=== PATIENT | male | born 1950 | race Caucasian/White ===

== ENCOUNTER 2023-03-30 07:36 | Outpatient (OUT) | payer OTHER, SELFPAY ==
[2023-03-30 08:21] LABS: Basophils Percent Auto 0.4 % (0.2-2.0); Eosinophils Absolute Auto 0.1 10^3/uL (0.0-0.7); Eosinophils Percent Auto 1.8 % (0.9-7.0); Hematocrit 43.9 % (42.0-54.0); Hemoglobin 15.4 g/dL (14.0-18.0); Immature Granulocytes Abs Auto 0.02 10^3/uL (0.00-0.03); Immature Granulocytes Pct Auto 0.4 % (0.0-0.5); Lymphocytes Absolute Auto 1.5 10^3/uL (1.2-3.8); Lymphocytes Percent Auto 33.2 % (20.5-60.0); Mean Corpuscular HGB Conc 35.1 g/dL (29.9-35.2); Mean Corpuscular Hemoglobin 31.3 pg (25.9-34.0); Mean Corpuscular Volume 89.2 fL (80.0-94.0); Mean Platelet Volume 9.7 fL (9.5-13.5); Monocytes Absolute Auto 0.6 10^3/uL (0.3-0.8); Monocytes Percent Auto 13.6 % (1.7-12.0); Neutrophils Absolute Auto 2.3 10^3/uL (1.4-6.5); Neutrophils Percent Auto 50.6 % (43.0-75.0); Platelet Count 179 10^3/uL (150-450); Red Blood Count 4.92 10^6/uL (4.70-6.10); Red Cell Distribution Width 12.3 % (11.0-15.0); White Blood Count 4.5 10^3/uL (4.0-11.0)
[2023-03-30 08:42] LABS: Alanine Aminotransferase 46 U/L (16-63); Albumin Level 3.7 g/dL (3.4-5.0); Alkaline Phosphatase 60 U/L (46-116); Anion Gap 11.5; Aspartate Amino Transferase 20 U/L (15-37); BUN Creatinine Ratio 12.3; Bilirubin Total 0.6 mg/dL (0.2-1.0); Calcium 8.8 mg/dL (8.5-10.1); Carbon Dioxide 28.8 mmol/L (21.0-32.0); Chloride 104 mmol/L (98-107); Chol HDL Ratio 4.7; Cholesterol 184 mg/dL (<=200); Estimated GFR (African America >60 (>=60); Estimated GFR (Non-African Ame 59 (>=60); Globulin 3.6 g/dL; Glucose 108 mg/dL (74-106); HDL Cholesterol 39 mg/dL (40-60); Potassium 4.3 mmol/L (3.5-5.1); Sodium 140 mmol/L (136-145); Total Protein 7.3 g/dL (6.4-8.2); Triglycerides 140 mg/dL (<=150)
[2023-03-30 09:04] LABS: Prostate Specific Antigen Scrn 3.38 ng/mL (<=4.00)
== END 2023-03-30 07:37 | disposition home or self-care (01) ==
PROVIDERS: PCP Internal Medicine; Visit Provider Internal Medicine
DX: Z00.00 Encounter for general adult medical examination without abnormal findings (principal); Z12.5 Encounter for screening for malignant neoplasm of prostate
CPT/HCPCS: 36415; 80053; 80061; 85025; G0103

== ENCOUNTER 2024-05-21 11:16 | Outpatient (OUT) | payer MEDICARE, SELFPAY ==
[2024-05-21 11:39] LABS: Basophils Percent Auto 0.3 % (0.2-2.0); Eosinophils Absolute Auto 0.1 10^3/uL (0.0-0.7); Eosinophils Percent Auto 1.7 % (0.9-7.0); Hematocrit 46.4 % (42.0-54.0); Hemoglobin 15.9 g/dL (14.0-18.0); Immature Granulocytes Abs Auto 0.02 10^3/uL (0.00-0.03); Immature Granulocytes Pct Auto 0.3 % (0.0-0.5); Lymphocytes Absolute Auto 1.8 10^3/uL (1.2-3.8); Lymphocytes Percent Auto 29.5 % (20.5-60.0); Mean Corpuscular HGB Conc 34.3 g/dL (29.9-35.2); Mean Corpuscular Hemoglobin 31.2 pg (25.9-34.0); Mean Corpuscular Volume 91.2 fL (80.0-94.0); Mean Platelet Volume 9.7 fL (9.5-13.5); Monocytes Absolute Auto 0.5 10^3/uL (0.3-0.8); Monocytes Percent Auto 7.8 % (1.7-12.0); Neutrophils Absolute Auto 3.6 10^3/uL (1.4-6.5); Neutrophils Percent Auto 60.4 % (43.0-75.0); Platelet Count 180 10^3/uL (150-450); Red Blood Count 5.09 10^6/uL (4.70-6.10)
[2024-05-21 12:11] LABS: Alanine Aminotransferase 33 U/L (16-63); Albumin Globulin Ratio 1.2; Albumin Level 3.9 g/dL (3.4-5.0); Alkaline Phosphatase 66 U/L (46-116); Aspartate Amino Transferase 19 U/L (15-37); BUN Creatinine Ratio 16.7; Bilirubin Total 0.6 mg/dL (0.2-1.0); Carbon Dioxide 30.1 mmol/L (21.0-32.0); Chloride 107 mmol/L (98-107); Chol HDL Ratio 4.6; Cholesterol 214 mg/dL (<=200); Estimated GFR (African America >60 (>=60 mL/min/1.73m^2); Estimated GFR (Non-African Ame 56 (>=60 mL/min/1.73m^2); Globulin 3.2 g/dL; Glucose 97 mg/dL (74-106); HDL Cholesterol 47 mg/dL (40-60); Potassium 5.1 mmol/L (3.5-5.1); Sodium 144 mmol/L (136-145); Total Protein 7.1 g/dL (6.4-8.2); Triglycerides 75 mg/dL (<=150)
[2024-05-21 12:46] LABS: Prostate Specific Antigen Scrn 3.46 ng/mL (<=4.00)
== END 2024-05-21 11:17 | disposition home or self-care (01) ==
LOC: LAB 11:18
PROVIDERS: PCP Internal Medicine; Visit Provider Internal Medicine
DX: I10 Essential (primary) hypertension (principal); E78.00 Pure hypercholesterolemia, unspecified; G47.33 Obstructive sleep apnea (adult) (pediatric); Z12.5 Encounter for screening for malignant neoplasm of prostate
CPT/HCPCS: 36415; 80053; 80061; 85025; G0103

== ENCOUNTER 2025-01-06 15:12 | Outpatient (OUT) | payer MEDICARE, OTHER, SELFPAY ==
--- OUTSIDE RECORDS SUMMARY | 2025-01-06 15:23 | XMS_ITS | Clinical Summary ---
Author Organization [facility] Address [id number] [address] [place] [address] Care Team Providers Care Certified Pedorthotist Name Role Phone Juan Torres Primary Care Provider [phone] Allergies No known active allergies Medications tamsulosin (FLOMAX) 0.4 mg capsule Take 1 capsule (0.4 mg total) by mouth in the morning. 05/09/2022 Active omeprazole (PriLOSEC) 20 mg capsule Take 1 capsule (20 mg total) by mouth in the morning. Active Active Problems No known active problems Family History Medical History Relation Name Comments Heart attack Brother 1 isacc Heart attack Brother 2 bill Heart attack Father Heart attach an d instantly Alzheimer's disease Mother Hypertension Mother Relation Name Status Comments Brother 1 isacc Alive Brother 2 bill Alive Father Mother Social History Tobacco Use Types Packs/Day Years Used Date Smoking Tobacco: Former Cigarettes Q uit: 1975 Smokeless Tobacco: Never Tobacco Cessation:Counseling Given: Not Answered Alcohol Use Standard Drinks/Week Comments Not Currently 0 (1 standard drink = 0.6 oz pur e alcohol) Childcare Answer Date Recorded Childcare Unknown 10/22/2018 Employment Answer Date Recorded Employment Unknown 10/22/2018 Hunger Screening Answer Date Recorded Within the past 12 months we worried whether our food would run out before we got money to buy more. Never True 05/21/2022 Within the past 12 months th e food we bought just didn't last and we didn't have money to get more. Never True 05/21/2022 Purpose - Life Answer Date Recorded Purpose and direction in life Unknown Sex and Gender Information Value Date Recorded Sex Assigned at Not on file Legal Sex Male 12:05 PM EDT Gender Identity Not on file Sexual Orientation Not on file Last Filed Vital Signs Vital Sign Reading Time Taken Comments Blood Pressure 162/76 06/10/2023 2:18 PM EST Pulse 76 06/10/2023 2:18 PM EST Temperature 36.1 C (97 F) 04/30/2023 1:29 PM EST Respiratory Rate 15 04/30/2023 2:13 PM EST Oxygen Saturation 95% 04/30/2023 2:13 PM EST Inhaled Oxygen Concentration - - Weight 117 kg (258 lb) 06/10/2023 2:18 PM EST Height 180.3 cm (5' 11 ) 06/10/2023 2:18 PM EST Body Mass Index 35.98 06/10/2023 2:18 PM EST Plan of Treatment Health Maintenance Due Date Last Done Comments Depression Screening 1962 DTaP,Tdap and Td Vaccines (1 - Tdap) 11/07/1971 Abdominal Aortic Aneurysm (AAA) Screen 2017 Fall Risk Screening 2017 Adult BMI Screening 06/10/2024 06/10/2023 Tobacco Screening 06/10/2024 06/10/2023 Influenza Vaccine 01/11/2025 Colonoscopy 06/27/2027 06/27/2022 Zoster (Shingles) Vaccine Completed 02/04/2022, Medical Devices Implanted Type Area Habitat Biologist Device Identifier Shelf Expiration Date Model / Serial / Lot Mesh Plstr Clgn Symbotex 15cm 2 Sd Comp [facility] [id number] Implanted:Qty: 1 on 04/30/2023 by Charles Bourgeois DO at [facility] Mesh N/A: Abdomen [employer] [place] 11/10/2027 [id number] / NA / [id number] Insurance [employer] Care Teams Certified Pedorthotist Relationship Specialty Start Date End Date Juan Torres DO [address] [place] [address] PCP - General Internal Medicine 05/21/22
--- OUTSIDE RECORDS SUMMARY | 2025-01-06 15:23 | XMS_ITS | Clinical Summary ---
Author Organization [facility] Address [address] [place] [address] Care Team Providers Care Nail Puller Name Role Phone Unavailable Primary Care Provider Unavailabl e Social History Tobacco Use Types Packs/Day Years Used Date Smoking Tobacco: Never Assessed Sex and Gender Information Value Date Recorded Sex Assigned at Not on file Legal Sex Male 6:43 PM EDT Gender Identity Not on file Sexual Orientation Not on file Last Filed Vital Signs Vital Sign Reading Time Taken Comments Blood Pressure 151/83 06/04/2018 12:00 PM EST Pulse - - Temperature - - Respiratory Rate - - Oxygen Saturation - - Inhaled Oxygen Concentration - - Weight 116 kg (256 lb) 06/04/2018 12:00 PM EST Height 182.9 cm (6') 06/04/2018 12:00 PM EST Body Mass Index 34.72 06/04/2018 12:00 PM EST Plan of Treatment Not on file Insurance MEDICARE
[2025-01-06 15:37] LABS: Hematocrit 46.9 % (42.0-54.0); Hemoglobin 16.8 g/dL (14.0-18.0); Immature Granulocytes Abs Auto 0.02 10^3/uL (0.00-0.03); Immature Granulocytes Pct Auto 0.3 % (0.0-0.5); Lymphocytes Absolute Auto 2.2 10^3/uL (1.2-3.8); Mean Corpuscular HGB Conc 35.8 g/dL (29.9-35.2); Mean Corpuscular Hemoglobin 31.7 pg (25.9-34.0); Mean Corpuscular Volume 88.5 fL (80.0-94.0); Platelet Count 202 10^3/uL (150-450); Red Blood Count 5.30 10^6/uL (4.70-6.10); White Blood Count 7.2 10^3/uL (4.0-11.0)
--- NOTE | 2025-01-06 15:43 | XR_ITS ---
The [address] [address] Patient Name: MADDY PERAZA MRN: [id number] date: 1950 Sex: M Assigned Patient Location: LAB Current Patient Location: LAB Accession/Order Number: [id number] Exam Date: 01/06/2025 15:36 Report Date: 01/06/2025 20:41 At the request of: JUSTYN STANTON DO Procedure: XR chest 2V Plain film chest 2 view HISTORY: Acute dyspnea. COMPARISON: None FINDINGS: SUPPORT DEVICES: None POSTSURGICAL CHANGES: None HEART: Within normal limits PULMONARY JUANCARLOS: Within normal limits MEDIASTINUM: Unremarkable LUNGS AND PLEURA: No acute lung process, pleural effusion or pneumothorax identified. BONY STRUCTURES: Intact ADDITIONAL FINDINGS None XR/XR chest 2V IMPRESSION: No acute process. Impression dictated by: Lennox Briscoe M.D. 01/06/2025 8:41 PM [facility]ictation [facility] Electronically authenticated by: [id number] Y Date: 01/06/2025 20:41
[2025-01-06 16:05] LABS: Alanine Aminotransferase 31 U/L (16-63); Albumin Globulin Ratio 1.1; Albumin Level 4.0 g/dL (3.4-5.0); Alkaline Phosphatase 63 U/L (46-116); Anion Gap 13.5; Aspartate Amino Transferase 18 U/L (15-37); Blood Urea Nitrogen 19.0 mg/dL (7.0-18.0); Calcium 9.1 mg/dL (8.5-10.1); Carbon Dioxide 23.7 mmol/L (21.0-32.0); Chloride 108 mmol/L (98-107); Estimated GFR (African America >60 (>=60 mL/min/1.73m^2); Estimated GFR (Non-African Ame 56 (>=60 mL/min/1.73m^2); Globulin 3.5 g/dL; Glucose 97 mg/dL (74-106); NT Pro B Type Natriuretic Pept 443.0 pg/mL (<=900.0); Potassium 4.2 mmol/L (3.5-5.1); Sodium 141 mmol/L (136-145); Thyroid Stimulating Hormone 3.428 uIU/mL (0.358-3.740); Total Protein 7.5 g/dL (6.4-8.2)
--- OUTSIDE RECORDS SUMMARY | 2025-01-06 17:43 | XMS_ITS | CCD ---
Author Organization [facility] Care Team Providers Care Vehicle Modification Technician Name Role Phone MEÑO ., DR ANTOINE Lerner Admitting Unavaila ble GRILLIS ., DR ANTOINE Lerner Attending Unavaila ble BALL, DR ALEJANDRA Primary Care Unavailable GRILLIS ., DR ANTOINE Lerner Consulting Unavaila ble SHARP, CANDE Consulting Unavailable NELY, JODY Consulting Unavailable MISC, DR PETERSON Admitting Unavailable MISC, DR PETERSON Attending Unavailable BALL, DR ALEJANDRA Primary Care Unavailable MISC, DR PETERSON Consulting Unavailable BALL, DR ALEJANDRA Admitting Unavailable BALL, DR ALEJANDRA Attending Unavailable BALL, DR ALEJANDRA Primary Care Unavailable BALL, DR ALEJANDRA Consulting Unavailable GRILLIS ., DR ANTOINE Lerner Admitting Unavaila ble GRILLIS ., DR ANTOINE Lerner Attending Unavaila ble BALL, DR ALEJANDRA Primary Care Unavailable GRILLIS ., DR ANTOINE Lerner Consulting Unavaila ble Ball, Juan Unavailable ELIZABETH CARDOSO Attending Unavailable JUAN TORRES Referring Unavailable BRIAN, JUAN Lerner Primary Care Unavailable ELIZABETH CARDOSO Attending Unavailable BALLJUAN Referring Unavailable BALL, JUAN Lerner Primary Care Unavailable Ball DO, Juan Lerner Primary Care Provider Allergies Allergy Classification Reported Allergen(s) Allergy Type Date of Onset Reaction(s) Facility (1 source) patient allergy list reviewed by nurse or physicia Propensity to adverse reactions Comment:Done Rounds Other Medications Current Medications Medication Drug Class(es) Dates Sig (Normalized) Sig (Original) amLODIPine 5 mg oral tablet (1 source) Dihydropyridine Calcium Channel [place] Start: 05-21-2024 take 1 tablet by mouth once daily Amlodipine 5 mg tablet Active 5 MG PO Daily 30 May 21, 2024 12:00am omeprazole 20 mg delayed release oral capsule (11 sources) Proton Pump Inhibitor Start: 09-24-2023 take 1 capsule by mouth once daily Omeprazole 20 mg capsule,delayed release(/EC) Active 20 MG PO Daily September 23, 2023 11:00pm tamsulosin hydrochloride 0.4 mg oral capsule (13 sources) alpha-Adrenergic [place] Start: 02-16-2024 End: 05-19-2024 take 1 capsule by mouth once daily at dinner Tamsulosin 0.4 mg capsule Active 0 .ROUTE .COMPLEX 90 May 19, 2024 1:00pm TAKE 1 CAPSULE BY MOUTH EVERY DAY AFTER EVENING MEAL Start: 05-09-2022 End: 02-16-2024 take 1 capsule by mouth once daily Tamsulosin 0.4 mg capsule Discontinued 0.4 MG PO Daily September 23, 2023 11:00pm February 16, 2024 6:40pm Completed/Discontinued Medications Medication Drug Class(es) Dates Sig (Normalized) Sig (Original) acetaminophen 325 mg / oxyCODONE hydrochloride 5 mg oral tablet (1 source) Opioid Agonist Start: 04-30-2023 End: 05-14-2023 oxyCODONE-acetamin ophen (PERCOCET) 5-325 mg per tablet Indications: Incarcerated ventral hernia Take 1 tablet by mouth every 6 (six) hours as needed for pain for up to 12 doses. Max Daily Amount: 4 tablets 12 tablet 0 04/30/2023 05/14/2023 Discontinued (Therapy completed) atorvastatin 40 mg oral tablet (8 sources) HMG-CoA Reductase Inhibitor Start: 09-24-2023 End: 05-21-2024 take 1 tablet by mouth once daily Atorvastatin 40 mg tablet Discontinued 40 MG PO Daily September 23, 2023 11:00pm May 21, 2024 10:34am take 1 tablet by elvi th every twenty-four hours Atorvastatin Calcium 40 MG 1 tablet Oral ly Once a day Active ibuprofen 800 mg oral tablet (1 source) Nonsteroidal Anti-inflammatory Drug Start: 04-30-2023 End: 05-14-2023 take 1 tablet by mouth every eight hours as needed for pain ibuprofen (MOTRIN) 800 mg tablet Take 1 tablet (800 mg total) by mouth every 8 (eight) hours as needed for pain. 30 tablet 0 04/30/2023 05/14/2023 Discontinued (Therapy completed) loratadine 10 mg oral tablet (11 sources) Start: 09-24-2023 End: 05-21-2024 take 1 tablet by mouth once daily Loratadine 10 mg tablet Discontinued 10 MG PO Daily September 23, 2023 11:00pm May 21, 2024 10:34am take 1 tablet by mouth once donal y Loratadine 10 MG TAKE 1 TABLET BY MOUTH EVERY DAY for 90 Active losartan potassium 25 mg oral tablet (8 sources) Angiotensin 2 Receptor [place] Start: 09-24-2023 End: 05-21-2024 take 1 tablet by mouth once daily Losartan 25 mg tablet Discontinued 25 MG PO Daily September 23, 2023 11:00pm May 21, 2024 10:34am Start: 11-19-2022 take 1 tablet by elvi th every twenty-four hours Losartan Potassium 25 MG 1 tablet Orally Once a day for 30 days Nov, Active Problems Active Problems Problem Classification Problem Date Documented Da te Episodic/Chronic Abdominal hernia (1 source) Umbilical hernia without obstruction or gangrene Episodic Disorders of lipid metabolism (19 sources) Pure hypercholesterolemia ; Translations: [Familial hypercholesterolemia ] Chronic Esophageal disorders (20 sources) Lucas's esophagus without dysplasia; Translations: [Gastro-esophageal reflux disease without esophagitis] Onset: 03-01-2014 Chronic Essential hypertension (20 sources) Essential hypertension; Translations: [Essential (primary) hypertension] Chronic Gastritis and duodenitis (1 source) Gastritis, unspecified, without bleeding; Translations: [GASTRITIS UNS WITHOUT BLEEDING] Onset: 07-03-2022 Episodic Genitourinary symptoms and ill-defined conditions (2 sources) Unspecified abnormal findings in urine; Translations: [Nocturia] Onset: 03-19-2022 Episodic Heart valve disorders (8 sources) Aortic valve sclerosis; 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] Chronic Hyperplasia of prostate (11 sources) Lower urinary tract symptoms due to benign prostatic hypertrophy; Translations: [Benign prostatic hyperplasia with lower urinary tract symptoms] Onset: 01-04-2017 Chronic Inflammatory conditions of male genital organs (4 sources) Acute prostatitis; Translations: [Acute prostatitis] Episodic Other aftercare (1 source) Other prison (current) drug therapy; Translations: [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] Onset: 07-03-2022 Episodic Other and unspecified benign neoplasm (1 source) Personal history of colonic polyps; Translations: [PERSONAL HISTORY OF COLONIC POLYPS] Onset: 07-03-2022 Episodic Other circulatory disease (1 source) Elevated blood-pressure reading without diagnosis of hypertension; Translations: [Elevated blood-pressure reading, without diagnosis of hypertension] Episodic Other gastrointestinal disorders (1 source) Personal history of other diseases of the digestive system; Translations: [Personal history of other diseases of the digestive system] Onset: 05-14-2023 Episodic Other nutritional; endocrine; and metabolic disorders (2 sources) Morbid (severe) obesity due to excess calories; Translations: [MORBID SEVERE OBES D/T EXCESS RAUL] Onset: 07-03-2022 Chronic Other nutritional; endocrine; and metabolic disorders (1 source) Body mass index (BMI) 37.0-37.9, adult; Translations: [BODY MASS INDEX BMI 37.0-37.9 ADULT] Onset: 07-03-2022 Chronic Other nutritional; endocrine; and metabolic disorders (13 sources) Body mass index 30+ - obesity; Translations: [Body mass index (BMI) 34.0-34.9, adult] Onset: 03-19-2017 Chronic Other nutritional; endocrine; and metabolic disorders (7 sources) Obesity caused by energy imbalance; Translations: [Other obesity due to excess calories] Chronic Other nutritional; endocrine; and metabolic disorders (1 source) Other obesity due to excess calories Chronic Other nutritional; endocrine; and metabolic disorders (1 source) Body mass index (BMI) 34.0-34.9, adult Chronic Other nutritional; endocrine; and metabolic disorders (1 source) Obese class II; Translations: [Body mass index (BMI) 35.0-35.9, adult] Onset: 12-22-2015 Chronic Other nutritional; endocrine; and metabolic disorders (2 sources) Obesity; Translations: [Obesity, unspecified] 05-19-2024 Chronic Other nutritional; endocrine; and metabolic disorders (1 source) Morbid obesity; Translations: [Morbid (severe) obesity due to excess calories] Onset: 12-22-2015 Chronic Other nutritional; endocrine; and metabolic disorders (5 sources) Severe obesity; Translations: [Morbid (severe) obesity due to excess calories] Chronic Other nutritional; endocrine; and metabolic disorders (1 source) Body mass index (BMI) 35.0-35.9, adult Chronic Other nutritional; endocrine; and metabolic disorders (1 source) Obesity, unspecified; Translations: [Obesity, unspecified] 05-21-2024 Chronic Other screening for suspected conditions (not mental disorders or infectious disease) (5 sources) Encounter for screening for malignant neoplasm of prostate; Translations: [Encounter for screening for diseases of the blood and blood-forming organs and certain disorders involving the immune mechanism] Onset: 12-22-2015 Episodic Comment on above: PSA: 3.78 - 03/2022, 3.38 - 03/2023 Other upper respiratory disease (7 sources) Allergic rhinitis due to pollen; Translations: [Allergic rhinitis due to pollen] Chronic Other upper respiratory disease (1 source) Allergic rhinitis; Translations: [Other allergic rhinitis] Chronic Other upper respiratory disease (1 source) Rhinitis medicamentosa; Translations: [Chronic rhinitis] 05-21-2024 Chronic Other upper respiratory disease (1 source) Chronic rhinitis; Translations: [Chronic rhinitis] 05-21-2024 Chronic Residual codes; unclassified (17 sources) Obstructive sleep apnea syndrome; Translations: [Obstructive sleep apnea (adult) (pediatric)] Onset: 12-22-2015 09-23-2023 Chronic Residual codes; unclassified (4 sources) Obstructive sleep apnea (adult) (pediatric); Translations: [Obstructive sleep apnea (adult)(pediatric)] Chronic Residual codes; unclassified (1 source) Acquired absence of other specified parts of digestive tract; Translations: [ACQ ABSENCE OTH PART DIGESTV TRACT] Onset: 07-03-2022 Episodic Residual codes; unclassified (1 source) Other specified postprocedural states; Translations: [Other specified postprocedural states] Onset: 05-14-2023 Episodic Substance-related disorders (8 sources) Tobacco user; Translations: [Nicotine dependence, cigarettes, in remission] Chronic Unclassified (1 source) CONTACT W/AND (SUSP) EXPOS COVID-19; Translations: [CONTACT W/AND (SUSP) EXPOS COVID-19] Onset: 06-29-2022 Unclassified (1 source) POST-OP VISIT Onset: 05-14-2023 Past or Other Problems Problem Classification Problem Date Documented Date Episodic/Chronic Malaise and fatigue (1 source) Malaise and fatigue; Translations: [Other malaise and fatigue] Onset: 12-22-2015 Episodic Other eye disorders (4 sources) Dermatochalasis of unspecified eye, unspecified eyelid; Translations: [DERMATOCHALASIS UNS EYE UNS EYELID] Onset: 03-06-2022 Episodic Other eye disorders (1 source) Unspecified ptosis of unspecified eyelid; Translations: [UNSPEC PTOSIS OF UNS EYELID] Onset: 03-11-2022 Episodic Other injuries and conditions due to external causes (1 source) Foreign body in left ear; Translations: [Foreign body in left ear, initial encounter] Onset: 03-19-2017 Episodic Other upper respiratory disease (1 source) Difficulty speaking; Translations: [Other voice and resonance disorders] Onset: 03-01-2014 Episodic Residual codes; unclassified (2 sources) History of hernia repair; Translations: [Other specified postprocedural states] 05-14-2023 Episodic Screening and history of mental health and substance abuse codes (2 sources) Personal history of nicotine dependence; Translations: [History of tobacco use] Onset: 03-19-2017 Episodic Results Test Name Value Interpretation Reference Range Facil ity H PYLORI TISSUEon 06-27-2022 H PYL TISSUE, UREASE Negative Normal NEGATIVE [facility] Comment on above: Performed By: #### H PYLT #### [facility] [address] [place] [address] Dr. Cash Zapata Covid-19 PCR (CVDTB)on 06-13 SARS-CoV-2 (COVID-19) RNA MICAH+probe Ql (Unsp spec) Not detected Normal NOT DETECTED [facility] Comment on above: Result Comment: This test is not yet approved or cleared by the [place] FDA. When there are no FDA-approved or cleared tests available, and other criteria are met, FDA can make tests available under an emergency access mechanism called an Emergency Use Authorization (EUA). The EUA for this test is supported by the [place] of Health and Human Service's (HHS's) declaration that circumstances exist to justify the emergency use of in vitro diagnostics for the detection and/or diagnosis of the virus that causes COVID-19. This EUA will remain in effect (meaning this test can be used) for the duration of the COVID-19 declaration justifying emergency of IVDs, unless it is terminated or revoked by FDA (after which the test may no longer be used). When diagnostic testing is negative, the possibility of a false negative should be considered in the context of a patient's recent exposures and the presence of clinical signs and symptoms consistent with SARS-CoV-2. Performed By: #### C VDTBH #### [facility] [address] [address] [address] Cash Zapata CBC AUTO DIFFon 03-14-2022 BASO # 0.0 103/ul Normal 0.0-0.1 [facility] Comment on above: Performed By: #### C BC #### [facility] [address] [address] [address] Cash Zapata Basophils/100 WBC (Bld) 0.3 % Normal 0.2-2.0 [facility] Comment on above: Performed By: #### C BC #### [facility] [address] [address] [address] Cash Zapata EO # 0.1 103/ul Normal 0.0-0.7 [facility] Comment on above: Performed By: #### C BC #### [facility] [address] [place] [address] Dr. Cash Zapata Eosinophils/100 WBC (Bld) 1.1 % Normal 0.9-7.0 [facility] Comment on above: Performed By: #### C BC #### [facility] [address] [place] [address] Dr. Cash Zapata Erythrocyte distribution width (RBC) [Ratio] 12.8 % Normal 11.0-15.0 [facility] Comment on above: Performed By: #### C BC #### [facility] [address] [place] [address] Dr. Cash Zapata Hematocrit (Bld) [Volume fraction] 46.3 % Normal 42.0-54.0 [facility] Comment on above: Performed By: #### C BC #### [facility] [address] [place] [address] Dr. Cash Zapata Hemoglobin (Bld) [Mass/Vol] 16.0 g/dL Normal 14.0-18.0 [facility] Comment on above: Performed By: #### C BC #### [facility] [address] [address] [address] Cash Zapata IG # 0.04 10e3/ul Critically high 0.00-0.03 [facility] Comment on above: Performed By: #### C BC #### [facility] [address] [place] [address] Dr. Cash Zapata IG % 0.6 % Critically high 0.0-0.5 [facility] Comment on above: Performed By: #### C BC #### [facility] [address] [place] [address] Dr. Cash Zapata LYMPH # 1.9 103/ul Normal 1.2-3.8 [facility] Comment on above: Performed By: #### C BC #### [facility] [address] [place] [address] Dr. Cash Zapata Lymphocytes/100 WBC (Bld) 25.9 % Normal 20.5-60.0 [facility] Comment on above: Performed By: #### C BC #### [facility] [address] [place] [address] Dr. Cash Zapata MANUAL DIFF REQ NO Normal [facility] Comment on above: Performed By: #### C BC #### [facility] [address] [place] [address] Dr. Cash Zapata MCH (RBC) [Entitic mass] 30.7 pg Normal 25.9-34.0 [facility] Comment on above: Performed By: #### C BC #### [facility] [address] [place] [address] Dr. Cash Zapata MCHC (RBC) [Mass/Vol] 34.6 g/dL Normal 29.9-35.2 [facility] Comment on above: Performed By: #### C BC #### [facility] [address] [place] [address] Dr. Cash Zapata MCV (RBC) [Entitic vol] 88.9 fL Normal 80.0-94.0 [facility] Comment on above: Performed By: #### C BC #### [facility] [address] [place] [address] Dr. Cash Zapata MONO # 0.6 103/ul Normal 0.3-0.8 [facility] Comment on above: Performed By: #### C BC #### [facility] [address] [place] [address] Dr. Cash Zapata Monocytes/100 WBC (Bld) 8.5 % Normal 1.7-12.0 [facility] Comment on above: Performed By: #### C BC #### [facility] [address] [place] [address] Dr. Cash Zapata NEUT # 4.6 103/ul Normal 1.4-6.5 [facility] Comment on above: Performed By: #### C BC #### [facility] [address] [place] [address] Dr. Cash Zapata Neutrophils/100 WBC (Bld) 63.6 % Normal 43.0-75.0 [facility] Comment on above: Performed By: #### C BC #### [facility] [address] [place] [address] Dr. Cash Zapata Platelet mean volume (Bld) [Entitic vol] 9.0 fL Critically low 9.5-13.5 [facility] Comment on above: Performed By: #### C BC #### [facility] [address] [place] [address] Dr. Cash Zapata PLT 209 103/ul Normal 150-450 [facility] Comment on above: Performed By: #### C BC #### [facility] [address] [place] [address] Dr. Cash Zapata RBC 5.21 106/ul Normal 4.70-6.10 [facility] Comment on above: Performed By: #### C BC #### [facility] [address] [place] [address] Dr. Cash Zapata WBC 7.3 103/ul Normal 4.0-11.0 [facility] Comment on above: Performed By: #### C BC #### [facility] [address] [place] [address] Dr. Cash Zapata CULTURE URINEon 03-14-2022 CULTURE URINE Culture Observations : NO GROWTH. Normal [facility] Comment on above: Performed By: #### U RCX #### [facility] [address] [address] [address] Cash Zapata LIPID PROFILEon 03-14-2022 CHOL-HDL RATIO NORM SEE BELOW Normal [facility] Comment on above: Result Comment: 3.3 - 4.4 LOW RISK 4.4 - 7.1 AVERAGE RISK 7.1 - 11.0 MODERATE RISK >11.0 HIGH RISK Performed By: #### C MP, LIPID #### [facility] [address] [address] [address] Cash Zapata Cholesterol [Mass/Vol] 187 mg/dL Normal <=200 [facility] Comment on above: Performed By: #### C MP, LIPID #### [facility] [address] [address] [address] Cash Zapata Cholesterol in HDL [Mass/Vol] 44 mg/dL Normal 40-60 [facility] Comment on above: Performed By: #### C MP, LIPID #### [facility] [address] [address] [address] Cash Zapata Cholesterol in LDL [Mass/Vol] 124.6 mg/dL Normal [facility] Comment on above: Performed By: #### C MP, LIPID #### [facility] [address] [address] [address] Cash Zapata Cholesterol.total/C holesterol in HDL [Mass ratio] 4.3 {ratio} Normal [facility] Comment on above: Performed By: #### C MP, LIPID #### [facility] [address] [address] [address] Cash Zapata HDL NORMAL > or = 60 mg/dl - LO W CARDIOVASCULAR RISK <40 mg/dl - HIGH CARDIOVASCULAR RISK Normal [facility] Comment on above: Performed By: #### C MP, LIPID #### [facility] [address] [address] [address] Cash Zapata LDL CALC NORMAL SEE BELOW Normal [facility] Comment on above: Result Comment: <100 mg/dl OPTIMAL 100 - 129 mg/dl NEAR OR ABOVE OPTIMAL 130 - 159 mg/dl BORDERLINE HIGH 160 - 189 mg/dl HIGH >190 mg/dl VERY HIGH Performed By: #### C MP, LIPID #### [facility] [address] [place] [address] Dr. Cash Zapata Triglyceride [Mass/Vol] 92 mg/dL Normal <=150 [facility] Comment on above: Performed By: #### C MP, LIPID #### [facility] [address] [place] [address] Dr. Cash Zapata VLDL CALC 18.4 mg/dL Normal [facility] Comment on above: Performed By: #### C MP, LIPID #### [facility] [address] [place] [address] Dr. Cash Zapata PROF 14(COMP METB)on 022 Albumin [Mass/Vol] 4.0 g/dL Normal 3.4-5.0 [facility] Comment on above: Performed By: #### C MP, LIPID #### [facility] [address] [place] [address] Dr. Cash Zapata Albumin/Globulin [Mass ratio] 1.2 {ratio} Normal [facility] Comment on above: Performed By: #### C MP, LIPID #### [facility] [address] [place] [address] Dr. Cash Zapata ALP [Catalytic activity/Vol] 47 U/L Normal 46-116 [facility] Comment on above: Performed By: #### C MP, LIPID #### [facility] [address] [place] [address] Dr. Cash Zapata ALT [Catalytic activity/Vol] 52 U/L Normal 16-63 [facility] Comment on above: Performed By: #### C MP, LIPID #### [facility] [address] [place] [address] Dr. Cash Zapata Anion gap [Moles/Vol] 9.8 mmol/L Normal [facility] Comment on above: Performed By: #### C MP, LIPID #### [facility] [address] [place] [address] Dr. Cash Zapata AST [Catalytic activity/Vol] 21 U/L Normal 15-37 [facility] Comment on above: Performed By: #### C MP, LIPID #### [facility] [address] [place], [place] [id number] Dr. Cash Zapata Bilirubin [Mass/Vol] 0.5 mg/dL Normal 0.2-1.0 [facility] Comment on above: Performed By: #### C MP, LIPID #### [facility] [address] [place] [address] Dr. Cash Zapata Calcium [Mass/Vol] 9.5 mg/dL Normal 8.5-10.1 [facility] Comment on above: Performed By: #### C MP, LIPID #### [facility] [address] [place] [address] Dr. Cash Zapata Chloride [Moles/Vol] 104 mmol/L Normal 98-107 [facility] Comment on above: Performed By: #### C MP, LIPID #### [facility] [address] [place] [address] Dr. Cash Zapata CO2 [Moles/Vol] 31.3 mmol/L Normal 21.0-32.0 [facility] Comment on above: Performed By: #### C MP, LIPID #### [facility] [address] [place] [address] Dr. Cash Zapata Creatinine [Mass/Vol] 1.26 mg/dL Normal 0.70-1.30 [facility] Comment on above: Performed By: #### C MP, LIPID #### [facility] [address] [place] [address] Dr. Cash Zapata EGFR-AF IRISH >60 Normal >=60 [facility] [facility] Comment on above: Performed By: #### C MP, LIPID #### [facility] [address] [place] [address] Dr. Cash Zapata EGFR-NON AF IRISH 57 mL/min/1.73m2 Critically low >=60 [facility] Comment on above: Performed By: #### C MP, LIPID #### [facility] [address] [place] [address] Dr. Cash Zapata Globulin (S) [Mass/Vol] 3.3 g/dL Normal [facility] Comment on above: Performed By: #### C MP, LIPID #### [facility] [address] [address] [address] Cash Zapata Glucose [Mass/Vol] 109 mg/dL Critically high 74-106 [facility] Comment on above: Performed By: #### C MP, LIPID #### [facility] [address] [place] [address] Dr. Cash Zapata Potassium [Moles/Vol] 5.1 mmol/L Normal 3.5-5.1 [facility] Comment on above: Performed By: #### C MP, LIPID #### [facility] [address] [place] [address] Dr. Cash Zapata Protein [Mass/Vol] 7.3 g/dL Normal 6.4-8.2 The [facility] Comment on above: Performed By: #### C MP, LIPID #### [facility] [address] [place] [address] Dr. Cash Zapata Sodium [Moles/Vol] 140 mmol/L Normal 136-145 [facility] Comment on above: Performed By: #### C MP, LIPID #### [facility] [address] [place] [address] Dr. Cash Zapata Urea nitrogen [Mass/Vol] 23.0 mg/dL Critically high 7.0-18.0 [facility] Comment on above: Performed By: #### C MP, LIPID #### [facility] [address] [place] [address] Dr. Cash Zapata Urea nitrogen/Creatinine [Mass ratio] 18.3 mg/mg Normal [facility] Comment on above: Performed By: #### C MP, LIPID #### [facility] [address] [place] [address] Dr. Cash Zapata UA RANDOM W/MICROSCOPICon BACTERIA NONE SEEN Normal NONE SEEN The [facility] Comment on above: Performed By: #### U AMIC #### [facility] [address] [place] [address] Dr. Cash Zapata Bilirubin Ql (U) Negative Normal NEGATIVE The [facility] Comment on above: Performed By: #### U AMIC #### [facility] [address] [place] [address] Dr. Cash Zapata CAST NONE SEEN Normal NONE SEEN [facility] Comment on above: Performed By: #### U AMIC #### [facility] [address] [address] [address] Cash Zapata Clarity (U) CLEAR Normal CLEAR [facility] Comment on above: Performed By: #### U AMIC #### [facility] [address] [address] [address] Cash Zapata Color (U) LT. YELLOW Normal YELLOW The [facility] Comment on above: Performed By: #### U AMIC #### [facility] [address] [place] [address] Dr. Cash Zapata Crystals LM Nom (Urine sed) NONE SEEN Normal NONE SEEN [facility] Comment on above: Performed By: #### U AMIC #### [facility] [address] [place] [address] Dr. Cash Zapata Epithelial cells LM Ql (Urine sed) RARE Normal NONE SEEN /RARE The [facility] Comment on above: Performed By: #### U AMIC #### [facility] [address] [place] [address] Dr. Cahs Zapata Glucose Ql (U) Negative Normal NEGATIVE The [facility] Comment on above: Performed By: #### U AMIC #### [facility] [address] [place] [address] Dr. Cash Zapata Hemoglobin Ql (U) Negative Normal NEGATIVE The [facility] Comment on above: Performed By: #### U AMIC #### [facility] [address] [place] [address] Dr. Cash Zapata Ketones Ql (U) Negative Normal NEGATIVE The [facility] Comment on above: Performed By: #### U AMIC #### [facility] [address] [place] [address] Dr. Cash Zapata LEUKOCYTES Negative Normal NEGATIVE The [facility] Comment on above: Performed By: #### U AMIC #### [facility] [address] [place] [address] Dr. Csah Zapata MUCOUS NONE SEEN Normal NONE SEEN [facility] Comment on above: Performed By: #### U AMIC #### [facility] [address] [place] [address] Dr. Cash Zapata Nitrite Ql (U) Negative Normal NEGATIVE The [facility] Comment on above: Performed By: #### U AMIC #### [facility] [address] [place] [address] Dr. Cash Zapata pH (U) 6.0 [pH] Normal 5-9 [facility] Comment on above: Performed By: #### U AMIC #### [facility] [address] [place] [address] Dr. Cash Zapata RBC NONE SEEN Abnormal 0-2 [facility] Comment on above: Performed By: #### U AMIC #### [facility] [address] [place] [address] Dr. Cash Zapata SPEC GRAVITY 1.025 Normal 1.005-<=1.025 The [facility] Comment on above: Performed By: #### U AMIC #### [facility] [address] [place] [address] Dr. Cash Zapata UA PROTEIN Negative Normal NEGATIVE/ TRACE [facility] Comment on above: Performed By: #### U AMIC #### [facility] [address] [place] [address] Dr. aCsh Zapata Urobilinogen Qn (U) 1.0 {Atilio'U}/dL Normal 0.2 - 1. 0 [facility] Comment on above: Performed By: #### U AMIC #### [facility] [address] [place] [address] Dr. Cash Zapata WBC 0-2 Abnormal NONE SEEN The [facility] Comment on above: Performed By: #### U AMIC #### [facility] [address] [place] [address] Dr. Cash Zapata CBC AUTO DIFFon 03-06-2022 BASO # 0.0 103/ul Normal 0.0-0.1 [facility] Comment on above: Performed By: #### C BC #### [facility] [address] [place] [address] Dr. Cash Zapata Basophils/100 WBC (Bld) 0.3 % Normal 0.2-2.0 [facility] Comment on above: Performed By: #### C BC #### [facility] [address] [place] [address] Dr. Cash Zapata EO # 0.1 103/ul Normal 0.0-0.7 [facility] Comment on above: Performed By: #### C BC #### [facility] [address] [place] [address] Dr. Cash Zapata Eosinophils/100 WBC (Bld) 1.4 % Normal 0.9-7.0 [facility] Comment on above: Performed By: #### C BC #### [facility] [address] [place] [address] Dr. Cash Zapata Erythrocyte distribution width (RBC) [Ratio] 12.4 % Normal 11.0-15.0 [facility] Comment on above: Performed By: #### C BC #### [facility] [address] [place] [address] Dr. Cash Zapata Hematocrit (Bld) [Volume fraction] 46.5 % Normal 42.0-54.0 [facility] Comment on above: Performed By: #### C BC #### [facility] [address] [place] [address] Dr. Cash Zapata Hemoglobin (Bld) [Mass/Vol] 16.4 g/dL Normal 14.0-18.0 [facility] Comment on above: Performed By: #### C BC #### [facility] [address] [place] [address] Dr. Cash Zapata IG # 0.02 10e3/ul Normal 0.00-0.03 [facility] Comment on above: Performed By: #### C BC #### [facility] [address] [place] [address] Dr. Cash Zapata IG % 0.3 % Normal 0.0-0.5 [facility] Comment on above: Performed By: #### C BC #### [facility] [address] [place] [address] Dr. Cash Zapata LYMPH # 2.5 103/ul Normal 1.2-3.8 [facility] Comment on above: Performed By: #### C BC #### [facility] [address] [place] [address] Dr. Cash Zapata Lymphocytes/100 WBC (Bld) 39.4 % Normal 20.5-60.0 [facility] Comment on above: Performed By: #### C BC #### [facility] [address] [place] [address] Dr. Cash Zapata MANUAL DIFF REQ NO Normal [facility] Comment on above: Performed By: #### C BC #### [facility] [address] [place] [address] Dr. Cash Zapata MCH (RBC) [Entitic mass] 31.2 pg Normal 25.9-34.0 [facility] Comment on above: Performed By: #### C BC #### [facility] [address] [place] [address] Dr. Cash Zapata MCHC (RBC) [Mass/Vol] 35.3 g/dL Critically high 29.9-35.2 [facility] Comment on above: Performed By: #### C BC #### [facility] [address] [place] [address] Dr. Cash Zapata MCV (RBC) [Entitic vol] 88.6 fL Normal 80.0-94.0 [facility] Comment on above: Performed By: #### C BC #### [facility] [address] [place] [address] Dr. Cash Zapata MONO # 0.7 103/ul Normal 0.3-0.8 [facility] Comment on above: Performed By: #### C BC #### [facility] [address] [place] [address] Dr. Cash Zapata Monocytes/100 WBC (Bld) 10.4 % Normal 1.7-12.0 [facility] Comment on above: Performed By: #### C BC #### [facility] [address] [place] [address] Dr. Cash Zapata NEUT # 3.1 103/ul Normal 1.4-6.5 [facility] Comment on above: Performed By: #### C BC #### [facility] [address] [address] [address] Cash Zapata Neutrophils/100 WBC (Bld) 48.2 % Normal 43.0-75.0 [facility] Comment on above: Performed By: #### C BC #### [facility] [address] [address] [address] Cash Zapata Platelet mean volume (Bld) [Entitic vol] 9.4 fL Critically low 9.5-13.5 [facility] Comment on above: Performed By: #### C BC #### [facility] [address] [place] [address] Dr. Cash Zapata PLT 210 103/ul Normal 150-450 [facility] Comment on above: Performed By: #### C BC #### [facility] [address] [place] [address] Dr. Cash Zapata RBC 5.25 106/ul Normal 4.70-6.10 [facility] Comment on above: Performed By: #### C BC #### [facility] [address] [address] [address] Cash Zapata WBC 6.4 103/ul Normal 4.0-11.0 [facility] Comment on above: Performed By: #### C BC #### [facility] [address] [place] [address] Dr. Cash Zapata Vital Signs Date Time Vital Sign Value Performing Clinician Facility 05-21-2024 10:36-0500 Body height 180.34 cm [facility] 05-21-2024 10:36-0500 Body mass index (BMI) [Ratio] 34.2 kg/m2 [facility] 05-21-2024 10:36-0500 Body weight 111.35 kg [facility] 05-21-2024 10:36-0500 Diastolic blood pressure 73 mm[Hg] [facility] 05-21-2024 10:36-0500 Heart rate 65 /min [facility] 05-21-2024 10:36-0500 Respiratory rate 12 /min [facility] 05-21-2024 10:36-0500 Systolic blood pressure 170 mm[Hg] [facility] 06-10-2023 14:18-0500 Body height 180.3 cm Elizabeth Cardoso [employer] TECH[employer]ICIAN Work Phone: [facility] 06-10-2023 14:18-0500 Body mass index (BMI) [Ratio] 35.98 kg/m2 Elizabeth Cardoso [employer] TECHNICIAN Work Phone: [facility] 06-10-2023 14:18-0500 Body weight 117.03 kg Elizabeth Cardoso [employer] TECHNICIAN Work Phone: [facility] 06-10-2023 14:18-0500 Diastolic blood pressure 76 mm[Hg] Elizabeth Cardoso [employer] TECHNICIAN Work Phone: [facility] 06-10-2023 14:18-0500 Heart rate 76 /min Elizabeth Cardoso [employer] TECHNICIAN Work Phone: [facility] 06-10-2023 14:18-0500 Systolic blood pressure 162 mm[Hg] Elizabeth Cardoso [employer] TECHNICIAN Work Phone: [facility] 05-14-2023 13:47-0500 Body height 180.3 cm Elizabeth Cardoso [employer] TECHNICIAN Work Phone: [facility] 05-14-2023 13:47-0500 Body mass index (BMI) [Ratio] 35.93 kg/m2 Elizabeth Cardoso [employer] TECHNICIAN Work Phone: [facility] 05-14-2023 13:47-0500 Body weight 116.85 kg Elizabeth Cardoso [employer] TECHNICIAN Work Phone: [facility] 05-14-2023 13:47-0500 Diastolic blood pressure 64 mm[Hg] Elizabeth Cardoso [employer] TECHNICIAN Work Phone: [facility] 05-14-2023 13:47-0500 Systolic blood pressure 145 mm[Hg] Elizabeth Cardoso [employer] TECHNICIAN Work Phone: [employer] 04-26-2023 10:30-0500 Body height 182.88 cm Juan Ball Other Rounds Other 04-26-2023 10:30-0500 Body mass index (BMI) [Ratio] 34.28 kg/m2 Juan Ball Other Rounds Other 04-26-2023 10:30-0500 Body weight 114.67 kg Juan Ball Other Rounds Other 04-26-2023 10:30-0500 Diastolic blood pressure 90 mm[Hg] Juan Ball Other Rounds Other 04-26-2023 10:30-0500 Respiratory rate 12 /min Juan Ball Other Rounds Other 04-26-2023 10:30-0500 Systolic blood pressure 150 mm[Hg] Juan Ball Other Rounds Other 03-27-2023 11:30-0500 Body height 182.88 cm Juan Ball Other Rounds Other 03-27-2023 11:30-0500 Body mass index (BMI) [Ratio] 35.01 kg/m2 Juan Ball Other Rounds Other 03-27-2023 11:30-0500 Body weight 117.12 kg Juan Ball Other Rounds Other 03-27-2023 11:30-0500 Diastolic blood pressure 76 mm[Hg] Juan Ball Other Rounds Other 03-27-2023 11:30-0500 Respiratory rate 12 /min Juan [employer] Other Rounds Other 03-27-2023 11:30-0500 Systolic blood pressure 133 mm[Hg] Juan [employer] Other Rounds Other 11-19-2022 13:30-0400 Body height 182.88 cm Juan [employer] Other Rounds Other 11-19-2022 13:30-0400 Body mass index (BMI) [Ratio] 34.17 kg/m2 [id number] Other Rounds Other 11-19-2022 13:30-0400 Body weight 114.31 kg [id number] Other Rounds Other 11-19-2022 13:30-0400 Diastolic blood pressure 82 mm[Hg] Juan [employer] Other Rounds Other 11-19-2022 13:30-0400 Respiratory rate 16 /min Juan [employer] Other Rounds Other 11-19-2022 13:30-0400 Systolic blood pressure 156 mm[Hg] Juan [employer] Other Rounds Other Encounters Encounter Date Encounter Type Care Provider Facility Start: 05-21-2024 End: 05-21-2024 ambulatory [facility] Work Phone: Start: 05-21-2024 End: 05-21-2024 Patient encounter procedure [facility] Work Phone: Start: 06-10-2023 End: 06-10-2023 ambulatory ELIZABETH CARDOSO [facility] Start: 06-10-2023 End: 06-10-2023 Postop follow up visit related to original px Elizabeth Cardoso [employer] TECHNICIAN [facility] Comment on above: Status post hernia r epair (Primary Dx) Start: 05-14-2023 End: 05-14-[address] [facility] Caleb CARDOSO [facility] Start: 05-14-2023 End: 05-14-2023 Postop follow up visit related to original px Elizabeth Cardoso [employer] TECHNICIAN Work Phone: [facility] Comment on above: Status post hernia r epair (Primary Dx) Start: 04-30-2023 End: 04-30-2023 ambulatory Juan Torres Other Rounds Other Start: 04-30-2023 Telephone encounter Juan Torres [facility] Start: 04-26-2023 End: 04-26-2023 ambulatory Juan Torres Other Rounds Other Start: 04-26-2023 Encounter for other preprocedural examination Juan Ball [facility] Start: 04-26-2023 Office outpatient vi sit 25 minutes Juan Brian [facility] Start: 04-26-2023 Telephone encounter Juan Torres [facility] Start: 04-19-2023 End: 03-17-2024 Telephone encounter Hanane [facility] Start: 04-01-2023 End: 04-01-2023 ambulatory Juan Torres Other Rounds Other Start: 04-01-2023 Telephone encounter Juan Torres [facility] Start: 03-27-2023 End: 03-27-2023 ambulatory Juan Brian Other Rounds Other Start: 03-27-2023 Encounter for genera l adult medical examination without abnormal findings Juan Ball [facility] Start: 03-27-2023 Periodic preventive med est patient 65yrs& older Juan Torres [facility] Start: 02-22-2023 End: 02-22-2023 ambulatory Juan Torres Other Rounds Other Start: 02-22-2023 Telephone encounter [facility] Start: 11-19-2022 End: 11-19-2022 ambulatory Juan Torres Other Rounds Other Start: 11-19-2022 Office outpatient vi sit 15 minutes [facility] Start: 06-29-2022 Encounter for preprocedural laboratory examination DR ANTOINE WILDER . [facility] Start: 06-27-2022 End: 06-27-[address] ANTOINE WILDER . Facility:[facility] Start: 06-23-2022 End: 06-24-[address] ANTOINE WILDER . Facility:[facility] Start: 06-23-2022 End: 06-24-2022 Encounter for preprocedural laboratory examination DR ANTOINE WILDER . Facility:[facility] Start: 03-19-2022 Encounter for genera l adult medical examination without abnormal findings DR JUAN TORRES [facility] Start: 03-14-2022 Adult health examination Gopal Torres Other Rounds Other Start: 03-14-2022 End: 03-15-[address] JUAN TORRES Facility:[facility] Start: 03-14-2022 End: 03-15-2022 Encounter for general adult medical examination without abnormal findings DR JUAN TORRES Facility:[facility] Start: 03-06-2022 End: 03-07-[address] DOCTOR VIEYRA Facility:[facility] Procedures Date Procedure Procedure Detail Performing Clinician Start: 06-10-2023 Follow-up visit Follow-up ELIZABETH CARDOSO Start: 06-27-2022 Colonoscopy Elizabeth chamberlain [employer] TECHNICIAN Work Phone: Start: 03-14-[address] MIRIAN WILDER . Comment on above: Performed By: #### P [facility] #### [facility] [address] [place] [address] Dr. Cash Zpaata Start: 12-22-2015 General examination of patient Juan Brian Other Start: 12-22-2015 Hyperlipidemia screening Juan Torres Other Start: 12-22-2015 Screening for malign ant neoplasm of colon Juan Torres Other Start: 12-22-2015 Screening for malign ant neoplasm of prostate Juan Torres Other Depression screening Chai Torres Other Plan of Treatment Date Care Activity Detail Author Start: 06-27-2027 Screening for malignant neoplasm of colon Colonoscopy [facility] Start: 06-10-2024 Adult BMI Screening Adult BMI Screening [facility] Start: 06-10-2024 Tobacco Screening Tobacco Screening [facility] Start: 05-14-2024 Adult BMI Screening Adult BMI Screening [facility] Start: 05-14-2024 Tobacco Screening Tobacco Screening [facility] Start: 01-12-2024 Influenza vaccination Influenza Vaccine [facility] Start: 01-11-2023 Influenza vaccination Influenza Vaccine [facility] Start: 2017 Abdominal aortic aneurysm screening Abdominal Aortic Aneurysm (AAA) Screen [facility] Start: 2017 Fall Risk Screening Fall Risk Screening [facility] Start: 11-07-1971 DTaP,Tdap and Td Vaccines (1 - Tdap) DTaP,Tdap and Td Vaccines (1 - Tdap) [facility] Start: 1970 Adult BMI Follow Up Plan Adult BMI Follow Up Plan [facility] Start: 1964 Depression Screening Depression Screening [facility] Start: 1952 Medicare Annual Wellness Visit Medicare Annual Wellness Visit [facility] Comprehensive metabo lic 2000 panel - Serum or Plasma [facility] Immunizations Immunization Date Immunization Notes Care Provider Fa cilifélix 10-29-2021 zoster vaccine, live Chai Torres Other [facility] 07-27-2019 pneumococcal polysaccharide vaccine, 23 valent Juan Torres Other [facility] 06-27-2018 pneumococcal conjuga te vaccine, 13 valent Juan Torres Other [facility] pneumococcal Conjuga te, unspecified formulation; Translations: [Need for prophylactic vaccination against Streptococcus pneumoniae (pneumococcus)] Juan Torres Other Rounds Other Payers Date Payer Category Payer Commercial Managed C are - POS [employer] [id number] 1998 Private Health Insurance [employer] A ETNA POS II [id number] 1998-Present [id number] [place] [id number] 1959 Private Health Insurance [id number] 1950 Unknown [id number] 1952 Unknown [id number] 1952 Unknown [id number] 1952 Unknown [id number] 1952 Unknown [id number] 1952 Unknown [id number] Medicare Medicare [id number] Private Health Insurance W [id number] Social History Date Type Detail Facility Start: 06-23-2020 End: 05-14-2023 Sex Assigned At Located Within [facility] Other Tobacco smoking stat [facility] Unknown if ever smoked [facility] Work Phone: Start: 12-16-2014 End: 05-21-2024 Sex Male (finding) [facility] Start: 1950 Sex Assigned At Male [facility] Start: 03-27-2023 Tobacco smoking stat [facility] Ex-smoker [facility] End: 05-13-1974 History of tobacco use Current smoker [facility] End: 05-13-1974 History of tobacco use Cigarette Smoker [facility] Start: 06-23-2020 End: 03-27-2023 Cigarettes smoked current (pack per day) - Reported 1.5 [facility] Start: 03-27-2023 Tobacco use and exposure Smokeless tobacco non-user [facility] Start: 04-19-2023 End: 05-14-2023 Alcohol intake Ex-drinker (finding) [facility] Instability Unknown [facility] Start: 1950 Sex Assigned At Not on file P [facility] Medical Equipment Procedure Code Equipment Code Equipment Origin al Text Equipment Identifier Dates Mesh Plstr Clgn Symbotex 15cm 2 Sd Comp 3d Babsr [facility] Srg - Sna - [id number] Start: 04-30-2023 Clinical Notes 11-19-2022 to 06-10-2023 JUAN Chavez - 06/10/2023 2:30 PM Antonio Cardoso APRN-LANCE - 05/14/2023 2:00 PM EST Note Date & Type Note Facility 06-10-2023 History of Presen t illness Narrative Images from the original note were not included. Subjective Pramod Su is a 72 y.o. male status post laparoscopic-assisted incisional ventral hernia repair with mesh on 04/30/2023. He is doing well from surgical standpoint and has no concerns. Ready to return to work. No fevers or chills. Having bowel function. Objective Vitals: 06/10/23 1418 BP: 162/76 Pulse: 76 Physical Exam Abdominal: General: There is no distension. Palpations: Abdomen is soft. Tenderness: There is no abdominal tenderness. There is no guarding. Hernia: No hernia is present. Skin: General: Skin is warm and dry. Comments: Lap sites well healed. Assessment Pramod Su is a 72 y.o.male postop hernia repair. Plan May return to work on 06/12/2023 and resume normal activities. Follow-up as needed. Status post hernia repair [Z98.890, Z87.19] JUAN CHAVEZ [facility] [place] This note was created with the assistance of a speech recognition program. While intending to generate a timely document that accurately reflects the content of the visit, no guarantee can be provided that every grammatical or spelling mistake has been or will be identified or corrected. Thank you for your understanding. JUAN Chavez 05/14/23 1359 JUAN Chavez 06/10/23 1432 documented in this encounter [facility] 05-14-2023 History of Presen t illness Narrative Images from the original note were not included. Subjective Pramod Su is a 72 y.o. male status post laparoscopic-assisted incisional ventral hernia repair with mesh on 04/30/2023. He is doing well. Pain is tolerable. He denies nausea and vomiting. He is tolerating regular diet. He denies any fevers and chills. He is having normal bowel function. He is unable to return to work with restrictions. Objective Vitals: 05/14/23 1347 BP: 145/64 Physical Exam Constitutional: Appearance: Normal appearance. He is obese. Abdominal: General: There is no distension. Palpations: Abdomen is soft. Tenderness: There is no abdominal tenderness. There is no guarding. Hernia: No hernia is present. Comments: Lap sites clean, dry and intact without signs of infection. Steri-Strips removed in office today. No hernia recurrence. Skin: General: Skin is warm and dry. Findings: Bruising present. No erythema. Neurological: Mental Status: He is alert. Assessment Pramod Su is a 72 y.o.male postop hernia repair. Plan No heavy lifting for 4 more weeks. Follow-up in office at that time. Status post hernia repair [Z98.890, Z87.19] JUAN CHAVEZ [facility] [place] This note was created with the assistance of a speech recognition program. While intending to generate a timely document that accurately reflects the content of the visit, no guarantee can be provided that every grammatical or spelling mistake has been or will be identified or corrected. Thank you for your understanding. JUAN Chavez 05/14/23 1359 documented in this encounter [facility] 04-26-2023 Evaluation note Encounter Date Diagnosis Assessment Notes Apr, Preop exam for internal medicine (ICD-10 - Z01.818) Mr. Su was seen and examined for his preoperative evaluation. I reviewed his medication and instructed him to avoid ASA and NSAIDs 7 days prior to surgery. Apr, Primary hypertension (ICD-10 - I10) He had stopped his Losartan and I instructed him to restart. Apr, Hyperlipidemia type II (ICD-10 - E78.01) Stable Continue medication w/o interruption. Apr, Obstructive sleep apnea (ICD-10 - G47.33) Compliant w/ treatment. Apr, Gastroesophageal reflux disease without esophagitis (ICD-10 - K21.9) Stable Continue PPI w/o interruption. Apr, Umbilical hernia without obstruction and without gangrene (ICD-10 - K42.9) Scheduled for repair. Rounds Other 12-08-2023 Miscellaneous Notes* Telephone Encounter - Hanane Proctor Caleb - 04/19/2023 1:37 PM EST I tried to call Mell however the voicemail is full. * Telephone Encounter - ROBERT Mccoy - 04/19/2023 1:37 PM EST I called Pramod and left a message to call the office. I tried to call Mell however her voicemail is full. A medical clearance is required prior to surgery on 04/30/23 for Pramod's hernia repair surgery. I am waiting on clarification from the physician to whom I should get the clearance from. The surgery consent was emailed to PAT at the hospital. * Telephone Encounter - ROBERT Mccoy - 04/19/2023 1:37 PM EST Mell called into the office to say that Pramod has an appointment on Saturday, [address] Torres for a medical clearance. [facility] Telephone encounter Note* Telephone Encounter - ROBERT Mccoy - 04/19/2023 1:37 PM EST I tried to call Mell however the voicemail is full. [facility]12-08-2023 Telephone encounter Note* Telephone Encounter - ROBERT Mccoy - 04/19/2023 1:37 PM EST I called Pramod and left a message to call the office. I tried to call Mell however her voicemail is full. A medical clearance is required prior to surgery on 04/30/23 for Pramod's hernia repair surgery. I am waiting on clarification from the physician to whom I should get the clearance from. The surgery consent was emailed to PAT at the hospital. [facility]12-08-2023 Telephone encounter Note* Telephone Encounter - ROBERT Mccoy - 04/19/2023 1:37 PM EST Mell called into the office to say that Pramod has an appointment on [address] Torres for a medical clearance. [employer]11-15-2023 Evaluation note* Encounter Date Diagnosis Assessment Notes Treatment Notes Treatment Clinical Notes Mar, Wellness examination (ICD-10 - Z00.00) Healthy diet and exercise. Reviewed age-appropriate preventive testing recommended. Mar, DANIA (obstructive sle ep apnea) (ICD-10 - G47.33) This patient is aware of the benefits associated with DANIA: With continued use, the patient reduces the risk for LA, CVA, HTN, cardiac dysrhythmias and sudden cardiac deaths.The patient is also aware of the association between DANIA and morning headaches, daytime somnolence, fatigue and obesity, which also has been improved with continued use.The patient is compliant with treatment, wearing the equipment every night for greater than 4 hours.The patient is instructed to continue use of the CPAP for DANIA treatment. Mar, Primary hypertension (ICD-10 - I10) This patient is instructed to consume a healthy, low-fat, low-salt diet. They are also encouraged to continue exercise to achieve/maintain a normal BMI. Stopped his Losartan and has continued to perform home BP - goal < 140/90 Patient is instructed on home BP measurements: - rest for 5 minutes w/o talking- positioned w/ feet on floor and arm supported- average best 2/3 readings w/ goal < 135/85 Mar, Hypercholesteremia (ICD-10 - E78.00) Instructed on diet and exercise with continued statin therapy.Discussed the beneficial effects of lowering cholesterol in reducing the risk for cerebrovascular and cardiovascular disease. Mar, Morbid (severe) obes ity due to excess calories (ICD-10 - E66.01) This patient has been instructed on a low-fat, high-fiber diet. They are instructed to reduce calories, portion sizes and snacks. It is recommended that they exercise for 30 minutes, 3-5 times weekly. Mar, Benign prostatic hyperplasia with lower urinary tract symptoms (ICD-10 - N40.1) Symptoms tolerable Continue medical therapy Yearly NAHID and PSA Mar, Nocturia (ICD-10 - R35.1) Mar, Body mass index [BMI ] 35.0-35.9, adult (ICD-10 - Z68.35) This patient has been instructed on a low-fat, high-fiber diet. They are instructed to reduce calories, portion sizes and snacks. It is recommended that they exercise for 30 minutes, 3-5 times weekly. Mar, Screening PSA (prost ate specific antigen) (ICD-10 - Z12.5) Yearly NAHID and PSA Rounds Other 07-10-2023 Evaluation note* Encounter Date Diagnosis Assessment Notes Treatment Notes Treatment Clinical Notes Nov, DANIA (obstructive sleep apnea) (ICD-10 - G47.33) This patient is aware of the benefits associated with DANIA: With continued use, the patient reduces the risk for LA, CVA, HTN, cardiac dysrhythmias and sudden cardiac deaths.The patient is also aware of the association between DANIA and morning headaches, daytime somnolence, fatigue and obesity, which also has been improved with continued use.The patient is compliant with treatment, wearing the equipment every night for greater than 4 hours.The patient is instructed to continue use of the CPAP for DANIA treatment. Nov, Primary hypertension (ICD-10 - I10) This patient is instructed to consume a healthy, low-fat, low-salt diet. They are also encouraged to continue exercise to achieve/maintain a normal BMI. Patient is instructed on home BP measurements: - rest for 5 minutes w/o talking- positioned w/ feet on floor and arm supported- average best 2/3 readings w/ goal < 135-85 Initiated Losartan 25mg qd Nov, Other obesity due to excess calories (ICD-10 - E66.09) This patient has been instructed on a low-fat, high-fiber diet. They are instructed to reduce calories, portion sizes and snacks. It is recommended that they exercise for 30 minutes, 3-5 times weekly. Nov, Body mass index [BMI] 34.0-34.9, adult (ICD-10 - Z68.34) Rounds Other Evaluation noteNo InformationNort [employer] Other Evaluation note* Diagnosis Onset Date Resolution Status Admit Date GERD (gastroesophageal reflu x disease) acute May 21 10:25am Hypercholesterolemia acute Jm ayde2024 10:25am Hypertension acute May 21, 2024 10:25am Obesity acute May 21, 025 10:25am DANIA (obstructive sleep apnea) acute May 21, 2024 10:25am Rhinitis medicamentosa acute [facility] 2024 10:25am Screening PSA (prostate spec ific antigen) acute May 21 10:25am [facility] Work Phone: Evaluation note* Diagnosis Status post hernia repair- Primary Other postprocedural status documented in this encounter [facility] System[facility] note* Diagnosis Status post hernia repair- Primary Other postprocedural status [facility] - Reported* Type Description Date Medical History Cigarette nicotine dependence in remission Medical History Obstructive sleep apnea Medical History Lucas's esophagus determined b y endoscopy Medical History GERD without esophagitis Medical History Chronic nonseasonal allergic rhi nitis due to pollen Medical History Essential hypertension Medical History Hyperlipidemia type II Medical History Acute prostatitis Medical History Benign prostatic hyp erplasia with lower urinary tract symptoms Medical History Aortic valve sclerosis Surgical History EGD 06/27/22 Surgical History Colonoscopy 06/27/22 Surgical History Cardiac Catheterization Hospitalization History see surgical history Rounds Other [facility] general Narrative - Reported* Type Description Date Medical History Cigarette nicotine dependence in remission Medical History Obstructive sleep apnea Medical History Lucas's esophagus determined b y endoscopy Medical History GERD without esophagitis Medical History Chronic nonseasonal allergic rhi nitis due to pollen Medical History Essential hypertension Medical History Hyperlipidemia type II Medical History Benign prostatic hyp erplasia with lower urinary tract symptoms Medical History Aortic valve sclerosis Surgical History EGD 06/27/22 Surgical History Colonoscopy 06/27/22 Surgical History Cardiac Catheterization Hospitalization History see surgical history Rounds Other History general Narrative - Reported* Type Description Date Medical History Cigarette nicotine dependence in remission Medical History Obstructive sleep apnea Medical History Lucas's esophagus determined b y endoscopy Medical History GERD without esophagitis Medical History Chronic nonseasonal allergic rhi nitis due to pollen Medical History Essential hypertension Medical History Hyperlipidemia type II Medical History Benign prostatic hyp erplasia with lower urinary tract symptoms Medical History Aortic valve sclerosis Surgical History EGD 06/27/22 Surgical History Colonoscopy 06/27/22 Surgical History Cardiac Catheterization Surgical History Umbilical hernia repair 04/2023 Hospitalization History see surgical history Rounds Other InstructionsNot on filedocumented in this encounter [employer] SystemInstructionsNot on filedocumented in this encounter [employer] Summary Purpose Family History Relationship Condition Age at Onset Recorded Date/T darío father Heart disease Unknown mother Hypertension Unknown Advance Directives Advance Directive Response Recorded Date/ Time Advance Directives No April 10:56am Chief Complaint and Reason for Visit Chief Complaint Admit Date yearly May 21, 2024 10 :25am Reason for Visit Admit Date GERD (gastroesophageal reflux disease) J anuary 2024 10:25am Hypercholesterolemia May 21, 2024 1 0:25am Hypertension May 21, 2024 10 :25am Obesity May 21, 2024 10 :25am DANIA (obstructive sleep apnea) May 10:25am Rhinitis medicamentosa May 21, 2024 10:25am Screening PSA (prostate specific antigen ) May 21, 2024 10:25am Additional Source Comments (unrecognized sect ion and content) No Status Records FoundNo Status Records Found INFORMATION SOURCE (unrecogn ized section and content) DATE CREATED AUTHOR 07/04/2022 [facility] DATE CREATED AUTHOR 'S ORGANIZ ATION 06/13/2023 [facility] REASON FOR VISIT (unrecogniz ed section and content) Reason Comments POST-OP VISIT POST OP VENTRAL/UMBI LICAL HERNIA PERFORMED 04/30/23 AT [facility] Reason Comments Follow-up 6 WEEK FOLLOW UP POS T UMBILICAL HERNIA REPAIR, PERFORMED ON 04/30/23 AT [facility] Care Teams (unrecognized sec tion and content) Team Status: Active Member Role Status Dates Juan Torres DO Primary Care Provider Active Team Status: Inactive Member Role Status Dates Juan Torres DO Primary Care Provide r, Attending Provider Active Start: May 21, 2024 End: May 21, 2024 Vehicle Modification Technician Relationship Specialty Start Date End Date Juan TorresDO [address] [place] [address] PCP - General Internal Medicine 05/21/22 Vehicle Modification Technician Relationship Specialty Start Date End Date Juan Torres [address] [place] [address] PCP - General Internal Medicine 05/21/22 Goals (unrecognized section and content) Goals may be documented in a n alternate section FOR RECORDS PERTAINING TO PATIENTS WHO ARE OR HAVE BEEN ENROLLED IN A CHEMICAL DEPENDENCY/SUBSTANCEABUSE PROGRAM, SOME INFORMATION MAY BE OMITTED. This clinical summary was aggregated from multiple sources. Caution should be exercised in using it in the provision of clinical care. This summary normalizes information from multiple sources, and as a consequence, information in this document may materially change the coding, format and clinical context of patient data. In addition, data may be omitted in some cases. CLINICAL DECISIONS SHOULD BE BASED ON THE PRIMARY CLINICAL RECORDS. [facility] [employer] provides no warranty or guarantee of the accuracy or completeness of information in this document.
== END 2025-01-06 15:13 | disposition home or self-care (01) ==
PROVIDERS: PCP Internal Medicine; Visit Provider Internal Medicine
DX: R06.00 Dyspnea, unspecified (principal); I10 Essential (primary) hypertension; R00.2 Palpitations
CPT/HCPCS: 36415; 71046; 80053; 83880; 84443; 85025; 85378

== ENCOUNTER 2025-01-18 07:57 | Outpatient (OUT) | payer MEDICARE, OTHER, SELFPAY ==
--- OUTSIDE RECORDS SUMMARY | 2025-01-06 20:15 | XMS_ITS | Continuity of Care Document ---
Author Organization [facility] Address [address] [place] [address] Phone Care Team Providers Care Frame Hand Name Role Phone Juan Torres DO Primary Care Provider [phone] Juan Torres DO Attending Provider [phone] Care Teams Patient Care Team Team Status: Active Member Role Status Dates Juan Torres DO Primary Care Provider Active Visit Care Team Team Status: Inactive Member Role Status Dates Juan Torres DO Primary Care Provider Active Start: January 06, 2025 End: January 06, 2025 Juan Torres DO Attending Provider Active Sta rt: January 06, 2025 End: January 06, 2025 Visit Care Team Team Status: Inactive Member Role Status Dates Juan Torres DO Primary Care Provider Active Start: January 06, 2025 End: January 06, 2025 Juan Torres DO Attending Provider Active Sta rt: January 06, 2025 End: January 06, 2025 Chief Complaint and Reason for Visit Chief Complaint Admit Date URI 1 month, itchy spot on back December 122024 2:05pm Reason for Visit Admit Date Chest pain January 06, 2025 2: 05pm Dyspnea January 06, 2025 2: 05pm Family history of coronary arteriosclero sis January 06, 2025 2:05pm Hypercholesterolemia January 06, 2025 2 :05pm Hypertension January 06, 2025 2: 05pm DANIA (obstructive sleep apnea) December 2:05pm Palpitations January 06, 2025 2: 05pm Systolic murmur of aorta January 06 2:05pm Allergies, Adverse Reactions, Alerts Allergen Type Severity Reaction Last Updated Verified Status No Known Allergies Allergy Unknown January 06, 2025 2:1 3pm Yes Active Social History Smoking Status Unknown if ever smoked Observation Status Observation Response Date of Response Legal Sex Male (finding) Sex Assigned At Male 1950 Family History Relationship Condition Age at Onset Recorded Date/T darío father Heart disease Unknown mother Hypertension Unknown Problems Active Problems Medical Problem Onset Date Status Comments High risk medication use Unknown Active DANIA (obstructive sleep apnea) Unknown Active Screening PSA (prostate spec ific antigen) Unknown Active PSA: 3.78 - 03/2022, 3.38 - 03/2023, 3.46 - 05/2023 Lucas's esophagus without dysplasia Unknown Act nura Palpitations Unknown Active Systolic murmur of aorta Unknown Active Rhinitis medicamentosa Unknown Active Dyspnea Unknown Active Hypercholesterolemia Unknown Active Family history of coronary arteriosclerosis Unknown Active Benign prostatic hyperplasia with lower urinary tract symptoms Unknown Active GERD (gastroesophageal reflux disease) Unknown Ac tive Chest pain Unknown Active Hypertension Unknown Active Obesity Unknown Active Medications Medication Status Dose Units Route Directions Qty Days St art Date Stop Date End Date Instructions Adherence Atorvastati n 40 mg tablet Discont inued 40 MG PO Daily September 24, 2023 12:00a m 2024 11:34 am Loratadine 10 mg tablet Discont inued 10 MG PO Daily September 24, 2023 12:00a m ry 2024 11:34 am Losartan 25 mg tablet Discont inued 25 MG PO Daily September 24, 2023 12:00a m 2024 11:34 am Omeprazole 20 mg capsule,del ayed release(DR/ EC) Active 20 MG PO Daily September 24, 2023 12:00a m Unknown Tamsulosin 0.4 mg capsule Discont inued 0.4 MG PO Daily September 24, 2023 12:00a m Octob er 2023 7:40p m Tamsulosin 0.4 mg capsule Discont inued 0 .ROUTE .COMPLEX 90 Octobe r 2023 7:40pm Mayua ry 2024 2:00p m TAKE 1 CAPSULE BY MOUTH EVERY DAY AFTER EVENING MEAL Tamsulosin 0.4 mg capsule Active 0 .ROUTE .COMPLEX 90 Mayuar y 2024 2:00pm TAKE 1 CAPSULE BY MOUTH EVERY DAY AFTER EVENING MEAL Unknown Triamcinolo ne Acetonide 0.1 % ointment Active 1 APPLIC TOPICA L Twice daily 454 January 065 12:00a m Unknown Amlodipine 5 mg tablet Active 5 MG PO Daily y 2024 1:00am Unknown Immunizations Immunization Event Date Not Given Reason Dose Number Lay Out Technician Lot Number Vaccine Information Statement (VIS) Detail Administration Location Pneumococcal Conjugate Vaccine, 13 valent June 27, 2018 Pneumococcal Polysacc. Vaccine, 23 valent July 27, 2019 Shingles (Zoster) October 29, 2021 Relevant Diagnostic Tests and/or Laboratory Data Laboratory Results Test Collection Date/Time Result Date/Time Result Interpretation Reference Range Result Comment Performing Site Thyroid Stimulati ng Hormone 3rd Gen January 06, 2025 3:31pm January 06, 2025 3:31pm 3.428 u[iU]/m L 0.358-3.74 0 B-Type Natriuret ic Peptide January 06, 2025 3:31pm January 06, 2025 3:31pm 443.0 pg/mL <=900.0 Anion Gap January 06, 2025 3:31pm January 06, 2025 3:31pm 13.5 D-Dimer Quantitat nura (PE/DVT) January 06, 2025 3:31pm January 06, 2025 3:31pm 0.50 mg/L FEU <=0.59 Increases in D-Dimer concentratio n observed withthromboe mbolic events can be variable due to localization ,size, and age of the thrombus. Therefore, a thromboembol icevent cannot be diagnosed with certainty on the basis of thereference range. D-Dimers may also be elevated for a varietyof disorders including advanced age, , coronarydise ase, cancer, liver disease, infection, inflammation ,hematoma, DIC, trauma, post-surgery , diabetes, thrombolytic or anticoagulan t therapy, stress, and generalizedh ospitalizati on. Basophils # (Auto) January 06, 2025 3:31pm January 06, 2025 3:31pm 0.0 10 3/uL 0.0-0.1 Albumin/G lobulin Ratio January 06, 2025 3:31pm January 06, 2025 3:31pm 1.1 Basophils (%) (Auto) January 06, 2025 3:31pm January 06, 2025 3:31pm 0.3 % 0.2-2.0 Albumin January 06, 2025 3:31pm January 06, 2025 3:31pm 4.0 g/dL 3.4-5.0 Eosinophi ls # (Auto) January 06, 2025 3:31pm January 06, 2025 3:31pm 0.2 10 3/uL 0.0-0.7 Alkaline Phosphata se January 06, 2025 3:31pm January 06, 2025 3:31pm 63 U/L 46-116 Eosinophi ls (%) (Auto) January 06, 2025 3:31pm January 06, 2025 3:31pm 2.1 % 0.9-7.0 Alanine Aminotran sferase (ALT/SGPT ) January 06, 2025 3:31pm January 06, 2025 3:31pm 31 U/L 16-63 Hematocri t January 06, 2025 3:31pm January 06, 2025 3:31pm 46.9 % 42.0-54.0 Aspartate Amino Transf (AST/SGOT ) January 06, 2025 3:31pm January 06, 2025 3:31pm 18 U/L 15-37 Hemoglobi n January 06, 2025 3:31pm January 06, 2025 3:31pm 16.8 g/dL 14.0-18.0 BUN/Creat inine Ratio January 06, 2025 3:31pm January 06, 2025 3:31pm 15.1 Immature Granulocy te # (Auto) January 06, 2025 3:31pm January 06, 2025 3:31pm 0.02 10 3/uL 0.00-0.03 Blood Urea Nitrogen January 06, 2025 3:31pm January 06, 2025 3:31pm 19.0 mg/dL Above high normal 7.0-18.0 Immature Granulocy te % (Auto) January 06, 2025 3:31pm January 06, 2025 3:31pm 0.3 % 0.0-0.5 Calcium Level January 06, 2025 3:31pm January 06, 2025 3:31pm 9.1 mg/dL 8.5-10.1 Lymphocyt es # (Auto) January 06, 2025 3:31pm January 06, 2025 3:31pm 2.2 10 3/uL 1.2-3.8 Chloride Level January 06, 2025 3:31pm January 06, 2025 3:31pm 108 mmol/L Above high normal 98-107 Lymphocyt es (%) (Auto) January 06, 2025 3:31pm January 06, 2025 3:31pm 31.0 % 20.5-60.0 Carbon Dioxide Level January 06, 2025 3:31pm January 06, 2025 3:31pm 23.7 mmol/L 21.0-32.0 Mean Corpuscul ar Hemoglobi n January 06, 2025 3:31pm January 06, 2025 3:31pm 31.7 pg 25.9-34.0 Creatinin e January 06, 2025 3:31pm January 06, 2025 3:31pm 1.26 mg/dL 0.70-1.30 Mean Corpuscul ar Hemoglobi n Concent January 06, 2025 3:31pm January 06, 2025 3:31pm 35.8 g/dL Above high normal 29.9-35.2 Estimated GFR () January 06, 2025 3:31pm January 06, 2025 3:31pm >60 >=60 mL/min/1.7 3m 2 Mean Corpuscul ar Volume January 06, 2025 3:31pm January 06, 2025 3:31pm 88.5 fL 80.0-94.0 Estimated GFR (Non-Afri can Croatian January 06, 2025 3:31pm January 06, 2025 3:31pm 56 Below low normal >=60 mL/min/1.7 3m 2 Monocytes # (Auto) January 06, 2025 3:31pm January 06, 2025 3:31pm 0.8 10 3/uL 0.3-0.8 Globulin January 06, 2025 3:31pm January 06, 2025 3:31pm 3.5 g/dL Monocytes (%) (Auto) January 06, 2025 3:31pm January 06, 2025 3:31pm 10.9 % 1.7-12.0 Glucose Level January 06, 2025 3:31pm January 06, 2025 3:31pm 97 mg/dL 74-106 Mean Platelet Volume January 06, 2025 3:31pm January 06, 2025 3:31pm 9.3 fL Below low normal 9.5-13.5 Potassium Level January 06, 2025 3:31pm January 06, 2025 3:31pm 4.2 mmol/L 3.5-5.1 Neutrophi ls # (Auto) January 06, 2025 3:31pm January 06, 2025 3:31pm 4.0 10 3/uL 1.4-6.5 Sodium Level January 06, 2025 3:31pm January 06, 2025 3:31pm 141 mmol/L 136-145 Neutrophi ls (%) (Auto) January 06, 2025 3:31pm January 06, 2025 3:31pm 55.4 % 43.0-75.0 Total Bilirubin January 06, 2025 3:31pm January 06, 2025 3:31pm 0.6 mg/dL 0.2-1.0 Platelet Count January 06, 2025 3:31pm January 06, 2025 3:31pm 202 10 3/uL 150-450 Total Protein January 06, 2025 3:31pm January 06, 2025 3:31pm 7.5 g/dL 6.4-8.2 Red Blood Count January 06, 2025 3:31pm January 06, 2025 3:31pm 5.30 10 6/uL 4.70-6.10 Red Cell Distribut ion Width January 06, 2025 3:31pm January 06, 2025 3:31pm 12.3 % 11.0-15.0 Corrected White Blood Count January 06, 2025 3:31pm January 06, 2025 3:31pm 7.2 10 3/uL 4.0-11.0 Vital Signs Vital Reading Result Reference Range Collection Date/Time Height 71 [in_i] January 06 2:18pm Weight 116.28 kg January 06 2:18pm Heart Rate 69 /min 60-100 January 06 2:18pm Respiratory rate 12 /min 12-24 December 2:18pm BP Systolic 147 mm[Hg] 100-140 January 06 2:18pm BP Diastolic 67 mm[Hg] 60-100 January 06 2:18pm BMI (Body Mass Index) 35.7 kg/m2 January 06, 2025 2:18pm Advance Directives Advance Directive Response Recorded Date/ Time Advance Directives No April 11:56am Insurance Providers Guarantor Pramod Su Address [address] [place] [address] [place] [address] Contact Info. Home Phone: Payer Policy Id Subscriber's Name Subscriber Id Effectiv e Date Expiration Date Medicare [id number] Pramod Su [id number] [employer] [id number] 1 Pramod Su [id number] Encounters Encounter Location(s) Arrival/Admit Date Discharge/Depart Date Provider(s) Departed Physician/Prov ider Office Visit -[facility] January 06, 2025 2:05pm January 06, 2025 3:02pm Juan Torres DO Departed Clinical -EKG [facility] January 06, 2025 2:53pm January 06, 2025 2:54pm Juan Torres DO Recent Diagnosis Onset Date Admit Date Chest pain Unknown January 06 2:05pm Dyspnea Unknown January 06 2:05pm Family history of coronary arteriosclerosis Unkn own January 06, 2025 2:05pm Hypercholesterolemia Unknown December 2:05pm Hypertension Unknown January 06 2:05pm DANIA (obstructive sleep apnea) Unknown Au yodit 2024 2:05pm Palpitations Unknown January 06 2:05pm Systolic murmur of aorta Unknown January 06, 2025 2:05pm Assessments Diagnosis Onset Date Resolution Status Admit Date Chest pain acute January 06, 2 025 2:05pm Dyspnea acute January 06 2 025 2:05pm Family history of coronary arteriosclerosis acute January 06 2:05pm Hypercholesterolemia acute Augu st 2024 2:05pm Hypertension acute January 06, 2025 2:05pm DANIA (obstructive sleep apnea) acute January 06, 2025 2:05pm Palpitations acute January 06, 2025 2:05pm Systolic murmur of aorta acute January 06, 2025 2:05pm Plan of Treatment Author Juan Torres [facility] Authored January 06, 2025 9: 46pm I have instructed this patie nt to consume a healthy, low-fat, low-salt diet. I have also encouraged them to continue exercise with weight loss to achieve/maintain a BMI < 30. I have instructed this patient on the correct procedure for obtaining home BP measurements: - rest for 5 minutes w/o talking. - positioned w/ feet on floor and arms supported. - average best 2/3 readings w/ goal < 135/85. Update office w/ home readings in 2 weeks. Continue Amlodipine without interruption Associated w/ CP, palpitations and fatigue. Present for month w/o fever, chills or any additional symptoms of infectious illness. Checking Echo to r/o severe aortic stenosis. Stres testing to r/o CAD Checking CXR to r/o pulonary infiltrate, fluid or mass Checking labs to r/o hyperglycemia, BERTA, hepatic injury, PE, thyrotoxicosis and anemia Atypical but w/ risk factors including HTN, HLD, DANIA and strong family hx, feel must exclude CAD as culprit. Schedule TMET/Cardiolite Instructed to avoid caffeine Instructed on healthy diet and proper sleep routine Continue use of PAP for DANIA I have instructed this patient on a low fat, high fiber diet and exercise. I have discussed the primary and secondary prevention benefits attributed to lowering LDL cholesterol. I have also discussed the medical treatment of elevated cholesterol, which is based on the 10 year ASCVD risk. This patient is aware of the benefits associated with treatment of DANIA. With continued use, the patient is reducing the risk for IA, CVA, HTN, cardiac dysrhythmias and sudden cardiac deaths. With continued use, the patient is also reducing morning headaches, daytime somnolence, fatigue and obesity. This patient is compliant with treatment, wearing the equipment every night for greater than 4 hours. This patient has been instructed to continue use of PAP for treatment of DANIA. Compliant Keeping suspicion for CAD high on the list of conditions to evaluate He admits to CP and palpitations. No hx of Atrial fib-flutter No hx of syncope or lightheadedness Future Tests Future scheduled test information is unavailable Pending Tests Test Name Ordered Date Scheduled Date Comprehensive Metabolic Panel January 06, 2025 2:41pm XR chest 2V* January 06, 2025 2:48pm [facility] echo transthoracic January 06, 2025 5:47pm Future Visits Future appointment information is unavailable Referrals to Other Providers Referral information is unavailable Future Procedures Procedure Name Ordered Date Scheduled Date B-Type Natriuretic Peptide January 06, 2025 2:4 1pm STR cardiac stress/cardiol January 06, 2025 5:4 7pm [facility] ECG *PCP OFFICE ONLY* January 06, 2025 2:53 pm January 06, 2025 2:53pm Future Medications Future medication information is unavailable Patient Instructions Patient instructions are unavailable
--- OUTSIDE RECORDS SUMMARY | 2025-01-18 08:03 | XMS_ITS | Clinical Summary ---
Author Organization [facility] Address [id number] [place] [address] Care Team Providers Care Medical Insurance Collector Name Role Phone Juan Torres Primary Care Provider [phone] Allergies No known active allergies Medications tamsulosin [...] Completed 02/04/2022, Medical Devices Implanted Type Area Rubber Factory Worker Device Identifier Shelf Expiration Date Model / Serial / Lot Mesh Plstr Clgn Symbotex 15cm 2 Sd Comp [facility]d [facility] - [id number] Implanted:Qty: 1 on 04/30/2023 by Charles Bourgeois DO at [facility] Mesh N/A: Abdomen [employer] [place] 11/10/2027 [id number] / NA / [id number] Insurance [employer] Care Teams Medical Insurance Collector Relationship Specialty Start Date End Date Juan Torres DO [address] [place] [address] PCP - General Internal Medicine 05/21/22
--- OUTSIDE RECORDS SUMMARY | 2025-01-18 08:03 | XMS_ITS | Clinical Summary ---
Author Organization [facility] Address [address] [place] [address] Care Team Providers Care Private Tutors And Teachers Name Role Phone Unavailable Primary Care Provider [...]
--- OUTSIDE RECORDS SUMMARY | 2025-01-18 08:11 | XMS_ITS | CCD ---
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 Name Role Phone MEÑO ., DR ANTOINE [...] ., DR ANTOINE Lerner Consulting Unavaila ble Brian, Juan Unavailable ELIZABETH CARDOSO Attending Unavailable JUAN TORRES Referring Unavailable JUAN TORRES Primary Care Unavailable ELIZABETH CARDOSO Attending Unavailable JUAN TORRES Referring Unavailable JUAN TORRES Primary Care Unavailable Juan Torres DO Primary Care Provider Juan Torres DO Primary Care Provider Juan Torres DO Attending Provider Juan Torres Attending Unavailable Juan Torres Primary Care Unavailable Juan Torres Admitting Unavailable Allergies Allergy Classification Reported Allergen(s) Allergy Type Date of Onset Reaction(s) Facility (1 source) patient allergy list reviewed by nurse or physicia Propensity to adverse reactions Comment:Done AppSheet Other Medications Current Medications Medication Drug Class(es) Dates Sig (Normalized) Sig (Original) amLODIPine 5 mg oral tablet (3 sources) Dihydropyridine Calcium Channel [place] Start: 05-21-2024 take 1 tablet by mouth once daily omeprazole 20 mg delayed release oral capsule (13 sources) Proton Pump Inhibitor Start: 09-24-2023 take 1 capsule by mouth once daily tamsulosin hydrochloride 0.4 mg oral capsule (19 sources) alpha-Adrenergic [place] Start: 02-16-2024 End: 05-19-2024 take 1 capsule by mouth once daily at dinner Start: 05-09-2022 End: 02-16-2024 take 1 capsule by mouth once daily Tamsulosin 0.4 mg capsule Discontinued 0.4 MG PO Daily September 24, 2023 12:00am February 16, 2024 7:40pm triamcinolone acetonide 0.00 1 mg/mg topical ointment (2 sources) Corticosteroid Start: 01-06-2025 Completed/Discontinued Medications Medication Drug Class(es) Dates Sig [...] (Therapy completed) atorvastatin 40 mg oral tablet (10 sources) HMG-CoA Reductase Inhibitor Start: 09-24-2023 End: 05-21-2024 take 1 tablet by mouth once daily Atorvastatin 40 mg tablet Discontinued 40 MG PO Daily September 24, 2023 12:00am May 21, 2024 11:34am take 1 tablet by elvi th every [...] (Therapy completed) loratadine 10 mg oral tablet (13 sources) Start: 09-24-2023 End: 05-21-2024 take 1 tablet by mouth once daily Loratadine 10 mg tablet Discontinued 10 MG PO Daily September 24, 2023 12:00am May 21, 2024 11:34am take 1 tablet by mouth once donal y Loratadine 10 MG TAKE 1 TABLET BY MOUTH EVERY DAY for 90 Active losartan potassium 25 mg oral tablet (10 sources) Angiotensin 2 Receptor [place] Start: 09-24-2023 End: 05-21-2024 take 1 tablet by mouth once daily Losartan 25 mg tablet Discontinued 25 MG PO Daily September 24, 2023 12:00am May 21, 2024 11:34am Start: 11-19-2022 take 1 tablet by elvi th every twenty-four hours Losartan Potassium 25 MG 1 tablet Orally Once a day for 30 days Nov, Active Problems Active Problems Problem Classification Problem Date Documented Da te Episodic/Chronic Abdominal hernia (1 source) Umbilical hernia without obstruction or gangrene Episodic Cardiac dysrhythmias (4 sources) Palpitations; Translations: [Palpitations] Onset: 01-06-2025 01-06-2025 Episodic Disorders of lipid metabolism (20 sources) Pure hypercholesterolemia ; Translations: [Familial hypercholesterolemia [...] [Nocturia] Onset: 03-19-2022 Episodic Heart valve disorders (10 sources) Aortic valve sclerosis; 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] 01-06-2025 Chronic Hyperplasia of prostate (13 sources) Lower urinary tract symptoms due to benign prostatic hypertrophy; Translations: [Benign prostatic hyperplasia with lower urinary tract symptoms] Onset: 01-04-2017 Chronic Inflammatory conditions of male genital organs (4 sources) Acute prostatitis; Translations: [Acute prostatitis] Episodic Nonspecific chest pain (2 sources) Chest pain; Translations: [Chest pain, unspecified] 01-06-2025 Episodic Other aftercare (1 source) Other terminal block assembler (current) drug therapy; Translations: [OTH INTERMEDIATE CURRENT DRUG THERAPY] Onset: 07-03-2022 Episodic Other aftercare (2 sources) Taking high risk medication; Translations: [Other terminal block assembler (current) drug therapy] 05-21-2024 Episodic Other and unspecified benign neoplasm (1 [...] the digestive system] Onset: 05-14-2023 Episodic Other lower respiratory disease (4 sources) Dyspnea; Translations: [Dyspnea, unspecified] 01-06-2025 Episodic Other nutritional; endocrine; and metabolic disorders [...] Chronic Other nutritional; endocrine; and metabolic disorders (4 sources) Obesity; Translations: [Obesity, unspecified] 05-19-2024 Chronic [...] conditions (not mental disorders or infectious disease) (7 sources) Encounter for screening for malignant neoplasm of prostate; Translations: [Encounter for screening for diseases of the blood and blood-forming organs and certain disorders involving the immune mechanism] Onset: 12-22-2015 Episodic Comment on above: PSA: 3.78 - 03/2022, 3.38 - 03/2023 PSA: 3.78 - 03/2022, 3.38 - 03/2023, 3.46 - 05/2023 Other upper respiratory disease (7 sources) Allergic rhinitis due to pollen; Translations: [Allergic rhinitis due to pollen] Chronic Other upper respiratory disease (1 source) Allergic rhinitis; Translations: [Other allergic rhinitis] Chronic Other upper respiratory disease (3 sources) Rhinitis medicamentosa; Translations: [Chronic rhinitis] 05-21-2024 Chronic Other upper respiratory disease (1 source) Chronic rhinitis; Translations: [Chronic rhinitis] 05-21-2024 Chronic Residual codes; unclassified (20 sources) Obstructive sleep apnea syndrome; Translations: [Obstructive [...] [Other specified postprocedural states] Onset: 05-14-2023 Episodic Residual codes; unclassified (2 sources) Family history of coronary arteriosclerosis; Translations: [Family history of ischemic heart disease and other diseases of the circulatory system] 01-06-2025 Episodic Substance-related disorders (8 sources) Tobacco user; [...] Results Test Name Value Interpretation Reference Range Facility Basophils Auto (Bld) [#/Vol] Ordered By: Juan Torres on 01-06-2025 Basophils (Bld) [#/Vol] 0.0 10 3/uL 0.0-0.1 [facility] Basophils/100 WBC Auto (Bld) Ordered By: Juan Torres on 01-06-2025 Basophils/100 WBC (Bld) 0.3 % 0.2-2.0 F [facility] Eosinophils/100 WBC Auto (Bl d)Ordered By: Juan Torres on 01-06-2025 Eosinophils/100 WBC (Bld) 2.1 % 0.9-7.0 [facility] Erythrocyte distribution wid th Auto (RBC) [Ratio]Ordered By: Juan Torres on 01-06-2025 Erythrocyte distribution width (RBC) [Ratio] 12.3 % 11.0-15.0 [facility] FPG ECG *PCP OFFICE ONLY*on 01-06-2025 FPG ECG *PCP OFFICE ONLY* [place] [address] Electrocardiograph Report Signed Patient: Pramod Su MR#: [id number] : 1950 Acct:[id number] Age/Sex: 74 / M ADM Date: 01/06/25 Loc: [facility] Room: [facility] Attending Dr: Juan Torres DO Ordering Provider: Juan Torres DO Date of Service: 01/06/25 ECG/FPG ECG *PCP OFFICE ONLY*: R00.2 - Palpitations Copies to: Test Reason : Blood Pressure : */* mmHG Vent. Rate : 62 BPM Atrial Rate : 62 BPM P-R Int : 184 ms QRS Dur : 74 ms QT Int : 394 ms P-R-T Axes : 26 -14 -14 degrees QTcB Int : 399 ms Normal sinus rhythm Inferior infarct , age undetermined Abnormal ECG No previous ECGs available Confirmed by Franklin Kerr ([id number]) on 01/07/2025 3:04:16 PM Referred By: Electronically Signed By: Franklin Kerr Transcribed By: MUS Signed By Franklin Kerr MD 01/07/25 1504 Normal [facility] Fibrin D-dimer [Presence] in Platelet poor plasma by Latex agglutinationOrdered By: Juan Torres on 01-06-2025 Fibrin D-dimer LA Ql (PPP) 0.50 mg/L FEU <=0.59 [facility] Comment on above: Increases in D-Dimer concentration observed withthromboembolic events can be variable due to localization,size, and age of the thrombus. Therefore, a thromboembolicevent cannot be diagnosed with certainty on the basis of thereference range. D-Dimers may also be elevated for a varietyof disorders including advanced age, , coronarydisease, cancer, liver disease, infection, inflammation,hematoma, DIC, trauma, post-surgery, diabetes, thrombolyticor anticoagulant therapy, stress, and generalizedhospitalization. Globulin Calc (S) [Mass/Vol] Ordered By: Juan Torres on 01-06-2025 Globulin (S) [Mass/Vol] 3.5 g/dL F [facility] Glomerular filtration rate ( GFR) estimation in non- AmericanOrdered By: Juan Torres on 01-06-2025 GFR/1.73 sq M.predicted among non-blacks MDRD (S/P/Bld) [Vol rate/Area] 56 mL/min/{1.73_m2} Low >=60 mL/min/1.73m 2 [facility] Hematocrit Auto (Bld) [Volum e fraction]Ordered By: Juan Torres on 01-06-2025 Hematocrit (Bld) [Volume fraction] 46.9 % 42.0-54.0 [facility] Hemoglobin [Mass/volume] in BloodOrdered By: Juan Torres on 01-06-2025 Hemoglobin (Bld) [Mass/Vol] 16.8 g/dL 14.0-18.0 [facility] Laboratory - Chemistry and C hemistry - challengeOrdered By: Juan Torres on 01-06-2025 Albumin [Mass/Vol] 4.0 g/dL 3.4-5.0 [facility] ALP [Catalytic activity/Vol] 63 U/L 46-116 [facility] ALT [Catalytic activity/Vol] 31 U/L 16-63 [facility] AST [Catalytic activity/Vol] 18 U/L 15-37 [facility] Bilirubin [Mass/Vol] 0.6 mg/dL 0.2-1.0 [facility] Calcium [Mass/Vol] 9.1 mg/dL 8.5-10.1 [facility] Chloride [Moles/Vol] 108 mmol/L High 98-107 [facility] CO2 [Moles/Vol] 23.7 mmol/L 21.0-32.0 [facility] Creatinine [Mass/Vol] 1.26 mg/dL 0.70-1.30 [facility] GFR/1.73 sq M.predicted MDRD (S/P/Bld) [Vol rate/Area] mL/min/{1.73_m2} >=60 mL/min/1.73m 2 [facility] Glucose [Mass/Vol] 97 mg/dL 74-106 [facility] Natriuretic peptide B (Bld) [Mass/Vol] 443.0 pg/mL <=900.0 [facility] Potassium [Moles/Vol] 4.2 mmol/L 3.5-5.1 [facility] Protein [Mass/Vol] 7.5 g/dL 6.4-8.2 [facility] Sodium [Moles/Vol] 141 mmol/L 136-145 [facility] TSH Qn 3.428 m[IU]/L 0.358-3.740 [facility] Urea nitrogen [Mass/Vol] 19.0 mg/dL High 7.0-18.0 [facility] Urea nitrogen/Creatinine [Mass ratio] 15.1 mg/mg [facility] - Hematology and Cell countsOrdered By: Juan Torres on 01-06-2025 Immature granulocytes/100 WBC (Bld) 0.3 % 0.0-0.5 [facility] Leukocytes [#/volume] correc meron for nucleated erythrocytes in Blood by Automated counOrdered By: Juan Torres on 01-06-2025 WBC corrected for nucl RBC Auto (Bld) [#/Vol] 7.2 10 3/uL 4.0-11.0 [facility] Lymphocytes Auto (Bld) [#/Vo l]Ordered By: Juan Torres on 01-06-2025 Lymphocytes (Bld) [#/Vol] 2.2 10 3/uL 1.2-3.8 [facility] Lymphocytes/100 WBC Auto (Bl d)Ordered By: Juan Torres on 01-06-2025 Lymphocytes/100 WBC (Bld) 31.0 % 20.5-60.0 [facility] MCH Auto (RBC) [Entitic mass ]Ordered By: Juan Torres on 01-06-2025 MCH (RBC) [Entitic mass] 31.7 pg 25.9-34.0 [facility] MCHC Auto (RBC) [Mass/Vol]Or dered By: Juan Torres on 01-06-2025 MCHC (RBC) [Mass/Vol] 35.8 g/dL High 29.9-35.2 [facility] MCV Auto (RBC) [Entitic vol] Ordered By: Juan Torres on 01-06-2025 MCV (RBC) [Entitic vol] 88.5 fL 80.0-94.0 F [facility] Monocytes Auto (Bld) [#/Vol] Ordered By: Juan Torres on 01-06-2025 Monocytes (Bld) [#/Vol] 0.8 10 3/uL 0.3-0.8 [facility] Monocytes/100 WBC Auto (Bld) Ordered By: Juan Torres on 01-06-2025 Monocytes/100 WBC (Bld) 10.9 % 1.7-12.0 [facility] Neutrophils Auto (Bld) [#/Vo l]Ordered By: Juan Torres on 01-06-2025 Neutrophils (Bld) [#/Vol] 4.0 10 3/uL 1.4-6.5 [facility] Neutrophils/100 WBC Auto (Bl d)Ordered By: Juan Torres on 01-06-2025 Neutrophils/100 WBC (Bld) 55.4 % 43.0-75.0 [facility] No Panel InformationOrdered By: Juan Torres on 01-06-2025 Eosinophils # (Auto) 0.2 10 3/uL 0.0-0.7 [facility] Immature Granulocyte # (Auto) 0.02 10 3/uL 0.00-0.03 [facility] Platelet mean volume Auto (B ld) [Entitic vol]Ordered By: Juan Torres on 01-06-2025 Platelet mean volume (Bld) [Entitic vol] 9.3 fL Low 9.5-13.5 [facility] Platelets Auto (Bld) [#/Vol] Ordered By: Juan Torres on 01-06-2025 Platelets (Bld) [#/Vol] 202 10 3/uL 150-450 [facility] RBC Auto (Bld) [#/Vol]Ordere d By: Juan Torres on 01-06-2025 RBC (Bld) [#/Vol] 5.30 10 6/uL 4.70-6.10 [facility] Serum or plasma albumin/glob ulin mass ratioOrdered By: Juan Torres on 01-06-2025 Albumin/Globulin [Mass ratio] 1.1 {ratio} [facility] Serum or plasma anion gap de terminationOrdered By: Juan Torres on 01-06-2025 Anion gap [Moles/Vol] 13.5 mmol/L [facility] H PYLORI TISSUEon 06-27-2022 H PYL TISSUE, UREASE Negative Normal NEGATIVE [facility] Comment on above: Performed By: #### H PYLT #### [facility] [address] [address] [address] Cash Zapata Covid-19 PCR (CVDTB)on 06-13 SARS-CoV-2 (COVID-19) RNA MICAH+probe Ql (Unsp spec) Not detected Normal NOT DETECTED [facility] Comment on above: Result Comment: This test is not yet approved or cleared by the [place] FDA. When there are no FDA-approved or cleared tests available, and other criteria are met, FDA can make tests available under an emergency access mechanism called an Emergency Use Authorization (EUA). The EUA for this test is supported by the [place] of Health and Human Service's (HHS's) declaration [...] SARS-CoV-2. Performed By: #### C VDTBH #### [facility] [address], [place] [address] Dr. Cash Zapata CBC AUTO DIFFon 03-14-2022 BASO # 0.0 103/ul Normal 0.0-0.1 [facility] Comment on above: Performed By: #### C BC #### [facility] [address], [place] [address] Dr. Cash Zapata Basophils/100 WBC (Bld) 0.3 % Normal 0.2-2.0 [facility] Comment on above: Performed By: #### C BC #### [facility] [address] [place] [address] Dr. Cash Zapata EO # 0.1 103/ul Normal 0.0-0.7 [facility] Comment on above: Performed By: #### C BC #### [facility] [address] [place] [address] Dr. Cash Zapata Eosinophils/100 WBC (Bld) 1.1 % Normal 0.9-7.0 [facility] Comment on above: Performed By: #### C BC #### [facility] [address] [place] [address] Dr. Cash Zapata Erythrocyte distribution width (RBC) [Ratio] 12.8 % Normal 11.0-15.0 [facility] Comment on above: Performed By: #### C BC #### [facility] [address] [place] [address] Dr. Cash Zapata Hematocrit (Bld) [Volume fraction] 46.3 % Normal 42.0-54.0 [facility] Comment on above: Performed By: #### C BC #### [facility] [address] [place] [address] Dr. Cash Zapata Hemoglobin (Bld) [Mass/Vol] 16.0 g/dL Normal 14.0-18.0 [facility] Comment on above: Performed By: #### C BC #### [facility] [address] [place] [address] Dr. Cash Zapata IG # 0.04 10e3/ul Critically high 0.00-0.03 [facility] Comment on above: Performed By: #### C BC #### [facility] [address] [place] [address] Dr. Cash Zapata IG % 0.6 % Critically high 0.0-0.5 [facility] Comment on above: Performed By: #### C BC #### [facility] [address] [place] [address] Dr. Cash Zapata LYMPH # 1.9 103/ul Normal 1.2-3.8 [facility] Comment on above: Performed By: #### C BC #### [facility] [address] [place] [address] Dr. Cash Zapata Lymphocytes/100 WBC (Bld) 25.9 % Normal 20.5-60.0 [facility] Comment on above: Performed By: #### C BC #### [facility] [address] [place] [address] Dr. Cash Zapata MANUAL DIFF REQ NO Normal [facility] Comment on above: Performed By: #### C BC #### [facility] [address] [place] [address] Dr. Cash Zapata MCH (RBC) [Entitic mass] 30.7 pg Normal 25.9-34.0 [facility] Comment on above: Performed By: #### C BC #### [facility] [address] [place] [address] Dr. Cash Zapata MCHC (RBC) [Mass/Vol] 34.6 g/dL Normal 29.9-35.2 [facility] Comment on above: Performed By: #### C BC #### [facility] [address] [place] [address] Dr. Cash Zapata MCV (RBC) [Entitic vol] 88.9 fL Normal 80.0-94.0 [facility] Comment on above: Performed By: #### C BC #### [facility] [address] [place] [address] Dr. Cash Zapata MONO # 0.6 103/ul Normal 0.3-0.8 [facility] Comment on above: Performed By: #### C BC #### [facility] [address] [place] [address] Dr. Cash Zapata Monocytes/100 WBC (Bld) 8.5 % Normal 1.7-12.0 [facility] Comment on above: Performed By: #### C BC #### [facility] [address] [place] [address] Dr. Cash Zapata NEUT # 4.6 103/ul Normal 1.4-6.5 [facility] Comment on above: Performed By: #### C BC #### [facility] [address] [address] [address] Cash Zapata Neutrophils/100 WBC (Bld) 63.6 % Normal 43.0-75.0 [facility] Comment on above: Performed By: #### C BC #### [facility] [address] [address] [address] Cash Zapata Platelet mean volume (Bld) [Entitic vol] 9.0 fL Critically low 9.5-13.5 [facility] Comment on above: Performed By: #### C BC #### [facility] [address] [place] [address] Dr. Cash Zapata PLT 209 103/ul Normal 150-450 [facility] Comment on above: Performed By: #### C BC #### [facility] [address] [place] [address] Dr. Cash Zapata RBC 5.21 106/ul Normal 4.70-6.10 [facility] Comment on above: Performed By: #### C BC #### [facility] [address] [place] [address] Dr. Cash Zapata WBC 7.3 103/ul Normal 4.0-11.0 [facility] Comment on above: Performed By: #### C BC #### [facility] [address] [place] [address] Dr. Cash Zapata CULTURE URINEon 03-14-2022 CULTURE URINE Culture Observations : NO GROWTH. Normal [facility] Comment on above: Performed By: #### U RCX #### [facility] [address] [place] [address] Dr. Cash Zapata LIPID PROFILEon 03-14-2022 CHOL-HDL RATIO NORM SEE BELOW Normal [facility] Comment on above: Result Comment: 3.3 - 4.4 LOW RISK 4.4 - 7.1 AVERAGE RISK 7.1 - 11.0 MODERATE RISK >11.0 HIGH RISK Performed By: #### C MP, LIPID #### [facility] [address] [place] [address] Dr. Cash Zapata Cholesterol [Mass/Vol] 187 mg/dL Normal <=200 Th [facility] Comment on above: Performed By: #### C MP, LIPID #### [facility] [address] [address] [address] Cash Zapata Cholesterol in HDL [Mass/Vol] 44 mg/dL Normal 40-60 [facility] Comment on above: Performed By: #### C MP, LIPID #### [facility] [address] [address] [address] Cash Zapata Cholesterol in LDL [Mass/Vol] 124.6 mg/dL Normal [facility] Comment on above: Performed By: #### C MP, LIPID #### [facility] [address] [place] [address] Dr. Cash Zapata Cholesterol.total/Alpa sterol in HDL [Mass ratio] 4.3 {ratio} Normal [facility] Comment on above: Performed By: #### C MP, LIPID #### [facility] [address] [place] [address] Dr. Cash Zapata HDL NORMAL > or = 60 mg/dl - LO W CARDIOVASCULAR RISK <40 mg/dl - HIGH CARDIOVASCULAR RISK Normal [facility] Comment on above: Performed By: #### C MP, LIPID #### [facility] [address] [place] [address] Dr. Cash Zapata LDL CALC NORMAL SEE BELOW Normal [facility] Comment on above: Result Comment: <100 mg/dl OPTIMAL 100 - 129 mg/dl NEAR OR ABOVE OPTIMAL 130 - 159 mg/dl BORDERLINE HIGH 160 - 189 mg/dl HIGH >190 mg/dl VERY HIGH Performed By: #### C MP, LIPID #### [facility] [address] [address] [address] Cash Zapata Triglyceride [Mass/Vol] 92 mg/dL Normal <=150 T [facility] Comment on above: Performed By: #### C MP, LIPID #### [facility] [address] [address] [address] Cash Zapata VLDL CALC 18.4 mg/dL Normal [facility] Comment on above: Performed By: #### C MP, LIPID #### [facility] [address] [address] [address] Cash Zapata PROF 14(COMP METB)on 022 Albumin [Mass/Vol] 4.0 g/dL Normal 3.4-5.0 [facility] Comment on above: Performed By: #### C MP, LIPID #### [facility] [address] [address] [address] Cash Zapata Albumin/Globulin [Mass ratio] 1.2 {ratio} Normal [facility] Comment on above: Performed By: #### C MP, LIPID #### [facility] [address] [address] [address] Cash Zapata ALP [Catalytic activity/Vol] 47 U/L Normal 46-116 [facility] Comment on above: Performed By: #### C MP, LIPID #### [facility] [address] [place] [address] Dr. Cash Zapata ALT [Catalytic activity/Vol] 52 U/L Normal 16-63 [facility] Comment on above: Performed By: #### C MP, LIPID #### [facility] [address] [address] [address] Cash Zapata Anion gap [Moles/Vol] 9.8 mmol/L Normal [facility] Comment on above: Performed By: #### C MP, LIPID #### [facility] [address] [address] [address] Cash Zapata AST [Catalytic activity/Vol] 21 U/L Normal 15-37 [facility] Comment on above: Performed By: #### C MP, LIPID #### [facility] [address] [address] [address] Cash Zapata Bilirubin [Mass/Vol] 0.5 mg/dL Normal 0.2-1.0 [facility] Comment on above: Performed By: #### C MP, LIPID #### [facility] [address] [address] [address] Cash Zapata Calcium [Mass/Vol] 9.5 mg/dL Normal 8.5-10.1 [facility] Comment on above: Performed By: #### C MP, LIPID #### [facility] [address] [address] [address] Cash Zapata Chloride [Moles/Vol] 104 mmol/L Normal 98-107 [facility] Comment on above: Performed By: #### C MP, LIPID #### [facility] [address] [address] [address] Cash Zapata CO2 [Moles/Vol] 31.3 mmol/L Normal 21.0-32.0 [facility] Comment on above: Performed By: #### C MP, LIPID #### [facility] [address] [address] [address] Cash Zapata Creatinine [Mass/Vol] 1.26 mg/dL Normal 0.70-1.30 [facility] Comment on above: Performed By: #### C MP, LIPID #### [facility] [address] [address] [address] Cash Zapata EGFR-AF [place] >60 Normal >=60 [facility] Comment on above: Performed By: #### C MP, LIPID #### [facility] [address] [address] [address] Cash Zapata EGFR-NON AF [place] 57 mL/min/1.73m2 Critically low >=60 [facility] Comment on above: Performed By: #### C MP, LIPID #### [facility] [address] [address] [address] Cash Zapata Globulin (S) [Mass/Vol] 3.3 g/dL Normal [facility] Comment on above: Performed By: #### C MP, LIPID #### [facility] [address] [address] [address] Cash Zapata Glucose [Mass/Vol] 109 mg/dL Critically high 74-106 [facility] Comment on above: Performed By: #### C MP, LIPID #### [facility] [address] [address] [address] Cash Zapata Potassium [Moles/Vol] 5.1 mmol/L Normal 3.5-5.1 [facility] Comment on above: Performed By: #### C MP, LIPID #### [facility] [address] [address] [address] Cash Zapata Protein [Mass/Vol] 7.3 g/dL Normal 6.4-8.2 [facility] Comment on above: Performed By: #### C MP, LIPID #### [facility] [address] [address] [address] Cash Zapata Sodium [Moles/Vol] 140 mmol/L Normal 136-145 [facility] Comment on above: Performed By: #### C MP, LIPID #### [facility] [address] [place] [address] Dr. Cash Zapata Urea nitrogen [Mass/Vol] 23.0 mg/dL Critically high 7.0-18.0 [facility] Comment on above: Performed By: #### C MP, LIPID #### [facility] [address] [place] [address] Dr. Cash Zapata Urea nitrogen/Creatinine [Mass ratio] 18.3 mg/mg Normal [facility] Comment on above: Performed By: #### C MP, LIPID #### [facility] [address] [place] [address] Dr. Cash Zapata UA RANDOM W/MICROSCOPICon BACTERIA NONE SEEN Normal NONE SEEN [facility] Comment on above: Performed By: #### U AMIC #### [facility] [address] [place] [address] Dr. Cash Zapata Bilirubin Ql (U) Negative Normal NEGATIVE [facility] Comment on above: Performed By: #### U AMIC #### [facility] [address] [place] [address] Dr. Cash Zapata CAST NONE SEEN Normal NONE SEEN [facility] Comment on above: Performed By: #### U AMIC #### [facility] [address] [place] [address] Dr. Cash Zapata Clarity (U) CLEAR Normal CLEAR [facility] Comment on above: Performed By: #### U AMIC #### [facility] [address] [place] [address] Dr. Cash Zapata Color (U) LT. YELLOW Normal YELLOW The [facility] Comment on above: Performed By: #### U AMIC #### [facility] [address] [address] [address] Cash Zapata Crystals LM Nom (Urine sed) NONE SEEN Normal NONE SEEN [facility] Comment on above: Performed By: #### U AMIC #### [facility] [address] [address] [address] Cash Zapata Epithelial cells LM Ql (Urine sed) RARE Normal NONE SEEN /RARE The [facility] Comment on above: Performed By: #### U AMIC #### [facility] [address] [address] [address] Cash Zapata Glucose Ql (U) Negative Normal NEGATIVE The [facility] Comment on above: Performed By: #### U AMIC #### [facility] [address] [place] [address] Dr. Cash Zapata Hemoglobin Ql (U) Negative Normal NEGATIVE [facility] Comment on above: Performed By: #### U AMIC #### [facility] [address] [address] [address] Cash Zapata Ketones Ql (U) Negative Normal NEGATIVE The [facility] Comment on above: Performed By: #### U AMIC #### [facility] [address] [address] [address] Cash Zapata LEUKOCYTES Negative Normal NEGATIVE [facility] Comment on above: Performed By: #### U AMIC #### [facility] [address] [address] [address] Cash Zapata MUCOUS NONE SEEN Normal NONE SEEN [facility] Comment on above: Performed By: #### U AMIC #### [facility] [address] [address] [address] Cash Zapata Nitrite Ql (U) Negative Normal NEGATIVE The [facility] Comment on above: Performed By: #### U AMIC #### [facility] [address] [place] [address] Dr. Cash Zapata pH (U) 6.0 [pH] Normal 5-9 [facility] Comment on above: Performed By: #### U AMIC #### [facility] [address] [place] [address] Dr. Cash Zapata RBC NONE SEEN Abnormal 0-2 [facility] Comment on above: Performed By: #### U AMIC #### [facility] [address] [place] [address] Dr. Cash Zapata SPEC GRAVITY 1.025 Normal 1.005-<=1.02 5 [facility] Comment on above: Performed By: #### U AMIC #### [facility] [address] [place] [address] Dr. Cash Zapata UA PROTEIN Negative Normal NEGATIVE/ TRACE [facility] Comment on above: Performed By: #### U AMIC #### [facility] [address] [place] [address] Dr. Cash Zapata Urobilinogen Qn (U) 1.0 {Atilio'U}/dL Normal 0.2 - 1. 0 [facility] Comment on above: Performed By: #### U AMIC #### [facility] [address] [place] [address] Dr. Cash Zapata WBC 0-2 Abnormal NONE SEEN The [facility] Comment on above: Performed By: #### U AMIC #### [facility] [address] [place] [address] Dr. Cash Zapata CBC AUTO DIFFon 03-06-2022 BASO # 0.0 103/ul Normal 0.0-0.1 [facility] Comment on above: Performed By: #### C BC #### [facility] [address] [place] [address] Dr. Cash Zapata Basophils/100 WBC (Bld) 0.3 % Normal 0.2-2.0 [facility] Comment on above: Performed By: #### C BC #### [facility] [address] [place] [address] Dr. Cash Zapata EO # 0.1 103/ul Normal 0.0-0.7 [facility] Comment on above: Performed By: #### C BC #### [facility] [address] [place] [address] Dr. Cash Zapata Eosinophils/100 WBC (Bld) 1.4 % Normal 0.9-7.0 [facility] Comment on above: Performed By: #### C BC #### [facility] [address] [place] [address] Dr. Cash Zapata Erythrocyte distribution width (RBC) [Ratio] 12.4 % Normal 11.0-15.0 [facility] Comment on above: Performed By: #### C BC #### [facility] [address] [place] [address] Dr. Cash Zapata Hematocrit (Bld) [Volume fraction] 46.5 % Normal 42.0-54.0 [facility] Comment on above: Performed By: #### C BC #### [facility] [address] [place] [address] Dr. Cash Zapata Hemoglobin (Bld) [Mass/Vol] 16.4 g/dL Normal 14.0-18.0 [facility] Comment on above: Performed By: #### C BC #### [facility] [address] [place] [address] Dr. Cash Zapata IG # 0.02 10e3/ul Normal 0.00-0.03 [facility] Comment on above: Performed By: #### C BC #### [facility] [address] [place] [address] Dr. Cash Zapata IG % 0.3 % Normal 0.0-0.5 The [facility] Comment on above: Performed By: #### C BC #### [facility] [address] [place] [address] Dr. Cash Zapata LYMPH # 2.5 103/ul Normal 1.2-3.8 The [facility] Comment on above: Performed By: #### C BC #### [facility] [address] [place] [address] Dr. Cash Zapata Lymphocytes/100 WBC (Bld) 39.4 % Normal 20.5-60.0 [facility] Comment on above: Performed By: #### C BC #### [facility] [address] [place] [address] Dr. Cash Zapata MANUAL DIFF REQ NO Normal [facility] Comment on above: Performed By: #### C BC #### [facility] [address] [place] [address] Dr. Cash Zapata MCH (RBC) [Entitic mass] 31.2 pg Normal 25.9-34.0 [facility] Comment on above: Performed By: #### C BC #### [facility] [address] [place] [address] Dr. Cash Zapata MCHC (RBC) [Mass/Vol] 35.3 g/dL Critically high 29.9-35.2 [facility] Comment on above: Performed By: #### C BC #### [facility] [address] [place] [address] Dr. Cash Zapata MCV (RBC) [Entitic vol] 88.6 fL Normal 80.0-94.0 [facility] Comment on above: Performed By: #### C BC #### [facility] [address] [place] [address] Dr. Cash Zapata MONO # 0.7 103/ul Normal 0.3-0.8 [facility] Comment on above: Performed By: #### C BC #### [facility] [address] [place] [address] Dr. Cash Zapata Monocytes/100 WBC (Bld) 10.4 % Normal 1.7-12.0 [facility] Comment on above: Performed By: #### C BC #### [facility] [address] [place] [address] Dr. Cash Zapata NEUT # 3.1 103/ul Normal 1.4-6.5 [facility] Comment on above: Performed By: #### C BC #### [facility] [address] [place] [address] Dr. Cash Zapata Neutrophils/100 WBC (Bld) 48.2 % Normal 43.0-75.0 [facility] Comment on above: Performed By: #### C BC #### [facility] [address] [place] [address] Dr. Cash Zapata Platelet mean volume (Bld) [Entitic vol] 9.4 fL Critically low 9.5-13.5 [facility] Comment on above: Performed By: #### C BC #### [facility] [address] [address] [address] Cash Zapata PLT 210 103/ul Normal 150-450 [facility] Comment on above: Performed By: #### C BC #### [facility] [address] [address] [address] Cash Zapata RBC 5.25 106/ul Normal 4.70-6.10 [facility] Comment on above: Performed By: #### C BC #### [facility] [address] [address] [address] Cash Zapata WBC 6.4 103/ul Normal 4.0-11.0 The [facility] Comment on above: Performed By: #### C BC #### [facility] [address] [address] [address] Cash Zapata Vital Signs Date Time Vital Sign Value Performing Clinician Facility 01-06-2025 14:18-0400 Body height 180.34 cm Juan Ball DO Work Phone: [facility] 01-06-2025 14:18-0400 Body mass index (BMI) [Ratio] 35.7 kg/m2 Juan Ball DO Work Phone: [facility] 01-06-2025 14:18-040 Body weight 116.28 kg Juan Ball DO Work Phone: [facility] 01-06-2025 14:18-0400 Diastolic blood pressure 67 mm[Hg] Juan Ball DO Work Phone: [facility] 01-06-2025 14:18-0400 Heart rate 69 /min Juan Ball DO Work Phone: [facility] 01-06-2025 14:18-0400 Respiratory rate 12 /min Juan Ball DO Work Phone: [facility] 01-06-2025 14:18-0400 Systolic blood pressure 147 mm[Hg] Juan Ball DO Work Phone: [facility] 05-21-2024 10:36-0500 Body height 180.34 cm [facility] 05-21-2024 10:36-0500 Body mass index (BMI) [Ratio] 34.2 kg/m2 [facility] 05-21-2024 10:36-0500 Body weight 111.35 kg [facility] 05-21-2024 10:36-0500 Diastolic blood pressure 73 mm[Hg] [facility] 05-21-2024 10:36-0500 Heart rate 65 /min [facility] 05-21-2024 10:36-0500 Respiratory rate 12 /min [facility] 05-21-2024 10:36-0500 Systolic blood pressure 170 mm[Hg] [facility] 06-10-2023 14:18-0500 Body height 180.3 cm Elizabeth Cardoso TILE CLASSIFIER-ADVERTISING CLERK Work Phone: [facility] 06-10-2023 14:18-0500 Body mass index (BMI) [Ratio] 35.98 kg/m2 Elizabeth Joce TILE CLASSIFIER-ADVERTISING CLERK Work Phone: [facility] 06-10-2023 14:18-0500 Body weight 117.03 kg Elizabeth Cardoso TILE CLASSIFIER-ADVERTISING CLERK Work Phone: [facility] 06-10-2023 14:18-0500 Diastolic blood pressure 76 mm[Hg] Elizabeth Cardoso TILE CLASSIFIER-ADVERTISING CLERK Work Phone: [facility] 06-10-2023 14:18-0500 Heart rate 76 /min Elizabeth Cardoso TILE CLASSIFIER-ADVERTISING CLERK Work Phone: [facility] 06-10-2023 14:18-0500 Systolic blood pressure 162 mm[Hg] Elizabeth Cardoso TILE CLASSIFIER-ADVERTISING CLERK Work Phone: [facility] 05-14-2023 13:47-0500 Body height 180.3 cm Elizabeth Cardoso TILE CLASSIFIER-ADVERTISING CLERK Work Phone: [employer] 05-14-2023 13:47-0500 Body mass index (BMI) [Ratio] 35.93 kg/m2 Elizabeth Cardoso TILE CLASSIFIER-ADVERTISING CLERK [facility] 05-14-2023 13:47-0500 Body weight 116.85 kg Elizabeth Cardoso TILE CLASSIFIER-ADVERTISING CLERK [facility] 05-14-2023 13:47-0500 Diastolic blood pressure 64 mm[Hg] Elizabeth Cardoso TILE CLASSIFIER-ADVERTISING CLERK [facility] 05-14-2023 13:47-0500 Systolic blood pressure 145 mm[Hg] Elizabeth Cardoso TILE CLASSIFIER-ADVERTISING CLERK [facility] 04-26-2023 10:30-0500 Body height 182.88 cm Juan Ball Other [employer] Other 04-26-2023 10:30-0500 Body mass index (BMI) [Ratio] 34.28 kg/m2 Juan Ball Other [employer] Other 04-26-2023 10:30-0500 Body weight 114.67 kg Juan Ball Other [employer] Other 04-26-2023 10:30-0500 Diastolic blood pressure 90 mm[Hg] Juan Ball Other [employer] Other 04-26-2023 10:30-0500 Respiratory rate 12 /min Juan Ball Other [employer] Other 04-26-2023 10:30-0500 Systolic blood pressure 150 mm[Hg] Juan Ball Other [employer] Other 03-27-2023 11:30-0500 Body height 182.88 cm Juan Ball Other [employer] Other 03-27-2023 11:30-0500 Body mass index (BMI) [Ratio] 35.01 kg/m2 Juan Ball Other [employer] Other 03-27-2023 11:30-0500 Body weight 117.12 kg Juan Ball Other [employer] Other 03-27-2023 11:30-0500 Diastolic blood pressure 76 mm[Hg] Juan Ball Other [employer] Other 03-27-2023 11:30-0500 Respiratory rate 12 /min Juan Ball Other [employer] Other 03-27-2023 11:30-0500 Systolic blood pressure 133 mm[Hg] Juan Ball Other [employer] Other 11-19-2022 13:30-0400 Body height 182.88 cm Juan Ball Other [employer] Other 11-19-2022 13:30-0400 Body mass index (BMI) [Ratio] 34.17 kg/m2 Juan Ball Other [employer] Other 11-19-2022 13:30-0400 Body weight 114.31 kg Juan Ball Other [employer] Other 11-19-2022 13:30-0400 Diastolic blood pressure 82 mm[Hg] Juan Ball Other [employer] Other 11-19-2022 13:30-0400 Respiratory rate 16 /min Juan Ball Other [employer] Other 11-19-2022 13:30-0400 Systolic blood pressure 156 mm[Hg] Juan Ball Other [employer] Other Encounters Encounter Date Encounter Type Care Provider Facility Start: 01-06-2025 End: 01-06-2025 ambulatory Juan Torres DO Work Phone: [facility] Work Phone: Start: 01-06-2025 End: 01-06-2025 Patient encounter procedure Juan Torres DO -[facility] Work Phone: Start: 05-21-2024 End: 05-21-2024 ambulatory [facility] Work Phone: Start: 05-21-2024 End: 05-21-2024 Patient encounter procedure [facility] Work Phone: Start: 06-10-2023 End: 06-10-[address] [facility] Start: 06-10-2023 End: 06-10-2023 Postop follow up visit related to original px Elizabeth A Cardoso TILE CLASSIFIER-ADVERTISING CLERK Work Phone: [facility] Comment on above: Status post hernia r epair (Primary Dx) Start: 05-14-2023 End: 05-14-[address] [facility] Start: 05-14-2023 End: 05-14-2023 Postop follow up visit related to original px Elizabeth A Cardoso TILE CLASSIFIER-ADVERTISING CLERK Work Phone: [facility] Comment on above: Status post hernia r epair (Primary Dx) Start: 04-30-2023 End: 04-30-2023 ambulatory Juan Torres Other [employer] Other Start: 04-30-2023 Telephone encounter Juan Torres [facility] Start: 04-26-2023 End: 04-26-2023 ambulatory Juan Torres Other [employer] Other Start: 04-26-2023 Encounter for other preprocedural examination Juan Torres [facility] Start: 04-26-2023 Office outpatient vi sit 25 minutes Juan Torres [facility] Start: 04-26-2023 Telephone encounter Juan Echeverria [facility] Start: 04-19-2023 End: 03-17-2024 Telephone encounter Hanane Proctor A [facility] Start: 04-01-2023 End: 04-01-2023 ambulatory Juan Torres Other [employer] Other Start: 04-01-2023 Telephone encounter Juan Echeverria [facility] Start: 03-27-2023 End: 03-27-2023 ambulatory Jaun Torres Other [employer] Other Start: 03-27-2023 Encounter for genera l adult medical examination without abnormal findings Juan Torres [facility] Start: 03-27-2023 Periodic preventive med est patient 65yrs& older Juan Torres [facility] Start: 02-22-2023 End: 02-22-2023 ambulatory Juan Torres Other [employer] Other Start: 02-22-2023 Telephone encounter Juan Echeverria [facility] Start: 11-19-2022 End: 11-19-2022 ambulatory Juan Torres Other [employer] Other Start: 11-19-2022 Office outpatient vi sit 15 minutes Juan Brian [facility] Start: 06-29-2022 Encounter for preprocedural laboratory examination DR ANTOINE WILDER . [facility] Start: 06-27-2022 End: 06-27-[address] ANTOINE WILDER . Facility:[facility] Start: 06-23-2022 End: 06-24-[address] ANTOINE WILDER . Facility:[facility] Start: 06-23-2022 End: 06-24-2022 Encounter for preprocedural laboratory examination DR ANTOINE WILDER . Facility:[facility] Start: 03-19-2022 Encounter for genera l adult medical examination without abnormal findings DR JUAN TORRES [facility] Start: 03-14-2022 Adult health examination Gopal Torres Other [facility] [employer] Other Start: 03-14-2022 End: 03-15-[address] JUAN TORRES Facility:[facility] Start: 03-14-2022 End: 03-15-2022 Encounter for general adult medical examination without abnormal findings DR JUAN TORRES Facility:[facility] Start: 03-06-2022 End: 03-07-[address] DOCTOR VIEYRA Facility:[facility] Procedures Date Procedure Procedure Detail Performing Clinician Start: 06-10-2023 Follow-up visit Follow-up ELIZABETH CARDOSO Start: 06-27-2022 Colonoscopy Elizabeth chamberlain TILE CLASSIFIER-ADVERTISING CLERK Work Phone: Start: 03-14-[address] MIRIAN WILDER . Comment on above: Performed By: #### P [facility] #### [facility] [address] [place] [address] Dr. Cash Zapata Start: 12-22-2015 General examination of patient Juan Torres Other Start: 12-22-2015 Hyperlipidemia screening Juan Torres Other Start: 12-22-2015 Screening for malign ant neoplasm of colon Juan Torres Other Start: 12-22-2015 Screening for malign ant neoplasm of prostate Juan Torres Other Depression screening Chai Torres Other Plan of Treatment Date Care Activity Detail Author Start: 06-27-2027 Screening for malignant neoplasm of colon Colonoscopy [facility] Start: 01-06-2025 [facility] Start: 06-10-2024 Adult BMI Screening Adult BMI Screening [facility] Start: 06-10-2024 Tobacco Screening Tobacco Screening [facility] Start: 05-14-2024 Adult BMI Screening Adult BMI Screening [facility] Start: 05-14-2024 Tobacco Screening Tobacco Screening [facility] Start: 01-12-2024 Influenza vaccination Influenza Vaccine [facility] Start: 01-11-2023 Influenza vaccination Influenza Vaccine [facility] Start: 2017 Abdominal aortic aneurysm screening Abdominal Aortic Aneurysm (AAA) Screen [facility] Start: 2017 Fall Risk Screening Fall Risk Screening [facility] Start: 11-07-1971 DTaP,Tdap and Td Vaccines (1 - Tdap) DTaP,Tdap and Td Vaccines (1 - Tdap) [facility] Start: 1970 Adult BMI Follow Up Plan Adult BMI Follow Up Plan [facility] Start: 1964 Depression Screening Depression Screening [facility] Start: 1952 Medicare Annual Wellness Visit Medicare Annual Wellness Visit [facility] Comprehensive metabo lic 1999 panel - Serum or Plasma [facility] Comprehensive metabo lic 1999 panel - Serum or Plasma [facility] Fibrin D-dimer [Pres ence] in Platelet poor plasma by Latex agglutination [facility] US Heart Transthoracic [facility] XR Chest 2 Views [facility] Immunizations Immunization Date Immunization Notes Care Provider Fa cility 10-29-2021 zoster vaccine, live Benjami jeffery Torres Other [facility] 07-27-2019 pneumococcal polysaccharide vaccine, 23 valent Juan Torres Other [facility] 06-27-2018 pneumococcal conjuga te vaccine, 13 valent Juan Torres Other [facility] pneumococcal Conjuga te, unspecified formulation; Translations: [Need for prophylactic vaccination against Streptococcus pneumoniae (pneumococcus)] Juan Torres Other [employer] Other Payers Date Payer Category Payer Medicare [id number] 2025 Self-pay 1998 Commercial Managed C are - POS [employer] [id number] 1998 Private Health Insurance AETPOLLY DELGADO POS II [id number] 1998-Present [phone] [address] [place] [address] [id number] 1959 Private Health Insurance W [id number] 1950 Unknown [id number] 1952 Unknown [id number] [id number] 1952 Unknown [id number] [id number] 1952 Unknown [id number] [id number] 1952 Unknown [id number] [id number] 1952 Unknown [id number] Private Health Insurance [id number] Unknown [id number] [id number] Social History Date Type Detail Facility Start: 06-23-2020 End: 05-14-2023 Sex Assigned At [facility] [employer] Other Tobacco smoking stat [facility] Unknown if ever smoked [facility] Work Phone: Start: 12-16-2014 End: 05-21-2024 Sex Male (finding) [facility] Start: 1950 Sex Assigned At Male F [facility] Start: 03-27-2023 Tobacco smoking stat us NHIS Ex-smoker [facility] End: 05-13-1974 History of tobacco use Current smoker [facility] End: 05-13-1974 History of tobacco use Cigarette Smoker [facility] Start: 06-23-2020 End: 03-27-2023 Cigarettes smoked current (pack per day) - Reported 1.5 [facility] Start: 03-27-2023 Tobacco use and exposure Smokeless tobacco non-user [facility] Start: 04-19-2023 End: 05-14-2023 Alcohol intake Ex-drinker (finding) [facility] stem Housing Instability Unknown [facility] Start: 1950 [facility] Procedure Code Equipment Code Equipment Origin al Text Equipment Identifier Dates Mesh Plstr Clgn Symbotex 15cm 2 Sd Comp 3d [facility] Srg - Sna - [id number] Start: 04-30-2023 Clinical Notes 11-19-2022 to 01-06-2025 Note Date & Type Note Facility 01-06-2025 Evaluation note Diagnosis Onset Date Resolution Chest pain acute January 06, 2 025 2:05pm Dyspnea acute January 06, 025 2:05pm Family history of coronary arteriosclerosis acute January 06 2:05pm Hypercholesterolemia acute Augu 2024 2:05pm Hypertension acute January 06, 2025 2:05pm DANIA (obstructive sleep apnea) acute January 06 2:05pm Palpitations acute January 06, 2025 2:05pm Systolic murmur of aorta acute January 06, 2025 2:05pm [facility] Work Phone: [phone] 614-769101-29-2024 History of Present illness Narrative* Elizabeth Cardoso, NITIN-ADVERTISING CLERK - 06/10/2023 2:30 PM EST Images from the original note were not included. Yu Su is a 72 y.o. male status post laparoscopic-assisted incisional ventral hernia repair with mesh on 04/30/2023. He is doing well from surgical standpoint and has no concerns. Ready toreturn to work. No fevers or chills. Having [...] post hernia repair [Z98.890, Z87.19] JUAN CHAVEZ [facility] [place] This note was created with the assistance of a speech recognition program. While intending to generate a timely document that accurately reflects the content of the visit, no guarantee can be provided that every grammatical or spelling mistake has been or will be identified or corrected. Thank you for your understanding. JUAN Chavez 05/14/23 1359 JUAN Chavez 06/10/23 1432 documented [facility] History of Present illness Narrative* JUAN Chavez - 05/14/2023 2:00 PM EST Images from the original note were not [...] dry and intact without signs of infection. Steri- Strips removed in office today. No hernia recurrence. Skin: General: Skin is warm and dry. Findings: Bruising present. No erythema. Neurological: Mental Status: He is alert. Assessment Pramod Su is a 72 y.o.male postop hernia repair. Plan No heavy lifting for 4 more weeks. Follow-up in office at that time. Status post hernia repair [Z98.890, Z87.19] JUAN CHAVEZ [facility] General Surgery [place] This note was created with the assistance of a speech recognition program. While intending to generate a timely document that accurately reflects the content of the visit, no guarantee can be provided that every grammatical or spelling mistake has been or will be identified or corrected. Thank you for your understanding. 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 [employer] Other 12-08-2023 Miscellaneous Notes* Telephone Encounter - ROBERT Mccoy - 04/19/2023 [...] for a medical clearance. documented in this encounterPrem[facility]23 Telephone encounter Note* Telephone Encounter - ROBERT Mccoy - 04/19/2023 1:37 PM EST I tried to call Mell however the voicemail is full. [facility]12-08-2023 Telephone encounter Note* Telephone Encounter - ROBERT [...] was emailed to PAT at the hospital. [facility]12-08-2023 Telephone encounter Note* Telephone Encounter - ROBERT Mccoy - 04/19/2023 1:37 PM EST Mell called into the office to say that Pramod has an appointment on [address] Torres for a medical clearance. [facility]11-15-2023 Evaluation note* Encounter Date Diagnosis Assessment Notes Treatment Notes Treatment Clinical Notes Mar, Wellness examination (ICD-10 - Z00.00) Healthy diet and exercise. Reviewed age-appropriate preventive testing recommended. Mar, DANIA (obstructive sle ep apnea) (ICD-10 - G47.33) This patient is aware of the benefits associated with DANIA: With continued use, the patient reduces the risk for AZ, CVA, HTN, cardiac dysrhythmias and sudden cardiac [...] (ICD-10 - Z12.5) Yearly NAHID and PSA [employer] Other 07-10-2023 Evaluation note* Encounter Date Diagnosis Assessment Notes Treatment Notes Treatment Clinical Notes Nov, DANIA (obstructive sleep apnea) (ICD-10 - G47.33) This patient is aware of the benefits associated with DANIA: With continued use, the patient reduces the risk for AZ, CVA, HTN, cardiac dysrhythmias and sudden cardiac [...] exercise for 30 minutes, 3-5 times weekly. 10 Nov, 2022 Body mass index [BMI] 34.0-34.9, adult (ICD-10 - Z68.34) [employer] Other Evaluation noteNo InformationNort [employer] Other Evaluation note* Diagnosis Onset Date Resolution Status Admit Date GERD (gastroesophageal reflu x disease) acute May 21 10:25am Hypercholesterolemia acute Jm2024 10:25am Hypertension acute May 21, 2024 10:25am Obesity acute May 21, 025 10:25am DANIA (obstructive sleep apnea) acute May 21, 2024 10:25am Rhinitis medicamentosa acute [facility] 2024 10:25am Screening PSA (prostate spec ific antigen) acute May 21 10:25am [facility] Work Phone: Evaluation note* Diagnosis Status post hernia repair- Primary Other postprocedural status documented in this encounter [facility] Diagnosis Status post hernia repair- Primary Other postprocedural status documented in this encounter [facility] Diagnosis Onset Date Resolution Status Admit Date Dyspnea acute January 06, 2 025 2:05pm Hypertension acute January 06, 2025 2:05pm [facility] Work Phone: [employer] general Narrative - Reported* Type Description Date [...] Cardiac Catheterization Hospitalization History see surgical history AppSheet Other [facility] general Narrative - Reported* Type Description Date [...] Cardiac Catheterization Hospitalization History see surgical history [employer] Other History general Narrative - Reported* Type [...] repair 04/2023 Hospitalization History see surgical history [employer] Other InstructionsNot on filedocumented in this encounter [facility]ructionsNot on filedocumented in this encounter [facility] SystemReason for referral (narrative)No reason for referral information availableAshtab[facility] Work Phone: Summary Purpose Family History No Family History Records Found Relationship Condition Age at Onset Recorded Date/T darío father Heart disease Unknown mother Hypertension Unknown Advance Directives No Advanced Directives Records Found Advance Directive Response Recorded Date/ Time Advance Directives No April 10:56am Advance Directive Response Recorded Date/ Time Advance Directives No April 11:56am Chief Complaint and Reason for Visit Chief [...] Systolic murmur of aorta January 06 2:05pm Chief Complaint Admit Date yearly May 21, 2024 10 :25am Reason for Visit Admit Date GERD (gastroesophageal reflux disease) J anuary 2024 10:25am Hypercholesterolemia May 21, 2024 1 0:25am Hypertension May 21, 2024 10 :25am Obesity May 21, 2024 10 :25am DANIA (obstructive sleep apnea) May 10:25am Rhinitis medicamentosa May 21, 2024 10:25am Screening PSA (prostate specific antigen ) May 21, 2024 10:25am Reason for Visit Admit Date Dyspnea January 06, 2025 2: 05pm Hypertension January 06, 2025 2: 05pm Additional Source Comments (unrecognized sect ion and content) No Status Records FoundNo Status Records FoundNo Status Records Found INFORMATION SOURCE (unrecogn ized section and content) DATE CREATED AUTHOR 07/04/2022 [facility] DATE CREATED AUTHOR AUTHOR'S ORGANIZ ATION 06/13/2023 [facility] DATE CREATED AUTHOR AUTHOR'S ORGANIZ ATION 01/10/2025 [facility] REASON FOR VISIT (unrecogniz ed section and [...] May 21, 2024 End: May 21, 2024 Bleach Machine Operator Relationship Specialty Start Date End Date Juan Torres DO [address] [place] [address] PCP - General Internal Medicine 05/21/22 Bleach Machine Operator Relationship Specialty Start Date End Date Juan Torres DO [address] [place] [address] PCP - General Internal Medicine 05/21/22 Team Status: Inactive Member Role Status Dates Juan Brian DO Primary Care Provider Active Start: January 06, 2025 End: January 06, 2025 Juan Torres DO Attending Provider Active Sta rt: January 06, 2025 End: January 06, 2025 Team Status: Active Member Role Status Dates Juan Brian DO Primary Care Provider Active Start: January 06, 2025 Juan Brian DO Attending Provider Active Sta rt: January 06, 2025 Goals (unrecognized section and content) Goals may [...] BE BASED ON THE PRIMARY CLINICAL RECORDS. [employer] [facility]. provides no warranty or guarantee of the accuracy or completeness of information in this document.
--- NOTE | 2025-01-18 08:57 | PC.NURSE ---
Nursing Note Cardiac Stress Test Reviewed: Medication, allergies and patient history reviewed. Stress Test: [x ] Patient tolerated stress test well. [ ] Patient unable to tolerate walking on treadmill. Switched to Lexiscan stress test. [x ] No chest pain noted per patient [ ] Chest pain that resolved prior to leaving stress lab. [ ] No dyspnea noted. [ x] Dyspnea that resolved prior to leaving stress lab. [x ] Patient left stress lab asymptomatic and hemodynamically stable. [ ] Patient taken to the Emergency Room due to non-resolving symptoms following stress test. [ x] Patient achieved target heart rate. [ ] Patient unable to achieve target heart rate. [ ] Aminophylline administered as reversal agent to Lexiscan (Regadenoson). [ ] Nitro administered. Nursing Comments:Pt had Cardiolite test done. Pt had no chest pain but some discomfort per pt. States it is the same discomfort that the Dr. wanted to rule out with the test. Pt's SOB resolved within 3 minutes of rest and pt felt back to normal and ambulated to cafeteria for breakfast prior to second set of images.
--- NOTE | 2025-01-18 18:30 | PM.STRESS ---
Stress Test Stress Test Requesting physician: Juan Torres Procedure: Treadmill Exercise cardiolyte stress test General Information: Reason for Stress Test: [Shortness of breath, palpitations] Cardiac History and Risk Factors: [HTN] Resting 12 - Lead Electrocardiogram: Sinus rhythm T wave inversions consider inferior ischemia Abnromal ECG Stress Test: Protocol: [Sina protocol. Reached stage 3 of the Sina Protocol. Resting HR was 63 bpm increasing to 146 bpm. Resting JEROME 148/84, maximum BP of 180/88. 10.10 METS.] Exercise Capacity: [Exercised for 7 minutes and 4 seconds; Functional Capacity; high] Blood Pressure Response: [Resting hypertension, appropriate response] Rhythm: [Sinus, PVCs, PACs] ST - Response: [No significant ST T wave changes] Patient Response: [No chest pain] Interpretation: 1. No ischemic EKG changes seen in a patient with an abnormal resting ECG 2. Appropriate HR and BP response to exercise 3. Dunn Treadmill Score: 7. Estimated 1-Year Mortality: 0.3-0.9 %. Risk Category: Low Risk. Angiography: Usually not indicated. 4. Nuclear images are to be read, interpreted and reported seperately
== END 2025-01-18 07:58 | disposition home or self-care (01) ==
LOC: CARD 08:01
PROVIDERS: PCP Internal Medicine; Visit Provider Internal Medicine
DX: R06.00 Dyspnea, unspecified (principal); R00.2 Palpitations; I35.8 Other nonrheumatic aortic valve disorders; R07.9 Chest pain, unspecified
CPT/HCPCS: 78452; 93017; A9500

== ENCOUNTER 2025-01-19 06:46 | Outpatient (OUT) | payer MEDICARE, OTHER, SELFPAY ==
--- OUTSIDE RECORDS SUMMARY | 2025-01-19 06:49 | XMS_ITS | CCD ---
Author Organization [facility] Care Team Providers Care Expansion Joint Builder Name Role Phone MEÑO ., DR ANTOINE [...] DR ALEJANDRA Primary Care Unavailable BALL, DR ALEJANRDA Consulting Unavailable GRILLIS ., DR ANTOINE Lerner [...] or physicia Propensity to adverse reactions Comment:Done [employer] Other Medications Current Medications Medication Drug Class(es) [...] Episodic Other aftercare (1 source) Other terminal operator (current) drug therapy; Translations: [OTH [facility] CURRENT DRUG THERAPY] Onset: 07-03-2022 Episodic Other aftercare (2 sources) Taking high risk medication; Translations: [Other terminal operator (current) drug therapy] 05-21-2024 Episodic Other and [...] Basophils (Bld) [#/Vol] 0.0 10 3/uL 0.0-0.1 [facility] Basophils/100 WBC Auto (Bld) Ordered By: Juan Torres on 01-06-2025 Basophils/100 WBC (Bld) 0.3 % 0.2-2.0 F [facility] Eosinophils/100 WBC Auto (Bl d)Ordered By: Juan Torres on 01-06-2025 Eosinophils/100 WBC (Bld) 2.1 % 0.9-7.0 [facility] Erythrocyte distribution wid th Auto (RBC) [Ratio]Ordered By: Juan Torres on 01-06-2025 Erythrocyte distribution width (RBC) [Ratio] 12.3 % 11.0-15.0 [facility] FPG ECG *PCP OFFICE ONLY*on 01-06-2025 FPG ECG *PCP OFFICE ONLY* [facility] [place] [address] Electrocardiograph Report Signed Patient: Pramod Su MR#: [id number] : 1950 Acct:[id number] Age/Sex: 74 / M ADM Date: 01/06/25 Loc: [facility] Room: [facility] Attending Dr: Juan Torres DO Ordering Provider: [...] previous ECGs available Confirmed by Franklin Kerr ([id number]) on 01/07/2025 3:04:16 PM Referred By: Electronically Signed By: Franklin Kerr Transcribed By: MUS Signed By Franklin Kerr MD 01/07/25 1504 Normal [facility] Fibrin D-dimer [Presence] in Platelet poor plasma by Latex agglutinationOrdered By: Juan Torres on 01-06-2025 Fibrin D-dimer LA Ql (PPP) 0.50 mg/L FEU <=0.59 [facility] Comment on above: Increases in D-Dimer [...] 01-06-2025 Globulin (S) [Mass/Vol] 3.5 g/dL F [facility] Glomerular filtration rate ( GFR) estimation in non- AmericanOrdered By: Juan Torres on 01-06-2025 GFR/1.73 sq M.predicted among non-blacks MDRD (S/P/Bld) [Vol rate/Area] 56 mL/min/{1.73_m2} Low >=60 mL/min/1.73m 2 [facility] Hematocrit Auto (Bld) [Volum e fraction]Ordered By: Juan Torres on 01-06-2025 Hematocrit (Bld) [Volume fraction] 46.9 % 42.0-54.0 [facility] Hemoglobin [Mass/volume] in BloodOrdered By: Juan Torres on 01-06-2025 Hemoglobin (Bld) [Mass/Vol] 16.8 g/dL 14.0-18.0 [facility] Laboratory - Chemistry and C hemistry - challengeOrdered By: Juan Torres on 01-06-2025 Albumin [Mass/Vol] 4.0 g/dL 3.4-5.0 [facility] ALP [Catalytic activity/Vol] 63 U/L 46-116 [facility] ALT [Catalytic activity/Vol] 31 U/L 16-63 [facility] AST [Catalytic activity/Vol] 18 U/L 15-37 [facility] Bilirubin [Mass/Vol] 0.6 mg/dL 0.2-1.0 [facility] Calcium [Mass/Vol] 9.1 mg/dL 8.5-10.1 [facility] Chloride [Moles/Vol] 108 mmol/L High 98-107 [facility] CO2 [Moles/Vol] 23.7 mmol/L 21.0-32.0 [facility] Creatinine [Mass/Vol] 1.26 mg/dL 0.70-1.30 [facility] GFR/1.73 sq M.predicted MDRD (S/P/Bld) [Vol rate/Area] mL/min/{1.73_m2} >=60 mL/min/1.73m 2 [facility] Glucose [Mass/Vol] 97 mg/dL 74-106 [facility] Natriuretic peptide B (Bld) [Mass/Vol] 443.0 pg/mL <=900.0 [facility] Potassium [Moles/Vol] 4.2 mmol/L 3.5-5.1 [facility] Protein [Mass/Vol] 7.5 g/dL 6.4-8.2 [facility] Sodium [Moles/Vol] 141 mmol/L 136-145 [facility] TSH Qn 3.428 m[IU]/L 0.358-3.740 [facility] Urea nitrogen [Mass/Vol] 19.0 mg/dL High 7.0-18.0 [facility] Urea nitrogen/Creatinine [Mass ratio] 15.1 mg/mg [facility] Laboratory - Hematology and Cell countsOrdered By: Juan Torres on 01-06-2025 Immature granulocytes/100 WBC (Bld) 0.3 % 0.0-0.5 [facility] Leukocytes [#/volume] correc meron for nucleated erythrocytes in Blood by Automated counOrdered By: Juan Torres on 01-06-2025 WBC corrected for nucl RBC Auto (Bld) [#/Vol] 7.2 10 3/uL 4.0-11.0 [facility] Lymphocytes Auto (Bld) [#/Vo l]Ordered By: Juan Torres on 01-06-2025 Lymphocytes (Bld) [#/Vol] 2.2 10 3/uL 1.2-3.8 [facility] Lymphocytes/100 WBC Auto (Bl d)Ordered By: Juan Torres on 01-06-2025 Lymphocytes/100 WBC (Bld) 31.0 % 20.5-60.0 [facility] MCH Auto (RBC) [Entitic mass ]Ordered By: Juan Torres on 01-06-2025 MCH (RBC) [Entitic mass] 31.7 pg 25.9-34.0 [facility] MCHC Auto (RBC) [Mass/Vol]Or dered By: Juan Torres on 01-06-2025 MCHC (RBC) [Mass/Vol] 35.8 g/dL High 29.9-35.2 [facility] MCV Auto (RBC) [Entitic vol] Ordered By: Juan Torres on 01-06-2025 MCV (RBC) [Entitic vol] 88.5 fL 80.0-94.0 F [facility] Monocytes Auto (Bld) [#/Vol] Ordered By: Juan Torres on 01-06-2025 Monocytes (Bld) [#/Vol] 0.8 10 3/uL 0.3-0.8 [facility] Monocytes/100 WBC Auto (Bld) Ordered By: Juan Torres on 01-06-2025 Monocytes/100 WBC (Bld) 10.9 % 1.7-12.0 [facility] Neutrophils Auto (Bld) [#/Vo l]Ordered By: Juan Torres on 01-06-2025 Neutrophils (Bld) [#/Vol] 4.0 10 3/uL 1.4-6.5 [facility] Neutrophils/100 WBC Auto (Bl d)Ordered By: Juan Torres on 01-06-2025 Neutrophils/100 WBC (Bld) 55.4 % 43.0-75.0 [facility] No Panel InformationOrdered By: Juan Torres on 01-06-2025 Eosinophils # (Auto) 0.2 10 3/uL 0.0-0.7 [facility] Immature Granulocyte # (Auto) 0.02 10 3/uL 0.00-0.03 [facility] Platelet mean volume Auto (B ld) [Entitic vol]Ordered By: Juan Torres on 01-06-2025 Platelet mean volume (Bld) [Entitic vol] 9.3 fL Low 9.5-13.5 [facility] Platelets Auto (Bld) [#/Vol] Ordered By: Juan Torres on 01-06-2025 Platelets (Bld) [#/Vol] 202 10 3/uL 150-450 [facility] RBC Auto (Bld) [#/Vol]Ordere d By: Juan Torres on 01-06-2025 RBC (Bld) [#/Vol] 5.30 10 6/uL 4.70-6.10 [facility] Serum or plasma albumin/glob ulin mass ratioOrdered By: Juan Torres on 01-06-2025 Albumin/Globulin [Mass ratio] 1.1 {ratio} [facility] Serum or plasma anion gap de terminationOrdered By: Juan Torres on 01-06-2025 Anion gap [Moles/Vol] 13.5 mmol/L [facility] H PYLORI TISSUEon 06-27-2022 H PYL TISSUE, UREASE Negative Normal NEGATIVE [facility] Comment on above: Performed By: #### H PYLT #### [facility] [address] [address] [address] Cash Zapata Covid-19 PCR (CVDTB)on 06-13 SARS-CoV-2 (COVID-19) RNA MICAH+probe Ql (Unsp spec) Not detected Normal NOT DETECTED [facility] Comment on above: Result Comment: This test is not yet approved or cleared by the [place] FDA. When there are no FDA-approved or cleared tests available, and other criteria are met, FDA can make tests available under an emergency access mechanism called an Emergency Use Authorization (EUA). The EUA for this test is supported by the [place] of Health and Human Service's (HHS's) declaration [...] SARS-CoV-2. Performed By: #### C VDTBH #### [facility] [address] [place], [place] [address] Dr. Cash Zapata CBC AUTO DIFFon 03-14-2022 BASO # 0.0 103/ul Normal 0.0-0.1 [facility] Comment on above: Performed By: #### C BC #### [facility] [address] [place], [place] [address] Dr. Cash Zapata Basophils/100 WBC (Bld) 0.3 % Normal 0.2-2.0 [facility] Comment on above: Performed By: #### C BC #### [facility] [address] [place] [address] Dr. Cash Zapata EO # 0.1 103/ul Normal 0.0-0.7 [facility] Comment on above: Performed By: #### C BC #### [facility] [address] [place] [address] Dr. Cash Zapata Eosinophils/100 WBC (Bld) 1.1 % Normal 0.9-7.0 [facility] Comment on above: Performed By: #### C BC #### [facility] [address] [place] [address] Dr. Cash Zapata Erythrocyte distribution width (RBC) [Ratio] 12.8 % Normal 11.0-15.0 [facility] Comment on above: Performed By: #### C BC #### [facility] [address] [place] [address] Dr. Cash Zapata Hematocrit (Bld) [Volume fraction] 46.3 % Normal 42.0-54.0 [facility] Comment on above: Performed By: #### C BC #### [facility] [address] [place] [address] Dr. Cash Zapata Hemoglobin (Bld) [Mass/Vol] 16.0 g/dL Normal 14.0-18.0 [facility] Comment on above: Performed By: #### C BC #### [facility] [address] [place] [address] Dr. Cash Zapata IG # 0.04 10e3/ul Critically high 0.00-0.03 [facility] Comment on above: Performed By: #### C BC #### [facility] [address] [place] [address] Dr. Cash Zapata IG % 0.6 % Critically high 0.0-0.5 [facility] Comment on above: Performed By: #### C BC #### [facility] [address] [place] [address] Dr. Cash Zapata LYMPH # 1.9 103/ul Normal 1.2-3.8 [facility] Comment on above: Performed By: #### C BC #### [facility] [address] [place] [address] Dr. Cash Zapata Lymphocytes/100 WBC (Bld) 25.9 % Normal 20.5-60.0 [facility] Comment on above: Performed By: #### C BC #### [facility] [address] [place] [address] Dr. Cash Zapata MANUAL DIFF REQ NO Normal [facility] Comment on above: Performed By: #### C BC #### [facility] [address] [place] [address] Dr. Cash Zapata MCH (RBC) [Entitic mass] 30.7 pg Normal 25.9-34.0 [facility] Comment on above: Performed By: #### C BC #### [facility] [address] [place] [address] Dr. Cash Zapata MCHC (RBC) [Mass/Vol] 34.6 g/dL Normal 29.9-35.2 [facility] Comment on above: Performed By: #### C BC #### [facility] [address] [place] [address] Dr. Cash Zapata MCV (RBC) [Entitic vol] 88.9 fL Normal 80.0-94.0 [facility] Comment on above: Performed By: #### C BC #### [facility] [address] [place] [address] Dr. Cash Zapata MONO # 0.6 103/ul Normal 0.3-0.8 [facility] Comment on above: Performed By: #### C BC #### [facility] [address] [place] [address] Dr. Cash Zapata Monocytes/100 WBC (Bld) 8.5 % Normal 1.7-12.0 [facility] Comment on above: Performed By: #### C BC #### [facility] [address] [place] [address] Dr. Cash Zapata NEUT # 4.6 103/ul Normal 1.4-6.5 [facility] Comment on above: Performed By: #### C BC #### [facility] [address] [address] [address] Cash Zapata Neutrophils/100 WBC (Bld) 63.6 % Normal 43.0-75.0 [facility] Comment on above: Performed By: #### C BC #### [facility] [address] [address] [address] Cash Zapata Platelet mean volume (Bld) [Entitic vol] 9.0 fL Critically low 9.5-13.5 [facility] Comment on above: Performed By: #### C BC #### [facility] [address] [place] [address] Dr. Cash Zapata PLT 209 103/ul Normal 150-450 [facility] Comment on above: Performed By: #### C BC #### [facility] [address] [place] [address] Dr. Cash Zapata RBC 5.21 106/ul Normal 4.70-6.10 [facility] Comment on above: Performed By: #### C BC #### [facility] [address] [place] [address] Dr. Cash Zapata WBC 7.3 103/ul Normal 4.0-11.0 [facility] Comment on above: Performed By: #### C BC #### [facility] [address] [place] [address] Dr. Cash Zapata CULTURE URINEon 03-14-2022 CULTURE URINE Culture Observations : NO GROWTH. Normal [facility] Comment on above: Performed By: #### U RCX #### [facility] [address] [place] [address] Dr. Cash Zapata LIPID PROFILEon 03-14-2022 CHOL-HDL RATIO NORM SEE BELOW Normal [facility] Comment on above: Result Comment: 3.3 - 4.4 LOW RISK 4.4 - 7.1 AVERAGE RISK 7.1 - 11.0 MODERATE RISK >11.0 HIGH RISK Performed By: #### C MP, LIPID #### [facility] [address] [place] [address] Dr. Cash Zapata Cholesterol [Mass/Vol] 187 mg/dL Normal <=200 Th [facility] Comment on above: Performed By: #### C MP, LIPID #### [facility] [address] [address] [address] Cash Zapata Cholesterol in HDL [Mass/Vol] 44 mg/dL Normal 40-60 [facility] Comment on above: Performed By: #### C MP, LIPID #### [facility] [address] [address] [address] Cash Zapata Cholesterol in LDL [Mass/Vol] 124.6 mg/dL Normal [facility] Comment on above: Performed By: #### C MP, LIPID #### [facility] [address] [place] [address] Dr. Cash Zapata Cholesterol.total/Alpa sterol in HDL [Mass ratio] 4.3 {ratio} Normal [facility] Comment on above: Performed By: #### C MP, LIPID #### [facility] [address] [place] [address] Dr. Cash Zapata HDL NORMAL > or = 60 mg/dl - LO W CARDIOVASCULAR RISK <40 mg/dl - HIGH CARDIOVASCULAR RISK Normal [facility] Comment on above: Performed By: #### C MP, LIPID #### [facility] [address] [place] [address] Dr. Cash Zapata LDL CALC NORMAL SEE BELOW Normal [facility] Comment on above: Result Comment: <100 mg/dl OPTIMAL 100 - 129 mg/dl NEAR OR ABOVE OPTIMAL 130 - 159 mg/dl BORDERLINE HIGH 160 - 189 mg/dl HIGH >190 mg/dl VERY HIGH Performed By: #### C MP, LIPID #### [facility] [address] [address] [address] Cash Zapata Triglyceride [Mass/Vol] 92 mg/dL Normal <=150 T [facility] Comment on above: Performed By: #### C MP, LIPID #### [facility] [address] [address] [address] Cash Zapata VLDL CALC 18.4 mg/dL Normal [facility] Comment on above: Performed By: #### C MP, LIPID #### [facility] [address] [address] [address] Cash Zapata PROF 14(COMP METB)on 022 Albumin [Mass/Vol] 4.0 g/dL Normal 3.4-5.0 [facility] Comment on above: Performed By: #### C MP, LIPID #### [facility] [address] [address] [address] Cash Zapata Albumin/Globulin [Mass ratio] 1.2 {ratio} Normal [facility] Comment on above: Performed By: #### C MP, LIPID #### [facility] [address] [address] [address] Cash Zapata ALP [Catalytic activity/Vol] 47 U/L Normal 46-116 [facility] Comment on above: Performed By: #### C MP, LIPID #### [facility] [address] [place] [address] Dr. Cash Zapata ALT [Catalytic activity/Vol] 52 U/L Normal 16-63 [facility] Comment on above: Performed By: #### C MP, LIPID #### [facility] [address] [address] [address] Cash Zapata Anion gap [Moles/Vol] 9.8 mmol/L Normal [facility] Comment on above: Performed By: #### C MP, LIPID #### [facility] [address] [address] [address] Cash Zapata AST [Catalytic activity/Vol] 21 U/L Normal 15-37 [facility] Comment on above: Performed By: #### C MP, LIPID #### [facility] [address] [address] [address] Cash Zapata Bilirubin [Mass/Vol] 0.5 mg/dL Normal 0.2-1.0 [facility] Comment on above: Performed By: #### C MP, LIPID #### [facility] [address] [address] [address] Cash Zapata Calcium [Mass/Vol] 9.5 mg/dL Normal 8.5-10.1 [facility] Comment on above: Performed By: #### C MP, LIPID #### [facility] [address] [address] [address] Cash Zapata Chloride [Moles/Vol] 104 mmol/L Normal 98-107 [facility] Comment on above: Performed By: #### C MP, LIPID #### [facility] [address] [address] [address] Cash Zapata CO2 [Moles/Vol] 31.3 mmol/L Normal 21.0-32.0 [facility] Comment on above: Performed By: #### C MP, LIPID #### [facility] [address] [address] [address] Cash Zapata Creatinine [Mass/Vol] 1.26 mg/dL Normal 0.70-1.30 [facility] Comment on above: Performed By: #### C MP, LIPID #### [facility] [address] [address] [address] Cash Zapata EGFR-AF CUBAN >60 Normal >=60 [facility] Comment on above: Performed By: #### C MP, LIPID #### [facility] [address] [address] [address] Cash Zapata EGFR-NON AF CUBAN 57 mL/min/1.73m2 Critically low >=60 [facility] Comment on above: Performed By: #### C MP, LIPID #### [facility] [address] [address] [address] Cash Zapata Globulin (S) [Mass/Vol] 3.3 g/dL Normal [facility] Comment on above: Performed By: #### C MP, LIPID #### [facility] [address] [address] [address] Cash Zapata Glucose [Mass/Vol] 109 mg/dL Critically high 74-106 [facility] Comment on above: Performed By: #### C MP, LIPID #### [facility] [address] [address] [address] Cash Zapata Potassium [Moles/Vol] 5.1 mmol/L Normal 3.5-5.1 [facility] Comment on above: Performed By: #### C MP, LIPID #### [facility] [address] [address] [address] Cash Zapata Protein [Mass/Vol] 7.3 g/dL Normal 6.4-8.2 [facility] Comment on above: Performed By: #### C MP, LIPID #### [facility] [address] [address] [address] Cash Zapata Sodium [Moles/Vol] 140 mmol/L Normal 136-145 [facility] Comment on above: Performed By: #### C MP, LIPID #### [facility] [address] [place] [address] Dr. Cash Zapata Urea nitrogen [Mass/Vol] 23.0 mg/dL Critically high 7.0-18.0 [facility] Comment on above: Performed By: #### C MP, LIPID #### [facility] [address] [place] [address] Dr. Cash Zapata Urea nitrogen/Creatinine [Mass ratio] 18.3 mg/mg Normal [facility] Comment on above: Performed By: #### C MP, LIPID #### [facility] [address] [place] [address] Dr. Cash Zapata UA RANDOM W/MICROSCOPICon BACTERIA NONE SEEN Normal NONE SEEN [facility] Comment on above: Performed By: #### U AMIC #### [facility] [address] [place] [address] Dr. Cash Zapata Bilirubin Ql (U) Negative Normal NEGATIVE [facility] Comment on above: Performed By: #### U AMIC #### [facility] [address] [place] [address] Dr. Cash Zapata CAST NONE SEEN Normal NONE SEEN [facility] Comment on above: Performed By: #### U AMIC #### [facility] [address] [place] [address] Dr. Cash Zapata Clarity (U) CLEAR Normal CLEAR [facility] Comment on above: Performed By: #### U AMIC #### [facility] [address] [place] [address] Dr. Cash Zapata Color (U) LT. YELLOW Normal YELLOW [facility] Comment on above: Performed By: #### U AMIC #### [facility] [address] [address] [address] Cash Zapata Crystals LM Nom (Urine sed) NONE SEEN Normal NONE SEEN [facility] Comment on above: Performed By: #### U AMIC #### [facility] [address] [address] [address] Cash Zapata Epithelial cells LM Ql (Urine sed) RARE Normal NONE SEEN /RARE [facility] Comment on above: Performed By: #### U AMIC #### [facility] [address] [address] [address] Cash Zapata Glucose Ql (U) Negative Normal NEGATIVE [facility] Comment on above: Performed By: #### U AMIC #### [facility] [address] [place] [address] Dr. Cash Zapata Hemoglobin Ql (U) Negative Normal NEGATIVE [facility] Comment on above: Performed By: #### U AMIC #### [facility] [address] [address] [address] Csah Zapata Ketones Ql (U) Negative Normal NEGATIVE [facility] Comment on above: Performed By: #### U AMIC #### [facility] [address] [address] [address] Cash Zapata LEUKOCYTES Negative Normal NEGATIVE [facility] Comment on above: Performed By: #### U AMIC #### [facility] [address] [address] [address] Cash Zapata MUCOUS NONE SEEN Normal NONE SEEN [facility] Comment on above: Performed By: #### U AMIC #### [facility] [address] [address] [address] Cash Zapata Nitrite Ql (U) Negative Normal NEGATIVE [facility] Comment on above: Performed By: #### U AMIC #### [facility] [address] [place] [address] Dr. Cash Zapata pH (U) 6.0 [pH] Normal 5-9 [facility] Comment on above: Performed By: #### U AMIC #### [facility] [address] [place] [address] Dr. Cash Zapata RBC NONE SEEN Abnormal 0-2 [facility] Comment on above: Performed By: #### U AMIC #### [facility] [address] [place] [address] Dr. Cash Zapata SPEC GRAVITY 1.025 Normal 1.005-<=1.02 5 [facility] Comment on above: Performed By: #### U AMIC #### [facility] [address] [place] [address] Dr. Cash Zapata UA PROTEIN Negative Normal NEGATIVE/ TRACE [facility] Comment on above: Performed By: #### U AMIC #### [facility] [address] [place] [address] Dr. Cash Zapata Urobilinogen Qn (U) 1.0 {Atilio'U}/dL Normal 0.2 - 1. 0 [facility] Comment on above: Performed By: #### U AMIC #### [facility] [address] [place] [address] Dr. Cash Zapata WBC 0-2 Abnormal NONE SEEN [facility] Comment on above: Performed By: #### U AMIC #### [facility] [address] [place] [address] Dr. Cash Zapata CBC AUTO DIFFon 03-06-2022 BASO # 0.0 103/ul Normal 0.0-0.1 [facility] Comment on above: Performed By: #### C BC #### [facility] [address] [place] [address] Dr. Cash Zapata Basophils/100 WBC (Bld) 0.3 % Normal 0.2-2.0 [facility] Comment on above: Performed By: #### C BC #### [facility] [address] [place] [address] Dr. Cash Zapata EO # 0.1 103/ul Normal 0.0-0.7 [facility] Comment on above: Performed By: #### C BC #### [facility] [address] [place] [address] Dr. Cash Zapata Eosinophils/100 WBC (Bld) 1.4 % Normal 0.9-7.0 [facility] Comment on above: Performed By: #### C BC #### [facility] [address] [place] [address] Dr. Cash Zapata Erythrocyte distribution width (RBC) [Ratio] 12.4 % Normal 11.0-15.0 [facility] Comment on above: Performed By: #### C BC #### [facility] [address] [place] [address] Dr. Cash Zapata Hematocrit (Bld) [Volume fraction] 46.5 % Normal 42.0-54.0 [facility] Comment on above: Performed By: #### C BC #### [facility] [address] [place] [address] Dr. Cash Zapata Hemoglobin (Bld) [Mass/Vol] 16.4 g/dL Normal 14.0-18.0 [facility] Comment on above: Performed By: #### C BC #### [facility] [address] [place] [address] Dr. Cash Zapata IG # 0.02 10e3/ul Normal 0.00-0.03 [facility] Comment on above: Performed By: #### C BC #### [facility] [address] [place] [address] Dr. Cash Zapata IG % 0.3 % Normal 0.0-0.5 [facility] Comment on above: Performed By: #### C BC #### [facility] [address] [place] [address] Dr. Cash Zapata LYMPH # 2.5 103/ul Normal 1.2-3.8 [facility] Comment on above: Performed By: #### C BC #### [facility] [address] [place] [address] Dr. Cash Zapata Lymphocytes/100 WBC (Bld) 39.4 % Normal 20.5-60.0 [facility] Comment on above: Performed By: #### C BC #### [facility] [address] [place] [address] Dr. Cash Zapata MANUAL DIFF REQ NO Normal [facility] Comment on above: Performed By: #### C BC #### [facility] [address] [place] [address] Dr. Cash Zapata MCH (RBC) [Entitic mass] 31.2 pg Normal 25.9-34.0 [facility] Comment on above: Performed By: #### C BC #### [facility] [address] [place] [address] Dr. Cash Zapata MCHC (RBC) [Mass/Vol] 35.3 g/dL Critically high 29.9-35.2 [facility] Comment on above: Performed By: #### C BC #### [facility] [address] [place] [address] Dr. Cash Zapata MCV (RBC) [Entitic vol] 88.6 fL Normal 80.0-94.0 [facility] Comment on above: Performed By: #### C BC #### [facility] [address] [place] [address] Dr. Cash Zapata MONO # 0.7 103/ul Normal 0.3-0.8 [facility] Comment on above: Performed By: #### C BC #### [facility] [address] [place] [address] Dr. Cash Zapata Monocytes/100 WBC (Bld) 10.4 % Normal 1.7-12.0 [facility] Comment on above: Performed By: #### C BC #### [facility] [address] [place] [address] Dr. Cash Zapata NEUT # 3.1 103/ul Normal 1.4-6.5 [facility] Comment on above: Performed By: #### C BC #### [facility] [address] [place] [address] Dr. Cash Zapata Neutrophils/100 WBC (Bld) 48.2 % Normal 43.0-75.0 [facility] Comment on above: Performed By: #### C BC #### [facility] [address] [place] [address] Dr. Cash Zapata Platelet mean volume (Bld) [Entitic vol] 9.4 fL Critically low 9.5-13.5 [facility] Comment on above: Performed By: #### C BC #### [facility] [address] [address] [address] Cash Zapata PLT 210 103/ul Normal 150-450 [facility] Comment on above: Performed By: #### C BC #### [facility] [address] [address] [address] Cash Zapata RBC 5.25 106/ul Normal 4.70-6.10 [facility] Comment on above: Performed By: #### C BC #### [facility] [address] [address] [address] Cash Zapata WBC 6.4 103/ul Normal 4.0-11.0 [facility] Comment on above: Performed By: #### C BC #### [facility] [address] [address] [address] Cash Zapata Vital Signs Date Time Vital Sign Value Performing Clinician Facility 01-06-2025 14:18-0400 Body height 180.34 cm Juan Ball DO Work Phone: [facility] 01-06-2025 14:18-0400 Body mass index (BMI) [Ratio] 35.7 kg/m2 Juan Ball DO Work Phone: [facility] 01-06-2025 14:18-040 Body weight 116.28 kg Juan Ball DO Work Phone: [facility] 01-06-2025 14:18-0400 Diastolic blood pressure 67 mm[Hg] Juan Ball DO Work Phone: [facility] 01-06-2025 14:18-0400 Heart rate 69 /min Juan Ball DO Work Phone: [facility] 01-06-2025 14:18-0400 Respiratory rate 12 /min Juan Ball DO Work Phone: [facility] 01-06-2025 14:18-0400 Systolic blood pressure 147 mm[Hg] Juan Ball DO Work Phone: [facility] 05-21-2024 10:36-0500 Body height 180.34 cm [facility] 05-21-2024 10:36-0500 Body mass index (BMI) [Ratio] 34.2 kg/m2 [facility] 05-21-2024 10:36-0500 Body weight 111.35 kg [facility] 05-21-2024 10:36-0500 Diastolic blood pressure 73 mm[Hg] [facility] 05-21-2024 10:36-0500 Heart rate 65 /min [facility] 05-21-2024 10:36-0500 Respiratory rate 12 /min [place] 05-21-2024 10:36-0500 Systolic blood pressure 170 mm[Hg] [facility] 06-10-2023 14:18-0500 Body height 180.3 cm Elizabeth Cardoso SEWER DIGGER[employer]SOLICITING [employer]RE[employer]ENT Work Phone: [facility] 06-10-2023 14:18-0500 Body mass index (BMI) [Ratio] 35.98 kg/m2 Elizabeth Joce [employer] DIGGER[employer]SOLICITING [employer]ENT Work Phone: [facility] 06-10-2023 14:18-0500 Body weight 117.03 kg Elizabeth Cardoso [employer] D[employer]SOLICITING [employer] Work Phone: [facility] 06-10-2023 14:18-0500 Diastolic blood pressure 76 mm[Hg] Elizabeth Cardoso [employer] D[employer]GER[employer]SOLICITING [employer] Work Phone: [facility] 06-10-2023 14:18-0500 Heart rate 76 /min Elizabeth Cardoso [employer] DIGGER[employer]SOLICITING [employer] Work Phone: [facility] 06-10-2023 14:18-0500 Systolic blood pressure 162 mm[Hg] Elizabeth Cardoso SEW[employer] DIGGER[employer]SOLICITING [employer] Work Phone: [facility] 05-14-2023 13:47-0500 Body height 180.3 cm Elizabeth Cardoso SE[employer] DIGGER[employer]SOLICITING [employer]ENT Work Phone: [employer] 05-14-2023 13:47-0500 Body mass index (BMI) [Ratio] 35.93 kg/m2 Elizabeth Cardoso SEW[employer] DIGGER[employer]SOLICITING [employer]ENT [facility] 05-14-2023 13:47-0500 Body weight 116.85 kg Elizabeth Cardoso SEW[employer] DIGGER[employer]SOLICITING [employer] [facility] 05-14-2023 13:47-0500 Diastolic blood pressure 64 mm[Hg] Elizabeth Cardoso SE[employer] DIGGER[employer]SOLICITING [employer] [facility] 05-14-2023 13:47-0500 Systolic blood pressure 145 mm[Hg] Elizabeth Cardoso SEW[employer] DIGGER[employer]SOLICITING [employer]ENT [facility] 04-26-2023 10:30-0500 Body height 182.88 cm Juan Ball Other [facility] Other 04-26-2023 10:30-0500 Body mass index (BMI) [Ratio] 34.28 kg/m2 Juan Ball Other [employer] Other 04-26-2023 10:30-0500 Body weight 114.67 kg Juan Ball Other [employer] Other 04-26-2023 10:30-0500 Diastolic blood pressure 90 mm[Hg] Juan Ball Other [employer] Other 04-26-2023 10:30-0500 Respiratory rate 12 /min Juan Ball Other [facility] Other 04-26-2023 10:30-0500 Systolic blood pressure 150 mm[Hg] Juan Ball Other [facility] Other 03-27-2023 11:30-0500 Body height 182.88 cm Juan Ball Other [employer] Other 03-27-2023 11:30-0500 Body mass index (BMI) [Ratio] 35.01 kg/m2 Juan Ball Other [employer] Other 03-27-2023 11:30-0500 Body weight 117.12 kg Juan Ball Other [employer] Other 03-27-2023 11:30-0500 Diastolic blood pressure 76 mm[Hg] Juan Ball Other [employer] Other 03-27-2023 11:30-0500 Respiratory rate 12 /min Juan Ball Other [employer] Other 03-27-2023 11:30-0500 Systolic blood pressure 133 mm[Hg] Juan Ball Other [facility] Other 11-19-2022 13:30-0400 Body height 182.88 cm Juan Ball Other [employer] Other 11-19-2022 13:30-0400 Body mass index (BMI) [Ratio] 34.17 kg/m2 Juan Ball Other [employer] Other 11-19-2022 13:30-0400 Body weight 114.31 kg Juan Ball Other [employer] Other 11-19-2022 13:30-0400 Diastolic blood pressure 82 mm[Hg] Juan Ball Other [employer] Other 11-19-2022 13:30-0400 Respiratory rate 16 /min Juan Ball Other [facility] Other 11-19-2022 13:30-0400 Systolic blood pressure 156 mm[Hg] Juan Ball Other [employer] Other Encounters Encounter Date Encounter Type Care Provider Facility Start: 01-06-2025 End: 01-06-2025 ambulatory Juan Torres DO Work Phone: [facility] Work Phone: Start: 01-06-2025 End: 01-06-2025 Patient encounter procedure Juan Torres DO -[facility] Work Phone: Start: 05-21-2024 End: 05-21-2024 ambulatory [facility] Work Phone: Start: 05-21-2024 End: 05-21-2024 Patient encounter procedure [facility] Work Phone: Start: 06-10-2023 End: 06-10-2023 ambulatory [facility] Start: 06-10-2023 End: 06-10-2023 Postop follow up visit related to original px Elizabeth A Cardoso SEW[employer] DIGGER[employer]SOLICITING [employer]ENT Work Phone: [facility] Comment on above: Status post hernia r epair (Primary Dx) Start: 05-14-2023 End: 05-14-2023 ambulatory [facility] Start: 05-14-2023 End: 05-14-2023 Postop follow up visit related to original px Elizabeth A Cardoso SEW[employer] DIGGER[employer]SOLICITING [employer]ENT Work Phone: [facility] Comment on above: Status post hernia r epair (Primary Dx) Start: 04-30-2023 End: 04-30-2023 ambulatory Juan Torres Other [facility] Other Start: 04-30-2023 Telephone encounter Juan Torres [facility] Start: 04-26-2023 End: 04-26-2023 ambulatory Juan Torres Other [facility] Other Start: 04-26-2023 Encounter for other preprocedural examination Juan Torres [facility] Start: 04-26-2023 Office outpatient vi sit 25 minutes Juan Torres [facility] Start: 04-26-2023 Telephone encounter Juan Echeverria [facility] Start: 04-19-2023 End: 03-17-2024 Telephone encounter Hanane Proctor A [facility] Start: 04-01-2023 End: 04-01-2023 ambulatory Juan Torres Other [facility] Other Start: 04-01-2023 Telephone encounter Juan Echeverria [facility] Start: 03-27-2023 End: 03-27-2023 ambulatory Juan Torres Other [facility] Other Start: 03-27-2023 Encounter for genera l adult medical examination without abnormal findings Juan Torres [facility] Start: 03-27-2023 Periodic preventive med est patient 65yrs& older Juan Torres [facility] Start: 02-22-2023 End: 02-22-2023 ambulatory Juan Torres Other [facility] Other Start: 02-22-2023 Telephone encounter Juan Echeverria [facility] Start: 11-19-2022 End: 11-19-2022 ambulatory Juan Torres Other [employer] Other Start: 11-19-2022 Office outpatient vi sit 15 minutes Juan Brian [facility] Start: 06-29-2022 Encounter for preprocedural laboratory examination [...] 03-14-2022 Adult health examination Gopal Torres Other [facility] Other Start: 03-14-2022 End: 03-15-[address] JUAN TORRES Facility:[facility] Start: 03-14-2022 End: 03-15-2022 Encounter for general adult medical examination without abnormal findings DR JUAN TORRES Facility:[facility] Start: 03-06-2022 End: 03-07-[address] DOCTOR VIEYRA Facility:[facility] Procedures Date Procedure Procedure Detail Performing Clinician Start: 06-10-2023 Follow-up visit Follow-up ELIZABETH CARDOSO Start: 06-27-2022 Colonoscopy Elizabeth chamberlain [employer] D[employer]GER[employer]ICITING [employer] Work Phone: Start: 03-14-[address] MIRIAN WILDER . Comment on above: Performed By: #### P [facility] #### [facility] [address] [place] [address] Dr. Cash Zapata Start: 12-22-2015 General examination [...] Screening for malignant neoplasm of colon Colonoscopy [facility] Start: 01-06-2025 [facility] Start: 06-10-2024 Adult BMI Screening Adult BMI Screening [facility] Start: 06-10-2024 Tobacco Screening Tobacco Screening [facility] Start: 05-14-2024 Adult BMI Screening Adult BMI Screening [facility] Start: 05-14-2024 Tobacco Screening Tobacco Screening [facility] Start: 01-12-2024 Influenza vaccination Influenza Vaccine [facility] Start: 01-11-2023 Influenza vaccination Influenza Vaccine [facility] Start: 2017 Abdominal aortic aneurysm screening Abdominal Aortic Aneurysm (AAA) Screen [facility] Start: 2017 Fall Risk Screening Fall Risk Screening [facility] Start: 11-07-1971 DTaP,Tdap and Td Vaccines (1 - Tdap) DTaP,Tdap and Td Vaccines (1 - Tdap) [facility] Start: 1970 Adult BMI Follow Up Plan Adult BMI Follow Up Plan [facility] Start: 1964 Depression Screening Depression Screening [facility] Start: 1950 Medicare Annual Wellness Visit Medicare Annual Wellness Visit [facility] Comprehensive metabo lic 1999 panel - Serum or Plasma [facility] Comprehensive metabo lic 1999 panel - Serum or Plasma [facility] Fibrin D-dimer [Pres ence] in Platelet poor plasma by Latex agglutination [facility] US [facility] Chest 2 Views [facility] Immunizations Immunization Date Immunization Notes Care Provider Fa cility 10-29-2021 zoster vaccine, live Benjami jeffery Torres Other [facility] 07-27-2019 pneumococcal polysaccharide vaccine, 23 valent Juan Torres Other [facility] 06-27-2018 pneumococcal conjuga te vaccine, 13 valent Juan Torres Other [facility] pneumococcal Conjuga te, unspecified formulation; Translations: [Need for prophylactic vaccination against Streptococcus pneumoniae (pneumococcus)] Juan Torres Other [facility] Other Payers Date Payer Category Payer Medicare [id number] 2025 Self-pay 1998 Commercial Managed C are - POS [employer] [id number] 1998 Private Health Insurance AETPOLLY DELGADO POS II [id number] 1998-Present [phone] [address] [place] [address] [id number] 1959 Private Health Insurance W [id number] 1950 Unknown [id number] 1952 Unknown [id number] 1952 Unknown [id number] 1952 Unknown [id number] 1952 Unknown [id number] 1952 Unknown [id number] Private Health Insurance [id number] Unknown [id number] Social History Date Type Detail Facility Start: 06-23-2020 End: 05-14-2023 Sex Assigned At [facility] [employer] Other Tobacco smoking stat [facility] Unknown if ever smoked [facility] Work Phone: Start: 12-16-2014 End: 05-21-2024 Sex Male (finding) [facility] Start: 1950 Sex Assigned At Male F [facility] Start: 03-27-2023 Tobacco smoking stat us NHIS Ex-smoker [facility] End: 05-13-1974 History of tobacco use Current smoker [facility] End: 05-13-1974 History of tobacco use Cigarette Smoker [facility] Start: 06-23-2020 End: 03-27-2023 Cigarettes smoked current (pack per day) - Reported 1.5 [facility] Start: 03-27-2023 Tobacco use and exposure Smokeless tobacco non-user [facility] Start: 04-19-2023 End: 05-14-2023 Alcohol intake Ex-drinker (finding) [facility] Housing Instability Unknown [facility] Start: 1950 Sex Assigned At Not on file [facility] Equipment Procedure Code Equipment Code Equipment Origin al Text Equipment Identifier Dates Mesh Plstr Clgn Symbotex 15cm 2 Sd Comp 3d Babsr [facility] Srg - Sna - [id number] Start: 04-30-2023 Clinical Notes 11-19-2022 to [...] of aorta acute January 06, 2025 2:05pm [facility] Work Phone: [phone] 782-890001-29-2024 History of Present illness Narrative* Elizabeth Cardoso, [employer]ITIN[employer]SOLICITING FREIGHT AGENT - 06/10/2023 2:30 PM EST Images from [...] post hernia repair [Z98.890, Z87.19] JUAN CHAVEZ [facility] [place] This note was created with the assistance of a speech recognition program. While intending to generate a timely document that accurately reflects the content of the visit, no guarantee can be provided that every grammatical or spelling mistake has been or will be identified or corrected. Thank you for your understanding. JUAN Chavez 05/14/23 1359 JUAN Chavez 06/10/23 1432 [facility] History of Present illness Narrative* JUAN Chavez [...] post hernia repair [Z98.890, Z87.19] JUAN CHAVEZ [facility] General Surgery [place] This note was created with the assistance of a speech recognition program. While intending to generate a timely document that accurately reflects the content of the visit, no guarantee can be provided that every grammatical or spelling mistake has been or will be identified or corrected. Thank you for your understanding. 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 [facility] Other 12-08-2023 Miscellaneous Notes* Telephone Encounter - [...] has an appointment on [address] Trores for a medical clearance. [facility] Telephone encounter Note* Telephone Encounter - ROBERT Mccoy - 04/19/2023 1:37 PM EST I tried to call Mell however the voicemail is full. [facility]12-08-2023 Telephone encounter Note* Telephone Encounter - ROBERT [...] was emailed to PAT at the hospital. [employer] [employer]12-08-2023 Telephone encounter Note* Telephone Encounter - ROBERT Mccoy - 04/19/2023 1:37 PM EST Mell called into the office to say that Pramod has an appointment on [address] Torres for a medical clearance. [facility]11-15-2023 Evaluation note* Encounter Date Diagnosis Assessment Notes Treatment Notes Treatment Clinical Notes Mar, Wellness examination (ICD-10 - Z00.00) Healthy diet and exercise. Reviewed age-appropriate preventive testing recommended. Mar, DANIA (obstructive sle ep apnea) (ICD-10 - G47.33) This patient is aware of the benefits associated with DANIA: With continued use, the patient reduces the risk for WA, CVA, HTN, cardiac dysrhythmias and sudden cardiac [...] (ICD-10 - Z12.5) Yearly NAHID and PSA [facility] Other 07-10-2023 Evaluation note* Encounter Date Diagnosis Assessment Notes Treatment Notes Treatment Clinical Notes Nov, DANIA (obstructive sleep apnea) (ICD-10 - G47.33) This patient is aware of the benefits associated with DANIA: With continued use, the patient reduces the risk for WA, CVA, HTN, cardiac dysrhythmias and sudden cardiac [...] index [BMI] 34.0-34.9, adult (ICD-10 - Z68.34) [facility] Other Evaluation noteNo InformationNort [employer] Other Evaluation note* Diagnosis Onset Date Resolution Status Admit Date GERD (gastroesophageal reflu x disease) acute May 21 10:25am Hypercholesterolemia acute [id number] 10:25am Hypertension acute May 21, 2024 10:25am Obesity acute May 21, 025 10:25am DANIA (obstructive sleep apnea) acute May 21, 2024 10:25am Rhinitis medicamentosa acute [facility] 2024 10:25am Screening PSA (prostate spec ific antigen) acute May 21 10:25am [facility] Work Phone: Evaluation note* Diagnosis Status post hernia repair- Primary Other postprocedural status [facility] Diagnosis Status post hernia repair- Primary Other postprocedural status [facility] Diagnosis Onset Date Resolution Status Admit Date Dyspnea acute January 06, 2 025 2:05pm Hypertension acute January 06, 2025 2:05pm [facility] Work Phone: [facility] general Narrative - Reported* Type Description Date [...] Cardiac Catheterization Hospitalization History see surgical history [facility] Other Hiscfvs general Narrative - Reported* Type Description Date [...] Cardiac Catheterization Hospitalization History see surgical history [facility] Other History general Narrative - Reported* Type [...] repair 04/2023 Hospitalization History see surgical history [facility] Other InstructionsNot on filedocumented in this encounter [facility]ructionsNot on filedocumented in this encounter [facility] SystemReason for referral (narrative)No reason for referral [facility] Work Phone: Summary Purpose Family History No [...] CREATED AUTHOR AUTHOR'S ORGANIZ ATION 01/10/2025 [facility] REASON FOR VISIT (unrecogniz ed [...] May 21, 2024 End: May 21, 2024 Expansion Joint Builder Relationship Specialty Start Date End Date Juan Torres DO [address] [place] [address] PCP - General Internal Medicine 05/21/22 Expansion Joint Builder Relationship Specialty Start Date End Date Juan Torres DO [address] [place] [address] PCP - General Internal Medicine 05/21/22 Team [...] BE BASED ON THE PRIMARY CLINICAL RECORDS. [email or web address] [facility]. provides no warranty or guarantee of the accuracy or completeness of information in this document.
--- NOTE | 2025-01-19 06:51 | CA_ITS ---
Patient Name: MADDY PERAZA MR#: [id number] : 1950 Exam Date: 01/19/2025 Ordering Doctor: DR JUSTYN STANTON D.O. ECHOCARDIOGRAM REPORT PROCEDURE: CA ECHO DOPPLER COMPLETE INDICATIONS: Aortic systolic murmur, Dyspnea, hypertension COMPARISON: None. DESCRIPTION: COMPLETE ECHOCARDIOGRAM Real-time transthoracic echocardiography with 2D, M-mode, spectral and color flow Doppler performed. QUALITY: Technical quality was good. LEFT VENTRICLE: Normal chamber size. Mild concentric left ventricular hypertrophy. LV EF: Global left ventricular systolic function is difficult to assess but appears lower limits of normal; estimated ejection fraction is 50%. Unable to assess regional wall motion abnormality; consider contrast study for better delineation of endocardial borders. DIASTOLIC: Diastolic function is indeterminate. ATRIAL SEPTUM: Visually appears intact. LEFT ATRIUM: Normal chamber size. RIGHT ATRIUM: Normal chamber size. RIGHT VENTRICLE: Normal chamber size. Normal right ventricular systolic function. TRICUSPID VALVE: Normal mobility and thickness. No stenosis with trivial regurgitation. Doppler studies reveal mildly (35-45) elevated right-sided pressures. RVSP 43 mmHg MITRAL VALVE: Normal mobility and thickness. No evidence of mitral valve stenosis. There is no mitral annular calcification. Mild mitral regurgitation. AORTIC VALVE: Normal trileaflet appearance. Mildly calcified aortic valve. Mildly diminished mobility. Doppler velocity suggests mild aortic valve stenosis. DVI 0.3, peak velocity 2.62 m/sec, mean gradient 15 mmHg. Moderate to severe aortic regurgitation. AORTIC ROOT: Normal diameter and appearance. PULMONIC VALVE: Normal thickness and mobility. No stenosis. Mild regurgitation. PERICARDIUM: No evidence of pericardial effusion. IVC: Collapses with inspiration. IVC is dilated (2.6 cm). CONCLUSION: 1. Global left ventricular systolic function is difficult to assess but appears to be at lower normal limits; estimated ejection fraction is 50% 2. Normal right ventricular size and systolic function 3. Mild left ventricular hypertrophy 4. Diastolic function is indeterminate 5. Mildly elevated right ventricular systolic pressure; RVSP 43 mmHg 6. Mild mitral regurgitation 7. Mild aortic valve stenosis 8. Moderate to severe aortic valve regurgitation 9. Mild pulmonic regurgitation Consider transesophageal echocardiography for further evaluation of the aortic valve and the severity of the aortic valve regurgitation Adult Echocardiography Procedure Report Left Ventricle LVEDD (3.7 - 5.6 cm): 5.11 cm LVESD (2.2 - 4.0 cm): 4.30 cm LVIVS thickness (0.6 - 1.2 cm): 1.32 cm LVPW thickness (0.5 - 1.0 cm): 1.33 cm e': 0.09 m/s E - e': 7.56 LVOT Max Gradient: 2.62 mm[Hg] LVOT Area (cm2): 0.81 m/s Peak Velocity (LVOT): 0.81 m/s Mean Velocity (LVOT): 0.59 m/s LVOT Diameter 2.67 cm Left Ventricular Ejection Fraction: 45.11 % Left Atrium LA Volume Index (2D A2C): 35.21 ml/m2 Left Atrium Systolic Dimension: 4.28 cm Mitral Valve MV E to A Ratio: 1.33 Mitral Valve A-Wave Peak Velocity: 0.54 m/s Mitral Valve E-Wave Peak Velocity: 0.71 m/s Right Ventricle Aorta AO Root Diam: 4.34 cm Aortic Valve AoV Area (Peak Charly): 1.73 cm2, 1.73 cm2 AoV Area (VTI): 2.00 cm2, 2.00 cm2 Deceleration [place]: 4.20 m/s2 Pressure Half-Time: 322.08 ms Peak Velocity(Antegrade Flow): 2.62 m/s Peak Gradient(Antegrade Flow): 27.56 mm[Hg] Mean Velocity(Antegrade Flow): 1.86 m/s Mean Gradient(Antegrade Flow): 15.46 mm[Hg] Velocity Time Integral: 67.74 cm Tricuspid Valve Peak Velocity (Regurgitant Flow): 2.74 m/s, 2.94 m/s Pulmonic Valve Peak Gradient: 2.40 mm[Hg], 2.45 mm[Hg] Right Atrium Right Atrium Systolic Pressure: 39.59 ml, 39.59 ml Dictated by: Tanisha Ordoñez M.D. on 01/19/2025 at 16:55 Approved by: Tanisha Ordoñez M.D. on 01/19/2025 at 17:02
== END 2025-01-19 06:47 | disposition home or self-care (01) ==
LOC: CARD 06:47
PROVIDERS: PCP Internal Medicine; Visit Provider Internal Medicine
DX: R06.00 Dyspnea, unspecified (principal); I35.8 Other nonrheumatic aortic valve disorders; R00.2 Palpitations; R07.9 Chest pain, unspecified
CPT/HCPCS: 93306

== ENCOUNTER 2025-02-04 07:41 | Outpatient (OUT) | payer MEDICARE, OTHER, SELFPAY ==
--- OUTSIDE RECORDS SUMMARY | 2025-02-03 10:40 | XMS_ITS | Encounter Summary ---
Author Organization [facility] Address [address] [place] [address] Care Team Providers Care Tieing Machine Operator Name Role Phone Juan Torres DO Primary Care Provider [phone] Reason for Referral * Imaging (Routine) - Pending Review Specialty Diagnoses / Procedures Referred By Cat falk Referred To Contact Cardiology Diagnoses Nonrheumatic aortic valve insufficiency Nonrheumatic aortic valve stenosis Shortness of breath Coronary artery disease, unspecified vessel or lesion type, unspecified whether angina present, unspecified whether [place] or transplanted heart Procedures Transesophageal echo (CAN) Gulshan Bernard MD [address] [place] [address] Phone: tel: fax: Referral ID Status Reason Start Date Expiration Date Visits Requested Visits Authorized [id number] Pending Review Perform Procedure 02/03/2025 02/03/2026 1 1 * Imaging (Routine) - Pending Review Specialty Diagnoses / Procedures Referred By Cat falk Referred To Contact Diagnoses Stable angina pectoris Shortness of breath Coronary artery disease, unspecified vessel or lesion type, unspecified whether angina present, unspecified whether [place] or transplanted heart Procedures CTA Chest W IV Contrast Gulshan Bernard MD [address] [place] [address] Phone: tel: fax: Referral ID Status Reason Start Date Expiration Date V isits Requested Visits Authorized [id number] Pending Review 02/03/2025 02/03/2026 1 1 Reason for Visit * Reason Comments New Patient Patient is here toda y to establish care with cardiology. Patient recently has a stress test and Echo which were abnormal. Patient has complaints of SOB, HOLMAN, chest tightness, dizziness/lightheadedness with position changes. Leg pain with walking Cardiac Stress Test Hypertension Hyperlipidemia Sleep Apnea Non complaint with C PAP due to it being uncomfortable GERD Barretts esophagus Valve Disorder Aortic valve scleros is Encounter Details Date Type Department Care Team (Late st Contact Info) Description 02/03/2025 10:40 AM EDT Office Visit [facility] [address] [place] [address] Gulshan Bernard MD [address] [place] [address] Nonrheumatic aortic valve insufficiency (Primary Dx); Nonrheumatic aortic valve stenosis; Cardiovascular stress test abnormal; Stable angina pectoris; Shortness of breath; Coronary artery disease, unspecified vessel or lesion type, unspecified whether angina present, unspecified whether [place] or transplanted heart Social History Tobacco Use Types Packs/Day Years Used Date Smoking Tobacco: Former Cigarettes Smokeless Tobacco: Never Tobacco Cessation:Counseling Given: Not Answered Alcohol Use Standard Drinks/Week Comments Not Currently 0 (1 standard drink = 0.6 oz pur e alcohol) Sex and Gender Information Value Date Recorded Sex Assigned at Male 01/26/2025 10:29 AM EDT Legal Sex Male 10:26 AM EDT Gender Identity Male 01/26/2025 10:29 AM EDT Sexual Orientation Heterosexual or Straight 01/11 10:29 AM EDT documented as of this encounter Last Filed Vital Signs Vital Sign Reading Time Taken Comments Blood Pressure 158/76 02/03/2025 10:27 AM EDT Pulse 81 02/03/2025 10:27 AM EDT Temperature - - Respiratory Rate - - Oxygen Saturation 96% 02/03/2025 10:27 AM EDT Inhaled Oxygen Concentration - - Weight 117 kg (259 lb) 02/03/2025 10:27 AM EDT Height 180.3 cm (5' 11 ) 02/03/2025 10:27 AM EDT Body Mass Index 36.12 02/03/2025 10:27 AM EDT documented in this encounter Patient Instructions * Patient Instructions* Gulshan Bernard MD - 02/03/2025 10:40 AM EDT Hold chlorthalidone on days you get CT scan and heart cath documented in this encounter Plan of Treatment Upcoming Encounters Date Type Department Care Team (Late st Contact Info) Description 02/18/2025 10:30 AM EDT Appointment [facility] [address] [place] [phone] 02/18/2025 11:30 AM EDT Hospital Encounter [facility] [address] [place] [phone] Gulshan Bernard MD [address] [place] [phone] Nonrheumatic aortic valve insufficiency; Nonrheumatic aortic valve stenosis; Cardiovascular stress test abnormal; Stable angina pectoris; Shortness of breath; Coronary artery disease, unspecified vessel or lesion type, unspecified whether angina present, unspecified whether [place] or transplanted heart 02/18/2025 11:30 AM EDT - 02/18/2025 1:00 PM EDT Surgery [facility] [address] [place] [phone] Gulshan Bernard MD [address] [place] [phone] Coronary angiography Scheduled Orders Name Type Priority Associated Diagnoses Orde r Schedule CTA Chest W IV Contrast Imaging Routine Stable angina pectoris Shortness of breath Coronary artery disease, unspecified vessel or lesion type, unspecified whether angina present, unspecified whether [place] or transplanted heart Expected: 02/03/2025, Expires: 02/03/2026 Creatinine, Serum Lab Routine Nonrheumatic aortic valve insufficiency Expected: 02/03/2025 (Approximate), Expires: 02/03/2026 Transesophageal echo (CAN) Echocardiography Routine Nonrheumatic aortic valve insufficiency Nonrheumatic aortic valve stenosis Shortness of breath Coronary artery disease, unspecified vessel or lesion type, unspecified whether angina present, unspecified whether [place] or transplanted heart Expected: 02/03/2025 (Approximate), Expires: 02/03/2027 CBC and differential Lab Routine Cardiovascular stress test abnormal Expected: 02/03/2025 (Approximate), Expires: 02/03/2026 Basic metabolic panel Lab Routine Cardiovascular stress test abnormal Expected: 02/03/2025 (Approximate), Expires: 02/03/2026 documented as of this encounter Visit Diagnoses Diagnosis Nonrheumatic aortic valve insufficiency- Primary Nonrheumatic aortic valve stenosis Cardiovascular stress test abnormal Stable angina pectoris Shortness of breath Coronary artery disease, unspecified vessel or lesion type, unspecified whether angina present, unspecified whether [place] or transplanted heart Nonrheumatic aortic valve insufficiency Nonrheumatic aortic valve stenosis Cardiovascular stress test abnormal Stable angina pectoris Shortness of breath Coronary artery disease, unspecified vessel or lesion type, unspecified whether angina present, unspecified whether [place] or transplanted heart Nonrheumatic aortic valve insufficiency Nonrheumatic aortic valve stenosis Cardiovascular stress test abnormal Stable angina pectoris Shortness of breath Coronary artery disease, unspecified vessel or lesion type, unspecified whether angina present, unspecified whether [place] or transplanted heart documented in this encounter Care Teams Tieing Machine Operator Relationship Specialty Start Date End Date Juan Torres DO [address] [place] [address] PCP - General Internal Medicine 02/02/25 documented as of this encounter
--- NOTE | 2025-02-04 07:44 | CT_ITS ---
[address] [address] Patient Name: MADDY PERAZA MRN: [id number] date: 1950 Sex: M Assigned Patient Location: CT Current Patient Location: CT Accession/Order Number: [id number] Exam Date: 02/04/2025 07:57 Report Date: 02/04/2025 08:51 At the request of: ASHLEY BOWIE MD Procedure: CT angio chest CT ANGIOGRAM OF THE CHEST, PULMONARY EMBOLISM PROTOCOL: CLINICAL INFORMATION: Shortness of breath. COMPARISON: None TECHNIQUE: Following intravenous injection of contrast CT scans of the chest were obtained using pulmonary embolism protocol. Coronal and sagittal reconstructed images, as well as volume rendered CT pulmonary angiographic images were also submitted.The CT exam was performed using one or more of the following dose reduction techniques: Automated exposure control, adjustment of the MA and/or Kv according to patient size, or use of the iterative reconstruction technique. FINDINGS: Pulmonary Vasculature: Contrast bolus is adequate for evaluation of pulmonary embolism. Pulmonary trunk appears nondilated. No filling defects are identified to suggest pulmonary embolism. Mediastinum : Thoracic aorta is normal in caliber. No pericardial effusion. No lymphadenopathy. Calcified mediastinal lymph nodes. The esophagus is grossly unremarkable. Lungs: No focal consolidation, pneumothorax or pleural effusion. Dependent atelectatic changes. Bibasilar atelectasis. Upper abdomen: No acute findings Soft tissue/bones: Soft tissues surrounding the chest wall demonstrate no acute findings. Osseous structures demonstrate degenerative change. CT/CT angio chest IMPRESSION: NO EVIDENCE OF ACUTE PULMONARY EMBOLISM OR PROCESS. Impression dictated by: Sumit Mcneil Jr., D.O. 02/04/2025 8:51 AM Dictation Location: [facility] CompanyPROVID[facility] JOSEPH'S HOSPITALVision Technologies Electronically authenticated by: [id number] Y Date: 02/04/2025 08:51
--- OUTSIDE RECORDS SUMMARY | 2025-02-04 07:44 | XMS_ITS | Clinical Summary ---
Author Organization [employer] tem Address [facility] [id number] [address] [place] [address] Care Team Providers Care Chain Saw Operator Name Role Phone uJan Torres Primary Care Provider [phone] Allergies No known active allergies Medications tamsulosin [...] Completed 02/04/2022, Medical Devices Implanted Type Area Substation Superintendent Device Identifier Shelf Expiration Date Model / Serial / Lot Mesh Plstr Clgn Symbotex 15cm 2 Sd Comp [facility] [id number] Implanted:Qty: 1 on 04/30/2023 by Charles Bourgeois DO at [facility] Mesh N/A: Abdomen [employer] [place] 11/10/2027 [id number] / NA / [id number] Insurance AET[employer] Care Teams Chain Saw Operator Relationship Specialty Start Date End Date Juan Torres DO [address] [place] [address] PCP - General Internal Medicine 05/21/22
--- OUTSIDE RECORDS SUMMARY | 2025-02-04 07:44 | XMS_ITS | Clinical Summary ---
Author Organization [facility] Address [address] [place] [address] Care Team Providers Care Firing Pin Gauger Name Role Phone Juan Torres DO Primary Care Provider [phone] Allergies No known active allergies Medications amLODIPine (Norvasc) 5 mg tablet Take 1 tablet by mouth in the morning. 06/27/2024 Active omeprazole (PriLOSEC) [address] capsule Take 20 mg by mouth in the morning. Active tamsulosin (Flomax) 0.4 mg 24 hr capsule Take 0.4 mg by mouth in the morning. Active telmisartan (MIcarDIS) 20 mg tablet Take 1 tablet by mouth in the morning. 01/25/2025 Active aspirin 81 mg EC tablet Take 81 mg by mouth in the morning. Active chlorthalidone (Hygroton) 25 mg tabletIndicatio ns:Shortness of breath Take 0.5 tablets (12.5 mg) by mouth in the morning. 15 tablet 5 02/03/2025 Active Active Problems Problem Noted Date Diagnosed Date Nonrheumatic aortic valve insufficiency 02/04/20 25 Nonrheumatic aortic valve stenosis 02/03/2025 Cardiovascular stress test abnormal 02/03/2025 Stable angina pectoris 02/03/2025 Shortness of breath 02/03/2025 Coronary artery disease 02/03/2025 Encounters Date Type Department Care Team Description 02/03/2025 10:40 AM EDT Office Visit [facility] [address] [place] [address] Gulshan Bernard MD Nonrheumatic aortic valve insufficiency (Primary Dx); Nonrheumatic aortic valve stenosis; Cardiovascular stress test abnormal; Stable angina pectoris; Shortness of breath; Coronary artery disease, unspecified vessel or lesion type, unspecified whether angina present, unspecified whether [place] or transplanted heart from Last 3 Months Family History Medical History Relation Name Comments Heart attack Mother Relation Name Status Comments Father Mother Social History Tobacco Use Types [...] Heterosexual or Straight 01/11 10:29 AM EDT Last Filed Vital Signs Vital Sign Reading [...] Mass Index 36.12 02/03/2025 10:27 AM EDT Plan of Treatment Upcoming Encounters Date Type Department Care Team (Late st Contact Info) Description 02/18/2025 10:30 AM EDT Appointment [facility] Lab [address] [place] [phone] 02/18/2025 11:30 AM EDT Hospital Encounter [facility] [address] [place] [phone] Gulshan Bernard MD [address] [place] [address] Nonrheumatic aortic valve insufficiency; Nonrheumatic aortic valve stenosis; Cardiovascular stress test abnormal; Stable angina pectoris; Shortness of breath; Coronary artery disease, unspecified vessel or lesion type, unspecified whether angina present, unspecified whether [place] or transplanted heart 02/18/2025 11:30 AM EDT - 02/18/2025 1:00 PM EDT Surgery [facility] Vascular Lab [address] [place] [address] Gulshan Bernard MD [address] [place] [address] Coronary angiography Health Maintenance Due Date Last Done Comments CT Colonography 1952 Colonoscopy 1952 Colorectal Cancer Screening 1952 FIT-DNA 1952 FIT 1952 FOBT 1950 Medicare Annual Wellness (AWV) 1950 Sigmoidoscopy 1952 Depression Screening 1964 Adult Tetanus 1974 Fall Risk Screening 2017 Pneumococcal Vaccine: 50+ Years (2 of 2 - PPSV23, PCV20, or PCV21) 08/22/2018 06/27/2018 COVID-19 Vaccine (1 - 2023-2 5 season) 2025 Influenza Vaccine (#1) 2025 Zoster Vaccines Completed 02/04/2022, 10/29/2021 HIB Vaccines Aged Out No longer eligi ble based on patient's age to complete this topic HPV Vaccines Aged Out No longer eligi ble based on patient's age to complete this topic IPV Vaccines Aged Out No longer eligi ble based on patient's age to complete this topic Meningococcal B Vaccine Aged Out No l onger eligible based on patient's age to complete this topic Meningococcal Vaccine Aged Out No jan jared eligible based on patient's age to complete this topic Rotavirus Vaccines Aged Out No longer eligible based on patient's age to complete this topic Insurance MEDICARE GENERIC [employer]CIAL Care Teams Firing Pin Gauger Relationship Specialty Start Date End Date Juan Torres DO [address] [place] [phone] PCP - General Internal Medicine 02/02/25
--- OUTSIDE RECORDS SUMMARY | 2025-02-04 07:44 | XMS_ITS | Clinical Summary ---
Author Organization [facility] Address [address] [place] [address] Care Team Providers Care Urgent Care Nurse Practitioner Name Role Phone Unavailable Primary Care Provider [...]
--- OUTSIDE RECORDS SUMMARY | 2025-02-04 07:44 | XMS_ITS | CCD ---
Author Organization [facility] Care Team Providers Care Director Of Home Economics Name Role Phone MEÑO ., DR ANTOINE [...] ELIZABETH CARDOSO Attending Unavailable BALLJUAN Referring Unavailable BALLJUAN Primary Care Unavailable Juan Torres DO Primary Care Provider Juan Torres DO Primary Care Provider [phone] Juan Torres DO Attending Provider Juan Torres DO Other Provider Franklin Kerr MD Attending Provider Juan Torres Attending Unavailable Juan Torres Primary Care Unavailable Juan Torres Admitting Unavailable Allergies Allergy Classification Reported Allergen(s) Allergy Type Date of Onset Reaction(s) Facility (1 source) patient allergy list reviewed by nurse or physicia Propensity to adverse reactions 7 Comment:Done [employer] Other Medications Current Medications Medication Drug Class(es) Dates Sig (Normalized) Sig (Original) amLODIPine 5 mg oral tablet (4 sources) Dihydropyridine Calcium Channel [place] Start: 05-21-2024 take 1 tablet by mouth once daily Amlodipine 5 mg tablet Active 5 MG PO Daily May 21, 2024 1:00am Complies with drug therapy omeprazole 20 mg delayed release oral capsule (14 sources) Proton Pump Inhibitor Start: 09-24-2023 take 1 capsule by mouth once daily Omeprazole 20 mg capsule,delayed release(DR/EC) Active 20 MG PO Daily September 24, 2023 12:00am Complies with drug therapy tamsulosin hydrochloride 0.4 mg oral capsule (20 sources) alpha-Adrenergic [place] Start: 02-16-2024 End: 05-19-2024 take 1 capsule by mouth once daily at dinner Tamsulosin 0.4 mg capsule Active 0 .ROUTE .COMPLEX May 19, 2024 2:00pm TAKE 1 CAPSULE BY MOUTH EVERY DAY AFTER EVENING MEAL Complies with drug therapy Start: 05-09-2022 End: 02-16-2024 take 1 capsule by mouth once daily Tamsulosin 0.4 mg capsule Discontinued 0.4 MG PO Daily September 24, 2023 12:00am February 16, 2024 7:40pm telmisartan 20 mg oral tablet (1 source) Angiotensin 2 Receptor [place] Start: 01-25-2025 take 1 tablet by mouth once daily Telmisartan 20 mg tablet Active 20 MG PO Daily January 25, 2025 12:00am Complies with drug therapy triamcinolone acetonide 0.001 mg/mg topical ointment (3 sources) Corticosteroid Start: 01-06-2025 Triamcinolone Acetonide 0.1 % ointment Active 1 APPLIC TOPICAL Twice daily January 06, 2025 12:00am Complies with drug therapy Completed/Discontinued Medications Medication Drug Class(es) Dates Sig [...] (Therapy completed) atorvastatin 40 mg oral tablet (11 sources) HMG-CoA Reductase Inhibitor Start: 09-24-2023 End: [...] (Therapy completed) loratadine 10 mg oral tablet (14 sources) Start: 09-24-2023 End: 05-21-2024 take 1 tablet by mouth once daily Loratadine 10 mg tablet Discontinued 10 MG PO Daily September 24, 2023 12:00am May 21, 2024 11:34am take 1 tablet by mouth once donal y Loratadine 10 MG TAKE 1 TABLET BY MOUTH EVERY DAY for 90 Active losartan potassium 25 mg oral tablet (11 sources) Angiotensin 2 Receptor [place] Start: 09-24-2023 [...] without obstruction or gangrene Episodic Cardiac dysrhythmias (7 sources) Palpitations; Translations: [Palpitations] Onset: 01-06-2025 01-06-2025 Episodic Disorders of lipid metabolism (20 sources) Pure hypercholesterolemia ; Translations: [Familial hypercholesterolemia ] Chronic Esophageal disorders (20 sources) Lucas's esophagus without dysplasia; Translations: [Gastro-esophageal reflux disease without esophagitis] Onset: 03-01-2014 Chronic Essential hypertension (20 sources) Essential hypertension; Translations: [Essential (primary) hypertension] Chronic Comment on above: Echo: LVEF 50%, norm al RV size/function, mild , mod-severe AI, RVSP 43 - 01/2025 Gastritis and duodenitis (1 source) Gastritis, unspecified, without bleeding; Translations: [GASTRITIS UNS WITHOUT BLEEDING] Onset: 07-03-2022 Episodic Genitourinary symptoms and ill-defined conditions (2 sources) Unspecified abnormal findings in urine; Translations: [Nocturia] Onset: 03-19-2022 Episodic Heart valve disorders (14 sources) Aortic valve sclerosis; 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] 01-06-2025 Chronic Comment on above: AV: KEVIN 2.0, velocit y 2.62 m/s, gradient 27/15 mmHg with Mod-Severe AI - 01/2025 Hyperplasia of prostate (14 sources) Lower urinary tract symptoms due to benign prostatic hypertrophy; Translations: [Benign prostatic hyperplasia with lower urinary tract symptoms] Onset: 01-04-2017 Chronic Inflammatory conditions of male genital organs (4 sources) Acute prostatitis; Translations: [Acute prostatitis] Episodic Nonspecific chest pain (5 sources) Chest pain; Translations: [Chest pain, unspecified] 01-06-2025 Episodic Other aftercare (1 source) Other longterm (current) drug therapy; Translations: [OTH [facility] CURRENT DRUG THERAPY] Onset: 07-03-2022 Episodic Other aftercare (3 sources) Taking high risk medication; Translations: [Other longterm (current) drug therapy] 05-21-2024 Episodic Other and [...] Onset: 05-14-2023 Episodic Other lower respiratory disease (6 sources) Dyspnea; Translations: [Dyspnea, unspecified] 01-06-2025 Episodic [...] nutritional; endocrine; and metabolic disorders (5 sources) Obesity; Translations: [Obesity, unspecified] 05-19-2024 Chronic [...] conditions (not mental disorders or infectious disease) (10 sources) Encounter for screening for malignant neoplasm of prostate; Translations: [Encounter for screening for diseases of the blood and blood-forming organs and certain disorders involving the immune mechanism] Onset: 12-22-2015 Episodic Comment on above: PSA: 3. - 03/2022, 303/2023 PSA: 03/2022, 303/2023, 3.46 - 05/2023 Other upper respiratory disease (7 sources) Allergic rhinitis due to pollen; Translations: [Allergic rhinitis due to pollen] Chronic Other upper respiratory disease (1 source) Allergic rhinitis; Translations: [Other allergic rhinitis] Chronic Other upper respiratory disease (4 sources) Rhinitis medicamentosa; Translations: [Chronic rhinitis] 05-21-2024 [...] states] Onset: 05-14-2023 Episodic Residual codes; unclassified (5 sources) Family history of coronary arteriosclerosis; Translations: [...] Basophils (Bld) [#/Vol] 0.0 10 3/uL 0.0-0.1 [facility] Basophils/100 WBC Auto (Bld) Ordered By: Juan Torres on 01-06-2025 Basophils/100 WBC (Bld) 0.3 % 0.2-2.[address] [facility] Eosinophils/100 WBC Auto (Bl d)Ordered By: Juan Torres on 01-06-2025 Eosinophils/100 WBC (Bld) 2.1 % 0.9-7.0 [facility] Erythrocyte distribution wid th Auto (RBC) [Ratio]Ordered By: Juan Torres on 01-06-2025 Erythrocyte distribution width (RBC) [Ratio] 12.3 % 11.0-15.0 [facility] FPG ECG *PCP OFFICE ONLY*on 01-06-2025 FPG ECG *PCP OFFICE ONLY* [facility] [address] Electrocardiograph Report Signed Patient: Pramod Su MR#: [id number] : 1950 Acct:[id number] Age/Sex: 74 / M ADM Date: 01/06/25 Loc: [facility] Room: Type: [facility] Attending Dr: Juan Torres DO Ordering Provider: [...] previous ECGs available Confirmed by Franklin Kerr ([id number]) on 01/07/2025 3:04:16 PM Referred By: Electronically Signed By: Franklin Kerr Transcribed By: MUS Signed By Franklin Kerr MD 01/07/25 1504 Normal [facility] Fibrin D-dimer [Presence] in Platelet poor plasma by Latex agglutinationOrdered By: Juan Torres on 01-06-2025 Fibrin D-dimer LA Ql (PPP) 0.50 mg/L FEU <=0.59 [facility] Comment on above: Increases in D-Dimer concentration [...] 01-06-2025 Globulin (S) [Mass/Vol] 3.5 g/dL F [facility] Glomerular filtration rate ( GFR) estimation in non- AmericanOrdered By: Juan Torres on 01-06-2025 GFR/1.73 sq M.predicted among non-blacks MDRD (S/P/Bld) [Vol rate/Area] 56 mL/min/{1.73_m2} Low >=60 mL/min/1.73m 2 [facility] Hematocrit Auto (Bld) [Volum e fraction]Ordered By: Juan Torres on 01-06-2025 Hematocrit (Bld) [Volume fraction] 46.9 % 42.0-54.0 [facility] Hemoglobin [Mass/volume] in BloodOrdered By: Juan Torres on 01-06-2025 Hemoglobin (Bld) [Mass/Vol] 16.8 g/dL 14.0-18.0 [facility] Laboratory - Chemistry and C hemistry - challengeOrdered By: Juan Torres on 01-06-2025 Albumin [Mass/Vol] 4.0 g/dL 3.4-5.0 [facility] ALP [Catalytic activity/Vol] 63 U/L 46-116 [facility] ALT [Catalytic activity/Vol] 31 U/L 16-63 [facility] AST [Catalytic activity/Vol] 18 U/L 15-37 [facility] Bilirubin [Mass/Vol] 0.6 mg/dL 0.2-1.0 [facility] Calcium [Mass/Vol] 9.1 mg/dL 8.5-10.1 [facility] Chloride [Moles/Vol] 108 mmol/L High 98-107 [facility] CO2 [Moles/Vol] 23.7 mmol/L 21.0-32.0 [facility] Creatinine [Mass/Vol] 1.26 mg/dL 0.70-1.30 [facility] GFR/1.73 sq M.predicted MDRD (S/P/Bld) [Vol rate/Area] mL/min/{1.73_m2} >=60 mL/min/1.73m 2 [facility] Glucose [Mass/Vol] 97 mg/dL 74-106 [facility] Natriuretic peptide B (Bld) [Mass/Vol] 443.0 pg/mL <=900.0 [facility] Potassium [Moles/Vol] 4.2 mmol/L 3.5-5.1 [facility] Protein [Mass/Vol] 7.5 g/dL 6.4-8.2 [facility] Sodium [Moles/Vol] 141 mmol/L 136-145 [facility] TSH Qn 3.428 m[IU]/L 0.358-3.740 [facility] Urea nitrogen [Mass/Vol] 19.0 mg/dL High 7.0-18.0 [facility] Urea nitrogen/Creatinine [Mass ratio] 15.1 mg/mg [facility] Laboratory - Hematology and Cell countsOrdered By: Juan Torres on 01-06-2025 Immature granulocytes/100 WBC (Bld) 0.3 % 0.0-0.5 [facility] Leukocytes [#/volume] correc meron for nucleated erythrocytes in Blood by Automated counOrdered By: Juan Torres on 01-06-2025 WBC corrected for nucl RBC Auto (Bld) [#/Vol] 7.2 10 3/uL 4.0-11.0 [facility] Lymphocytes Auto (Bld) [#/Vo l]Ordered By: Juan Torres on 01-06-2025 Lymphocytes (Bld) [#/Vol] 2.2 10 3/uL 1.2-3.8 [facility] Lymphocytes/100 WBC Auto (Bl d)Ordered By: Juan Torres on 01-06-2025 Lymphocytes/100 WBC (Bld) 31.0 % 20.5-60.0 [facility] MCH Auto (RBC) [Entitic mass ]Ordered By: Juan Torres on 01-06-2025 MCH (RBC) [Entitic mass] 31.7 pg 25.9-34.0 [facility] MCHC Auto (RBC) [Mass/Vol]Or dered By: Juan Torres on 01-06-2025 MCHC (RBC) [Mass/Vol] 35.8 g/dL High 29.9-35.2 [facility] MCV Auto (RBC) [Entitic vol] Ordered By: Juan Torres on 01-06-2025 MCV (RBC) [Entitic vol] 88.5 fL 80.0-94.[address] [facility] Monocytes Auto (Bld) [#/Vol] Ordered By: Juan Torres on 01-06-2025 Monocytes (Bld) [#/Vol] 0.8 10 3/uL 0.3-0.8 [facility] Monocytes/100 WBC Auto (Bld) Ordered By: Juan Torres on 01-06-2025 Monocytes/100 WBC (Bld) 10.9 % 1.7-12.[address] [facility] Neutrophils Auto (Bld) [#/Vo l]Ordered By: Juan Torres on 01-06-2025 Neutrophils (Bld) [#/Vol] 4.0 10 3/uL 1.4-6.5 [facility] Neutrophils/100 WBC Auto (Bl d)Ordered By: Juan Torres on 01-06-2025 Neutrophils/100 WBC (Bld) 55.4 % 43.0-75.0 [facility] No Panel InformationOrdered By: Juan Torres on 01-06-2025 Eosinophils # (Auto) 0.2 10 3/uL 0.0-0.7 [facility] Immature Granulocyte # (Auto) 0.02 10 3/uL 0.00-0.03 [facility] Platelet mean volume Auto (B ld) [Entitic vol]Ordered By: Juan Torres on 01-06-2025 Platelet mean volume (Bld) [Entitic vol] 9.3 fL Low 9.5-13.5 [facility] Platelets Auto (Bld) [#/Vol] Ordered By: Juan Torres on 01-06-2025 Platelets (Bld) [#/Vol] 202 10 3/uL 150-450 [facility] RBC Auto (Bld) [#/Vol]Ordere d By: Juan Torres on 01-06-2025 RBC (Bld) [#/Vol] 5.30 10 6/uL 4.70-6.[address] [facility] Serum or plasma albumin/glob ulin mass ratioOrdered By: Juan Torres on 01-06-2025 Albumin/Globulin [Mass ratio] 1.1 {ratio} [facility] Serum or plasma anion gap de terminationOrdered By: Juan Torres on 01-06-2025 Anion gap [Moles/Vol] 13.5 mmol/L [facility] H PYLORI TISSUEon 06-27-2022 H PYL TISSUE, UREASE Negative Normal NEGATIVE [facility] Comment on above: Performed By: #### H PYLT #### [facility] [address] [address] [address] Cash Zapata Covid-19 PCR ([facility]on 06-13 SARS-CoV-2 (COVID-19) RNA MICAH+probe Ql (Unsp spec) Not detected Normal NOT DETECTED [facility] Comment on above: Result Comment: This test is not yet approved or cleared by the [place] FDA. When there are no FDA-approved or cleared tests available, and other criteria are met, FDA can make tests available under an emergency access mechanism called an Emergency Use Authorization (EUA). The EUA for this test is supported by the [place] of Health and Human Service's (HHS's) declaration [...] consistent with SARS-CoV-2. Performed By: #### C [facility] #### [facility] [address] [place] [address] Dr. Cash Zapata CBC AUTO DIFFon 03-14-2022 BASO # 0.0 103/ul Normal 0.0-0.1 [facility] Comment on above: Performed By: #### C BC #### [facility] [address] [place] [address] Dr. Cash Zapata Basophils/100 WBC (Bld) 0.3 % Normal 0.2-2.0 [facility] Comment on above: Performed By: #### C BC #### [facility] [address] [place] [address] Dr. Cash Zapata EO # 0.1 103/ul Normal 0.0-0.7 [facility] Comment on above: Performed By: #### C BC #### [facility] [address] [place] [address] Dr. Cash Zapata Eosinophils/100 WBC (Bld) 1.1 % Normal 0.9-7.0 [facility] Comment on above: Performed By: #### C BC #### [facility] [address] [place] [address] Dr. Cash Zapata Erythrocyte distribution width (RBC) [Ratio] 12.8 % Normal 11.0-15.0 [facility] Comment on above: Performed By: #### C BC #### [facility] [address] [address] [address] Cash Zapata Hematocrit (Bld) [Volume fraction] 46.3 % Normal 42.0-54.0 [facility] Comment on above: Performed By: #### C BC #### [facility] [address] [address] [address] Cash Zapata Hemoglobin (Bld) [Mass/Vol] 16.0 g/dL Normal 14.0-18.0 [facility] Comment on above: Performed By: #### C BC #### [facility] [address] [place] [address] Dr. Cash Zapata IG # 0.04 10e3/ul Critically high 0.00-0.03 [facility] Comment on above: Performed By: #### C BC #### [facility] [address] [place] [address] Dr. Cash Zapata IG % 0.6 % Critically high 0.0-0.5 [facility] Comment on above: Performed By: #### C BC #### [facility] [address] [address] [address] Cash Zapata LYMPH # 1.9 103/ul Normal 1.2-3.8 [facility] Comment on above: Performed By: #### C BC #### [facility] [address] [place] [address] Dr. Cash Zapata Lymphocytes/100 WBC (Bld) 25.9 % Normal 20.5-60.0 [facility] Comment on above: Performed By: #### C BC #### [facility] [address] [address] [address] Cash Zapata MANUAL DIFF REQ NO Normal [facility] Comment on above: Performed By: #### C BC #### [facility] [address] [place] [address] Dr. Cash Zapata MCH (RBC) [Entitic mass] 30.7 pg Normal 25.9-34.0 [facility] Comment on above: Performed By: #### C BC #### [facility] [address] [address] [address] Cash Zapata MCHC (RBC) [Mass/Vol] 34.6 g/dL Normal 29.9-35.2 [facility] Comment on above: Performed By: #### C BC #### [facility] [address] [place] [address] Dr. Cash Zapata MCV (RBC) [Entitic vol] 88.9 fL Normal 80.0-94.0 [facility] Comment on above: Performed By: #### C BC #### [facility] [address] [place] [address] Dr. Cash Zapata MONO # 0.6 103/ul Normal 0.3-0.8 [facility] Comment on above: Performed By: #### C BC #### [facility] [address] [place] [address] Dr. Cash Zapata Monocytes/100 WBC (Bld) 8.5 % Normal 1.7-12.0 [facility] Comment on above: Performed By: #### C BC #### [facility] [address] [place] [address] Dr. Cash Zapata NEUT # 4.6 103/ul Normal 1.4-6.5 [facility] Comment on above: Performed By: #### C BC #### [facility] [address] [place] [address] Dr. Cash Zapata Neutrophils/100 WBC (Bld) 63.6 % Normal 43.0-75.0 [facility] Comment on above: Performed By: #### C BC #### [facility] [address] [place] [address] Dr. Cash Zapata Platelet mean volume (Bld) [Entitic vol] 9.0 fL Critically low 9.5-13.5 [facility] Comment on above: Performed By: #### C BC #### [facility] [address] [place] [address] Dr. Cash Zapata PLT 209 103/ul Normal 150-450 [facility] Comment on above: Performed By: #### C BC #### [facility] [address] [address] [address] Cash Zapata RBC 5.21 106/ul Normal 4.70-6.10 [facility] Comment on above: Performed By: #### C BC #### [facility] [address] [place] [address] Dr. Cash Zapata WBC 7.3 103/ul Normal 4.0-11.0 [facility] Comment on above: Performed By: #### C BC #### [facility] [address] [place] [address] Dr. Cash Zapata CULTURE URINEon 03-14-2022 CULTURE URINE Culture Observations : NO GROWTH. Normal [facility] Comment on above: Performed By: #### U RCX #### [facility] [address] [place] [address] Dr. Cash Zapata LIPID PROFILEon 03-14-2022 CHOL-HDL RATIO NORM SEE BELOW Normal [facility] Comment on above: Result Comment: 3.3 - 4.4 LOW RISK 4.4 - 7.1 AVERAGE RISK 7.1 - 11.0 MODERATE RISK >11.0 HIGH RISK Performed By: #### C MP, LIPID #### [facility] [address] [place] [address] Dr. Cash Zapata Cholesterol [Mass/Vol] 187 mg/dL Normal <=200 [facility] Comment on above: Performed By: #### C MP, LIPID #### [facility] [address] [place] [address] Dr. Cash Zapata Cholesterol in HDL [Mass/Vol] 44 mg/dL Normal 40-60 [facility] Comment on above: Performed By: #### C MP, LIPID #### [facility] [address] [place] [address] Dr. Cash Zapata Cholesterol in LDL [Mass/Vol] 124.6 mg/dL Normal [facility] Comment on above: Performed By: #### C MP, LIPID #### [facility] [address] [place] [address] Dr. Cash Zapata Cholesterol.total/Alpa sterol in HDL [Mass ratio] 4.3 {ratio} Normal [facility] Comment on above: Performed By: #### C MP, LIPID #### [facility] [address] [address] [address] Cash Zapata HDL NORMAL > or = 60 mg/dl - LO W CARDIOVASCULAR RISK <40 mg/dl - HIGH CARDIOVASCULAR RISK Normal [facility] Comment on above: Performed By: #### C MP, LIPID #### [facility] [address] [place] [address] Dr. Cash Zapata LDL CALC NORMAL SEE BELOW Normal [facility] Comment on above: Result Comment: <100 mg/dl OPTIMAL 100 - 129 mg/dl NEAR OR ABOVE OPTIMAL 130 - 159 mg/dl BORDERLINE HIGH 160 - 189 mg/dl HIGH >190 mg/dl VERY HIGH Performed By: #### C MP, LIPID #### [facility] [address] [place] [address] Dr. Cash Zapata Triglyceride [Mass/Vol] 92 mg/dL Normal <=150 T [facility] Comment on above: Performed By: #### C MP, LIPID #### [facility] [address] [place] [address] Dr. Cash Zapata VLDL CALC 18.4 mg/dL Normal [facility] Comment on above: Performed By: #### C MP, LIPID #### [facility] [address] [place] [address] Dr. Cash Zapata PROF 14(COMP METB)on 022 Albumin [Mass/Vol] 4.0 g/dL Normal 3.4-5.0 [facility] Comment on above: Performed By: #### C MP, LIPID #### [facility] [address] [place] [address] Dr. Cash Zapata Albumin/Globulin [Mass ratio] 1.2 {ratio} Normal [facility] Comment on above: Performed By: #### C MP, LIPID #### [facility] [address] [place] [address] Dr. Cash Zapata ALP [Catalytic activity/Vol] 47 U/L Normal 46-116 [facility] Comment on above: Performed By: #### C MP, LIPID #### [facility] [address] [address] [address] Cash Zapata ALT [Catalytic activity/Vol] 52 U/L Normal 16-63 [facility] Comment on above: Performed By: #### C MP, LIPID #### [facility] [address] [address] [address] Cash Zapata Anion gap [Moles/Vol] 9.8 mmol/L Normal [facility] Comment on above: Performed By: #### C MP, LIPID #### [facility] [address] [address] [address] Cash Zapata AST [Catalytic activity/Vol] 21 U/L Normal 15-37 [facility] Comment on above: Performed By: #### C MP, LIPID #### [facility] [address] [address] [address] Cash Zapata Bilirubin [Mass/Vol] 0.5 mg/dL Normal 0.2-1.0 [facility] Comment on above: Performed By: #### C MP, LIPID #### [facility] [address] [address] [address] Cash Zapata Calcium [Mass/Vol] 9.5 mg/dL Normal 8.5-10.1 [facility] Comment on above: Performed By: #### C MP, LIPID #### [facility] [address] [address] [address] Cash Zapata Chloride [Moles/Vol] 104 mmol/L Normal 98-107 [facility] Comment on above: Performed By: #### C MP, LIPID #### [facility] [address] [address] [address] Cash Zapata CO2 [Moles/Vol] 31.3 mmol/L Normal 21.0-32.[address] [facility] Comment on above: Performed By: #### C MP, LIPID #### [facility] [address] [address] [address] Cash Zapata Creatinine [Mass/Vol] 1.26 mg/dL Normal 0.70-1.30 [facility] Comment on above: Performed By: #### C MP, LIPID #### [facility] [address] [address] [address] Cash Zapata EGFR-AF NAMIBIAN >60 Normal >=60 [facility] Comment on above: Performed By: #### C MP, LIPID #### [facility] [address] [address] [address] Cash Zapata EGFR-NON AF NAMIBIAN 57 mL/min/1.73m2 Critically low >=60 [facility] Comment on above: Performed By: #### C MP, LIPID #### [facility] [address] [address] [address] Cash Zapata Globulin (S) [Mass/Vol] 3.3 g/dL Normal [facility] Comment on above: Performed By: #### C MP, LIPID #### [facility] [address] [address] [address] Cash Zapata Glucose [Mass/Vol] 109 mg/dL Critically high 74-106 [facility] Comment on above: Performed By: #### C MP, LIPID #### [facility] [address] [address] [address] Cash Zapata Potassium [Moles/Vol] 5.1 mmol/L Normal 3.5-5.1 [facility] Comment on above: Performed By: #### C MP, LIPID #### [facility] [address] [address] [address] Cash Zapata Protein [Mass/Vol] 7.3 g/dL Normal 6.4-8.[address] [facility] Comment on above: Performed By: #### C MP, LIPID #### [facility] [address] [address] [address] Cash Zapata Sodium [Moles/Vol] 140 mmol/L Normal 136-145 [facility] Comment on above: Performed By: #### C MP, LIPID #### [facility] [address] [address] [address] Cash Zapata Urea nitrogen [Mass/Vol] 23.0 mg/dL Critically high 7.0-18.0 [facility] Comment on above: Performed By: #### C MP, LIPID #### [facility] [address] [address] [address] Cash Zapata Urea nitrogen/Creatinine [Mass ratio] 18.3 mg/mg Normal [facility] Comment on above: Performed By: #### C MP, LIPID #### [facility] [address] [address] [address] Cash Zapata UA RANDOM W/MICROSCOPICon BACTERIA NONE SEEN Normal NONE SEEN [facility] Comment on above: Performed By: #### U AMIC #### [facility] [address] [address] [address] Cash Zapata Bilirubin Ql (U) Negative Normal NEGATIVE [facility] Comment on above: Performed By: #### U AMIC #### [facility] [address] [place] [address] Dr. Cash Zapata CAST NONE SEEN Normal NONE SEEN [facility] Comment on above: Performed By: #### U AMIC #### [facility] [address] [address] [address] Cash Zapata Clarity (U) CLEAR Normal CLEAR [facility] Comment on above: Performed By: #### U AMIC #### [facility] [address] [address] [address] Cash Zapata Color (U) LT. YELLOW Normal YELLOW [facility] Comment on above: Performed By: #### U AMIC #### [facility] [address] [place] [address] Dr. Cash Zapata Crystals LM Nom (Urine sed) NONE SEEN Normal NONE SEEN [facility] Comment on above: Performed By: #### U AMIC #### [facility] [address] [place] [address] Dr. Cash Zapata Epithelial cells LM Ql (Urine sed) RARE Normal NONE SEEN /RARE [facility] Comment on above: Performed By: #### U AMIC #### [facility] [address] [place] [address] Dr. Cash Zapata Glucose Ql (U) Negative Normal NEGATIVE [facility] Comment on above: Performed By: #### U AMIC #### [facility] [address] [address] [address] Cash Zapata Hemoglobin Ql (U) Negative Normal NEGATIVE [facility] Comment on above: Performed By: #### U AMIC #### [facility] [address] [place] [address] Dr. Cash Zapata Ketones Ql (U) Negative Normal NEGATIVE [facility] Comment on above: Performed By: #### U AMIC #### [facility] [address] [address] [address] Cash Zapata LEUKOCYTES Negative Normal NEGATIVE [facility] Comment on above: Performed By: #### U AMIC #### [facility] [address] [place] [address] Dr. Cash Zapata MUCOUS NONE SEEN Normal NONE SEEN [facility] Comment on above: Performed By: #### U AMIC #### [facility] [address] [place] [address] Dr. Cash Zapata Nitrite Ql (U) Negative Normal NEGATIVE [facility] Comment on above: Performed By: #### U AMIC #### [facility] [address] [place] [address] Dr. Cash Zapata pH (U) 6.0 [pH] Normal 5-9 [facility] Comment on above: Performed By: #### U AMIC #### [facility] [address] [place] [address] Dr. Cash Zapata RBC NONE SEEN Abnormal 0-2 [facility] Comment on above: Performed By: #### U AMIC #### [facility] [address] [place] [address] Dr. Cash Zapata SPEC GRAVITY 1.025 Normal 1.005-<=1.02 5 [facility] Comment on above: Performed By: #### U AMIC #### [facility] [address] [place] [address] Dr. Cash Zapata UA PROTEIN Negative Normal NEGATIVE/ TRACE [facility] Comment on above: Performed By: #### U AMIC #### [facility] [address] [place] [address] Dr. Cash Zapata Urobilinogen Qn (U) 1.0 {Atilio'U}/dL Normal 0.2 - 1. 0 [facility] Comment on above: Performed By: #### U AMIC #### [facility] [address] [place] [address] Dr. Cash Zapata WBC 0-2 Abnormal NONE SEEN [facility] Comment on above: Performed By: #### U AMIC #### [facility] [address] [place] [address] Dr. Cash Zapata CBC AUTO DIFFon 03-06-2022 BASO # 0.0 103/ul Normal 0.0-0.1 [facility] Comment on above: Performed By: #### C BC #### [facility] [address] [place] [address] Dr. Cash Zapata Basophils/100 WBC (Bld) 0.3 % Normal 0.2-2.0 [facility] Comment on above: Performed By: #### C BC #### [facility] [address] [place] [address] Dr. Cash Zapata EO # 0.1 103/ul Normal 0.0-0.7 [facility] Comment on above: Performed By: #### C BC #### [facility] [address] [place] [address] Dr. Cash Zapata Eosinophils/100 WBC (Bld) 1.4 % Normal 0.9-7.0 [facility] Comment on above: Performed By: #### C BC #### [facility] [address] [place] [address] Dr. Cash Zapata Erythrocyte distribution width (RBC) [Ratio] 12.4 % Normal 11.0-15.0 [facility] Comment on above: Performed By: #### C BC #### [facility] [address] [place] [address] Dr. Cash Zapata Hematocrit (Bld) [Volume fraction] 46.5 % Normal 42.0-54.0 [facility] Comment on above: Performed By: #### C BC #### [facility] [address] [place] [address] Dr. Cash Zapata Hemoglobin (Bld) [Mass/Vol] 16.4 g/dL Normal 14.0-18.0 [facility] Comment on above: Performed By: #### C BC #### [facility] [address] [place] [address] Dr. Cash Zapata IG # 0.02 10e3/ul Normal 0.00-0.03 [facility] Comment on above: Performed By: #### C BC #### [facility] [address] [place] [address] Dr. Cash Zapata IG % 0.3 % Normal 0.0-0.5 [facility] Comment on above: Performed By: #### C BC #### [facility] [address] [place] [address] Dr. Cash Zapata LYMPH # 2.5 103/ul Normal 1.2-3.8 [facility] Comment on above: Performed By: #### C BC #### [facility] [address] [place] [address] Dr. Cash Zapata Lymphocytes/100 WBC (Bld) 39.4 % Normal 20.5-60.0 [facility] Comment on above: Performed By: #### C BC #### [facility] [address] [place] [address] Dr. Cash Zapata MANUAL DIFF REQ NO Normal [facility] Comment on above: Performed By: #### C BC #### [facility] [address] [place] [address] Dr. Cash Zapata MCH (RBC) [Entitic mass] 31.2 pg Normal 25.9-34.0 [facility] Comment on above: Performed By: #### C BC #### [facility] [address] [place] [address] Dr. Cash Zapata MCHC (RBC) [Mass/Vol] 35.3 g/dL Critically high 29.9-35.2 [facility] Comment on above: Performed By: #### C BC #### [facility] [address] [place] [address] Dr. Cash Zapata MCV (RBC) [Entitic vol] 88.6 fL Normal 80.0-94.0 [facility] Comment on above: Performed By: #### C BC #### [facility] [address] [place] [address] Dr. Cash Zapata MONO # 0.7 103/ul Normal 0.3-0.8 [facility] Comment on above: Performed By: #### C BC #### [facility] [address] [place] [address] Dr. Cash Zapata Monocytes/100 WBC (Bld) 10.4 % Normal 1.7-12.0 [facility] Comment on above: Performed By: #### C BC #### [facility] [address] [place] [address] Dr. Cash Zapata NEUT # 3.1 103/ul Normal 1.4-6.5 [facility] Comment on above: Performed By: #### C BC #### [facility] [address] [place] [address] Dr. Cash Zapata Neutrophils/100 WBC (Bld) 48.2 % Normal 43.0-75.0 [facility] Comment on above: Performed By: #### C BC #### [facility] [address] [place] [address] Dr. Cash Zapata Platelet mean volume (Bld) [Entitic vol] 9.4 fL Critically low 9.5-13.5 [facility] Comment on above: Performed By: #### C BC #### [facility] [address] [place] [address] Dr. Cash Zapata PLT 210 103/ul Normal 150-450 [facility] Comment on above: Performed By: #### C BC #### [facility] [address] [place] [address] Dr. Cash Zapata RBC 5.25 106/ul Normal 4.70-6.10 [facility] Comment on above: Performed By: #### C BC #### [facility] [address] [place] [address] Dr. Cash Zapata WBC 6.4 103/ul Normal 4.0-11.0 [facility] Comment on above: Performed By: #### C BC #### [facility] [address] [address] [address] Cash Zapata Vital Signs Date Time Vital Sign Value Performing Clinician Facility 01-25-2025 14:190400 Body height 180.34 cm Juan Ball DO Work Phone: [facility] 01-25-2025 14:19-0400 Body mass index (BMI) [Ratio] 36.2 kg/m2 Juan Ball DO Work Phone: [facility] 01-25-2025 14:19040 Body weight 117.93 kg Juan Ball DO Work Phone: [facility] 01-25-2025 14:19-0400 Diastolic blood pressure 80 mm[Hg] Juan Ball DO Work Phone: [facility] 01-25-2025 14:19-0400 Heart rate 101 /min Juan Ball DO Work Phone: [facility] 01-25-2025 14:19-0400 Respiratory rate 12 /min Juan Ball DO Work Phone: [facility] 01-25-2025 14:19-0400 Systolic blood pressure 150 mm[Hg] Juan Ball DO Work Phone: [facility] 01-06-2025 14:18-0400 Body height 180.34 cm Juan Ball DO Work Phone: [facility] 01-06-2025 14:18-0400 Body mass index (BMI) [Ratio] 35.7 kg/m2 Juan Ball DO Work Phone: [facility] 01-06-2025 14:18-0400 Body weight 116.28 kg Juan Ball DO Work Phone: [facility] 01-06-2025 14:18-0400 Diastolic blood pressure 67 mm[Hg] Juan Ball DO Work Phone: [facility] 01-06-2025 14:18-0400 Heart rate 69 /min Juan Ball DO Work Phone: [facility] 01-06-2025 14:18-0400 Respiratory rate 12 /min Juan Ball DO Work Phone: [facility] 01-06-2025 14:18-0400 Systolic blood pressure 147 mm[Hg] Juan Ball DO Work Phone: [facility] 05-21-2024 10:36-0500 Body height 180.34 cm [facility] 05-21-2024 10:36-0500 Body mass index (BMI) [Ratio] 34.2 kg/m2 [facility] 05-21-2024 10:36-0500 Body weight 111.35 kg [facility] 05-21-2024 10:36-0500 Diastolic blood pressure 73 mm[Hg] [facility] 05-21-2024 10:36-0500 Heart rate 65 /min [facility] 05-21-2024 10:36-0500 Respiratory rate 12 /min [facility] 05-21-2024 10:36-0500 Systolic blood pressure 170 mm[Hg] [facility] 06-10-2023 14:18-0500 Body height 180.3 cm Elizabeth Cardoso [employer] Work Phone: [facility] 06-10-2023 14:18-0500 Body mass index (BMI) [Ratio] 35.98 kg/m2 Elizabeth Cardoso [employer] Work Phone: [facility] 06-10-2023 14:18-0500 Body weight 117.03 kg Elizabeth Cardoso [employer] Work Phone: [facility] 06-10-2023 14:18-0500 Diastolic blood pressure 76 mm[Hg] Elizabeht Cardoso [employer] Work Phone: [facility] 06-10-2023 14:18-0500 Heart rate 76 /min Elizabeth Cardoso [employer] Work Phone: [facility] 06-10-2023 14:18-0500 Systolic blood pressure 162 mm[Hg] Elizabeth Cardoso [employer] Work Phone: [employer] 05-14-2023 13:47-0500 Body height 180.3 cm Elizabeth Cardoso [employer] Work Phone: [facility] 05-14-2023 13:47-0500 Body mass index (BMI) [Ratio] 35.93 kg/m2 Elizabeth Cardoso [employer] Work Phone: [facility] 05-14-2023 13:47-0500 Body weight 116.85 kg Elizabeth Cardoso [employer] Work Phone: [facility] 05-14-2023 13:47-0500 Diastolic blood pressure 64 mm[Hg] Elizabeth Cardoso [employer] Work Phone: [facility] 05-14-2023 13:47-0500 Systolic blood pressure 145 mm[Hg] Elizabeth Cardoso [employer] Work Phone: [facility] 04-26-2023 10:30-0500 Body height 182.88 cm Juan Ball Other [employer] Other 04-26-2023 10:30-0500 Body mass index (BMI) [Ratio] 34.28 kg/m2 Juan Ball Other [employer] Other 04-26-2023 10:30-0500 Body weight 114.67 kg Juan Ball Other [employer] Other 04-26-2023 10:30-0500 Diastolic blood pressure 90 mm[Hg] Juan Ball Other [employer] Other 04-26-2023 10:30-0500 Respiratory rate 12 /min Juan Ball Other [employer] Other 04-26-2023 10:30-0500 Systolic blood pressure 150 mm[Hg] Juan Ball Other [employer] Other 03-27-2023 11:30-0500 Body height 182.88 cm Ujan Ball Other [employer] Other 03-27-2023 11:30-0500 Body mass index (BMI) [Ratio] 35.01 kg/m2 Juan Ball Other [employer] Other 03-27-2023 11:30-0500 Body weight 117.12 kg Juan Ball Other [employer] Other 03-27-2023 11:30-0500 Diastolic blood pressure 76 mm[Hg] Juan Ball Other [employer] Other 03-27-2023 11:30-0500 Respiratory rate 12 /min Juan Ball Other [employer] Other 03-27-2023 11:30-0500 Systolic blood pressure 133 mm[Hg] Juan Ball Other [employer] Other 11-19-2022 13:30-0400 Body height 182.88 cm Juan Ball Other [employer] Other 11-19-2022 13:30-0400 Body mass index (BMI) [Ratio] 34.17 kg/m2 Juan Ball Other [employer] Other 11-19-2022 13:30-0400 Body weight 114.31 kg Juan Ball Other [employer] Other 11-19-2022 13:30-0400 Diastolic blood pressure 82 mm[Hg] Juan Ball Other [employer] Other 11-19-2022 13:30-0400 Respiratory rate 16 /min Juan Torres Other [employer] [facility] Other 11-19-2022 13:30-0400 Systolic blood pressure 156 mm[Hg] Juan Torres Other [employer] [facility] Other Encounters Encounter Date Encounter Type Care Provider Facility Start: 01-25-2025 End: 01-25-2025 ambulatory Juan Torres DO Work Phone: [facility] Work Phone: Start: 01-25-2025 End: 01-25-2025 Patient encounter procedure Juan Torres DO -[facility] Work Phone: Start: 01-06-2025 Non-patient / Non-visit Franklin Kerr MD -[facility] Work Phone: Start: 01-06-2025 End: 01-06-2025 ambulatory Juan Torres DO Work Phone: [facility] Work Phone: Start: 01-06-2025 End: 01-06-2025 Patient encounter procedure Juan Torres DO -[facility] Work Phone: Start: 05-21-2024 End: 05-21-2024 ambulatory [facility] Work Phone: Start: 05-21-2024 End: 05-21-2024 Patient encounter procedure [facility] Work Phone: Start: 06-10-2023 End: 06-10-2023 ambulatory ELIZABETH CARDOSO [facility] Start: 06-10-2023 End: 06-10-2023 Postop follow up visit related to original px Elizabeth Cardoso [employer] Work Phone: [facility] Comment on above: Status post hernia r epair (Primary Dx) Start: 05-14-2023 End: 05-14-2023 ambulatory ELIZABETH CARDOSO [facility] Start: 05-14-2023 End: 05-14-2023 Postop follow up visit related to original px Elizabeth Caleb Cardoso [employer] Work Phone: [facility] Comment on above: Status post hernia r epair (Primary Dx) Start: 04-30-2023 End: 04-30-2023 ambulatory Juan Torres Other [employer] Other Start: 04-30-2023 Telephone encounter Juan Torres [facility] Start: 04-26-2023 End: 04-26-2023 ambulatory Juan Ball Other [employer] Other Start: 04-26-2023 Encounter for other preprocedural examination Juan Ball [facility] Start: 04-26-2023 Office outpatient vi sit 25 minutes Juan Ball [facility] Start: 04-26-2023 Telephone encounter Juan Ball [facility] Start: 04-19-2023 End: 03-17-2024 Telephone encounter Hanane Proctor A [facility] Start: 04-01-2023 End: 04-01-2023 ambulatory Juan Torres Other [employer] Other Start: 04-01-2023 Telephone encounter Juan Torres [facility] Start: 03-27-2023 End: 03-27-2023 ambulatory Juan Torres Other [employer] Other Start: 03-27-2023 Encounter for genera l adult medical examination without abnormal findings Juan Ball [facility] Start: 03-27-2023 Periodic preventive med est patient 65yrs& older Juan Ball [facility] Start: 02-22-2023 End: 02-22-2023 ambulatory Juan Brian Other [employer] Other Start: 02-22-2023 Telephone encounter Juan Ball [facility] Start: 11-19-2022 End: 11-19-2022 ambulatory Juan Ball Other [facility] Other Start: 11-19-2022 Office outpatient vi sit 15 minutes Juan [facility] Start: 06-29-2022 Encounter for preprocedural laboratory examination DR ANTOINE WILDER . [facility] Start: 06-27-2022 End: 06-27-[address] ANTOINE WILDER . Facility:[facility] Start: 06-23-2022 End: 06-24-[address] ANTOINE WILDER . Facility:[facility] Start: 06-23-2022 End: 06-24-2022 Encounter for preprocedural laboratory examination DR ANTOINE WILDER . Facility:[facility] Start: 03-19-2022 Encounter for genera l adult medical examination without abnormal findings DR JUAN TORRES [facility] Start: 03-14-2022 Adult health examination Gopal Torres Other [facility] Other Start: 03-14-2022 End: 03-15-[address] JUAN TORRES Facility:[facility] Start: 03-14-2022 End: 03-15-2022 Encounter for general adult medical examination without abnormal findings DR JUAN TORRES Facility:[facility] Start: 03-06-2022 End: 03-07-[address] DOCTOR VIEYRA Facility:[facility] Procedures Date Procedure Procedure Detail Performing Clinician Start: 06-10-2023 Follow-up visit Follow-up ELIZABETH CARDOSO Start: 06-27-2022 Colonoscopy Elizabeth chamberlain [employer] Work Phone: Start: 03-14-[address] MIRIAN WILDER . Comment on above: Performed By: #### [facility] #### [facility] [address] [place] [address] Dr. Cash Zapata Start: 12-22-2015 General examination of patient Juan Torres Other Start: 12-22-2015 Hyperlipidemia screening Jaun Torres Other Start: 12-22-2015 Screening for malign ant neoplasm of colon Juan Torres Other Start: 12-22-2015 Screening for malign ant neoplasm of prostate Juan Torres Other Depression screening Chai Torres Other Plan of Treatment Date Care Activity Detail Author Start: 06-27-2027 Screening for malignant neoplasm of colon Colonoscopy [facility] Start: 01-06-2025 [facility] Start: 06-10-2024 Adult BMI Screening Adult BMI Screening [facility] Start: 06-10-2024 Tobacco Screening Tobacco Screening [facility] Start: 05-14-2024 Adult BMI Screening Adult BMI Screening [facility] Start: 05-14-2024 Tobacco Screening Tobacco Screening [facility] Start: 01-12-2024 Influenza vaccination Influenza Vaccine [facility] Start: 01-11-2023 Influenza vaccination Influenza Vaccine [facility] Start: 2017 Abdominal aortic aneurysm screening Abdominal Aortic Aneurysm (AAA) Screen [facility] Start: 2017 Fall Risk Screening Fall Risk Screening [facility] Start: 11-07-1971 DTaP,Tdap and Td Vaccines (1 - Tdap) DTaP,Tdap and Td Vaccines (1 - Tdap) [facility] Start: 1970 Adult BMI Follow Up Plan Adult BMI Follow Up Plan [facility] Start: 1962 Depression Screening Depression Screening [facility] Start: 1950 Medicare Annual Wellness Visit Medicare Annual Wellness Visit [facility] Comprehensive metabo lic 1999 panel - Serum or Plasma [facility] Comprehensive metabo lic 1999 panel - Serum or Plasma [facility] Fibrin D-dimer [Pres ence] in Platelet poor plasma by Latex agglutination [facility] US Heart Transthoracic [facility] XR Chest 2 Views [facility] Immunizations Immunization Date Immunization Notes Care Provider Fa rosana 10-29-2021 zoster vaccine, live Chai n Brian Other [facility] 07-27-2019 pneumococcal polysaccharide vaccine, 23 valent Juan Torres Other [facility] 06-27-2018 pneumococcal conjuga te vaccine, 13 valent Juan Torres Other [facility] pneumococcal Conjuga te, unspecified formulation; Translations: [Need for prophylactic vaccination against Streptococcus pneumoniae (pneumococcus)] Juan Torres Other [employer] Other Payers Date Payer Category Payer Medicare [id number] 2025 Self-pay 1998 Commercial Managed C are - POS AETNA [id number] 1998 Private Health Insurance AETNA A ETNA POS II [id number] 1998-Present [phone] [id number] [place] [id number] 1959 Private Health Insurance [id number] 1950 Unknown [id number] 1952 Unknown [id number] 1952 Unknown [id number] [id number] 1952 Unknown [id number] [id number] 1952 Unknown [id number] [id number] 1952 Unknown [id number] Private Health Insurance [id number] Unknown [id number] [id number] Social History Date Type Detail Facility Start: 06-23-2020 End: 05-14-2023 Sex Assigned At [facility] Deminos Other Tobacco smoking stat [facility] Unknown if ever smoked [facility] Work Phone: Start: 12-16-2014 End: 05-21-2024 Sex Male (finding) [facility] Start: 1950 Sex Assigned At Male F [facility] Start: 03-27-2023 [facility] End: 05-13-1974 History of tobacco use Current smoker [facility] End: 05-13-1974 History of tobacco use Cigarette Smoker [facility] Start: 06-23-2020 End: 03-27-2023 Cigarettes smoked current (pack per day) - Reported 1.5 [facility] Start: 03-27-2023 Tobacco use and exposure Smokeless tobacco non-user [facility] Start: 04-19-2023 End: 05-14-2023 Alcohol intake Ex-drinker (finding) [facility] Housing Instability Unknown [facility] Start: 1950 Sex Assigned At Not on file P [facility] Medical Equipment Procedure Code Equipment Code Equipment Origin al Text Equipment Identifier Dates Mesh Plstr Clgn Symbotex 15cm 2 Sd Comp 3d [facility] Srg - Sna - [id number] Start: 04-30-2023 Clinical Notes 11-19-2022 to 01-06-2025 Note Date & Type Note Facility 01-06-2025 Evaluation note Diagnosis Onset Date Resolution Chest pain acute January 06, 2 025 2:05pm Dyspnea acute January 06, 2 025 2:05pm Family history of coronary arteriosclerosis acute January 06 2:05pm Hypercholesterolemia acute 2024 2:05pm Hypertension acute January 06, 2025 2:05pm DANIA (obstructive sleep apnea) acute January 06 2:05pm Palpitations acute January 06, 2025 2:05pm Systolic murmur of aorta acute January 06, 2025 2:05pm [facility] Work Phone: 1(830) 558-224308-27-2025 Evaluation note* Diagnosis Onset Date Resolution Status Admit Date Chest pain acute January 06, 2 025 2:05pm Dyspnea acute January 06, 2 025 2:05pm Family history of coronary arteriosclerosis acute January 06 2:05pm Hypercholesterolemia acute 2024 2:05pm Hypertension acute January 06, 2025 2:05pm DANIA (obstructive sleep apnea) acute January 06, 2025 2:05pm Palpitations acute January 06, 2025 2:05pm Systolic murmur of aorta deleted January 06, 2025 2:05pm Abnormal nuclear cardiac clark ging test acute January 25, 2025 2:05pm Aortic insufficiency with ao rtic stenosis acute January 25, 2025 2:05pm Chest pain acute January 2:05pm Family history of coronary arteriosclerosis acute January 25, 2025 2:05pm Hypercholesterolemia acute Jan 2:05pm Hypertension acute January 252024 2:05pm DANIA (obstructive sleep apnea) acute January 25, 2025 2:05pm Palpitations acute January 252024 2:05pm [facility] Work Phone: 1(855) 626-920901-29-2024 History of Present illness Narrative* Elizabeth Cardoso, [employer]OCIATE - 06/10/2023 2:30 PM EST Images from [...] post hernia repair [Z98.890, Z87.19] JUAN CHAVEZ [facility] [place] This note was created with the assistance of a speech recognition program. While intending to generate a timely document that accurately reflects the content of the visit, no guarantee can be provided that every grammatical or spelling mistake has been or will be identified or corrected. Thank you for your understanding. JUAN Chavez 05/14/23 1359 JUAN Chavez 06/10/23 1432 [facility] History of Present illness Narrative* JUAN Chavez [...] post hernia repair [Z98.890, Z87.19] JUAN CHAVEZ [facility] [place] This note was created with the assistance of a speech recognition program. While intending to generate a timely document that accurately reflects the content of the visit, no guarantee can be provided that every grammatical or spelling mistake has been or will be identified or corrected. Thank you for your understanding. 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 [employer] Other 12-08-2023 Miscellaneous Notes* Telephone Encounter - [...] consent [facility]. * Telephone Encounter - ROBERT Mccoy - 04/19/2023 1:37 PM EST Mell called into the office to say that Pramod has an appointment on [address] Torres for a medical clearance. documented in [facility]12-[facility]-2023 Telephone encounter Note* Telephone Encounter - ROBERT Mccoy - 04/19/2023 1:37 PM EST I tried to call Mell however the voicemail is full. [facility]12-08-2023 Telephone encounter Note* Telephone Encounter - ROBERT [...] consent was emailed to PAT at the [facility]. [employer]12-08-2023 Telephone encounter Note* Telephone Encounter - ROBRET Mccoy - 04/19/2023 1:37 PM EST Mell called into the office to say that Pramod has an appointment on [address] Torres for a medical clearance. [employer]11-15-2023 Evaluation note* Encounter Date Diagnosis Assessment Notes Treatment Notes Treatment Clinical Notes Mar, Wellness examination (ICD-10 - Z00.00) Healthy diet and exercise. Reviewed age-appropriate preventive testing recommended. Mar, DANIA (obstructive sle ep apnea) (ICD-10 - G47.33) This patient is aware of the benefits associated with DANIA: With continued use, the patient reduces the risk for MO, CVA, HTN, cardiac dysrhythmias and sudden cardiac [...] (ICD-10 - Z12.5) Yearly NAHID and PSA [employer] Other 07-10-2023 Evaluation note* Encounter Date Diagnosis Assessment Notes Treatment Notes Treatment Clinical Notes Nov, DANIA (obstructive sleep apnea) (ICD-10 - G47.33) This patient is aware of the benefits associated with DANIA: With continued use, the patient reduces the risk for MO, CVA, HTN, cardiac dysrhythmias and sudden cardiac [...] index [BMI] 34.0-34.9, adult (ICD-10 - Z68.34) [employer] Other Evaluation noteNo InformationNosaint luke's hospital [facility] Other Evaluation note* Diagnosis Onset Date Resolution Status Admit Date GERD (gastroesophageal reflu x disease) acute May 21 10:25am Hypercholesterolemia acute Jm ayde2024 10:25am Hypertension acute May 21, 2024 10:25am Obesity acute May 21, 2 025 10:25am DANIA (obstructive sleep apnea) acute May 21, 2024 10:25am [facility] Screening PSA (prostate spec ific antigen) acute May 21 10:25am [facility] Work Phone: Evaluation note* Diagnosis Status post hernia repair- Primary Other postprocedural status documented in this encounter [facility]* Diagnosis Status post hernia repair- Primary Other postprocedural status documented in this encounter [facility]* Diagnosis Onset Date Resolution Status Admit Date Dyspnea acute January 06, 025 2:05pm Hypertension acute January 06, 2025 2:05pm [facility] Work Phone: Hisuyym general Narrative - Reported* Type Description Date [...] Cardiac Catheterization Hospitalization History see surgical history [employer] Other Hisvhkn general Narrative - Reported* Type Description Date [...] Cardiac Catheterization Hospitalization History see surgical history [employer] Other History general Narrative - Reported* Type [...] repair 04/2023 Hospitalization History see surgical history [employer] Other InstructionsNot on filedocumented in this encounter [facility] SystemInstructionsNot on filedocumented in this encounter [facility] SystemReason for referral (narrative)No reason for referral information availableK[facility] Work Phone: Summary Purpose Family History No [...] 05pm Hypertension January 06, 2025 2: 05pm Chief Complaint Admit Date URI 1 month, itchy spot on back December 122024 2:05pm discuss test results January 25 2:05pm Reason for Visit Admit Date Chest pain January 06, 2025 2: 05pm Dyspnea January 06, 2025 2: 05pm Family history of coronary arteriosclero sis January 06, 2025 2:05pm Hypercholesterolemia January 06, 2025 2 :05pm Hypertension January 06, 2025 2: 05pm DANIA (obstructive sleep apnea) December 2:05pm Palpitations January 06, 2025 2: 05pm Systolic murmur of aorta January 06 2:05pm Abnormal nuclear cardiac imaging test Se ptember 2024 2:05pm Aortic insufficiency with aortic stenosi s January 25, 2025 2:05pm Chest pain January 25, 2025 2:05pm Family history of coronary arteriosclero sis January 25, 2025 2:05pm Hypercholesterolemia January 25 2:05pm Hypertension January 25, 2025 2:05pm DANIA (obstructive sleep apnea) January 25, 2025 2:05pm Palpitations January 25, 2025 2:05pm Additional Source Comments (unrecognized sect ion and content) No Status Records FoundNo Status Records FoundNo Status Records Found INFORMATION SOURCE (unrecogn ized section and content) DATE CREATED AUTHOR 07/04/2022 [facility] DATE CREATED AUTHOR AUTHOR'S ORGANIZ ATION 06/13/2023 [facility] DATE CREATED AUTHOR AUTHOR'S ORGANIZ ATION 01/31/2025 [facility] REASON FOR VISIT (unrecogniz ed section and content) Reason Comments POST-OP VISIT POST OP VENTRAL/UMBI LICAL HERNIA PERFORMED 04/30/[address] [facility] Reason Comments Follow-up 6 WEEK FOLLOW UP POS T UMBILICAL HERNIA REPAIR, PERFORMED ON 04/30/[address] 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 Relationship Specialty Start Date End Date Juan Torres DO [address] [place] [address] PCP - General Internal Medicine 05/21/22 Director Of Home Economics Relationship Specialty Start Date End Date Juan Torres DO [address] [place] [address] PCP - General Internal Medicine 05/21/22 Team Status: Inactive Member Role Status Dates Juan Torres DO Primary Care Provider Active Start: January 06, 2025 End: January 06, 2025 Juan Torres DO Attending Provider Active Sta rt: January 06, 2025 End: January 06, 2025 Team Status: Active Member Role Status Dates Juan Torres DO Primary Care Provider Active Start: January 06, 2025 Juan Torres DO Attending Provider Active Sta rt: January 06, 2025 Team Status: Active Member Role Status Dates Juan Torres DO Primary Care Provider Active Start: January 06, 2025 Juan Torres DO Other Provider Active Start: January 06, 2025 Franklin Kerr MD Attending Provider Activ e Start: January 06, 2025 Team Status: Inactive Member Role Status Dates Juan Torres DO Primary Care Provider Active Start: January 25, 2025 End: January 25, 2025 Juan Torres DO Attending Provider Active Sta rt: January 25, 2025 End: January 25, 2025 Goals (unrecognized section and content) Goals [...] BE BASED ON THE PRIMARY CLINICAL RECORDS. [employer] [facility]. provides no warranty or guarantee of the accuracy or completeness of information in this document.
== END 2025-02-04 07:42 | disposition home or self-care (01) ==
LOC: CT 07:41
PROVIDERS: PCP Internal Medicine; Visit Provider Internal Medicine Cardiovascular Disease
DX: R06.02 Shortness of breath (principal); I20.89 Other forms of angina pectoris
CPT/HCPCS: 71275; Q9967

== ENCOUNTER 2025-02-11 06:57 | Outpatient (OUT) | payer MEDICARE, OTHER, SELFPAY ==
--- OUTSIDE RECORDS SUMMARY | 2025-02-03 10:24 | XMS_ITS ---
Author Name Auto Generated Organization [facility] Care Team Providers Care Mower Mechanic Name Role Phone Juan Torres Attending Unavailable Juan Torres Primary Care Unavailable Juan Torres Admitting Unavailable ASHLEY BOWIE Attending Unavailable PROBLEMS DATE TYPE CONDITION / CODE ATTENDING STATUS [facility] 02/03/2025 Admitting Diagnosis Nonrheumatic aortic (valve) insufficiency / I35.1(ICD-10) ASHLEY BOWIE Active [facility] 02/03/2025 Admitting Diagnosis Nonrheumatic aortic (valve) stenosis / I35.0(ICD-10) ASHLEY BOWIE Active [facility] 02/03/2025 Admitting Diagnosis Abnormal result of other cardiovascular function study / R94.39(ICD-10) ASHLEY BOWIE Active [facility] 02/03/2025 Admitting Diagnosis Other forms of angina pectoris / I20.89(ICD-10) ASHLEY BOWIE Active [facility] 02/03/2025 Admitting Diagnosis Shortness of breath / R06.02(ICD-10) ASHLEY BOWIE Active [facility] 02/03/2025 Admitting Diagnosis Atherosclerotic heart disease of [place] coronary artery without angina pectoris / I25.10(ICD-10) ASHLEY BOWIE Active [facility] 01/06/2025 Unknown Palpitations / R00.2(ICD-10) Juan Torres Active [facility] PROCEDURES No Procedure Records Found RESULTS 37 Observed: 02/03/2025 10:40 AM Status: COMPLETED Source: [facility] Hold chlorthalidone on days you get CT scan and heart cath PROGRESS Observed: 02/03/2025 10:40 AM Status: COMPLETED Source: [facility] Subjective Patient ID: Maddy Peraza is a 74 y.o. male who presents for New Patient (Patient is here today to establish care with cardiology. Patient recently has a stress test and Echo which were abnormal. Patient has complaints of SOB, HOLMAN, chest tightness, dizziness/lightheadedness with position changes. Leg pain with walking), Cardiac Stress Test, Hypertension, Hyperlipidemia, Sleep Apnea (Non complaint with CPAP due to it being uncomfortable/), GERD, Barretts esophagus, and Valve Disorder (Aortic valve sclerosis/). Shortness of breath and tightness in chest a little bit Can get dizzy standing up Gets winded carrying things, and on stairs. 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 Hyperlipidemia Associated symptoms include chest pain and shortness of breath. GERD He complains of chest pain. Review of Systems Respiratory: Positive for chest tightness and shortness of breath. Cardiovascular: Positive for chest pain and palpitations. Negative for leg swelling. Gastrointestinal: Negative for blood in stool. Genitourinary: Negative for hematuria. Neurological: Negative for dizziness, seizures, syncope and light-headedness. Psychiatric/Behavioral: Negative for confusion. Objective Visit Vitals BP 158/76 (BP Location: Left arm, Patient Position: Sitting) Pulse 81 Physical Exam HENT: Head: Normocephalic and atraumatic. Cardiovascular: Rate and Rhythm: Normal rate and regular rhythm. No extrasystoles are present. Chest Wall: PMI is not displaced. No thrill. Pulses: Carotid pulses are 2+ on the right side and 2+ on the left side. Radial pulses are 2+ on the right side and 2+ on the left side. Femoral pulses are 2+ on the right side and 2+ on the left side. Popliteal pulses are 2+ on the right side and 2+ on the left side. Dorsalis pedis pulses are 2+ on the right side and 2+ on the left side. Posterior tibial pulses are 2+ on the right side and 2+ on the left side. Heart sounds: Murmur heard. Decrescendo diastolic murmur is present with a grade of 1/4. Comments: Positive Durrozier's sign R femoral artery with to and fro murmur with compression Systolic murmur radiates into carotids Pulmonary: Effort: Pulmonary effort is normal. Breath sounds: Normal breath sounds. Musculoskeletal: Right lower leg: No edema. Left lower leg: No edema. Skin: General: Skin is warm and dry. Neurological: General: No focal deficit present. Mental Status: He is oriented to person, place, and time. Mental status is at baseline. Psychiatric: Mood and Affect: Mood normal. Behavior: Behavior normal. Thought Content: Thought content normal. EKG image from 01/18/25 reviewed by me: NSR with nonspecific ST depressions inferolateral leads Assessment/Plan Mr. Peraza has angina and shortness of breath. Echo shows moderate to severe AR and mild aortic stenosis with mild LV dysfunction. Also abnormal stress test with inferior defect which is likely independent of aortic valve disease. I have recommended a CAN and heart cath: amber Marcos, aortogram for AR. I discussed expected risks including bleeding, , [place], stroke, renal failure, etc. In interim will also get CTA chest to evaluate aorta. Diagnosis Plan 1. Nonrheumatic aortic valve insufficiency 2. Nonrheumatic aortic valve stenosis 3. Cardiovascular stress test abnormal 4. Stable angina pectoris 5. Shortness of breath chlorthalidone (Hygroton) 25 mg tablet No results found for this or any previous visit (from the past 36 hours). Follow up in about 6 weeks (around 03/17/2025). OFFICE VISIT Observed: 02/03/2025 10:40 AM Status: COMPLETED Source: [facility] [id number] Maddy Peraza M Date Provider Department Center 02/03/2025 245-ASHLEY BOWIE [facility]ARD [facility] Family History Problem Relation Age of Onset Heart attack Mother Family Status - Relation Status Age at Mother Father Level of Service:28859 HI OFFICE/OUTPATIENT NEW HIGH [facility] 60 MINUTES Reason for Visit and Comments: New Patient [632] - Patient is here today to establish care with cardiology. Patient recently has a stress test and Echo which were abnormal. Patient has complaints of SOB, HOLMAN, chest tightness, dizziness/lightheadedness with position changes. Leg pain with walking Cardiac Stress Test [489] Hypertension [378105] Hyperlipidemia [182] Sleep Apnea [348] - Non complaint with CPAP due to it being uncomfortable GERD [795863] Barretts esophagus [Other] Valve Disorder [3372] - Aortic valve sclerosis FPG ECG *PCP OFFICE ONLY* Observed: 12/12 3:00 PM Status: COMPLETED Source: [facility] [place] [address] Electrocardiograph Report Signed Patient: Maddy Peraza MR#: [id number] : 1950 Acct:[id number] Age/Sex: 74 / M ADM Date: 01/06/25 [facility]: Type[facility] Attending Dr: Juan Torres DO Ordering Provider: [...] previous ECGs available Confirmed by Franklin Kerr ([id number]) on 01/07/2025 3:04:16 PM Referred By: Electronically Signed By: Franklin Kerr Transcribed By: MUS Signed By Franklin Kerr MD 01/07/25 1504 ALLERGIES DATE TYPE / CODE NAME / CODE REACTION SEVERITY SOURCE 01/25/2025 Drug Allergy/1812352 02(SNOMED CT) No Known Allergies/[id number] (RXNORM) Unknown [facility] SYSTEMIC/176980 006(SNOMED CT) NO KNOWN ALLERGIES [facility] ENCOUNTERS ADMIT/DISCHARGE ACCOUNT NUMBER ADMITTING ENCOUNTER CLASS LOCATION SOURCE 02/03/2025/02/04/20 [id number] Ambulatory Building:[facility] 01/06/2025/01/07/20 [id number] [facility] PAYERS ENCOUNTER GUARANTOR PAYER SUBSCRIBER SOURCE 02/03/2025 Primary Insurance:MEDICAREPolic y Number: [id number] Date:[id number] Name:Medicare MADDY PENA: [id number] [place] [address] [facility] 02/03/2025 Secondary Insurance:GENERIC COMMERCIALPolicy Number: [id number] Date:2024-05-13 MADDY PENA: [id number] [place] [address] [facility] 01/06/2025 Maddy Peraza[address] [place], [place] [address]Wbu: (HP) Primary Insurance:MedicarePolic y Number: [id number] Date:2025-01-06 Maddy Pena: [id number] [place] [place], [place] [address]Nla: (HP) [facility] 01/06/2025 Secondary Insurance:Self PayPolicy Number: Effective Date:2025-01-06 [facility]
--- OUTSIDE RECORDS SUMMARY | 2025-02-03 10:40 | XMS_ITS | Encounter Summary ---
Author Organization [facility] Address [address] [place] [address] Care Team Providers Care Oil Refinery Operator Name Role Phone Juan Torres DO Primary Care Provider [phone] Reason for Referral * Imaging (Routine) - Authorized Specialty Diagnoses / Procedures Referred By Cat falk Referred To Contact Cardiology Diagnoses Nonrheumatic aortic valve insufficiency Nonrheumatic aortic valve stenosis Shortness of breath Coronary artery disease, unspecified vessel or lesion type, unspecified whether angina present, unspecified whether [place] or transplanted heart Procedures Transesophageal echo (CAN) Gulshan Bernard MD [address] [place] [phone] Phone: tel: fax: [facility] [address] [place] [phone] Phone: tel: fax: Referral ID Status Reason Start Date Expiration Date Visits Requested Visits Authorized [id number] Authorized Perform Procedure 02/03/2025 02/03/2026 3 3 * Imaging (Routine) - Pending Review Specialty Diagnoses / Procedures Referred By Cat falk Referred To Contact Diagnoses Stable angina pectoris Shortness of breath Coronary artery disease, unspecified vessel or lesion type, unspecified whether angina present, unspecified whether [place] or transplanted heart Procedures CTA Chest W IV Contrast Gulshan Bernard MD [address] [place] [phone] Phone: tel: fax: Referral ID Status Reason Start Date Expiration Date V isits Requested Visits Authorized [id number] Pending Review 02/03/2025 02/03/2026 1 1 Reason [...] Description 02/03/2025 10:40 AM EDT Office Visit [facility] [address] [place] [address] Gulshan Bernard MD [address] [place] [phone] Nonrheumatic aortic valve insufficiency (Primary Dx); Nonrheumatic aortic valve stenosis; Cardiovascular stress test abnormal; Stable angina pectoris; Shortness of breath; Coronary artery disease, unspecified vessel or lesion type, unspecified whether angina present, unspecified whether [place] or transplanted heart Social History Tobacco Use [...] 10:27 AM EDT documented in this encounter Functional Status * BP Answer Date of Assessment Author 158/76 02/03/2025 10:27 AM EDT Kim Peterson am, [place] * Pulse Answer Date of Assessment Author 81 02/03/2025 10:27 AM EDT Kim Peterson am, MA * Patient Position Answer Date of Assessment Author Sitting 02/03/2025 10:27 AM EDT Kim Peterson am, MA * BP Answer Date of Assessment Author 158/76 02/03/2025 10:27 AM EDT Kim Peterson am, [place] * Pulse Answer Date of Assessment Author 81 02/03/2025 10:27 AM EDT Kim Peterson am, [place] * SpO2 Answer Date of Assessment Author 96 02/03/2025 10:27 AM EDT Kim Peterson am, MA * BP Location Answer Date of Assessment Author Left arm 02/03/2025 10:27 AM EDT Kim Peterson am, [place] * Patient Position Answer Date of Assessment Author Sitting 02/03/2025 10:27 AM EDT Kim Peterson am, [place] documented as of this encounter Patient Instructions * Patient Instructions* Gulshan Bernard MD - 02/03/2025 10:40 AM EDT Hold chlorthalidone on days you get CT scan and heart cath documented in this encounter Progress Notes * Gulshan Bernard MD - 02/03/2025 10:40 AM EDT Subjective Patient ID: Pramod Su is a 74 y.o. male who presents for New Patient (Patient is here today to establish care with cardiology. Patient recently has a stress test and Echo which were abnormal. 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 Su has angina and shortness of breath. Echo shows moderate to severe AR and mild aortic stenosis with mild LV dysfunction. Also abnormal stress test with inferior defect which is likely independent of aortic valve disease. I have recommended a CAN and heart cath: R L, cors, aortogram for AR. I discussed expected risks including bleeding, , NV, stroke, renal failure, etc. In interim will [...] up in about 6 weeks (around 03/17/2025). documented in this encounter Plan of Treatment Upcoming Encounters Date Type Department Care Team (Late st Contact Info) Description 02/18/2025 10:30 AM EDT Appointment [facility] V[facility] Lab [address] [place] [phone] 02/18/2025 11:30 AM EDT Hospital Encounter [facility] [place] [facility] [address] [place] [phone] Gulshan Bernard MD [address] [place] [phone] Nonrheumatic aortic valve insufficiency; Nonrheumatic aortic valve stenosis; Cardiovascular stress test abnormal; Stable angina pectoris; Shortness of breath; Coronary artery disease, unspecified vessel or lesion type, unspecified whether angina present, unspecified whether [place] or transplanted heart 02/18/2025 11:30 AM EDT - 02/18/2025 1:00 PM EDT Surgery [facility] Vascular Lab [address] [place] [phone] Gulshan Bernard MD [address] [place] [phone] Coronary angiography Scheduled Orders Name Type Priority Associated Diagnoses Orde r Schedule CTA Chest W IV Contrast Imaging Routine Stable angina pectoris Shortness of breath Coronary artery disease, unspecified vessel or lesion type, unspecified whether angina present, unspecified whether [place] or transplanted heart Expected: 02/03/2025, Expires: 02/03/2026 Creatinine, Serum Lab Routine Nonrheumatic aortic valve insufficiency Expected: 02/03/2025 (Approximate), Expires: 02/03/2026 Transesophageal echo (CAN) Echocardiography Routine Nonrheumatic aortic valve insufficiency Nonrheumatic aortic valve stenosis Shortness of breath Coronary artery disease, unspecified vessel or lesion type, unspecified whether angina present, unspecified whether [place] or transplanted heart Expected: 02/03/2025 (Approximate), Expires: [...] type, unspecified whether angina present, unspecified whether [place] or transplanted heart Nonrheumatic aortic valve insufficiency Nonrheumatic aortic valve stenosis Cardiovascular stress test abnormal Stable angina pectoris Shortness of breath Coronary artery disease, unspecified vessel or lesion type, unspecified whether angina present, unspecified whether [place] or transplanted heart Nonrheumatic aortic valve insufficiency Nonrheumatic aortic valve stenosis Cardiovascular stress test abnormal Stable angina pectoris Shortness of breath Coronary artery disease, unspecified vessel or lesion type, unspecified whether angina present, unspecified whether [place] or transplanted heart documented in this encounter Care Teams Oil Refinery Operator Relationship Specialty Start Date End Date Juan Torres DO [address] [place] [phone] PCP - General Internal Medicine 02/02/25 documented as of this encounter
--- OUTSIDE RECORDS SUMMARY | 2025-02-11 07:00 | XMS_ITS | Clinical Summary ---
Author Organization [facility] Address [address] [place] [address] Care Team Providers Care Rotary Drier Name Role Phone Unavailable Primary Care Provider [...]
--- OUTSIDE RECORDS SUMMARY | 2025-02-11 07:00 | XMS_ITS | Clinical Summary ---
Author Organization [facility] Address [address] [place] [address] Care Team Providers Care Cq Developer Name Role Phone Juan Torres DO Primary Care Provider [phone] Allergies No known active allergies Medications amLODIPine [...] Description 02/03/2025 10:40 AM EDT Office Visit [facility] [address] [place] [address] Gulshan Bernard MD Nonrheumatic aortic valve insufficiency (Primary Dx); Nonrheumatic aortic valve stenosis; Cardiovascular stress test abnormal; Stable angina pectoris; Shortness of breath; Coronary artery disease, unspecified vessel or lesion type, unspecified whether angina present, unspecified whether [place] or transplanted heart from Last 3 Months [...] Info) Description 02/18/2025 10:30 AM EDT Appointment [facility] [address] [place] [id number] 02/18/2025 11:30 AM EDT Hospital Encounter [facility] [address] [place] [phone] Gulshan Bernard MD [address] [place] [address] Nonrheumatic aortic valve insufficiency; Nonrheumatic aortic valve stenosis; Cardiovascular stress test abnormal; Stable angina pectoris; Shortness of breath; Coronary artery disease, unspecified vessel or lesion type, unspecified whether angina present, unspecified whether [place] or transplanted heart 02/18/2025 11:30 AM EDT - 02/18/2025 1:00 PM EDT Surgery [facility] [address] [place] [address] Gulshan Bernard MD [address] [place] [address] Coronary angiography Health Maintenance Due Date [...] topic Insurance MEDICARE GENERIC COMMERCIAL Care Teams Cq Developer Relationship Specialty Start Date End Date Juan Torres DO [address] [place] [phone] PCP - General Internal Medicine 02/02/25
--- OUTSIDE RECORDS SUMMARY | 2025-02-11 07:01 | XMS_ITS | Clinical Summary ---
Author Organization [employer] Address [id number] [address] [place] [address] Care Team Providers Care Endless Track Vehicle Supervisor Name Role Phone Juan Torres Primary Care Provider [phone] Allergies No known active allergies Medications tamsulosin [...] Completed 02/04/2022, Medical Devices Implanted Type Area [employer] Device Identifier Shelf Expiration Date Model / Serial / Lot Mesh Plstr Clgn Symbotex 15cm 2 Sd Comp 3d [facility] Sna - [id number] Implanted:Qty: 1 on 04/30/2023 by Charles Bourgeois DO at [facility] Mesh N/A: Abdomen [employer] [place] 11/10/2027 [id number] / [id number] / [id number] Insurance AETNA Care Teams Endless Track Vehicle Supervisor Relationship Specialty Start Date End Date Juan Torres DO [address] [place] [address] PCP - General Internal Medicine 05/21/22
[2025-02-11 07:26] LABS: Hematocrit 44.6 % (42.0-54.0); Hemoglobin 16.0 g/dL (14.0-18.0); Immature Granulocytes Abs Auto 0.03 10^3/uL (0.00-0.03); Immature Granulocytes Pct Auto 0.5 % (0.0-0.5); Lymphocytes Absolute Auto 2.1 10^3/uL (1.2-3.8); Mean Corpuscular HGB Conc 35.9 g/dL (29.9-35.2); Mean Corpuscular Hemoglobin 31.3 pg (25.9-34.0); Mean Corpuscular Volume 87.1 fL (80.0-94.0); Platelet Count 214 10^3/uL (150-450); Red Blood Count 5.12 10^6/uL (4.70-6.10); White Blood Count 6.3 10^3/uL (4.0-11.0)
[2025-02-11 08:49] LABS: Anion Gap 14.3; Blood Urea Nitrogen 25.0 mg/dL (7.0-18.0); Calcium 8.9 mg/dL (8.5-10.1); Carbon Dioxide 25.6 mmol/L (21.0-32.0); Chloride 105 mmol/L (98-107); Estimated GFR (African America >60 (>=60 mL/min/1.73m^2); Estimated GFR (Non-African Ame >60 (>=60 mL/min/1.73m^2); Glucose 104 mg/dL (74-106); Potassium 3.9 mmol/L (3.5-5.1); Sodium 141 mmol/L (136-145)
== END 2025-02-11 06:58 | disposition home or self-care (01) ==
LOC: LAB 06:58
PROVIDERS: PCP Internal Medicine; Visit Provider Internal Medicine Cardiovascular Disease
DX: R94.39 Abnormal result of other cardiovascular function study (principal)
CPT/HCPCS: 36415; 80048; 85025

== ENCOUNTER 2025-03-03 08:17 | Outpatient (OUT) | payer MEDICARE, OTHER, SELFPAY ==
--- OUTSIDE RECORDS SUMMARY | 2025-02-18 08:48 | XMS_ITS | Encounter Summary ---
Author Organization [facility] Address [address] [place] [address] Care Team Providers Care Civil Engineering Drafter Name Role Phone Juan Torres DO Primary Care Provider [phone] Reason for Referral * Imaging (Routine) - AuthorizedSpecialtyDiagnoses / ProceduresReferred By ContactReferred To ContactCardiology Diagnoses Nonrheumatic aortic valve insufficiency Nonrheumatic aortic valve stenosis Shortness of breath Coronary artery disease, unspecified vessel or lesion type, unspecified whether angina present, unspecified whether pokagon or transplanted heart Procedures Transesophageal echo (CAN) Ashley Bowie MD [address] [place] [phone] Phone: tel: fax: [facility] [address] [place] [phone] Phone: tel: fax: Referral IDStatusReasonStart DateExpiration DateVisits RequestedVisits [id number] Perform Procedure * (Routine) - Pending ReviewSpecialtyDiagnoses / ProceduresReferred By Contact Referred To Contact Procedures Electrocardiogram, 12-lead Ashley Bowie MD [address] [place] [phone] Phone: tel: fax: Referral IDStatusReasonStart DateExpiration DateVisits RequestedVisits [id number] Reason for Visit * Auth/Cert (Routine)SpecialtyDiagnoses / ProceduresReferred By ContactReferred To Contact Diagnoses Nonrheumatic aortic valve insufficiency Nonrheumatic aortic valve stenosis Cardiovascular stress test abnormal Stable angina pectoris Shortness of breath Coronary artery disease, unspecified vessel or lesion type, unspecified whether angina present, unspecified whether pokagon or transplanted heart Nonrheumatic aortic valve insufficiency [I35.1] Nonrheumatic aortic valve stenosis [I35.0] Cardiovascular stress test abnormal [R94.39] Stable angina pectoris [I20.89] Shortness of breath [R06.02] Coronary artery disease, unspecified vessel or lesion type, unspecified whether angina present, unspecified whether pokagon or transplanted heart [I25.10] Procedures IN RIGHT HEART CATH O2 SATURATION & CARDIAC OUTPUT CHG AORTOGRAPHY THORACIC SERIALOGRAPHY RS&I IN CATH PLMT R HRT & ARTS W/NJX & ANGIO IMG S&I IN NJX DRG C-CATHJ SUPRAVALVULAR AORTOGRAPHY S&I Coronary angiography Right heart cath Aortogram Ashley Bowie MD [address] [place] [phone] Phone: tel: fax: [facility] [address] [place] [phone] Phone: tel: fax: Referral IDStatusReasonStart DateExpiration DateVisits RequestedVisits [id number] Encounter Details DateTypeDepartmentCare Team (Latest Contact Info)Gduarvofepn33/09/2025 8:48 AM EDT - 02/18/2025 2:[address] [facility] [address] [place] [address] Ashley Bowie MD [address] [place] [phone] Nonrheumatic aortic valve insufficiency; Nonrheumatic aortic valve stenosis; Cardiovascular stress test abnormal; Stable angina pectoris; Shortness of breath; Coronary artery disease, unspecified vessel or lesion type, unspecified whether angina present, unspecified whether pokagon or transplanted heart Discharge Disposition: Home or Self Care () Social History Tobacco UseTypesPacks/DayYears UsedDateSmoking Tobacco: FormerCigarettes Smokeless Tobacco: NeverAlcohol UseStandard Drinks/WeekCommentsNot Currently0 (1 standard drink = 0.6 oz pure alcohol)Sex and Gender InformationValueDate RecordedSex Assigned at TjogyNdzq12/16/2025 10:29 AM EDTLegal SwgFkjo1301/26/2025 10:26 AM EDTGender SyxmoxvnDbzq11/16/2025 10:29 AM EDTSexual Orientation Heterosexual or Ostxbyca82/16/2025 10:29 AM EDTdocumented as of this encounter Last Filed Vital Signs Vital SignReadingTime TakenCommentsBlood Ytzciide422/ 1:56 PM EDT Manli4880 1:56 PM EDTTemperature--Respiratory Xxwa2336 1:56 PM EDTOxygen Poupebxdri56%02/18/2025 1:56 PM EDTInhaled Oxygen Concentration-- Weight--Height--Body Mass Index--documented in this encounter Functional Status * QuestionAnswerDate of ZifnzvhzezCctcwgAU586 1:56 PM Luciana Heaton RNPulse6602/18/2025 1:56 PM Luciana Heaton RN * Pain Assessment TimerQuestionAnswerDate of AssessmentAuthorRestart Pain Assessment HphquDzr39/09/2025 1:56 PM Luciana Heaton RN * QuestionAnswerDate of AssessmentAuthorHeart Rate XexmeyCsxukcg46/09/2025 9:23 AM Eli Forte RN * Sepsis Model ScoresQuestionAnswerDate of AssessmentAuthorEarly Detection of Sepsis Score6. 2:01 PM Cleveland Allen * Pain AssessmentQuestionAnswerDate of AssessmentAuthorRamsay Scale (RS): Score2 02/18/2025 9:04 AM Eli Forte RNPain AssessmentNo/denies pain 02/18/2025 1:56 PM Luciana Heaton RN * Patient PositionAnswerDate of VhivlnrprzLvxugdDubogwq64/24/2025 10:27 AM LORENAT Kim García MA * QuestionAnswerDate of AssessmentAuthorPulse rate from Plethysmogram (bpm)64 02/18/2025 1:56 PM Luciana Heaton RN * Vital SignsQuestionAnswerDate of MqkejemxbkKbesouGT240/6602/18/2025 1:56 PM Luciana Heaton WTIcnuh5602/09/2025 1:56 PM Luciana Heaton RNResp26 02/18/2025 1:56 PM Luciana Heaton RNSpO29902/18/2025 1:56 PM Luciana Heaton RNMAP (mmHg)7902/18/2025 1:45 PM Luciana Heaton RN * Peripheral VascularQuestionAnswerDate of AssessmentAuthorPulsesLeft pedal;Right pedal;Left posterior tibial;Right posterior agmsaa6402/18/2025 9:11 AM Eli Forte RN * RLE [...] RNCognitionAppropriate judgement 02/18/2025 9:11 AM Eli Forte HNJixunuMoejz80/09/2025 9:11 AM Eli Jeff RNSwallowAble to swallow solids and liquids without nenryuejdp02/09/2025 9:11 AM Eli Forte RN * QuestionAnswerDate of AssessmentAuthorHeart Rate DrunljRhrflgb96/09/2025 9:23 AM Eli Forte RNBP LocationLeft arm02/18/2025 9:23 AM Eli Forte RN * Pain AssessmentQuestionAnswerDate of AssessmentAuthorRamsay Scale (RS): Score2 02/18/2025 9:04 AM Eli Forte RNPain AssessmentNo/denies pain 02/18/2025 1:56 PM Luciana Heaton RN * [place] Suicide Severity Rating ScaleQuestionAnswerDate of AssessmentAuthor1. Have [...] Eli Jeff RN * Patient PositionAnswerDate of VqjtvszpyfUkhcurEaqeumm52/24/2025 10:27 AM LORENAT Kim García MA * Modified AldreteQuestionAnswerDate of DjeejbjnbrBerewvCcaxtllg324/09/2025 2:00 PM Luciana Heaton RNRespiration21 2:00 PM Luciana Heaton RN Mrcjgrxbteu317/09/2025 2:00 PM Luciana Heaton RNConsciousness 2:00 PM Luciana Heaton RNOxygen Vhvszjyefy121/09/2025 2:00 PM Luciana Heaton RNModified Rhiannon Yuiys0120/09/2025 2:00 PM Luciana Heaton RN documented as of this encounter Mental Status * Mina Agitation Sedation ScaleQuestionAnswerEntry DateAuthorRichmond Agitation Sedation Scale (RASS) 11:30 AM Cindy Zepeda RN * Modified AldreteQuestionAnswerEntry KsjgKhxvriAlsnfjiu570/09/2025 2:00 PM Luciana Azar RNRespiration 2:00 PM Luciana Heaton RN Nmirtodldai086/09/2025 2:00 PM Luciana Heaton RNConsciousness 2:00 PM Luciana Heaton RNOxygen Yyzzpjlfpe493/09/2025 2:00 PM Luciana Heaton RNModified Rhiannon Jvvhj7780 2:00 PM Luciana Heaton RN documented in this encounter Discharge Instructions * Attachments The following attachments cannot be sent through Care Everywhere. 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 In interim will [...] cath (Right) - with CAN Aortogram Location: [facility] / [facility] (Cath) Providers: Ashley Bowie MD [...] Plan of Treatment DateTypeDepartmentCare Team (Latest Contact Info)Olukogfemgh59/10/2025 11:00 AM ESTOffice Visit [facility] [address] [place] [address] Ashley Bowie MD [address] [place] [phone] documented as of this encounter Procedures Procedure NamePriorityDate/TimeAssociated DiagnosisCommentsAORTOGRAMRoutine 02/18/2025 11:32 AM EDT Nonrheumatic aortic valve insufficiency Nonrheumatic aortic valve stenosis Cardiovascular stress test abnormal Stable angina pectoris Shortness of breath Coronary artery disease, unspecified vessel or lesion type, unspecified whether angina present, unspecified whether pokagon or transplanted heart RIGHT HEART DTDNGzakiej26/09/2025 11:32 AM EDT Nonrheumatic aortic valve insufficiency Nonrheumatic aortic valve stenosis Cardiovascular stress test abnormal Stable angina pectoris Shortness of breath Coronary artery disease, unspecified vessel or lesion type, unspecified whether angina present, unspecified whether pokagon or transplanted heart CORONARY XEONDXWIUDBSjhrpbe77/09/2025 11:32 AM EDT Nonrheumatic aortic valve insufficiency Nonrheumatic aortic valve stenosis Cardiovascular stress test abnormal Stable angina pectoris Shortness of breath Coronary artery disease, unspecified vessel or lesion type, unspecified whether angina present, unspecified whether pokagon or transplanted heart %AXI7Vubdycq62/09/2025 10:59 AM EDT TRANSESOPHAGEAL ECHO (CAN) W/ LIMITED DOPPLER AND COLOR RMISOplddqm41/09/2025 10:39 AM EDT Nonrheumatic aortic valve insufficiency Nonrheumatic aortic valve stenosis Shortness of breath Coronary artery disease, unspecified vessel or lesion type, unspecified whether angina present, unspecified whether pokagon or transplanted heart ECG 12-UNKUHhzdupc61/09/2025 9:41 AM EDT documented in this encounter [...] and a micropuncture access technique a 6 Bahraini sheath was placed in the right internal jugular vein. The catheter was advanced under fluoroscopic and hemodynamic monitoring to the right atrium. ??Pressure obtained of the right atrium, right ventricle, pulmonary artery, pulmonary capillary position. ??Oxygen saturation drawn for the pulmonary artery and Sunil cardiac with a cardiac index were calculated. 1% lidocaine was infiltrated over the left radial artery. ??A 6-Bahraini sheath was placed in left radial artery. [...] [R06.02] Authorizing ProviderResult TypeResult StatusChristopher Marco Antonio [facility] INVASIVE VASCULAR PROCEDURESFinal Result * CORONARY ANGIOGRAPHY, [...] and a micropuncture access technique a 6 Bahraini sheath was placed in the right internal jugular vein. The catheter was advanced under fluoroscopic and hemodynamic monitoring to the right atrium. ??Pressure obtained of the right atrium, right ventricle, pulmonary artery, pulmonary capillary position. ??Oxygen saturation drawn for the pulmonary artery and Sunil cardiac with a cardiac index were calculated. 1% lidocaine was infiltrated over the left radial artery. ??A 6-Bahraini sheath was placed in left radial artery. [...] breath [R06.02] Authorizing ProviderResult TypeResult Ramez Bowie [facility] CARDIAC CATH PROCEDURESFinal Result * (ABNORMAL) %HbO2 (02/18/2025 10:59 AM EDT)ComponentValueRef RangeTest Method Analysis TimePerformed AtPathologist NehjjgyqcR6Vq%66.0(L)90.0 - 95.0 % 02/18/2025 11:00 AM [facility] ([place])Specimen (Source)Anatomical Location / LateralityCollection Method / VolumeCollection TimeReceived Time BloodVenous blood specimen / Ubaxdxk7102/18/2025 10:59 AM EDT1 11:00 AM EDT Narrative Authorizing ProviderResult TypeResult StatusAshley ORTEGA POINT OF CARE TEST DOCKED DEVICE UNSOLICITED RESULTSFinal ResultPerforming Organization AddressCity/State/ZIP CodePhone Number [facility] ([place]) [address] [place] [address] * TRANSESOPHAGEAL ECHO (CAN) W/ LIMITED DOPPLER AND COLOR FLOW (02/18/2025 10:39 AM EDT)Anatomical RegionLateralityModalityOtherSpecimen (Source)Anatomical Location / LateralityCollection Method / VolumeCollection TimeReceived Time 02/18/2025 9:38 AM EDT Narrative 02/18/2025 12:03 PM EDT [facility] [address] [place] [address] [phone] (fax) Transesophageal Echocardiogram-[facility] Name: MADDY SU Study Date: 02/18/2025 09:38 AM B/P: 13 mmHg/63 mmHg HR: 84 bpm Date of : 1950 Location: [facility] Height: 72 in. Age: 74 year(s) Patient Room: [facility] Weight: 259 lb. Gender: Male Patient Status: OutPt BSA: 2.38 m2 Indication: aortic insufficiency, Murmur, Hypertension Examination: CAN/Limited Doppler/CFI, Agitated Saline Image Quality: Good Patient Consent: Informed, written consent was obtained for the procedure Exam Details Contrast: I.V. dose of agitated saline Exam Location: A CAN was performed in the [facility] without complications Anesthesia Pharyngeal anesthesia with viscous [...] No pericardial effusion. Procedure Staff Reading Group: [facility] Referring Physician: JUAN TORRES ??Rod Drawer: DIONI Becerra, RDCS ??Ordering Physician: ASHLEY BOWIE ?? Procedure Note Lopez Galan MD - 02/18/2025 1 [facility] [address] [facility] [place], [place] [phone] (fax) Transesophageal Echocardiogram-[facility] Name: MADDY SU Study Date: 02/18/2025 09:38 AM B/P: 13 mmHg/63 mmHg HR: 84 bpm Date of : 1950 Location: [facility] Height: 72 in. Age: 74 year(s) Patient Room: [facility] Weight: 259 lb. Gender: Male Patient Status: OutPt BSA: 2.38 m2 Indication: aortic insufficiency, Murmur, Hypertension Examination: CAN/Limited Doppler/CFI, Agitated Saline Image Quality: Good Patient Consent: Informed, written consent was obtained for the procedure Exam Details Contrast: I.V. dose of agitated saline Exam Location: A CAN was performed in the [facility] without complications Anesthesia Pharyngeal anesthesia with viscous [...] No pericardial effusion. Procedure Staff Reading Group: [facility] Referring Physician: JUAN TORRES Rod Drawer: DIONI Becerra, RDCS Ordering Physician: ASHLEY BOWIE Authorizing ProviderResult TypeResult StatusChristopher Marco Antonio [facility] ECHO PROCEDURESFinal Result * Electrocardiogram, 12-lead (02/18/2025 9:41 AM EDT)ComponentValueRef RangeTest MethodAnalysis TimePerformed AtPathologist SignatureVentricular Bujc21YWZTK MUSEAtrial Cbeq27GKWYF MUSEPR Pyquilgm057mcPE MUSEQRS IRMEULGL51cvJO MUSEQT Foshxfio870cfKY MUSEQTC CALCULATION(BAZETT)427msGE MUSEP Zrfk01rycoqtdHQ MUSE E-Cpgh-04qjzoyzdMY MUSET Wave Sgov66fzbxwwjBJ MUSESpecimen (Source)Anatomical Location / LateralityCollection Method / [...] type, unspecified whether angina present, unspecified whether pokagon or transplanted heart Nonrheumatic aortic valve insufficiency Nonrheumatic aortic valve stenosis Cardiovascular stress test abnormal Stable angina pectoris Shortness of breath documented in this encounter Admitting Diagnoses Diagnosis Nonrheumatic aortic valve insufficiency Nonrheumatic aortic valve stenosis Cardiovascular stress test abnormal Stable angina pectoris Shortness of breath Coronary artery disease Coronary atherosclerosis of unspecified type of vessel, pokagon or graft documented in this encounter Administered Medications Medication OrderMAR ActionAction DateDoseRateSite fentaNYL (Sublimaze) injection As needed, Starting on Eileen 02/18/25 at 1009, Intraprocedure Given02/18/2025 10:49 AM EDT25 gwoWqzge24/09/2025 10:11 AM EDT25 mcgGiven 02/18/2025 10:09 AM EDT25 mcg lidocaine (Xylocaine) 2 % mouth solution Mouth/Throat, As needed, Procedure Medication, Starting on Eileen 02/18/25 at 0951, Intraprocedure Given02/18/2025 9:51 AM EDT15 mL midazolam (Versed) injection As needed, Starting on Eileen 02/18/25 at 1009, Intraprocedure Given02/18/2025 10:49 AM EDT1 vqKmvel4402/18/2025 10:09 AM EDT2 bbKlsgs8302/18/2025 10:09 AM EDT2 mgdocumented in this encounter [...] DateEnd Date Juan Torres DO [address] [facility] [place] [address] PCP - GeneralInternal Medicine02/02/25documented as of this encounter
--- OUTSIDE RECORDS SUMMARY | 2025-02-18 11:30 | XMS_ITS | Encounter Summary ---
Author Organization [facility] Address [address] [address] Care Team Providers Care Police Dispatcher Name Role Phone Juan Torres DO Primary Care Provider [phone] Reason for Visit * Auth/Cert (Routine)SpecialtyDiagnoses / ProceduresReferred By ContactReferred To Contact Diagnoses Nonrheumatic aortic valve insufficiency Nonrheumatic aortic valve stenosis Cardiovascular stress test abnormal Stable angina pectoris Shortness of breath Coronary artery disease, unspecified vessel or lesion type, unspecified whether angina present, unspecified whether [place] or transplanted heart Nonrheumatic aortic valve insufficiency [I35.1] Nonrheumatic aortic valve stenosis [I35.0] Cardiovascular stress test abnormal [R94.39] Stable angina pectoris [I20.89] Shortness of breath [R06.02] Coronary artery disease, unspecified vessel or lesion type, unspecified whether angina present, unspecified whether [place] or transplanted heart [I25.10] Procedures MA RIGHT HEART CATH O2 SATURATION & CARDIAC OUTPUT CHG AORTOGRAPHY THORACIC SERIALOGRAPHY RS&I MA CATH PLMT R HRT & ARTS W/NJX & ANGIO IMG S&I MA NJX DRG C-CATHJ SUPRAVALVULAR AORTOGRAPHY S&I Coronary angiography Right heart cath Aortogram Ashley Bowie MD [address] [place] [address] Phone: tel: fax: [facility] [address] [place] [address] Phone: tel: fax: Referral IDStatusReasonStart DateExpiration DateVisits RequestedVisits [id number] Encounter Details DateTypeDepartmentCare Team (Latest Contact Info)Drbemacbbeq27/09/2025 11:30 AM EDT - 02/18/2025 1:00 PM EDTSurgery [facility] [address] [place] [address] Ashley Bowie MD [address] [place] [address] Coronary angiography Social History Tobacco UseTypesPacks/DayYears UsedDateSmoking Tobacco: FormerCigarettes Smokeless Tobacco: NeverAlcohol UseStandard Drinks/WeekCommentsNot Currently0 (1 standard drink = 0.6 oz pure alcohol)Sex and Gender InformationValueDate RecordedSex Assigned at IqowgTjrr83/16/2025 10:29 AM EDTLegal DnfQkfw2501/26/2025 10:26 AM EDTGender BeyymebpZnzu95/16/2025 10:29 AM EDTSexual Orientation Heterosexual or Ksgaahmp08/16/2025 10:29 AM EDTdocumented as of this encounter Last Filed Vital Signs Vital SignReadingTime TakenCommentsBlood Znddcbrh976/5702/18/2025 1:00 PM EDT Hddwe493202/18/2025 1:00 PM EDTTemperature--Respiratory Tykt2702 1:00 PM EDTOxygen Horxvifwuy052%02/18/2025 1:00 PM EDTInhaled Oxygen Concentration-- Weight--Height--Body Mass Index--documented in this encounter Functional Status * QuestionAnswerDate of MryymypyrxAyxfvxJN082/5702/18/2025 1:00 PM Luciana Heaton RNPulse7102/18/2025 1:00 PM Luciana Heaton RN * Pain Assessment TimerQuestionAnswerDate of AssessmentAuthorRestart Pain Assessment MfdxlVwx11/09/2025 1:00 PM Luciana Heaton RN * QuestionAnswerDate of AssessmentAuthorHeart Rate MrgordFqurnto40/09/2025 9:23 AM Eli Forte RN * Sepsis Model ScoresQuestionAnswerDate of AssessmentAuthorEarly Detection of Sepsis Score2.510 12:46 PM Jesus Allenq * Pain AssessmentQuestionAnswerDate of AssessmentAuthorRamsay Scale (RS): Score2 02/18/2025 9:04 AM Eli Forte RNPain AssessmentNo/denies pain 02/18/2025 1:00 PM Luciana Heaton RN * Patient PositionAnswerDate of RwsbipzultGgheauNxwctae37/24/2025 10:27 AM EDT Kim García MA * QuestionAnswerDate of AssessmentAuthorPulse rate from Plethysmogram (bpm)69 02/18/2025 1:00 PM Luciana Heaton RN * Vital SignsQuestionAnswerDate of VrwzpgfbygTolfnrDO615/5702/18/2025 1:00 PM Luciana Heaton XWWoxuk6233/09/2025 1:00 PM Luciana Heaton MCTdkr26 02/18/2025 1:00 PM Luciana Heaton IRLaY782390/09/2025 1:00 PM Luciana Heaton RNMAP (mmHg)8502/18/2025 12:45 PM Luciana Heaton RN * Peripheral VascularQuestionAnswerDate of AssessmentAuthorPulsesLeft pedal;Right pedal;Left posterior tibial;Right posterior myacyt4002/18/2025 9:11 AM Eli Forte RN * RLE Neurovascular AssessmentQuestionAnswerDate of AssessmentAuthorRight Posterior Tibial Pulse+ 9:11 AM Eli Forte RNRight Pedal Pulse+ 9:11 AM Eli Forte RN * LLE Neurovascular AssessmentQuestionAnswerDate of AssessmentAuthorLeft Posterior Tibial Pulse+ 9:11 AM Eli Forte RNLeft Pedal Pulse+ 9:11 AM Eli Forte, LOLLY * RespiratoryQuestionAnswerDate of AssessmentAuthorRespiratory EffortUnlabored 02/18/2025 9:11 AM Eli Forte RN * NeurologicalQuestionAnswerDate of AssessmentAuthorOrientation LevelOriented X4 02/18/2025 9:11 AM Eli Forte RNCognitionAppropriate judgement 02/18/2025 9:11 AM Eli Forte RNSpeechClear1 9:11 AM Eli Jeff RNSwallowAble to swallow solids and liquids without hysyuswozb53/09/2025 9:11 AM Eli Forte RN * QuestionAnswerDate of AssessmentAuthorHeart Rate OvyhwuNppkwhq52/09/2025 9:23 AM Eli Forte RNBP LocationLeft arm02/18/2025 9:23 AM Eli Forte RN * Pain AssessmentQuestionAnswerDate of AssessmentAuthorRamsay Scale (RS): Score2 02/18/2025 9:04 AM Eli Forte RNPain AssessmentNo/denies pain 02/18/2025 1:00 PM Luciana Heaton RN * Sebastian Suicide Severity Rating ScaleQuestionAnswerDate of AssessmentAuthor1. Have [...] SuicideAnswerDate of AssessmentAuthorNo Risk02/18/2025 9:04 AM Eli Jeff, LOLLY * Patient PositionAnswerDate of KvaciheozdZjsoluKzogkkv15/24/2025 10:27 AM EDT Kim García MA * Modified AldreteQuestionAnswerDate of YehpcyzqrhDxpserUtrhfvpo155/09/2025 11:43 AM Luciana Heaton RNRespiration 11:43 AM Luciana Heaton RNCirculation 11:43 AM Luciana Heaton RNConsciousness 11:43 AM Luciana Heaton RNOxygen Rflrzqhdif645/09/2025 11:43 AM Luciana Heaton RNModified Rhiannon Ysuso9979/09/2025 11:43 AM Luciana Heaton RN documented as of this encounter Mental Status * Mina Agitation Sedation ScaleQuestionAnswerEntry AutrRmoundview memorial hospital and clinicsmond Agitation Sedation Scale (RASS) 11:30 AM Cindy Zepeda RN * Modified AldreteQuestionAnswerEntry IqrdUzrexzXhjslerz759/09/2025 11:43 AM Luciana Azar RNRespiration 11:43 AM Luciana Heaton RN Koexzfcvoni075/09/2025 11:43 AM Luciana Heaton RNConsciousness 11:43 AM Luciana Heaton RNOxygen Okhvnmkfrp188/09/2025 11:43 AM Luciana Heaton RNModified Rhiannon Qzcbg2410/09/2025 11:43 AM Luciana Heaton RN documented in this encounter Discharge Instructions * Attachments The following attachments cannot be sent through Care Everywhere. 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 In interim will [...] cath (Right) - with CAN Aortogram Location: [facility] 3 / [facility] (Cath) Providers: Ashley Bowie [...] Plan of Treatment DateTypeDepartmentCare Team (Latest Contact Info)Xuwdnwvvifl91/10/2025 11:00 AM ESTOffice Visit [facility] [place] [address] [place] [address] Ashley Bowie MD [address] [place] [phone] documented as of this encounter Procedures Procedure NamePriorityDate/TimeAssociated DiagnosisCommentsAORTOGRAMRoutine 02/18/2025 11:32 AM EDT Nonrheumatic aortic valve insufficiency Nonrheumatic aortic valve stenosis Cardiovascular stress test abnormal Stable angina pectoris Shortness of breath Coronary artery disease, unspecified vessel or lesion type, unspecified whether angina present, unspecified whether [place] or transplanted heart RIGHT HEART NEMUDgzgcpj25/09/2025 11:32 AM EDT Nonrheumatic aortic valve insufficiency Nonrheumatic aortic valve stenosis Cardiovascular stress test abnormal Stable angina pectoris Shortness of breath Coronary artery disease, unspecified vessel or lesion type, unspecified whether angina present, unspecified whether [place] or transplanted heart CORONARY EEDFTMUXKGATbeuwpu48/09/2025 11:32 AM EDT Nonrheumatic aortic valve insufficiency Nonrheumatic aortic valve stenosis Cardiovascular stress test abnormal Stable angina pectoris Shortness of breath Coronary artery disease, unspecified vessel or lesion type, unspecified whether angina present, unspecified whether [place] or transplanted heart %NLC5Lklvyjg47/09/2025 10:59 AM EDT TRANSESOPHAGEAL ECHO (CAN) W/ LIMITED DOPPLER AND COLOR RKZARhwqiea55/09/2025 10:39 AM EDT Nonrheumatic aortic valve insufficiency Nonrheumatic aortic valve stenosis Shortness of breath Coronary artery disease, unspecified vessel or lesion type, unspecified whether angina present, unspecified whether [place] or transplanted heart ECG 12-VIOIRyzgvbz72/09/2025 9:41 AM EDT documented in this encounter [...] and a micropuncture access technique a 6 Jordanian sheath was placed in the right internal jugular vein. The catheter was advanced under fluoroscopic and hemodynamic monitoring to the right atrium. ??Pressure obtained of the right atrium, right ventricle, pulmonary artery, pulmonary capillary position. ??Oxygen saturation drawn for the pulmonary artery and Sunil cardiac with a cardiac index were calculated. 1% lidocaine was infiltrated over the left radial artery. ??A 6-Jordanian sheath was placed in left radial artery. [...] [R06.02] Authorizing ProviderResult TypeResult StatusChristopher Marco Antonio [facility] INVASIVE VASCULAR PROCEDURESFinal Result * CORONARY ANGIOGRAPHY, [...] and a micropuncture access technique a 6 Jordanian sheath was placed in the right internal jugular vein. The catheter was advanced under fluoroscopic and hemodynamic monitoring to the right atrium. ??Pressure obtained of the right atrium, right ventricle, pulmonary artery, pulmonary capillary position. ??Oxygen saturation drawn for the pulmonary artery and Sunil cardiac with a cardiac index were calculated. 1% lidocaine was infiltrated over the left radial artery. ??A 6-Jordanian sheath was placed in left radial artery. [...] of breath [R06.02] Authorizing ProviderResult TypeResult StatusChristopher [facility] CARDIAC CATH PROCEDURESFinal Result * (ABNORMAL) %HbO2 (02/18/2025 10:59 AM EDT)ComponentValueRef RangeTest Method Analysis TimePerformed AtPathologist YnsgwhwdzZ4Pq%66.0(L)90.0 - 95.0 % 02/18/2025 11:00 AM [facility] ([place])Specimen (Source)Anatomical Location / LateralityCollection Method / VolumeCollection TimeReceived Time BloodVenous blood specimen / Vmhqryj8002/18/2025 10:59 AM EDT1 11:00 AM EDT Narrative Authorizing ProviderResult TypeResult StatusChristopher Marco Antonio [place] POINT OF CARE TEST DOCKED DEVICE UNSOLICITED RESULTSFinal ResultPerforming Organization AddressCity/State/ZIP CodePhone Number [facility] ([facility]) [address] [place] [address] * TRANSESOPHAGEAL ECHO (CAN) W/ LIMITED DOPPLER AND COLOR FLOW (02/18/2025 10:39 AM EDT)Anatomical RegionLateralityModalityOtherSpecimen (Source)Anatomical Location / LateralityCollection Method / VolumeCollection TimeReceived Time 02/18/2025 9:38 AM EDT Narrative 02/18/2025 12:03 PM EDT 1 [facility] Heart Station [address] [place] [address] [phone] (fax) Transesophageal Echocardiogram-[facility] Name: MADDY SU Study Date: 02/18/2025 09:38 AM B/P: 13 mmHg/63 mmHg HR: 84 bpm Date of : 1950 Location: [facility] Height: 72 in. Age: 74 year(s) Patient Room: [facility] VASCULAR POOL Weight: 259 lb. Gender: Male Patient Status: OutPt BSA: 2.38 m2 Indication: aortic insufficiency, Murmur, Hypertension Examination: CAN/Limited Doppler/CFI, Agitated Saline Image Quality: Good Patient Consent: Informed, written consent was obtained for the procedure Exam Details Contrast: I.V. dose of agitated saline Exam Location: A CAN was performed in the Router Operator without complications Anesthesia Pharyngeal anesthesia with viscous [...] No pericardial effusion. Procedure Staff Reading Group: [facility] Referring Physician: JUAN TORRES ??Biomass Boiler Operator: DIONI Becerra, RDCS ??Ordering Physician: ASHLEY BOWIE ?? Procedure Note Lopez Galan MD - 10/09/2025 1 [facility] [address] [place] [address] [phone] (fax) Transesophageal Echocardiogram-[facility] Name: MADDY SU Study Date: 02/18/2025 09:38 AM B/P: 13 mmHg/63 mmHg HR: 84 bpm Date of : 1950 Location: [facility] Height: 72 in. Age: 74 year(s) Patient Room: [facility] VASCULAR POOL Weight: 259 lb. Gender: Male Patient Status: OutPt BSA: 2.38 m2 Indication: aortic insufficiency, Murmur, Hypertension Examination: CAN/Limited Doppler/CFI, Agitated Saline Image Quality: Good Patient Consent: Informed, written consent was obtained for the procedure Exam Details Contrast: I.V. dose of agitated saline Exam Location: A CAN was performed in the Router Operator without complications Anesthesia Pharyngeal anesthesia with viscous [...] No pericardial effusion. Procedure Staff Reading Group: [facility] Referring Physician: JUAN TORRES Biomass Boiler Operator: DIONI Becerra, RDCS Ordering Physician: ASHLEY BOWIE Authorizing ProviderResult TypeResult StatusChristopher Marco Antonio [facility] ECHO PROCEDURESFinal Result * Electrocardiogram, 12-lead (02/18/2025 9:41 AM EDT)ComponentValueRef RangeTest MethodAnalysis TimePerformed AtPathologist SignatureVentricular Zifv30AKLTZ MUSEAtrial Dbfq26GZKPT MUSEPR Frjnhxee565eqRX MUSEQRS IVMFHXWC57spZA MUSEQT Vohpaowt060ahCH MUSEQTC CALCULATION(BAZETT)427msGE MUSEP Kziu82zocxahxFF MUSE F-Zecq-08ymoptzjRE MUSET Wave Utfm04xfjzjwpPM MUSESpecimen (Source)Anatomical Location / LateralityCollection Method / [...] SAMER J. (59) on 02/18/2025 12:50:48 PM Authorizing ProviderResult TypeResult StatusChristopher Marco Antonio MCADAMSECG ORDERABLES Final ResultPerforming OrganizationAddressCity/State/ZIP CodePhone Number GE MUSE documented in this encounter Visit Diagnoses Diagnosis Nonrheumatic aortic valve insufficiency Nonrheumatic aortic valve stenosis Cardiovascular stress test abnormal Stable angina pectoris Shortness of breath Coronary artery disease, unspecified vessel or lesion type, unspecified whether angina present, unspecified whether [place] or transplanted heart Nonrheumatic aortic valve insufficiency Nonrheumatic aortic valve stenosis Cardiovascular stress test abnormal Stable angina pectoris Shortness of breath documented in this encounter Admitting Diagnoses Diagnosis Nonrheumatic aortic valve insufficiency Nonrheumatic aortic valve stenosis Cardiovascular stress test abnormal Stable angina pectoris Shortness of breath Coronary artery disease Coronary atherosclerosis of unspecified type of vessel, [place] or graft documented in this encounter Administered Medications Medication OrderMAR ActionAction DateDoseRateSite fentaNYL (Sublimaze) injection As needed, Starting on Eileen 02/18/25 at 1009, Intraprocedure Given02/18/2025 10:49 AM EDT25 khtLvzsh92/09/2025 10:11 AM EDT25 mcgGiven 02/18/2025 10:09 AM EDT25 mcg heparin (porcine) injection As needed, Starting on Eileen 02/18/25 at 1105, Intraprocedure Given02/18/2025 11:05 AM EDT7,000 Units heparin irrigation 2 units/mL in NS As needed, Starting on Eileen 02/18/25 at 1038, Intraprocedure Given02/18/2025 10:38 AM EDT2,000 mL lidocaine (PF) (Xylocaine) 10 mg/mL (1 %) injection As needed, Starting on Eileen 02/18/25 at 1039, Intraprocedure Given02/18/2025 10:39 AM EDT20 mL lidocaine (Xylocaine) 2 % mouth solution Mouth/Throat, As needed, Procedure Medication, Starting on Eileen 02/18/25 at 0951, Intraprocedure Given02/18/2025 9:51 AM EDT15 mL midazolam (Versed) injection As needed, Starting on Eileen 02/18/25 at 1009, Intraprocedure Given02/18/2025 10:49 AM EDT1 biMkgiy0002/18/2025 10:09 AM EDT2 xzCbzqg3602/18/2025 10:09 AM EDT2 mg sodium chloride 0.9 % infusion Continuous PRN, Starting on Eileen 02/18/25 at 1039, Intraprocedure New Bag02/18/2025 10:39 AM EDT50 mL/hr50 mL/hr verapamil (Isoptin) injection As needed, Starting on Eileen 02/18/25 at 1104, Intraprocedure Given02/18/2025 11:04 AM EDT1.5 mgdocumented in this encounter Active and Recently Administered Medications Times are shown in EDT.Medication Order/ fentaNYL (Sublimaze) injection (COMPLETED) As needed, Starting on Eileen 02/18/25 at 1009, Intraprocedure * 1009 (Given - Provider: Eli Rose, LOLLY) * 1011 (Given - Provider: Eli Rose RN) * 1049 (Given - Provider: Cindy Perdomo, RN) heparin (porcine) injection (CANCELED) As needed, Starting on Eileen 02/18/25 at 1105, Intraprocedure * 1105 (Given - Provider: Cindy Perdomo, RN) heparin irrigation 2 units/mL in NS (COMPLETED) As needed, Starting on Eileen 02/18/25 at 1038, Intraprocedure * 1038 (Given - Provider: Ashley Bowie MD) lidocaine (PF) (Xylocaine) 10 mg/mL (1 %) injection (COMPLETED) As needed, Starting on Eileen 25 at 1039, Intraprocedure * 1039 (Given - Provider: Ashley Bowie MD) lidocaine (Xylocaine) 2 % mouth solution (COMPLETED) Mouth/Throat, As needed, Procedure Medication, Starting on Eileen 02/18/25 at 0951, Intraprocedure * 0951 (Given - Provider: Eli Rose, LOLLY) midazolam (Versed) injection (COMPLETED) As needed, Starting on Eileen 02/18/25 at 1009, Intraprocedure * 1009 (Given - Provider: Eli Rose, RN) * 1009 (Given - Provider: Eli Rose, RN) * 1049 (Given - Provider: Cindy [...] DateEnd Date Juan Torres DO [address] [place] [id number] PCP - GeneralInternal Medicine02/02/25documented as of this encounter
--- OUTSIDE RECORDS SUMMARY | 2025-02-19 | XMS_ITS | Encounter Summary ---
Author Organization [facility] Address [address] [place] [address] Care Team Providers Care Master Craftsman Name Role Phone Juan Torres DO Primary Care Provider [phone] Encounter Details DateTypeDepartmentCare Team (Latest Contact Info)Myfdruviacw22/10/2025 - 02/19/2025 12:04 AM EDTHospital Encounter [facility] Radiology External Films [address] [place] [phone] Discharge Disposition: Home or Self Care () Social History Tobacco UseTypesPacks/DayYears UsedDateSmoking Tobacco: FormerCigarettes Smokeless Tobacco: NeverAlcohol UseStandard Drinks/WeekCommentsNot Currently0 (1 standard drink = 0.6 oz pure alcohol)Sex and Gender InformationValueDate RecordedSex Assigned at RxcykRqva85/16/2025 10:29 AM EDTLegal SajKvrb3401/26/2025 10:26 AM EDTGender RffgwxbxFjcj10/16/2025 10:29 AM EDTSexual Orientation Heterosexual or Ldctnvxf77/16/2025 10:29 AM EDTdocumented as of this encounter [...] Plan of Treatment DateTypeDepartmentCare Team (Latest Contact Info)Bmtqmyddxgq11/10/2025 11:00 AM ESTOffice Visit [facility] at [facility] [address] [place] [address] Gulshan Bernard MD [address] [place] [phone] documented as of this encounter Procedures Procedure NamePriorityDate/TimeAssociated DiagnosisCommentsCT TRANSFER OF OUTSIDE OUOZZWqohdrr23/10/2025 12:00 AM EDT documented in this encounter [...] DateEnd Date Juan Torres DO [address] [facility] [address] PCP - GeneralInternal Medicine02/02/25documented as of this encounter
--- OUTSIDE RECORDS SUMMARY | 2025-02-19 00:05 | XMS_ITS | Encounter Summary ---
Author Organization [facility] Address [address] [place] [address] Care Team Providers Care Undercoater Name Role Phone Juan Torres DO Primary Care Provider [phone] Encounter Details DateTypeDepartmentCare Team (Latest Contact Info)Chcqfruunib57/10/2025 12:05 AM EDT - 02/19/2025 12:09 AM EDTHospital Encounter [facility] Radiology External Films [address] [place] [phone] Discharge Disposition: Home or Self Care () Social History Tobacco UseTypesPacks/DayYears UsedDateSmoking Tobacco: FormerCigarettes Smokeless Tobacco: NeverAlcohol UseStandard Drinks/WeekCommentsNot Currently0 (1 standard drink = 0.6 oz pure alcohol)Sex and Gender InformationValueDate RecordedSex Assigned at FqrgnLapc16/16/2025 10:29 AM EDTLegal EaeRwbh1901/26/2025 10:26 AM EDTGender KacbtstsNezb93/16/2025 10:29 AM EDTSexual Orientation Heterosexual or Zxlwabkz29/16/2025 10:29 AM EDTdocumented as of this encounter Medications at Time of Discharge MedicationSigDispense QuantityRefillsLast FilledStart DateEnd Date amLODIPine (Norvasc) 5 mg tablet Take 1 tablet by mouth in the morning.06/27/2024 aspirin 81 mg EC tablet Take 81 mg by mouth in the morning. chlorthalidone (Hygroton) 25 mg tablet Indications:Shortness of breathTake 0.5 tablets (12.5 mg) by mouth in the morning. 15 tablet /[id number]/ omeprazole (PriLOSEC) [address] capsule Take 20 mg by mouth in the morning. tamsulosin (Flomax) 0.4 mg 24 hr capsule Take 0.4 mg by mouth in the morning. telmisartan (MIcarDIS) 20 mg tablet Take 1 tablet by mouth in the morning.01/25/2025documented as of this encounter Plan of Treatment DateTypeDepartmentCare Team (Latest Contact Info)Jxpbdrjsxrq61/10/2025 11:00 AM ESTOffice Visit [facility] [address] [place] [address] Gulshan Bernard MD [address] [place] [phone] documented as of this encounter Procedures Procedure NamePriorityDate/TimeAssociated DiagnosisCommentsXR TRANSFER OF OUTSIDE PHZUFMqeuoqt17/10/2025 12:05 AM EDT documented in this encounter [...] [address] [facility] [place] [address] PCP - GeneralInternal Medicine02/02/25documented as of this encounter
--- OUTSIDE RECORDS SUMMARY | 2025-02-19 00:10 | XMS_ITS | Encounter Summary ---
Author Organization [facility] Address [address] [place] [address] Care Team Providers Care Bulb Grader Name Role Phone Juan Torres DO Primary Care Provider [phone] Encounter Details DateTypeDepartmentCare Team (Latest Contact Info)Qgycnmiaefu12/10/2025 12:10 AM EDT - 02/19/2025 11:59 PM EDTHospital Encounter [facility] Radiology External Films [address] [place] [phone] Discharge Disposition: Home or Self Care () Social History Tobacco UseTypesPacks/DayYears UsedDateSmoking Tobacco: FormerCigarettes Smokeless Tobacco: NeverAlcohol UseStandard Drinks/WeekCommentsNot Currently0 (1 standard drink = 0.6 oz pure alcohol)Sex and Gender InformationValueDate RecordedSex Assigned at CzsuzQatt51/16/2025 10:29 AM EDTLegal WluCbfe9401/26/2025 10:26 AM EDTGender RpkvzizuShjl64/16/2025 10:29 AM EDTSexual Orientation Heterosexual or Jgdbsnmd62/16/2025 10:29 AM EDTdocumented as of this encounter Medications at Time of Discharge MedicationSigDispense QuantityRefillsLast FilledStart DateEnd Date amLODIPine (Norvasc) 5 mg tablet Take 1 tablet by mouth in the morning.06/27/2024 aspirin 81 mg EC tablet Take 81 mg by mouth in the morning. chlorthalidone (Hygroton) 25 mg tablet Indications:Shortness of breathTake 0.5 tablets (12.5 mg) by mouth in the morning. 15 tablet /[id number]/ omeprazole (PriLOSEC) [address] capsule Take 20 mg by mouth in the morning. tamsulosin (Flomax) 0.4 mg 24 hr capsule Take 0.4 mg by mouth in the morning. telmisartan (MIcarDIS) 20 mg tablet Take 1 tablet by mouth in the morning.01/25/2025documented as of this encounter Plan of Treatment DateTypeDepartmentCare Team (Latest Contact Info)Kjyitqtmfse75/10/2025 11:00 AM ESTOffice Visit [facility] [address] [place] [address] Gulshan Bernard MD [address] [place] [phone] documented as of this encounter Procedures Procedure NamePriorityDate/TimeAssociated DiagnosisCommentsUS TRANSFER OF OUTSIDE JEZNPCftdwqz50/10/2025 12:10 AM EDT documented in this encounter [...] DateEnd Date Juan Torres DO [address] [facility] [place] [address] PCP - GeneralInternal Medicine02/02/25documented as of this encounter
--- OUTSIDE RECORDS SUMMARY | 2025-02-23 15:00 | XMS_ITS | Encounter Summary ---
Author Organization [facility] Address [address] [place] [address] Care Team Providers Care Leadership Program Internship Name Role Phone Juan Stanton DO Primary Care Provider [phone] Reason for Visit * ReasonCommentsNew PatientBicuspid Aortic Valve, Severe Aortic Valve Regurgitation Encounter Details DateTypeDepartmentCare Team (Latest Contact Info)Cywwldehmnt18/14/2025 3:00 PM EDTConsult [facility] [address] [place] [phone] George Abdalla, CROWN AND BRIDGE TECHNICIAN [address] [facility] [place], [place] [id number] Nonrheumatic aortic valve insufficiency (Primary Dx); Pre-op testing Social History Tobacco UseTypesPacks/DayYears UsedDateSmoking Tobacco: FormerCigarettes Smokeless Tobacco: Never Tobacco Cessation:Counseling Given: Not Answered Alcohol UseStandard Drinks/WeekCommentsNot Currently0 (1 standard drink = 0.6 oz pure alcohol)Sex and Gender InformationValueDate RecordedSex Assigned at Male01/26/2025 10:29 AM EDTLegal VcyJbqr2501/26/2025 10:26 AM EDTGender Identity Male01/26/2025 10:29 AM EDTSexual OrientationHeterosexual or Pjdlthqg47/16/2025 10:29 AM EDTdocumented as of this encounter Last Filed Vital Signs Vital SignReadingTime TakenCommentsBlood Htiighfb293/7310 3:05 PM EDT Wyjav2661 3:05 PM EDTTemperature--Respiratory Xmnb6518 3:05 PM EDTOxygen Nvwooepgiq58%02/23/2025 3:05 PM EDTInhaled Oxygen Concentration-- Iyygkb769 kg (259 lb)02/23/2025 3:05 PM UAQGrfrjw174.3 cm (5' 11 )02/23/2025 3:05 PM EDTBody Mass Index36.121 3:05 PM EDTdocumented in this encounter Functional Status * BPAnswerDate of UkgpobprzuTclrmf216/7302/23/2025 3:05 PM Keith Otto MA * PulseAnswerDate of VoosxdntwmGgzxsx2197 3:05 PM Keith Otto MA * Patient PositionAnswerDate of JelgxrcideNzqsfvHdzdxok56/14/2025 3:05 PM EDT Keith Guerin MA * BPAnswerDate of XlsuhleqgjAfzebc996/7302/23/2025 3:05 PM Keith Otto MA * PulseAnswerDate of ClklyhdxypGkbixc2303/14/2025 3:05 PM Keith Otto MA * RespAnswerDate of PsljlzmrpxTqohpy1670/14/2025 3:05 PM Keith Otto MA * PyY6UbqugvYcze of XkaixurzqkDsrwfg4773/14/2025 3:05 PM Keith Otto MA * BP LocationAnswerDate of AssessmentAuthorLeft arm02/23/2025 3:05 PM EDT Keith Guerin MA * Patient PositionAnswerDate of KauvavoidxUmbgqqHtigkgy39/14/2025 3:05 PM EDT Keith Guerin MA documented [...] long. 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 [...] %, WBC Count: 6.3 10??/?L, Platelet Count: 565672 cells/?L, Total Albumin: 4 g/dL, Total Bilirubin: [...] Final Atrial Rate 02/18/2025 82 BPM Final AK Interval 02/18/2025 166 ms Final QRS DURATION 02/18/2025 94 ms Final QT Interval 02/18/2025 366 ms Final QTC CALCULATION(BAZETT) 02/18/2025 427 ms Final P Herreid 02/18/2025 34 degrees Final R-Herreid 02/18/2025 -15 degrees Final T Wave Herreid 02/18/2025 25 degrees Final O2Hb% 02/18/2025 66.0 [...] Transesophageal echo (CAN) Result Date: 02/18/2025 1 [facility] Heart Station [address] [place] [address] [phone] (fax) Transesophageal Echocardiogram-[facility] Name: MADDY PERAZA Study Date: 02/18/2025 09:38 AM B/P: 13 mmHg/63 mmHg HR: 84 bpm Date of : 1950 Location: [facility] Height: 72 in. Age: 74 year(s) Patient Room: [facility] VASCULAR POOL Weight: 259 lb. Gender: Male Patient Status: OutPt BSA: 2.38 m2 Indication: aortic insufficiency, Murmur, Hypertension Examination: CAN/Limited Doppler/CFI, Agitated Saline Image Quality: Good Patient Consent: Informed,written consent was obtained for the procedure Exam Details Contrast: I.V. dose of agitated saline Exam Location: A CAN was performed in the Road Sign Installer without complications Anesthesia Pharyngeal anesthesia with viscous [...] No pericardial effusion. Procedure Staff Reading Group: [facility] Referring Physician: JUAN STANTON Ranch Rider: DIONI Becerra, RDCS Ordering Physician: ASHLEY BOWIE No CT results found for the past 6 months No X-ray results found for the past 3 days To reach Cardiothoracic Surgery Inpatient from 8am-4pm call Ascom #[phone]. Only use Boostable chat for general questions. If unable to reach Ascom Number call hospital combining machine operator for Cardiothoracic Provider Bacon Skinner. Cardiothoracic Surgery outpatient Office Number [phone]. Cardiothoracic Surgery outpatient . [1] Family History [...] Plan of Treatment DateTypeDepartmentCare Team (Latest Contact Info)Elwtkpzrqxg25/10/2025 11:00 AM ESTOffice Visit [facility] [address] [place] [address] Ashley Bowie MD [address] [place] [phone] NameTypePriorityAssociated DiagnosesOrder SchedulePulmonary function testing Spirometry; DLCOPFTRoutine Pre-op testing Expected: 02/25/2025 (Approximate), Expires: 02/25/2026documented as of this encounter Visit Diagnoses Diagnosis Nonrheumatic aortic valve insufficiency- Primary Pre-op testing Unspecified pre-operative examination documented in this encounter Care Teams Team MemberRelationshipSpecialtyStart DateEnd Date Juan Stanton DO [address] [place] [address] PCP - GeneralInternal Medicine02/02/25documented as of this encounter
--- OUTSIDE RECORDS SUMMARY | 2025-03-03 08:20 | XMS_ITS | Encounter Summary ---
Author Organization [facility] Address [address] [place] [address] Care Team Providers Care Associate Material Handler Name Role Phone Juan Torres DO Primary Care Provider [phone] Encounter Details DateTypeDepartmentCare Team (Latest Contact Info)Ewqtrlkcclo45/15/2025Orders Only [facility] [address] [place] [address] Cristel Mendez RN Pre-op testing (Primary Dx) Social History Tobacco UseTypesPacks/DayYears UsedDateSmoking Tobacco: FormerCigarettes Smokeless Tobacco: NeverAlcohol UseStandard Drinks/WeekCommentsNot Currently0 (1 standard drink = 0.6 oz pure alcohol)Sex and Gender InformationValueDate RecordedSex Assigned at XkcslDsku10/16/2025 10:29 AM EDTLegal HhnDnwx6201/26/2025 10:26 AM EDTGender OthklbswQblr21/16/2025 10:29 AM EDTSexual Orientation Heterosexual or Kisdfvhv02/16/2025 10:29 AM EDTdocumented as of this encounter Plan of Treatment DateTypeDepartmentCare Team (Latest Contact Info)Hglwnuntorf60/10/2025 11:00 AM ESTOffice Visit [facility] [address] [place] [address] Gulshan Bernard MD [address] [place] [address] documented as of this encounter Visit Diagnoses Diagnosis Pre-op testing- Primary Unspecified pre-operative examination documented in this encounter Care Teams Team MemberRelationshipSpecialtyStart DateEnd Date Juan Torres DO [address] [place] [phone] PCP - GeneralInternal Medicine02/02/25documented as of this encounter
--- OUTSIDE RECORDS SUMMARY | 2025-03-03 08:20 | XMS_ITS | Clinical Summary ---
Author Organization [facility] Address [address] [place] [address] Care Team Providers Care Sales Development Director Name Role Phone Juan Torres DO Primary Care Provider [phone] Allergies No known active allergies Medications MedicationSigDispense QuantityRefillsLast FilledStart DateEnd DateStatus amLODIPine (Norvasc) 5 mg tablet Take 1 tablet by mouth in the morning.5Active omeprazole (PriLOSEC) [address] capsule Take 20 mg by mouth in the morning.Active tamsulosin (Flomax) 0.4 mg 24 hr capsule Take 0.4 mg by mouth in the morning.Active telmisartan (MIcarDIS) 20 mg tablet Take 1 tablet by mouth in the morning.5Active aspirin 81 mg EC tablet Take 81 mg by mouth in the morning.Active chlorthalidone (Hygroton) 25 mg tablet Indications:Shortness of breathTake 0.5 tablets (12.5 mg) by mouth in the morning. 15 tablet /410860/6Active Active Problems ProblemNoted DateDiagnosed DateNonrheumatic aortic valve swxptblceehbu05/24/2025 Nonrheumatic aortic valve dqpcwunv49/24/2025ardiovascular stress test abnormal 02/03/2025Stable angina lrghdwer77/24/2025Shortness of rivomv1302/03/2025oronary artery uxyuxmd8602/03/2025 Encounters DateTypeDepartmentCare EzxfCnuabwwbzek59/16/2025Orders Only [facility] [address] [place] [phone] Sujey Gallegos MA 02/24/2025Orders Only [facility] [address] [place] [address] Cristel Mendez RN Aortic aneurysm without rupture, unspecified portion of aorta (Primary Dx) 02/24/2025Orders Only [facility] [place] [address] Cristel Mendez RN Pre-op testing (Primary Dx)02/23/2025 3:00 PM [facility]ons[facility] [address] [place] [address] George Abdalla CNP Nonrheumatic aortic valve insufficiency (Primary Dx); Pre-op nchzgme8602/19/2025 12:10 AM EDT - 02/19/2025 11:59 PM EDTHospital Encounter [facility] [place] [address] Discharge Disposition: Home or Self Care ()02/19/2025 12:05 AM EDT - 02/19/2025 12:09 AM EDTHospital Encounter [facility] [place] [address] Discharge Disposition: Home or Self Care ()02/19/2025 - 02/19/2025 12:04 AM EDTHospital Encounter [facility] [place] [address] Discharge Disposition: Home or Self Care ()02/18/2025 11:30 AM EDT - 02/18/2025 1:00 PM EDTSurgery [facility] Heart [facility] V[facility] [place] [address] Ashley Bowie MD Coronary /09/2025 8:48 AM EDT - 02/18/2025 2:12 PM EDTHospital Encounter [facility] [address] [place] [address] Ashley Bowie MD Nonrheumatic aortic valve insufficiency; Nonrheumatic aortic valve stenosis; Cardiovascular stress test abnormal; Stable angina pectoris; Shortness of breath; Coronary artery disease, unspecified vessel or lesion type, unspecified whether angina present, unspecified whether teller or transplanted heart Discharge Disposition: Home or Self Care (01)02/18/20251378Cgzffb41/24/2025 10:40 AM EDTOffice Visit [facility] at [facility] [address] [place] [address] Ashley Bowie MD Nonrheumatic aortic valve insufficiency (Primary Dx); Nonrheumatic aortic valve stenosis; Cardiovascular stress test abnormal; Stable angina pectoris; Shortness of breath; Coronary artery disease, unspecified vessel or lesion type, unspecified whether angina present, unspecified whether teller or transplanted heartfrom Last 3 Months Family History Medical HistoryRelationNameCommentsHeart attackMotherRelationNameStatusComments FatherDeceasedMotherDeceased Social History Tobacco UseTypesPacks/DayYears UsedDateSmoking Tobacco: FormerCigarettes Smokeless Tobacco: Never Tobacco Cessation:Counseling Given: Not Answered Alcohol UseStandard Drinks/WeekCommentsNot Currently0 (1 standard drink = 0.6 oz pure alcohol)Sex and Gender InformationValueDate RecordedSex Assigned at Male01/26/2025 10:29 AM EDTLegal OjlDdck5401/26/2025 10:26 AM EDTGender Identity Male01/26/2025 10:29 AM EDTSexual OrientationHeterosexual or Tzjzsdun69/16/2025 10:29 AM EDT Last Filed Vital Signs Vital SignReadingTime TakenCommentsBlood Rdktzrrk711/7310 3:05 PM EDT Dyavj602602/23/2025 3:05 PM EDTTemperature--Respiratory Zrub4785 3:05 PM EDTOxygen Lqrcbrjhxk67%02/23/2025 3:05 PM EDTInhaled Oxygen Concentration-- Bjjzsy727 kg (259 lb)02/23/2025 3:05 PM JQYLrfuhv242.3 cm (5' 11 )02/23/2025 3:05 PM EDTBody Mass Index36.121 3:05 PM EDT Plan of Treatment DateTypeDepartmentCare Team (Latest Contact Info)Eonowxhhbjy15/10/2025 11:00 AM ESTOffice Visit [facility] [address] [place] [address] Ashley Bowie MD [address] [place] [address] Health MaintenanceDue DateLast DoneCommentsCT Wbqwdefuoqyn68/27/1953Colonoscopy 3Colorectal Cancer Mmemxwukm33/27/1953FIT-DNA1952FIT1950 FOBT1950Medicare Annual Wellness (AWV)1950 0950Ldgipakxsurbm51/27/1953 Depression Wamemjgvx90/27/1965Adult Xyykjeb8511/06/1974Fall Risk Screening 2017Pneumococcal Vaccine: 50+ Years (2 of 2 - PPSV23, PCV20, or PCV21) COVID-19 Vaccine (1 - season)2025Influenza Vaccine (#1)2025Zoster ZglznzxiGqpqesigv50/25/2022, 10/29/2021HIB Vaccines Aged OutNo longer eligible based on patient's age to complete this topicHPV VaccinesAged OutNo longer eligible based on patient's age to complete this topic IPV VaccinesAged OutNo longer eligible based on patient's age to complete this topicMeningococcal B VaccineAged OutNo longer eligible based on patient's age to complete this topicMeningococcal VaccineAged OutNo longer eligible based on patient's age to complete this topicRotavirus VaccinesAged OutNo longer eligible based on patient's age to complete this topic Procedures Procedure NamePriorityDate/TimeAssociated DiagnosisCommentsUS TRANSFER OF OUTSIDE FVXEOKyqunyt84/10/2025 12:10 AM EDT XR TRANSFER OF OUTSIDE CRRBNScsvtrm22/10/2025 12:[address] TRANSFER OF OUTSIDE WZWMPDbgzlxc32/10/2025 12:00 AM EDT RPQLUMXRINfhaphm65/09/2025 11:32 AM EDT Nonrheumatic aortic valve insufficiency Nonrheumatic aortic valve stenosis Cardiovascular stress test abnormal Stable angina pectoris Shortness of breath Coronary artery disease, unspecified vessel or lesion type, unspecified whether angina present, unspecified whether teller or transplanted heart RIGHT HEART LXWRIfscrdm61/09/2025 11:32 AM EDT Nonrheumatic aortic valve insufficiency Nonrheumatic aortic valve stenosis Cardiovascular stress test abnormal Stable angina pectoris Shortness of breath Coronary artery disease, unspecified vessel or lesion type, unspecified whether angina present, unspecified whether teller or transplanted heart CORONARY IHEURAYONYBZozotwo11/09/2025 11:32 AM EDT Nonrheumatic aortic valve insufficiency Nonrheumatic aortic valve stenosis Cardiovascular stress test abnormal Stable angina pectoris Shortness of breath Coronary artery disease, unspecified vessel or lesion type, unspecified whether angina present, unspecified whether teller or transplanted heart %FIO4Ozsbwas57/09/2025 10:59 AM EDT TRANSESOPHAGEAL ECHO (CAN) W/ LIMITED DOPPLER AND COLOR TCFQGjuenij56/09/2025 10:39 AM EDT Nonrheumatic aortic valve insufficiency Nonrheumatic aortic valve stenosis Shortness of breath Coronary artery disease, unspecified vessel or lesion type, unspecified whether angina present, unspecified whether teller or transplanted heart ECG 12-IBBUWrgdwlz57/09/2025 9:41 AM EDT from Last 3 Months Results * US transfer of outside films (02/19/2025 12:10 AM EDT)Specimen (Source) Anatomical Location / LateralityCollection Method / VolumeCollection Time Received Time Narrative IMAGING - 02/19/2025 2:59 PM EDT This order has been auto-finalized and does not contain a result. Authorizing ProviderResult TypeResult James HATCH PROCEDURESFinal ResultPerforming OrganizationAddressCity/State/ZIP CodePhone Number IMAGING * XR transfer of outside films (02/19/2025 12:05 AM EDT)Specimen (Source) Anatomical Location / LateralityCollection Method / VolumeCollection Time Received Time Narrative IMAGING - 02/19/2025 1:10 PM EDT This order has been auto-finalized and does not contain a result. Authorizing ProviderResult TypeResult James Valle MDG XR PROCEDURESFinal ResultPerforming OrganizationAddressCity/State/ZIP CodePhone Number IMAGING * CT transfer of outside films (02/19/2025 12:00 AM EDT)Specimen (Source) Anatomical Location / LateralityCollection Method / VolumeCollection Time Received Time Narrative IMAGING - 02/19/2025 1:10 PM EDT This order has been auto-finalized and does not contain a result. Authorizing ProviderResult TypeResult James Valle MDG CT PROCEDURESFinal ResultPerforming OrganizationAddressCity/State/ZIP CodePhone Number IMAGING * AORTOGRAM (02/18/2025 11:32 AM EDT)Anatomical RegionLateralityModalityOther [...] and a micropuncture access technique a 6 Colombian sheath was placed in the right internal jugular vein. The catheter was advanced under fluoroscopic and hemodynamic monitoring to the right atrium. ??Pressure obtained of the right atrium, right ventricle, pulmonary artery, pulmonary capillary position. ??Oxygen saturation drawn for the pulmonary artery and Sunil cardiac with a cardiac index were calculated. 1% lidocaine was infiltrated over the left radial artery. ??A 6-Colombian sheath was placed in left radial artery. [...] of breath [R06.02] Authorizing ProviderResult TypeResult StatusChristopher [facility] INVASIVE VASCULAR PROCEDURESFinal Result * CORONARY ANGIOGRAPHY, [...] and a micropuncture access technique a 6 Colombian sheath was placed in the right internal jugular vein. The catheter was advanced under fluoroscopic and hemodynamic monitoring to the right atrium. ??Pressure obtained of the right atrium, right ventricle, pulmonary artery, pulmonary capillary position. ??Oxygen saturation drawn for the pulmonary artery and Sunil cardiac with a cardiac index were calculated. 1% lidocaine was infiltrated over the left radial artery. ??A 6-Colombian sheath was placed in left radial artery. [...] [I20.89]Shortness of breath [R06.02] Authorizing ProviderResult TypeResult StatusAshley Bowie [facility] CATH PROCEDURESFinal Result * (ABNORMAL) %HbO2 (02/18/2025 10:59 AM EDT)ComponentValueRef RangeTest Method Analysis TimePerformed AtPathologist TjtpfqzouN1Pa%66.0(L)90.0 - 95.0 % 02/18/2025 11:00 AM EDTMOUNTAIN VIEW REG[facility]AL [facility] ([facility])Specimen (Source)Anatomical Location / LateralityCollection Method / VolumeCollection TimeReceived Time BloodVenous blood specimen / Ctymbiw8602/18/2025 10:59 AM EDT1 11:00 AM EDT Narrative Authorizing ProviderResult TypeResult Ramez oBwie MDKANS[facility] POINT OF CARE TEST DOCKED DEVICE UNSOLICITED RESULTSFinal ResultPerforming Organization AddressCity/State/ZIP CodePhone Number [facility] ([facility]) [address] [place] [address] * TRANSESOPHAGEAL ECHO (CAN) W/ LIMITED DOPPLER AND COLOR FLOW (02/18/2025 10:39 AM EDT)Anatomical RegionLateralityModalityOtherSpecimen (Source)Anatomical Location / LateralityCollection Method / VolumeCollection TimeReceived Time 02/18/2025 9:38 AM EDT Narrative 02/18/2025 12:03 PM EDT 1 [facility] Heart Station [address] [place] [address] [phone] (fax) Transesophageal Echocardiogram-[facility] Name: MADDY SU Study Date: 02/18/2025 09:38 AM B/P: 13 mmHg/63 mmHg HR: 84 bpm Date of : 1950 Location: [facility] Height: 72 in. Age: 74 year(s) Patient Room: [facility] VASCULAR POOL Weight: 259 lb. Gender: Male Patient Status: OutPt BSA: 2.38 m2 Indication: aortic insufficiency, Murmur, Hypertension Examination: CAN/Limited Doppler/CFI, Agitated Saline Image Quality: Good Patient Consent: Informed, written consent was obtained for the procedure Exam Details Contrast: I.V. dose of agitated saline Exam Location: A CAN was performed in the Business Intern without complications Anesthesia Pharyngeal anesthesia with viscous [...] Group: [facility] Referring Physician: JUAN TORRES ??Auditor Appraiser: DIONI Becerra, RDCS ??Ordering Physician: ASHLEY BOWIE ?? Procedure Note Lopez Galan MD - 02/18/2025 1 [facility] Heart Station [address] [place] [address] [phone] (fax) Transesophageal Echocardiogram-[facility] Name: MADDY SU Study Date: 02/18/2025 09:38 AM B/P: 13 mmHg/63 mmHg HR: 84 bpm Date of : 1950 Location: [facility] Height: 72 in. Age: 74 year(s) Patient Room: [facility] VASCULAR POOL Weight: 259 lb. Gender: Male Patient Status: OutPt BSA: 2.38 m2 Indication: aortic insufficiency, Murmur, Hypertension Examination: CAN/Limited Doppler/CFI, Agitated Saline Image Quality: Good Patient Consent: Informed, written consent was obtained for the procedure Exam Details Contrast: I.V. dose of agitated saline Exam Location: A CAN was performed in the Business Intern without complications Anesthesia Pharyngeal anesthesia with viscous [...] Group: [facility] Referring Physician: JUAN TORRES Auditor Appraiser: DIONI Becerra, RDCS Ordering Physician: ASHLEY BOWIE Authorizing ProviderResult TypeResult StatusChrisjossie Bowie [facility] ECHO PROCEDURESFinal Result * Electrocardiogram, 12-lead (02/18/2025 9:41 AM EDT)ComponentValueRef RangeTest MethodAnalysis TimePerformed AtPathologist SignatureVentricular Ughe07DLHPX MUSEAtrial Rlmn09YPXTP MUSEPR Zaxvzvhq917moTB MUSEQRS VUXRPCXN32wzKE MUSEQT Eygamuim812mdNF MUSEQTC CALCULATION(ANDERSONZETT)427msGE MUSEP Cwqq97xdcqaamAK MUSE F-Gbdz-64ofvzwnnQL MUSET Wave Hmco59eagalhpEA MUSESpecimen (Source)Anatomical Location / LateralityCollection Method / [...] on 02/18/2025 12:50:48 PM Authorizing ProviderResult TypeResult Mary EllenChcammy Bowie MDECG ORDERABLES Final ResultPerforming OrganizationAddressCity/State/ZIP CodePhone Number GE MUSE from Last [address] [address] MemberSubscriberPlan / Payer (Effective 2025-Present)Name:Maddy Su Member ID:[id number] Relation to Subscriber:SelfName:Maddy Su Subscriber ID:[id number] Payer ID:[id number] Group ID:Not on file Type:Medicare Address: [facility] [place] [id number] Care Teams Team MemberRelationshipSpecialtyStart DateEnd Date Juan Torres DO [address] [facility] [place] [address] PCP - GeneralInternal Medicine02/02/25
--- OUTSIDE RECORDS SUMMARY | 2025-03-03 08:21 | XMS_ITS | Encounter Summary ---
Author Organization [facility] Address [address] [place] [address] Care Team Providers Care Survey Research Teacher Name Role Phone Juan Torres DO Primary Care Provider Encounter Details DateTypeDepartmentCare Team (Latest Contact Info)Sbvldtvwknb86/09/2025Travel Social History Tobacco UseTypesPacks/DayYears UsedDateSmoking Tobacco: FormerCigarettes Smokeless Tobacco: NeverAlcohol UseStandard Drinks/WeekCommentsNot Currently0 (1 standard drink = 0.6 oz pure alcohol)Sex and Gender InformationValueDate RecordedSex Assigned at AirpfHxjw99/16/2025 10:29 AM EDTLegal JugTybe2101/26/2025 10:26 AM EDTGender OnlwunmnMbwn32/16/2025 10:29 AM EDTSexual Orientation Heterosexual or Evrnhcpz59/16/2025 10:29 AM EDTdocumented as of this encounter Functional Status * QuestionAnswerDate of BsepauziavGssskuJT830/6602/18/2025 1:56 PM Luciana Heaton RNPulse6602/18/2025 1:56 PM Luciana Heaton RN * Pain Assessment TimerQuestionAnswerDate of AssessmentAuthorRestart Pain Assessment JyyoeKvb40/09/2025 1:56 PM Luciana Heaton RN * QuestionAnswerDate of AssessmentAuthorHeart Rate AkaxnxGmfuezs02/09/2025 9:23 AM Eli Forte RN * Sepsis Model ScoresQuestionAnswerDate of AssessmentAuthorEarly Detection of Sepsis Score6.410 2:01 PM [place] Allen * Pain AssessmentQuestionAnswerDate of AssessmentAuthorRamsay Scale (RS): Score2 02/18/2025 9:04 AM Eli Forte RNPain AssessmentNo/denies pain 02/18/2025 1:56 PM Luciana Heaton RN * QuestionAnswerDate of AssessmentAuthorPulse rate from Plethysmogram (bpm)64 02/18/2025 1:56 PM Luciana Heaton RN * Vital SignsQuestionAnswerDate of CvcnsqmvhiJsmzuqEM551/6602/18/2025 1:56 PM Luciana Heaton JPQhklc4079/09/2025 1:56 PM Luciana Heaton RNResp26 02/18/2025 1:56 PM Luciana Heaton RNSpO29902/18/2025 1:56 PM Luciana Heaton RNMAP (mmHg)7902/18/2025 1:45 PM Luciana Heaton RN * Peripheral VascularQuestionAnswerDate of AssessmentAuthorPulsesLeft pedal;Right pedal;Left posterior tibial;Right posterior srouxr0302/18/2025 9:11 AM Eli Forte RN * RLE [...] RNCognitionAppropriate judgement 02/18/2025 9:11 AM Eli Forte NUKysqgkTntgy64/09/2025 9:11 AM Eli Jeff RNSwallowAble to swallow solids and liquids without ftjtiqofoj71/09/2025 9:11 AM Eli Forte RN * QuestionAnswerDate of AssessmentAuthorHeart Rate CfdescEwuydry82/09/2025 9:23 AM Eli Forte RNBP LocationLeft arm02/18/2025 9:23 AM Eli Forte RN * Pain AssessmentQuestionAnswerDate of AssessmentAuthorRamsay Scale (RS): Score2 02/18/2025 9:04 AM Eli Forte RNPain AssessmentNo/denies pain 02/18/2025 1:56 PM Luciana Heaton RN * [place] Suicide Severity Rating ScaleQuestionAnswerDate of AssessmentAuthor1. Have you wished you were or wished you could go to sleep and not wake up? No02/18/2025 9:04 AM Eli Forte RN2. Have you actually had any thoughts of killing yourself?No02/18/2025 9:04 AM Eli Forte, LOLLY6. Have you ever done anything, started to do anything, or prepared to do anything to end your life?No02/18/2025 9:04 AM Eli Forte RN * Risk of SuicideAnswerDate of AssessmentAuthorNo Risk02/18/2025 9:04 AM Eli Jeff RN * Modified AldreteQuestionAnswerDate of CijtzcjqdwXwjtzhAsambgzb152/09/2025 2:00 PM Luciana Heaton RNRespiration21 2:00 PM Luciana Heaton RN Wxxfwscsetc437/09/2025 2:00 PM Luciana Heaton RNConsciousness21 2:00 PM Luciana Heaton RNOxygen Eqmjrhfznn878/09/2025 2:00 PM Luciana Heaton RNModified Rhiannon Ermcw2890/09/2025 2:00 PM Luciana Heaton RN documented as of this encounter Mental Status * Mina Agitation Sedation ScaleQuestionAnswerEntry DateAuthorRichmond Agitation Sedation Scale (RASS) 11:30 AM Cindy Zepeda RN * Modified AldreteQuestionAnswerEntry QuqqXudjgqKuutiilu996/09/2025 2:00 PM Luciana Azar RNRespiration 2:00 PM Luciana Heaton RN Muzfukvksvq703/09/2025 2:00 PM Luciana Heaton RNConsciousness 2:00 PM Luciana Heaton RNOxygen Vuuvmtncqd939/09/2025 2:00 PM Luciana Heaton RNModified Rhiannon Ylfja8279/09/2025 2:00 PM Luciana Heaton RN documented in this encounter Plan of Treatment DateTypeDepartmentCare Team (Latest Contact Info)Edevkwruefy90/10/2025 11:00 AM ESTOffice Visit [facility] [address] [place] [address] Gulshan Bernard MD [address] [place] [phone] documented as of this encounter Visit Diagnoses Not on filedocumented in this encounter Care Teams Team MemberRelationshipSpecialtyStart DateEnd Date Juan Torres DO [address] [facility] [place] [phone] PCP - GeneralInternal Medicine02/02/25documented as of this encounter
--- OUTSIDE RECORDS SUMMARY | 2025-03-03 08:21 | XMS_ITS | Encounter Summary ---
Author Organization [facility] Address [address] [place] [address] Care Team Providers Care Negative Retoucher Name Role Phone Juan Torres DO Primary Care Provider Reason for Referral * Imaging (Routine) - Pending ReviewSpecialtyDiagnoses / ProceduresReferred By ContactReferred To Contact Diagnoses Aortic aneurysm without rupture, unspecified portion of aorta Procedures CT abdomen pelvis wo IV contrast Nacho Valle MD [address] [place] [address] Phone: tel: fax: [address] [phone] Phone: tel: fax: Referral IDStatusReasonStart DateExpiration DateVisits RequestedVisits [id number] Encounter Details DateTypeDepartmentCare Team (Latest Contact Info)Ezfzrukbdod91/15/2025Orders Only [facility] [address] [place] [address] Cristel Mendez RN Aortic aneurysm without rupture, unspecified portion of aorta (Primary Dx) Social History Tobacco UseTypesPacks/DayYears UsedDateSmoking Tobacco: FormerCigarettes Smokeless Tobacco: NeverAlcohol UseStandard Drinks/WeekCommentsNot Currently0 (1 standard drink = 0.6 oz pure alcohol)Sex and Gender InformationValueDate RecordedSex Assigned at BlyyuHdsv08/16/2025 10:29 AM EDTLegal VhxJhce1101/26/2025 10:26 AM EDTGender CjafbniuSdwb72/16/2025 10:29 AM EDTSexual Orientation Heterosexual or Aozlfeij01/16/2025 10:29 AM EDTdocumented as of this encounter Plan of Treatment DateTypeDepartmentCare Team (Latest Contact Info)Cfdpxjcrvzx43/10/2025 11:00 AM ESTOffice Visit [facility] [address] [place] [address] Gulshan Bernard MD [address] [place] [phone] NameTypePriorityAssociated DiagnosesOrder ScheduleCT abdomen pelvis wo IV contrastImagingRoutine Aortic aneurysm without rupture, unspecified portion of aorta Expected: 03/12/2025, Expires: 02/26/2026documented as of this encounter Visit Diagnoses Diagnosis Aortic aneurysm without rupture, unspecified portion of aorta- Primary documented in this encounter Care Teams Team MemberRelationshipSpecialtyStart DateEnd Date Juan Torres DO [address] [facility] [place] [phone] PCP - GeneralInternal Medicine02/02/25documented as of this encounter
--- OUTSIDE RECORDS SUMMARY | 2025-03-03 08:21 | XMS_ITS | Clinical Summary ---
Author Organization [facility] Address [address] [facility] [place] [address] Care Team Providers Care Redipper Name Role Phone Unavailable Primary Care Provider Unavailabl e Social History Tobacco UseTypesPacks/DayYears UsedDateSmoking Tobacco: Never AssessedSex and Gender InformationValueDate RecordedSex Assigned at BirthNot on fileLegal Sex Male07/25/2022 6:43 PM EDTGender IdentityNot on fileSexual OrientationNot on file Last Filed Vital Signs Vital SignReadingTime TakenCommentsBlood Bbtjauhi149/8306/04/2018 12:00 PM EST Pulse--Temperature--Respiratory Rate--Oxygen Saturation--Inhaled Oxygen Concentration--Suzpbd552 kg (256 lb)06/04/2018 12:00 PM AVUOslbnj103.9 cm (6') 06/04/2018 12:00 PM ESTBody Mass Index34.72006/04/2018 12:00 PM EST Plan of Treatment Not on file Insurance * Guarantor: Pramod Su TypeRelation to PatientDate of BirthPhone Billing AddressPersonal/RrdcsrSubg85/[birth year][address] [place] [place] [address]
--- OUTSIDE RECORDS SUMMARY | 2025-03-03 08:21 | XMS_ITS | CCD ---
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 Name Role Phone MEÑO ., DR [...] GRILLIS ., DR ANTOINE Lerner Consulting Unavaila Juan Aviles Unavailable ELIZABETH CARDOSO Attending Unavailable JUAN TORRES [...] Unavailable Juan Torres Admitting Unavailable ASHLEY BOWIE Referring Unavailable MAGI, ORQUIDEA Referring Unavailable MAGI, ORQUIDEA Referring Unavailable MAGI, ORQUIDEA Referring Unavailable ASHLEY BOWIE Attending Unavailable ASHLEY BOWIE Referring Unavailable JENNIFER HERNANDEZ Attending Unavailabl e ASHLEY BOWIE Attending Unavailable ASHLEY BOWIE Admitting Unavailable Allergies Allergy ClassificationReported Allergen(s)Allergy TypeDate of OnsetReaction(s) Facility (1 source)patient allergy list reviewed by nurse or physiciaPropensity to adverse ocmyybpdo12-77-8530Njbzrcq:GoEuro Other Medications Current Medications MedicationDrug Class(es)DatesSig (Normalized)Sig (Original)amLODIPine 5 mg oral tablet (4 sources)Dihydropyridine Calcium Channel BlockerStart: 56-15-4671ssxg 1 tablet by mouth once dailyAmlodipine 5 mg tablet Active 5 MG PO Daily May 21, 2024 1:00am Complies with drug therapyomeprazole 20 mg delayed release oral capsule (14 sources)Proton Pump InhibitorStart: 78-98-1662kkxh 1 capsule by mouth once dailyOmeprazole 20 mg capsule,delayed release(DR/EC) Active 20 MG PO Daily September 24, 2023 12:00am Complies with drug therapytamsulosin hydrochloride 0.4 mg oral capsule (20 sources)alpha-Adrenergic BlockerStart: 02-16-2024 End: 21-13-3141vqzb 1 capsule by mouth once daily at dinnerTamsulosin 0.4 mg capsule Active 0 .ROUTE .COMPLEX May 19, 2024 2:00pm TAKE 1 CAPSULE BY MOUTH EVERY DAY AFTER EVENING MEAL Complies with drug therapyStart: 05-09-2022 End: 47-18-1221cnhm 1 capsule by mouth once dailyTamsulosin 0.4 mg capsule Discontinued 0.4 MG PO Daily September 24, 2023 12:00am February 16, 2024 7:40pm telmisartan 20 mg oral tablet (1 source)Angiotensin 2 Receptor BlockerStart: 29-23-4951ppsj 1 tablet by mouth once dailyTelmisartan 20 mg tablet Active 20 MG PO Daily January 25, 2025 12:00am Complies with drug therapytriamcinolone acetonide 0.001 mg/mg topical ointment (3 sources)CorticosteroidStart: 06-56-7777Zplyadqdesttq Acetonide 0.1 % ointment Active 1 APPLIC TOPICAL Twice daily January 062:00am Complies with drug therapy Completed/Discontinued Medications MedicationDrug Class(es)DatesSig (Normalized)Sig (Original)acetaminophen 325 mg / oxyCODONE hydrochloride 5 mg oral tablet (1 source)Opioid AgonistStart: 04-30-2023 End: 62-74-7462dvxVHWIPQ-acetaminophen (PERCOCET) 5-325 mg per tablet Indications: Incarcerated ventral hernia Take 1 tablet by mouth every 6 (six) hours as needed for pain for up to 12 doses. Max Daily Amount: 4 tablets 12 tablet 0 04/30/2023 05/14/2023 Discontinued (Therapy completed)atorvastatin 40 mg oral tablet (11 sources)HMG-CoA Reductase InhibitorStart: 09-24-2023 End: 92-55-5028tlko 1 tablet by mouth once dailyAtorvastatin 40 mg tablet Discontinued 40 MG PO Daily September 24, 2023 12:00am May 21, 2024 11:34amtake 1 tablet by mouth every twenty-four hoursAtorvastatin Calcium 40 MG 1 tablet Orally Once a day Activeibuprofen 800 mg oral tablet (1 source)Nonsteroidal Anti-inflammatory DrugStart: 04-30-2023 End: 22-70-4178zumd 1 tablet by mouth every eight hours as needed for pain ibuprofen (MOTRIN) 800 mg tablet Take 1 tablet (800 mg total) by mouth every 8 (eight) hours as needed for pain. 30 tablet 0 04/30/2023 05/14/2023 Discontinued (Therapy completed)loratadine 10 mg oral tablet (14 sources)Start: 09-24-2023 End: 38-87-3329scpl 1 tablet by mouth once dailyLoratadine 10 mg tablet Discontinued 10 MG PO Daily September 24, 2023 12:00am May 21, 2024 11:34amtake 1 tablet by mouth once dailyLoratadine 10 MG TAKE 1 TABLET BY MOUTH EVERY DAY for 90 Activelosartan potassium 25 mg oral tablet (11 sources)Angiotensin 2 Receptor BlockerStart: 09-24-2023 End: 52-24-9772fesn 1 tablet by mouth once dailyLosartan 25 mg tablet Discontinued 25 MG PO Daily September 24, 2023 12:00am May 21, 2024 11:34am Start: 18-65-7436kkre 1 tablet by mouth every twenty-four hoursLosartan Potassium 25 MG 1 tablet Orally Once a day for 30 days Nov, Active Problems Active Problems Problem ClassificationProblemDateDocumented DateEpisodic/ChronicAbdominal hernia (1 source)Umbilical hernia without obstruction or gangreneEpisodicCardiac dysrhythmias (7 sources)Palpitations; Translations: [Palpitations]Onset: EpisodicCoronary atherosclerosis and other heart disease (4 sources)Other forms of angina pectoris; Translations: [Atherosclerotic heart disease of ute coronary artery without angina pectoris]Onset: 02-03-2025 ChronicDisorders of lipid metabolism (20 sources)Pure hypercholesterolemia; Translations: [Familial hypercholesterolemia]ChronicEsophageal disorders (20 sources)Lucas's esophagus without dysplasia; Translations: [Gastro- esophageal reflux disease without esophagitis]Onset: 20-39-5219EjovrxgSztcylthc hypertension (20 sources)Essential hypertension; Translations: [Essential (primary) hypertension]ChronicComment on above:Echo: LVEF 50%, normal RV size/function, mild , mod-severe AI, RVSP 43 - 01/2025Gastritis and duodenitis (1 source)Gastritis, unspecified, without bleeding; Translations: [GASTRITIS UNS WITHOUT BLEEDING]Onset: 57-04-0889NctijgczXxrdhbpjybmhh symptoms and ill- defined conditions (2 sources)Unspecified abnormal findings in urine; Translations: [Nocturia] Onset: 35-85-1327QhqitzbgDwzud valve disorders (18 sources)Aortic valve sclerosis; 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]Onset: 904519-81-9001MtofwqfBbolhft on above:AV: KEVIN 2.0, velocity 2.62 m/s, gradient 27/15 mmHg with Mod-Severe AI - 01/2025Hyperplasia of prostate (14 sources)Lower urinary tract symptoms due to benign prostatic hypertrophy; Translations: [Benign prostatic hyperplasia with lower urinary tract symptoms] Onset: 25-82-7409GzxvtkqPbbvtcsszawc conditions of male genital organs (4 sources)Acute prostatitis; Translations: [Acute prostatitis]Episodic Nonspecific chest pain (5 sources)Chest pain; Translations: [Chest pain, unspecified]43-07-2168Rcjghiiy Other aftercare (1 source)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; Translations: [OTH FDC CURRENT DRUG THERAPY]Onset: 02-74-1155HwgchigcYugdr aftercare (3 sources)Taking high risk medication; Translations: [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]66-54-2553MirtoyrjSknvo and unspecified benign neoplasm (1 source)Personal history of colonic polyps; Translations: [PERSONAL HISTORY OF COLONIC POLYPS]Onset: 50-56-6828EovlptwoKosab circulatory disease (1 source)Elevated blood-pressure reading without diagnosis of hypertension; Translations: [Elevated blood-pressure reading, without diagnosis of hypertension]EpisodicOther gastrointestinal disorders (1 source)Personal history of other diseases of the digestive system; Translations: [Personal history of other diseases of the digestive system]Onset: 37-35-6277OsmpvxupQfrbs lower respiratory disease (6 sources)Dyspnea; Translations: [Dyspnea, unspecified]37-61-9487IjzybnzhKxtyu lower respiratory disease (2 sources)Shortness of breath; Translations: [Shortness of breath]Onset: 97-33-8271WntuiwakMcenq nutritional; endocrine; and metabolic disorders (2 sources)Morbid (severe) obesity due to excess calories; Translations: [MORBID SEVERE OBES D/T EXCESS RAUL]Onset: 64-10-5599HepkxlyKnnnd nutritional; endocrine; and metabolic disorders (1 source)Body mass index (BMI) 37.0-37.9, adult; Translations: [BODY MASS INDEX BMI 37.0-37.9 ADULT]Onset: 69-49-2012YigyzujQizxm nutritional; endocrine; and metabolic disorders (13 sources)Body mass index 30+ - obesity; Translations: [Body mass index (BMI) 34.0-34.9, adult]Onset: 26-78-2799DwdykmeUfhzx nutritional; endocrine; and metabolic disorders (7 sources)Obesity caused by energy imbalance; Translations: [Other obesity due to excess calories]ChronicOther nutritional; endocrine; and metabolic disorders (1 source)Other obesity due to excess caloriesChronicOther nutritional; endocrine; and metabolic disorders (1 source)Body mass index (BMI) 34.0-34.9, adultChronicOther nutritional; endocrine; and metabolic disorders (1 source)Obese class II; Translations: [Body mass index (BMI) 35.0-35.9, adult] Onset: 26-14-9192SxbksqoUoepv nutritional; endocrine; and metabolic disorders (5 sources)Obesity; Translations: [Obesity, unspecified]58-56-1678RdrlshrAqwkr nutritional; endocrine; and metabolic disorders (1 source)Morbid obesity; Translations: [Morbid (severe) obesity due to excess calories]Onset: 85-18-3930JhchdanNurkv nutritional; endocrine; and metabolic disorders (5 sources)Severe obesity; Translations: [Morbid (severe) obesity due to excess calories]ChronicOther nutritional; endocrine; and metabolic disorders (1 source)Body mass index (BMI) 35.0-35.9, adultChronicOther nutritional; endocrine; and metabolic disorders (1 source)Obesity, unspecified; Translations: [Obesity, unspecified]05-21-2024 ChronicOther screening for suspected conditions (not mental disorders or infectious disease) (12 sources)Encounter for screening for malignant neoplasm of prostate; Translations: [Encounter for screening for diseases of the blood and blood- forming organs and certain disorders involving the immune mechanism]Onset: 93-60-9465LfsuboxaKhcoauz on above:PSA: 3.78 - 03/2022, 3.38 - 3PSA: 3.78 - 03/2022, 3.38 - 03/2023, 3.46 - 05/2023Other upper respiratory disease (7 sources)Allergic rhinitis due to pollen; Translations: [Allergic rhinitis due to pollen]ChronicOther upper respiratory disease (1 source)Allergic rhinitis; Translations: [Other allergic rhinitis]ChronicOther upper respiratory disease (4 sources)Rhinitis medicamentosa; Translations: [Chronic rhinitis]05-21-2024 ChronicOther upper respiratory disease (1 source)Chronic rhinitis; Translations: [Chronic rhinitis]43-14-2258Dghlgvd Residual codes; unclassified (20 sources)Obstructive sleep apnea syndrome; Translations: [Obstructive sleep apnea (adult) (pediatric)]Onset: 004509-90-1135YxpweatTfmvhgzz codes; unclassified (4 sources)Obstructive sleep apnea (adult) (pediatric); Translations: [Obstructive sleep apnea (adult)(pediatric)]ChronicResidual codes; unclassified (1 source)Acquired absence of other specified parts of digestive tract; Translations: [ACQ ABSENCE OTH PART DIGESTV TRACT]Onset: 13-70-3160Nyhzkcqt Residual codes; unclassified (1 source)Other specified postprocedural states; Translations: [Other specified postprocedural states]Onset: 79-46-5053JtnvegklFwnvhngc codes; unclassified (5 sources)Family history of coronary arteriosclerosis; Translations: [Family history of ischemic heart disease and other diseases of the circulatory system] 10-26-9453GiqqotzdHhnxwoajy-related disorders (8 sources)Tobacco user; Translations: [Nicotine dependence, cigarettes, in remission]ChronicUnclassified (1 source)CONTACT W/AND (SUSP) EXPOS COVID-19; Translations: [CONTACT W/AND (SUSP) EXPOS COVID-19]Onset: 34-66-3657Qopeitbeacrv (1 source)POST-OP VISITOnset: 05-14-2023 Past or Other Problems Problem ClassificationProblemDateDocumented DateEpisodic/ChronicMalaise and fatigue (1 source)Malaise and fatigue; Translations: [Other malaise and fatigue]Onset: 17-47-4688JgusmpfjSoihc eye disorders (4 sources)Dermatochalasis of unspecified eye, unspecified eyelid; Translations: [DERMATOCHALASIS UNS EYE UNS EYELID]Onset: 00-96-1872JuadhdruZmrvb eye disorders (1 source)Unspecified ptosis of unspecified eyelid; Translations: [UNSPEC PTOSIS OF UNS EYELID]Onset: 09-02-4324ElirectyGrvye injuries and conditions due to external causes (1 source)Foreign body in left ear; Translations: [Foreign body in left ear, initial encounter]Onset: 34-89-6396PdynrqotTbuxn upper respiratory disease (1 source)Difficulty speaking; Translations: [Other voice and resonance disorders]Onset: 59-93-3286QmblsxotVozmlyio codes; unclassified (2 sources)History of hernia repair; Translations: [Other specified postprocedural states]33-74-2193XwktcbdgZdukyljwr and history of mental health and substance abuse codes (2 sources)Personal history of nicotine dependence; Translations: [History of tobacco use]Onset: 62-29-6846Lfrpdszi Results Test NameValueInterpretationReference RangeFacilityOrders Onlyon 02-25-2025 Orders [id number] Maddy Su 1950 M Date Provider Department [place] 02/25/2025 40127-WANTXBROXANA MASTERSON HVCTS [facility] Family History Problem Relation Age of Onset Heart attack Mother Family Status - Relation Status Age at Mother Father DeceasedNormalU[address] Addended by: ROXANA MASTERSON on: 02/25/2025 10:01 AM Modules accepted: OrdersNormalUniElyria Memorial HospitalConpse&g [facility] [id number] Maddy Su Efra 1950 M Date Provider Department [place] 02/23/2025 34780-DEJEANLNNLJENNIFER GALVEZ JHVCTS [facility] Family History Problem Relation Age of Onset Heart attack Mother Family Status - Relation Status Age at Mother Father Level of Service:31861 [place] OFFICE/OP CONSLTJ NEW/EST PT HIGH MDM 55 MINUTES Reason for Visit and Comments: New Patient [632] - Bicuspid Aortic Valve, Severe Aortic Valve RegurgitationNoCleveland Clinic Foundation 17-27-8193LUXP Attestation signed by Lopez Torres MD at 02/18/2025 9:59 AM By using the attestations below, the signing clinician agrees that I have read and verify that the documentation has been personally reviewed by me and ensure that the documentation accurately reflects the encounter. GC: I personally saw this patient on the day of the encounter, performed the miranda portion(s) of the service and participated in the management and confirm the resident's documentation. Please note there may be an additional personal documentation from me. Patient: Maddy Su Choose an anesthesia record [...] discussed with attending and fellow. Additional Equipment RequestsNormalUniversMercy Health St. Vincent Medical Center 71-57-6089FWY&P reviewed. The patient was examined and there are no changes to the H&P.[facility] HospitalNACOMA-CANONCIT[facility] SERVICE UNITNOTMount [facility] 75-56-0853EXEDJEAZPQ educated pt on d/c instructions. This included: [...] wheeled off of unit with all of belongings.[address] 39-63-454380Mtca chlorthalidone on days you get CT scan and heart cathNormalUniversMercy Health St. 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 Patient recently has a stress test and Echo which were abnormal. Patient has complaints of SOB, HOLMAN, chest tightness, dizziness/lightheadedness with position changes. Leg pain with walking Cardiac Stress Test [489] Hypertension [145065] Hyperlipidemia [182] Sleep Apnea [348] - Non complaint with CPAP due to it being uncomfortable GERD [780149] Barretts esophagus [Other] Valve Disorder [3372] - Aortic valve sclerosisNormalUniversity Select Medical [facility] Rehabilitation Hospital - DublinBasophils Auto (Bld) [#/Vol]Ordered By: Juan Torres on 01-06-2025 Basophils (Bld) [#/Vol]0.0 10 3/uL0.0-0.1FSelect Medical Specialty Hospital - Columbus Basophils/100 WBC Auto (Bld)Ordered By: Juan Torres on 47-07-3724Ctwjvqgbv/100 WBC (Bld)0.3 %0.2-2.0C[facility] HospitalEosinophils/100 WBC Auto (Bld)Ordered By: Juan Torres on 52-62-2332Qnbywtnalnt/100 WBC (Bld)2.1 % 0.9-7.0C[facility]rington HospitalErythrocyte distribution width Auto (RBC) [Ratio]Ordered By: Juan Torres on 13-69-5347Nkmgkpcvlye distribution width (RBC) [Ratio]12.3 %11.0-15.0Cherrington HospitalFPG ECG *PCP OFFICE ONLY*on 25-78-7408VAG ECG *PCP OFFICE ONLY*[facility] [place] [address] Electrocardiograph Report Signed Patient: Maddy Su MR#: [id number] : 1950 Acct:[id number] Age/Sex: 74 / M ADM Date: 01/06/25 [facility]: Type[facility] Attending Dr: Juan Torres DO Ordering Provider: [...] previous ECGs available Confirmed by Franklin Kerr ([id number]) on 01/07/2025 3:04:16 PM Referred By: Electronically Signed By: Franklin Kerr Transcribed By: MUS Signed By Franklin Kerr MD 01/07/25 1504[facility] Physician GroupFibrin D-dimer [Presence] in Platelet poor plasma by Latex agglutinationOrdered By: Juan Torres on 73-66-7214Swxacq D-dimer LA Ql (PPP)0.50 mg/L FEU<=0.59Cherrington HospitalComment on above:Increases in D-Dimer concentration observed withthromboembolic events can be variable due to localization,size, and age of the thrombus. Therefore, a thromboembolicevent cannot be diagnosed with certa inty on the basis of thereference range. D-Dimers may also be elevated for a varietyof disorders including advanced age, , coronarydisease, cancer, liver disease, infection, inflammation,hematoma, DIC, trauma, post-surgery, diabetes, thrombolyticor anticoagulant therapy, stress, and general izedhospitalization.Globulin Calc (S) [Mass/Vol]Ordered By: Juan Torres on 03-07-2455Qedcdccg (S) [Mass/Vol]3.5 g/dLCherrington Hospital Glomerular filtration rate (GFR) estimation in non- AmericanOrdered By: Juan Torres on 26-75-1609YYI/1.73 sq M.predicted among non-blacks MDRD (S/P/Bld) [Vol rate/Area]56 mL/min/{1.73_m2}Low>=60 mL/min/1.73m 2FSelect Medical Specialty Hospital - ColumbusHematocrit Auto (Bld) [Volume fraction]Ordered By: Juan Torres on 15-76-1557Lsudazsuzu (Bld) [Volume fraction]46.9 %42.0-54.0 [facility] HospitalHemoglobin [Mass/volume] in BloodOrdered By: Juan Torres on 97-04-4110Jnefhmseir (Bld) [Mass/Vol]16.8 g/dL14.0-18.0 [facility] HospitalLaboratory - Chemistry and Chemistry - challengeOrdered By: Juan Torres on 06-33-3892Airfqnz [Mass/Vol]4.0 g/dL 3.4-5.0C[facility] HospitalALP [Catalytic activity/Vol]63 U/L46-116 [facility] HospitalALT [Catalytic activity/Vol]31 U/L16-63 [facility] HospitalAST [Catalytic activity/Vol]18 U/L15-37 [facility] HospitalBilirubin [Mass/Vol]0.6 mg/dL0.2-1.0[facility] HospitalCalcium [Mass/Vol]9.1 mg/dL8.5-10.1FSelect Medical Specialty Hospital - ColumbusChloride [Moles/Vol]108 mmol/PGgvo89-181PxrlrmpviCherrington HospitalCO2 [Moles/Vol]23.7 mmol/L21.0-32.0[facility] Creatinine [Mass/Vol]1.26 mg/dL0.70-1.30[facility] GFR/1.73 sq M.predicted MDRD (S/P/Bld) [Vol rate/Area]mL/min/{1.73_m2}>=60 mL/min/1.73m 2FSelect Medical Specialty Hospital - ColumbusGlucose [Mass/Vol]97 mg/oN73-357 [facility] HospitalNatriuretic peptide B (Bld) [Mass/Vol]443.0 pg/mL<=900.0C[facility] HospitalPotassium [Moles/Vol]4.2 mmol/L 3.5-5.1FSelect Medical Specialty Hospital - ColumbusProtein [Mass/Vol]7.5 g/dL6.4-8.2 [facility] Hospitalodium [Moles/Vol]141 mmol/Q014-376JwrtrqognCherrington HospitalTSH Qn3.428 m[IU]/L0.358-3.740C[facility]rington HospitalUrea nitrogen [Mass/Vol]19.0 mg/dLHigh7.0-18.0C[facility]rington HospitalUrea nitrogen/Creatinine [Mass ratio]15.1 mg/mgCherrington HospitalLaboratory - Hematology and Cell countsOrdered By: Juan Torres on 97-72-0614Npodoblg granulocytes/100 WBC (Bld)0.3 %0.0-0.5FSelect Medical Specialty Hospital - ColumbusLeukocytes [#/volume] corrected for nucleated erythrocytes in Blood by Automated counOrdered By: Juan Torres on 57-80-2401ATR corrected for nucl RBC Auto (Bld) [#/Vol]7.2 10 3/uL4.0-11.0[facility] Lymphocytes Auto (Bld) [#/Vol]Ordered By: Juan Torres on 92-38-2477Xianmxmyquh (Bld) [#/Vol]2.2 10 3/uL1.2-3.8C[facility]rington HospitalLymphocytes/100 WBC Auto (Bld)Ordered By: Juan Torres on 51-00-3370Yazcvhorknt/100 WBC (Bld) 31.0 %20.5-60.0[facility] Auto (RBC) [Entitic mass] Ordered By: Juan Torres on 00-61-7545BND (RBC) [Entitic mass]31.7 pg25.9-34.0 [facility] HospitalMCHC Auto (RBC) [Mass/Vol]Ordered By: Juan Torres on 07-72-3929QUML (RBC) [Mass/Vol]35.8 g/rPLzph88.9-35.2FSelect Medical Specialty Hospital - ColumbusMCV Auto (RBC) [Entitic vol]Ordered By: Juan Torres on 47-13-0789AQW (RBC) [Entitic vol]88.5 fL80.0-94.0C[facility] HospitalMonocytes Auto (Bld) [#/Vol]Ordered By: Juan Torres on 01-06-2025 Monocytes (Bld) [#/Vol]0.8 10 3/uL0.3-0.8[facility] Monocytes/100 WBC Auto (Bld)Ordered By: Juan Torres on 30-18-8823Ojhblkmxo/100 WBC (Bld)10.9 %1.7-12.0C[facility]rington HospitalNeutrophils Auto (Bld) [#/Vol]Ordered By: Juan Torres on 36-01-6057Jppezjyzpwu (Bld) [#/Vol]4.0 10 3/uL1.4-6.5FSelect Medical Specialty Hospital - ColumbusNeutrophils/100 WBC Auto (Bld) Ordered By: Juan Torres on 42-88-7679Igkzybfykew/100 WBC (Bld)55.4 %43.0-75.0 [facility] HospitalNo Panel InformationOrdered By: Juan Torres on 01-13-4576Isnhrvgsjve # (Auto)0.2 10 3/uL0.0-0.7FSelect Medical Specialty Hospital - ColumbusImmature Granulocyte # (Auto)0.02 10 3/uL0.00-0.03C[facility] HospitalPlatelet mean volume Auto (Bld) [Entitic vol]Ordered By: Juan Brian on 88-69-9303Wppfxrij mean volume (Bld) [Entitic vol]9.3 fLLow9.5-13.5 [facility] HospitalPlatelets Auto (Bld) [#/Vol]Ordered By: Juan Brian on 46-34-3395Zsyyyuzlt (Bld) [#/Vol]202 10 3/pF545-890NuxlwqmudCherrington HospitalRBC Auto (Bld) [#/Vol]Ordered By: Juan Torres on 76-19-9258YAP (Bld) [#/Vol]5.30 10 6/uL4.70-6.10[facility] Hospitalerum or plasma albumin/globulin mass ratioOrdered By: Juan Torres on 19-22-8904Wngdxls/Globulin [Mass ratio]1.1 {ratio}[facility] Hospitalerum or plasma anion gap determinationOrdered By: Juan Torres on 63-33-4853Myjxi gap [Moles/Vol]13.5 mmol/LFSelect Medical Specialty Hospital - ColumbusH PYLORI TISSUEon 06-27-2022H PYL TISSUE, UREASENegativeNormalNEGATIVEThe Pike Community HospitalComment on above:Performed By: #### HPYLT #### [facility] [address] [address] [address] Cash Luna-19 PCR ([facility])on 14-74-2830GEFF-CoV-2 (COVID-19) RNA MICAH+probe Ql (Unsp spec)Not detectedNormalNOT DETECTEDThe [facility] Comment on above:Result Comment: This test is not yet approved or cleared by the [place] FDA. When there are no FDA-approved or cleared tests available, and other criteria are met, FDA can make tests available under an emergency access mechanism called an Emergency Use Authorization (EUA). The EUA for this test is supported by the Java Support Engineer of Health and Human Service's (HHS's) declaration that circumstances exist to justify the emergency use of in vitro diagnostics for the detection and/or diagnosis of the virus that causes COVID- 19. This EUA will remain in effect (meaning [...] of clinical signs and symptoms consistent with SARS-CoV-2.Performed By: #### CVDTBH #### [facility] [address] [place] [address] Dr. Cash Hester AUTO DIFFon 50-29-8962MQBQ #0.0 103/ulNormal0.0-0.1The [facility] Community HospitalComment on above:Performed By: #### CBC #### [facility] [address] [place] [address] Dr. Cash ZapataBasophils/100 WBC (Bld)0.3 %Normal0.2-2.0[facility] Comment on above:Performed By: #### CBC #### [facility] [address] [place] [address] Dr. Cash Navarrete #0.1 103/ulNormal0.0-0.7The [facility] Community HospitalComment on above: Performed By: #### CBC #### [facility] [address] [place] [address] Dr. Cash Tayosinophils/100 WBC (Bld)1.1 %Normal0.9-7.0[facility] Comment on above:Performed By: #### CBC #### [facility] [address] [place] [address] Dr. Cash Tayrythrocyte distribution width (RBC) [Ratio]12.8 %Rnqarh66.0-15.0 [facility] HospitalComment on above:Performed By: #### CBC #### [facility] [address] [place] [address] Dr. Cash ZapataHematocrit (Bld) [Volume fraction]46.3 %Yvpjuy78.0-54.0[facility] HospitalComment on above:Performed By: #### CBC #### [facility] [address] [place] [address] Dr. Cash ZapataHemoglobin (Bld) [Mass/Vol]16.0 g/jFVxxivg60.0-18.0The [facility] HospitalComment on above:Performed By: #### CBC #### [facility] [address] [place] [address] Dr. Cash Dhillon #0.04 10e3/ulCritically high0.00-0.03The [facility] Comment on above:Performed By: #### CBC #### [facility] [address] [place] [address] Dr. Cash Dhillon %0.6 %Critically high0.0-0.5The [facility] HospitalComment on above:Performed By: #### CBC #### [facility] [address] [place] [address] Dr. Cash Woodson #1.9 103/ulNormal1.2-3.8The [facility] HospitalComment on above:Performed By: #### CBC #### [facility] [address] [place] [address] Dr. Cash Soareshocytes/100 WBC (Bld)25.9 %Yldtuv55.5-60.0The [facility] HospitalComment on above:Performed By: #### CBC #### [facility] [address] [place] [address] Dr. Cash Hudson DIFF REQNONormalThe [facility] HospitalComment on above: Performed By: #### CBC #### [facility] [address] [place] [address] Dr. Cash Storey (RBC) [Entitic mass]30.7 sqNgsxxo11.9-34.0The [facility] HospitalComment on above:Performed By: #### CBC #### [facility] [address] [place] [address] Dr. Cash Galeana (RBC) [Mass/Vol]34.6 g/mLQrjpaf60.9-35.2The [facility] HospitalComment on above:Performed By: #### CBC #### [facility] [address] [place] [address] Dr. Yilan ChangMCV (RBC) [Entitic vol]88.9 nXHyxqvi56.0-94.0The [facility] HospitalComment on above:Performed By: #### CBC #### [facility] [address] [place] [address] Dr. Cash Valdivia #0.6 103/ulNormal0.3-0.8The [facility] HospitalComment on above:Performed By: #### CBC #### [facility] [address] [place] [address] Dr. Cash Casperocytes/100 WBC (Bld)8.5 %Normal1.7-12.0The [facility] Comment on above:Performed By: #### CBC #### [facility] [address] [place] [address] Dr. Cash Borges #4.6 103/ulNormal1.4-6.5The [facility] HospitalComment on above:Performed By: #### CBC #### [facility] [address] [place] [address] Dr. Cash Dueñasutrophils/100 WBC (Bld)63.6 %Vevtrt20.0-75.0The [facility] HospitalComment on above:Performed By: #### CBC #### [facility] [address] [place] [address] Dr. Cash Ramírez mean volume (Bld) [Entitic vol]9.0 fLCritically low 9.5-13.5The [facility] HospitalComment on above:Performed By: #### CBC #### [facility] [address] [place] [address] Dr. Cash AquinoT209 103/lbBcrgsh700-533Fiy [facility] HospitalComment on above: Performed By: #### CBC #### [facility] [address] [place] [address] Dr. Cash TariqC5.21 106/ulNormal4.70-6.10The [facility] HospitalComment on above:Performed By: #### CBC #### [facility] [address] [place] [address] Dr. Cash ZapataWBC7.3 103/ulNormal4.0-11.0The [facility] HospitalComment on above: Performed By: #### CBC #### [facility] [address] [address] [address] Cash ZapataCULTURE URINEon [id number] URINECulture Observations: NO GROWTH.NormalBlanchard [facility] Health System [facility] HospitalComment on above:Performed By: #### URCX #### [facility] [address] [address] [address] Cash ZapataLIPID PROFILEon [id number]-HDL RATIO NORMSEE [facility] HospitalComment on above:Result Comment: 3.3 - 4.4 LOW RISK 4.4 - 7.1 AVERAGE RISK 7.1 - 11.0 MODERATE RISK >11.0 HIGH RISKPerformed By: #### CMP, LIPID #### [facility] [address] [place] [address] Dr. Cash ZapataCholesterol [Mass/Vol]187 mg/dLNormal<=200[facility] Comment on above:Performed By: #### CMP, LIPID #### [facility] [address] [place] [address] Dr. Cash Phanesterol in HDL [Mass/Vol]44 mg/hOMepamb08-90WhfBlanchard Valley Health System [facility] HospitalCommymichigan medical center on above:Performed By: #### CMP, LIPID #### [facility] [address] [place] [address] Dr. Cash ZapataCholesterol in LDL [Mass/Vol]124.6 mg/dLUC [facility] HospitalComment on above:Performed By: #### CMP, LIPID #### [facility] [address] [place] [address] Dr. Cash Burgos.total/Cholesterol in HDL [Mass ratio]4.3 {ratio} NormalBlanchard Valley Health System [facility] Valley HospitalComment on above:Performed By: #### CMP, LIPID #### [facility] [address] [place] [address] Dr. Cash ZapataHDL NORMAL> or = 60 mg/dl - LOW CARDIOVASCULAR RISK <40 mg/dl - HIGH CARDIOVASCULAR RISKUC [facility] HospitalComment on above:Performed By: #### CMP, LIPID #### [facility] [address] [address] [address] Cash Oshea CALC NORMALSEE BELOWUC West Chester HospitalComment on above:Result Comment: <100 mg/dl OPTIMAL 100 - 129 mg/dl NEAR OR ABOVE OPTIMAL 130 - 159 mg/dl BORDERLINE HIGH 160 - 189 mg/dl HIGH >190 mg/dl VERY HIGH Performed By: #### CMP, LIPID #### [facility] [address] [address] [address] Cash ZapataTriglyceride [Mass/Vol]92 mg/dLNormal<=150The [facility] Comment on above:Performed By: #### CMP, LIPID #### [facility] [address] [place] [address] Dr. Cash OhcoaLDL CALC18.4 mg/dLNoCincinnati Children's Hospital Medical CenterComment on above: Performed By: #### CMP, LIPID #### [facility] [address] [place] [address] Dr. Cash ZapataPROF 14(COMP METB)on [id number] [Mass/Vol]4.0 g/dLNormal 3.4-5.0[facility] on above:Performed By: #### CMP, LIPID #### [facility] [address] [place] [address] Dr. Cash ZapataAlbumin/Globulin [Mass ratio]1.2 {ratio}NormalThe [facility] HospitalComment on above:Performed By: #### CMP, LIPID #### [facility] [address] [place] [address] Dr. Cash Nielsen [Catalytic activity/Vol]47 U/MEzflen74-837Wmy [facility] on above:Performed By: #### CMP, LIPID #### [facility] [address] [place] [address] Dr. Cash Back [Catalytic activity/Vol]52 U/SPxnmmf42-38Ceu [facility] HospitalComment on above:Performed By: #### CMP, LIPID #### [facility] [address] [address] [address] Cash Luon gap [Moles/Vol]9.8 mmol/LNormalThe [facility] HospitalComment on above:Performed By: #### CMP, LIPID #### [facility] [address] [address] [address] Cash ZapataAST [Catalytic activity/Vol]21 U/MIkonkk49-73Hfp [facility] HospitalComment on above:Performed By: #### CMP, LIPID #### [facility] [address] [address] [address] Cash ZapataBilirubin [Mass/Vol]0.5 mg/dLNormal0.2-1.0The [facility] Comment on above:Performed By: #### CMP, LIPID #### [facility] [address] [address] [address] Cash ZapataCalcium [Mass/Vol]9.5 mg/dLNormal8.5-10.1The [facility] Comment on above:Performed By: #### CMP, LIPID #### [facility] [address] [address] [address] Cash ZapataChloride [Moles/Vol]104 mmol/FUnpgpd02-653Mbm [facility] Comment on above:Performed By: #### CMP, LIPID #### [facility] [address] [address] [address] Cash ZapataCO2 [Moles/Vol]31.3 mmol/SSfxjcs19.0-32.0The [facility] Comment on above:Performed By: #### CMP, LIPID #### [facility] [address] [address] [address] Cash ZapataCreatinine [Mass/Vol]1.26 mg/dLNormal0.70-1.30The [facility] HospitalComment on above:Performed By: #### CMP, LIPID #### [facility] [address] [address] [address] Cash TayGFR-AF COLOMBIAN>60Normal>=60The [facility] HospitalComment on above:Performed By: #### CMP, LIPID #### [facility] [address] [address] [address] Cash TayGFR-NON AF UBHFMHCF95 mL/min/1.29z4Yppgqlpjxw low>=60The [facility] HospitalComment on above:Performed By: #### CMP, LIPID #### [facility] [address] [address] [address] Cash ZapataGlobulin (S) [Mass/Vol]3.3 g/dLNormalThe [facility] HospitalComment on above:Performed By: #### CMP, LIPID #### [facility] [address] [address] [address] Cash ZapataGlucose [Mass/Vol]109 mg/dLCritically roou47-604Cwm [facility] HospitalComment on above:Performed By: #### CMP, LIPID #### [facility] [address] [address] [address] Cash ZapataPotassium [Moles/Vol]5.1 mmol/LNormal3.5-5.1The [facility] Comment on above:Performed By: #### CMP, LIPID #### [facility] [address] [address] [address] Cash ZapataProtein [Mass/Vol]7.3 g/dLNormal6.4-8.2[facility] Comment on above:Performed By: #### CMP, LIPID #### [facility] [address] [address] [address] Cash Shepparddium [Moles/Vol]140 mmol/EKurlro183-897Otg [facility] Comment on above:Performed By: #### CMP, LIPID #### [facility] [address] [address] [address] Cash ZapataUrea nitrogen [Mass/Vol]23.0 mg/dLCritically high7.0-18.0The [facility] HospitalComment on above:Performed By: #### CMP, LIPID #### [facility] [address] [address] [address] Cash ZapataUrea nitrogen/Creatinine [Mass ratio]18.3 mg/mgNormalThKettering Health HamiltonComment on above:Performed By: #### CMP, LIPID #### [facility] [address] [address] [address] Cash Siddiqui RANDOM W/MICROSCOPICon [id number] SEENNormalNONE SEENBlanchard Valley Health System [facility] HospitalComment on above:Performed By: #### UAMIC #### [facility] [address] [address] [address] Cash Mcdonnellirubin Ql (U)NegativeNormalNEGATIVEAvita Health System Gal[facility] Hospital on above:Performed By: #### UAMIC #### [facility] [address] [address] [address] Cash GarciaNONEduarda SEENNormalNONE SEENBlanchard Valley Health System [facility] HospitalComment on above:Performed By: #### UAMIC #### [facility] [address] [address] [address] Cash Solis (U)CLEARNormalCLEARBlanchard Valley Health System [facility] HospitalComment on above: Performed By: #### UAMIC #### [facility] [address] [address] [address] Cash Figueroa (U)LT. YELLOWNormalYSelect Medical Specialty Hospital - Cincinnati NorthComment on above:Performed By: #### UAMIC #### [facility] [address] [address] [address] Cash ZapataCrystals LM Nom (Urine sed)NONE SEENNormalNONE SEENBlanchard Valley Health System [facility] HospitalComment on above:Performed By: #### UAMIC #### [facility] [address] [address] [address] Castrejon ChangEpithelial cells LM Ql (Urine sed)RARENormalNONE SEEN /RAREBlanchard Valley Health System [facility] HospitalComment on above:Performed By: #### UAMIC #### [facility] [address] [address] [address] Cash Mejíaose Ql (U)NegativeNormalNEGATIVEBlanchard Valley Health System [facility] HospitalComment on above:Performed By: #### UAMIC #### [facility] [address] [address] [address] Cash ZapataHemoglobin Ql (U)NegativeNormalNEGATIVEBlanchard Valley Health System [facility] Comment on above:Performed By: #### UAMIC #### [facility] [address] [place] [address] Dr. Cash ZapataKetones Ql (U)NegativeNormalNEGATIVEBlanchard Valley Health System [facility] HospitalComment on above:Performed By: #### UAMIC #### [facility] [address] [address] [address] Cash ZapataLEUKOCYTESNegativeNormalNEGATIVEThe [facility] HospitalComment on above:Performed By: #### UAMIC #### [facility] [address] [place] [address] Dr. Cash ZapataMUCOUSNONE SEENNormalNONE SEENBlanchard Valley Health System [facility] HospitalComment on above:Performed By: #### UAMIC #### [facility] [address] [place] [address] Dr. Cash ZapataNitrite Ql (U)NegativeNormalNEGATIVEBlanchard Valley Health System [facility] HospitalComment on above:Performed By: #### UAMIC #### [facility] [address] [place] [address] Dr. Cash ZapatapH (U)6.0 [pH]Normal5-9[facility] HospitalComment on above: Performed By: #### UAMIC #### [facility] [address] [place] [address] Dr. Cash ZapataRBCNONE SEENAbnormal0-2The [facility] HospitalComment on above: Performed By: #### UAMIC #### [facility] [address] [place] [address] Dr. Cash ZapataSPEC GRAVITY1.774Ivsswa6.005-<=1.025The [facility] HospitalComment on above:Performed By: #### UAMIC #### [facility] [address] [place] [address] Dr. Cash ZapataUA PROTEINNegativeNormalNEGATIVE/ TRACEThe [facility] Comment on above:Performed By: #### UAMIC #### [facility] [address] [place] [address] Dr. Cash Ross Qn (U)1.0 {Atilio'U}/dLNormal0.2 - 1.0[facility] HospitalComment on above:Performed By: #### UAMIC #### [facility] [address] [place] [address] Dr. Cash ZapataWBC0-2AbnormalNONE SEENThe [facility] HospitalComment on above: Performed By: #### UAMIC #### [facility] [address] [place] [address] Dr. Cash Hester AUTO DIFFon [id number] #0.0 103/ulNormal0.0-0.1The [facility] HospitalComment on above:Performed By: #### CBC #### [facility] [address] [place] [address] Dr. Cash ZapataBasophils/100 WBC (Bld)0.3 %Normal0.2-2.0[facility] Comment on above:Performed By: #### CBC #### [facility] [address] [place] [address] Dr. Cash Navarrete #0.1 103/ulNormal0.0-0.7The [facility] HospitalComment on above: Performed By: #### CBC #### [facility] [address] [place] [address] Dr. Cash Tayosinophils/100 WBC (Bld)1.4 %Normal0.9-7.0[facility] Comment on above:Performed By: #### CBC #### [facility] [address] [place] [address] Dr. Cash Tayrythrocyte distribution width (RBC) [Ratio]12.4 %Pzrutv72.0-15.0 [facility] HospitalComment on above:Performed By: #### CBC #### [facility] [address] [place] [address] Dr. Cash ZapataHematocrit (Bld) [Volume fraction]46.5 %Xufbsi72.0-54.0The [facility] HospitalComment on above:Performed By: #### CBC #### [facility] [address] [place] [address] Dr. Cash ZapataHemoglobin (Bld) [Mass/Vol]16.4 g/pWSzvvis03.0-18.0The [facility] HospitalComment on above:Performed By: #### CBC #### [facility] [address] [place] [address] Dr. Cash Dhillon #0.02 10e3/ulNormal0.00-0.03The [facility] HospitalComment on above:Performed By: #### CBC #### [facility] [address] [place] [address] Dr. Cash Dhillon %0.3 %Normal0.0-0.5The [facility] HospitalComment on above: Performed By: #### CBC #### [facility] [address] [place] [address] Dr. Cash Woodson #2.5 103/ulNormal1.2-3.8The [facility] HospitalComment on above:Performed By: #### CBC #### [facility] [address] [place] [address] Dr. Cash Soareshocytes/100 WBC (Bld)39.4 %Ukwvmq65.5-60.0The [facility] HospitalComment on above:Performed By: #### CBC #### [facility] [address] [place] [address] Dr. Cash RosasUAL DIFF REQNONormalThe [facility] HospitalComment on above: Performed By: #### CBC #### [facility] [address] [place] [address] Dr. Cash Storey (RBC) [Entitic mass]31.2 ypKdyrsb12.9-34.0The [facility] HospitalComment on above:Performed By: #### CBC #### [facility] [address] [place] [address] Dr. Cash Galeana (RBC) [Mass/Vol]35.3 g/dLCritically high29.9-35.2The [facility] HospitalComment on above:Performed By: #### CBC #### [facility] [address] [place] [address] Dr. Cash Raza (RBC) [Entitic vol]88.6 hHTnedqe66.0-94.0The [facility] HospitalComment on above:Performed By: #### CBC #### [facility] [address] [place] [address] Dr. Cash Valdivia #0.7 103/ulNormal0.3-0.8The [facility] HospitalComment on above:Performed By: #### CBC #### [facility] [address] [place] [address] Dr. Cash Casperocytes/100 WBC (Bld)10.4 %Normal1.7-12.0The [facility] Comment on above:Performed By: #### CBC #### [facility] [address] [place] [address] Dr. Cash Borges #3.1 103/ulNormal1.4-6.5The [facility] HospitalComment on above:Performed By: #### CBC #### [facility] [address] [place] [address] Dr. Cash Dueñasutrophils/100 WBC (Bld)48.2 %Fzlejb09.0-75.0The [facility] HospitalComment on above:Performed By: #### CBC #### [facility] [address] [place] [address] Dr. Cash Ramírez mean volume (Bld) [Entitic vol]9.4 fLCritically low 9.5-13.5The [facility] HospitalComment on above:Performed By: #### CBC #### [facility] [address] [place] [address] Dr. Cash AquinoT210 103/uoKiqhdr048-491Wcv [facility] HospitalComment on above: Performed By: #### CBC #### [facility] [address] [place] [address] Dr. Cash ZapataRBC5.25 106/ulNormal4.70-6.10The [facility] HospitalComment on above:Performed By: #### CBC #### [facility] [address] [place], [place] [address] Dr. Cash ZapataWBC6.4 103/ulNormal4.0-11.0The [facility] HospitalComment on above: Performed By: #### CBC #### [facility] [address] [place], [place] [address] Dr. Cash Zapata Vital Signs Date TimeVital SignValuePerforming [id number] 14:19-0400Body ywplgp318.34 cmBenjamin Ball DO Work Phone: [phone]09-15-2025 14:19-0400 Body mass index (BMI) [Ratio]36.2 kg/f4Qoorqmih Ball DO Work Phone: [phone])[address] [place], [place] 5452409-15-2025 14:19-0400 Body tejdpy224.93 kgBenjamin Ball DO Work Phone: [phone])[address] [place], [place] 5452409-15-2025 14:19-0400 Diastolic blood lomijxah46 mm[Hg]Juan Ball DO Work Phone: [phone]09-15-2025 14:19-0400 Heart dkzn090 /minBenjamin Ball DO Work Phone: 1419)[facility] [place], [place] 1295509-15-2025 14:19-0400 Respiratory rate12 /minBenjamin Ball DO Work Phone: [phone]09-15-2025 14:19-0400 Systolic blood gkqbqrpy643 mm[Hg]Juan Ball DO Work Phone: [phone])[address] [place], [place] 5452408-27-2025 14:18-0400 Body lkkilh649.34 cmBenjamin Ball DO Work Phone: [phone] [place], [place] 1295508-27-2025 14:18-0400 Body mass index (BMI) [Ratio]35.7 kg/b5Zeoktkkb Ball DO Work Phone: [facility]08-27-2025 14:18-0400 Body .28 kgBenjamin Ball DO Work Phone: [facility]08-27-2025 14:18-0400 Diastolic blood zqhzzpae74 mm[Hg]Juan Ball DO Work Phone: [facility]08-27-2025 14:18-0400 Heart rate69 /minBenjamin Ball DO Work Phone: [facility]08-27-2025 14:18-0400 Respiratory rate12 /minBenjamin Ball DO Work Phone: [facility]08-27-2025 14:18-0400 Systolic blood rijfhiss527 mm[Hg]Juan Ball DO Work Phone: [facility]01-09-2025 10:36-0500 Body jwyuds005.34 cmCherrington Hospital01-09-2025 10:36-0500Body mass index (BMI) [Ratio]34.2 kg/u5PcbfkhcalC[facility]rington Hospital01-09-2025 10:36-0500Body .35 kgCherrington Hospital01-09-2025 10:36-0500Diastolic blood mqivzttf83 mm[Hg][facility] 05-21-2024 10:36-0500Heart rate65 /[facility] 05-21-2024 10:36-0500Respiratory rate12 /[facility] 05-21-2024 10:36-0500Systolic blood zskdocev569 mm[Hg][facility]01-29-2024 14:18-0500Body pyvwpn124.3 cmElizabeth Cardoso APRN-[employer] OPERATOR Work Phone: [facility]01-29-2024 14:18-0500Body mass index (BMI) [Ratio]35.98 kg/w2ImedguyElizabeth Cardoso APRN-[employer] OPERATOR Work Phone: [facility] CenterJoySports [facility] HospitalXcgkqt78-03-0038 14:18-0500Body .03 kgElizabeth Cardoso DETECTIVE [employer] [employer] OPERATOR Work Phone: [facility]iCopyright01-29-2024 14:18-0500Diastolic blood sdjcbnfi77 mm[Hg]Elizabeth Cardoso DETECTIVE [employer] OPERATOR Work Phone: [facility] CenterHealthyChic01-29-2024 14:18-0500Heart rate 76 /minElizabeth Cardoso DETECTIVE [employer] OPERATOR Work Phone: [facility] CenterHealthyChic01-29-2024 14:18-0500Systolic blood ihjwmlpy773 mm[Hg]Elizabeth Cardoso DETECTIVE [employer] [employer] OPERATOR Work Phone: [facility] CenterHealthyChic01-02-2024 13:47-0500Body upozfq992.3 cmElizabeth Cardoso DETECTIVE [employer] OPERATOR Work Phone: [facility] CenteriCopyright01-02-2024 13:47-0500Body mass index (BMI) [Ratio]35.93 kg/h2YsdbnmjElizabeth Cardoso DETECTIVE [employer] [employer] OPERATOR Work Phone: [facility]iCopyright01-02-2024 13:47-0500Body pesilh098.85 kgElizabeth Cardoso DETECTIVE [employer] [employer] OPERATOR Work Phone: [facility] CenterHealthyChic01-02-2024 13:47-0500Diastolic blood cksviqpv54 mm[Hg]Elizabeth Cardoso DETECTIVE [employer] OPERATOR Work Phone: [facility] CenterHealthyChic01-02-2024 13:47-0500Systolic blood eixytiys742 mm[Hg]Elizabeth Cardoso DETECTIVE [employer] [employer] OPERATOR Work Phone: [facility] CenteriCopyright12-15-2023 10:30-0500Body .88 cmBenken Ball Other [employer] Other [id number] 10:30-0500Body mass index (BMI) [Ratio] 34.28 kg/l3Yrineaso Ball Other [employer] Other 12-15-2023 10:30-0500Body uiksqu331.67 kgBenjamin Ball Other [employer] Other 12-15-2023 10:30-0500Diastolic blood rrtovodm54 mm[Hg] Juan Ball Other [employer] Other 12-15-2023 10:30-0500Respiratory rate12 /minBenjamin Ball Other [employer] Other 12-15-2023 10:30-0500Systolic blood umypcgum371 mm[Hg] Juan Ball Other [employer] Other 11-15-2023 11:30-0500Body dhodnj203.88 cmBenjamin Ball Other [employer] Other 11-15-2023 11:30-0500Body mass index (BMI) [Ratio] 35.01 kg/l7Ctgtwqgw Ball Other [employer] Other 11-15-2023 11:30-0500Body fhiybz028.12 kgBenjamin Ball Other [employer] Other 11-15-2023 11:30-0500Diastolic blood rxwhsxyi74 mm[Hg] Juan Ball Other [employer] Other 11-15-2023 11:30-0500Respiratory rate12 /minBenjamin Ball Other [employer] Other 11-15-2023 11:30-0500Systolic blood mm[Hg] Juan Ball Other 396.972.4684[employer] Other 07-10-2023 13:30-0400Body jjtopc127.88 cmBenjamin Ball Other [employer] Other 07-10-2023 13:30-0400Body mass index (BMI) [Ratio] 34.17 kg/x2Wpvjycop Ball Other [facility] Other 07-10-2023 13:30-0400Body owojbg591.31 kgBenjamin Ball Other noAcronis Other 07-10-2023 13:30-0400Diastolic blood mm[Hg] Juan Ball Other [facility] Other 07-10-2023 13:30-0400Respiratory rate16 /minBenjamin Ball Other [facility] Other 07-10-2023 13:30-0400Systolic blood dzzolswx538 mm[Hg] Juan Ball Other [facility] Other Encounters Encounter DateEncounter TypeCare ProviderFacilityStart: 31-71-9197lievgnrqlx JENNIFER LOPEZSt. Elizabeth Hospitaltart: 02-23-2025 Encounter for other preprocedural examinationJENNIFER AGRAWALVan Wert County Hospitaltart: 02-19-2025 End: 27-08-5675uzfehsdqikRPJ [facility]2025 End: 93-00-3321inqsqqoobfUAGOhio State University Wexner Medical Centertart: 02-18-2025 End: 85-76-2515kydlgoxyqqEPCECGRGMMJ [facility] Start: 02-03-2025 End: 51-85-1295qsehuofzycYWMIENVABTI [facility] Start: 01-25-2025 End: 47-03-3772wulemcnicrVoargxbz Ball DO Work Phone: [facility] Work Phone: Start: 01-25-2025 End: 38-58-4302Vuidwyd encounter procedureBenken Torres DO-[facility] Work Phone: Start: 09-43-4721Dko-patient / Non-visitGeorge Walker Kerr MD-[facility] Work Phone: Start: 01-06-2025 End: 27-35-8388vbooowlukyPervqonz Ball DO Work Phone: [facility] Work Phone: Start: 01-06-2025 End: 19-48-2865Kzfzbpk encounter procedureBeumerclive Torres DO-[facility] Work Phone: Start: 05-21-2024 End: 48-37-8919wdjeyugearZjhkboeitBucyrus Community Hospital Work Phone: Start: 05-21-2024 End: 40-35-2257Jdxwwec encounter procedureAndre Physician [facility] Work Phone: Start: 06-10-2023 End: 30-90-4176zcgtjaorkhQDRJQAPAdams [facility] Start: 06-10-2023 End: 66-15-1526Spwmtf follow up visit related to original Bello Caleb Joce DETECTIVE BOWLING [employer]LEY-[employer]ACQUER SPRAY BOOTH OPERATOR Work Phone: [facility] SurgeryComment on above: Status post hernia repair (Primary Dx)Start: 05-14-2023 End: 95-25-9515cdehoctjvyHOHTOUYVirginia [facility] Start: 05-14-2023 End: 41-37-6816Rkinqa follow up visit related to original Bello Cardoso DETECTIVE [employer]LEY-[employer]ACQUER SPRAY BOOTH OPERATOR Work Phone: [facility] General SurgeryComment on above: Status post hernia repair (Primary Dx)Start: 04-30-2023 End: 08-11-8400aukvwixgwjRlcmsdds Ball Other noAcronis Other Start: 15-41-9551Bkdvviyie encounterBenjamin BallFPG [facility] ClinicStart: 04-26-2023 End: 88-17-1251pemjtqebcsEmieypht Ball Other noAcronis Other Start: 99-93-9000Sotlphbbr for other preprocedural examinationBenjamin BallFPG [facility] ClinicStart: 98-97-6458Qirvcu outpatient visit 25 minutesBenjamin BallFPG [facility] ClinicStart: 04-26-2023 Telephone encounterBenjamin BallFPG [facility] ClinicStart: 04-19-2023 End: 60-52-8025Gmnkwxcyw encounterHanane REYESAProMedjaneth Physicians General SurgeryStart: 04-01-2023 End: 71-17-1200bhfciwcszrCicxdimp Ball Other noAcronis Other Start: 02-11-3930Wztptmbqp encounterBenjamin BallFPG [facility] ClinicStart: 03-27-2023 End: 01-28-0085oqfzfqpzayVkomaloy Ball Other noAcronis Other Start: 59-96-7830Htszhyzmv for general adult medical examination without abnormal findingsBenjamin BallFPG [facility] ClinicStart: 52-86-2946Qxobqdeh preventive med est patient 65yrs& olderBenjamin BallFPG [facility] ClinicStart: 02-22-2023 End: 22-71-7384bdbaxnqvdyIaoecxlf Ball Other noAcronis Other Start: 14-52-8753Gvsoaqlep encounterBenjamin BallFPG [facility] ClinicStart: 11-19-2022 End: 07-11-2322tbyzlivrgyZutacjeb Ball Other [facility] [employer] Other Start: 11-34-9500Nczxdg outpatient visit 15 minutes Juan Torres [facility] ClinicStart: 32-63-3200Ovclwfdtk for preprocedural laboratory examinationDR ANTOINE WILDER .[facility]: 06-27-2022 End: 59-93-5590gsktdwkawhSE ANTOINE WILDER .Facility:Y0Grmjl: 06-23-2022 End: 87-73-7410quxeuncxxeKZ ANTOINE WILDER .Facility:D2Choqq: 06-23-2022 End: 48-25-9077Owulkqllx for preprocedural laboratory examinationDR ANTOINE WILDER .Facility:L6Fiqkl: 64-87-3805Lkgmxnlcd for general adult medical examination without abnormal findings JUAN TORRESBerger Hospitaltart: 12-84-9517Gellb health examinationJuan Torres Other [facility] [employer] Other Start: 03-14-2022 End: 78-53-4713eqlghwwfbzUO JUAN TORRESFacility:C2Urnwi: 03-14-2022 End: 93-26-7382Ydqvnwypa for general adult medical examination without abnormal findingsDR JUAN BRIANFacility:U3Xdhwh: 03-06-2022 End: 00-52-8108lmrjxakodeXX DOCTOR MISCFacility:H1 Procedures DateProcedureProcedure DetailPerforming ClinicianStart: 26-44-2841Daizsx-up visitFollow-upJEPRITI CARDOSOStart: 68-51-6897JmdzglswvvyGgehuhb Carroll 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 Comment on above:Performed By: #### PSASC #### [facility] [address] [place] [address] Dr. Cash ZapataStart: 01-61-9705Fiynlgx examination of patientBenjamin Ball Other Start: 76-32-9060Ttffshfruvjtzt screeningJuan Torres Other Start: 15-42-8812Hyooryhvi for malignant neoplasm of colonJuan Torres Other Start: 81-61-9529Hoqxlmwxv for malignant neoplasm of prostateJuan Torres Other Depression screeningJuan Torres Other Plan of Treatment DateCare ActivityDetailAuthorStart: 57-11-9781Ggyzrtqbf for malignant neoplasm of colonColonoscopyDorothea Dix Hospitaltart: 81-77-3602WlaqzggifOhioHealth Van Wert Hospitaltart: 49-73-0408Epznd BMI ScreeningAdult BMI ScreeningDorothea Dix Hospitaltart: 61-39-3297Kkwcvdb ScreeningTobacco ScreeningDorothea Dix Hospitaltart: 56-57-0969Lluvr BMI ScreeningAdult BMI ScreeningDorothea Dix Hospitaltart: 69-71-9099Zppfyhz ScreeningTobacco ScreeningMercy Health St. [facility] Start: 94-24-7176Tmzplcyxr vaccinationInfluenza VaccineMercy Health St. [facility] Medical Center Start: 97-90-2429Hpqhxvjzn vaccinationInfluenza VaccineMercy Health St. [facility] Start: 63-53-8866Ydegkqafc aortic aneurysm screeningAbdominal Aortic Aneurysm (AAA) ScreenDorothea Dix Hospitaltart: 82-93-4459Annj Risk ScreeningFall Risk ScreeningDorothea Dix Hospitaltart: 88-51-2414SSqM,Tdap and Td Vaccines (1 - Tdap)DTaP,Tdap and Td Vaccines (1 - Tdap)[facility] SystemStart: 61-93-8423Ydcit BMI Follow Up PlanAdult BMI Follow Up PlanDorothea Dix Hospitaltart: 99-41-3322Wsxwmfoqqm ScreeningDepression ScreeningDorothea Dix Hospitaltart: 06-27-1953Medicare Annual Wellness VisitMedicare Annual Wellness VisitMercy Health St. Vincent Medical CenterComprehensive metabolic 2000 panel - Serum or Plasma [facility] HospitalComprehensive metabolic 2000 panel - Serum or PlasmaCherrington HospitalFibrin D-dimer [Presence] in Platelet poor plasma by Latex agglutinationCherrington HospitalUS Heart TransthoracicCherrington HospitalXR Chest 2 ViewsBaptist Health Homestead Hospital Immunizations Immunization DateImmunizationNotesCare UssoexfpPecqstbp01-42-2458qifwwp vaccine, liveBenjaclive Brian Other [facility]03-16-2020 pneumococcal polysaccharide vaccine, 23 valentBenjamin Ball Other [facility]02-15-2019 pneumococcal conjugate vaccine, 13 valentBenjamin Ball Other [facility] Hospitalpneumococcal Conjugate, unspecified formulation; Translations: [Need for prophylactic vaccination against Streptococcus pneumoniae (pneumococcus)]Juan Torres Other [facility] [employer] Other Payers DatePayer CategoryPayerPolicy [id number] [id number] Managed Care - POSAETNA [id number] Health Insurance AETNA AETNA POS II [id number] 1998-Present [phone] [address] [place] [id number] Health [id number] [id number] [id number] 2.16.840.1.251422.3.57[id number] 2.16.840.1.777231.3.57[id number] 2.16.840.1.083764.3.57[id number] 2.16.840.1.032875.3.57[id number] 2.16.840.1.605451.3.579.2.1286Private Health [id number] [id number] 2.16.840.1.784903.3.579.2.531 Social History DateTypeDetailFacilityStart: 06-23-2020 End: 73-10-4582Yat Assigned At [facility] [employer] Other Tobacco smoking status NHISUnknown if ever smoked [facility] Work Phone: Start: 12-16-2014 End: 07-22-6585HedOipp (finding)[facility] Hospitaltart: 48-49-1825Xtn Assigned At [facility]art: 34-97-0838Xerlcxt smoking status NHISEx-smokerProSumma Health System End: 63-72-8175Jhmragw of tobacco useCurrent smokerProMedica Health System End: 00-80-5232Fgwyfdy of tobacco useCigarette SmokerProMedica Health System Start: 06-23-2020 End: 80-30-1473Hebaefhguo smoked current (pack per day) - Reported1.5PCentral Louisiana Surgical HospitalCircle Streettart: 31-30-4992Xkhehmz use and exposureSmokeless tobacco non-user [facility] HospitalLaricina Energytart: 04-19-2023 End: 18-76-9226Oaoenvr intakeEx-drinker (finding)[facility] HamiltonNinja BlocksHousing InstabilityUnknownPCentral Louisiana Surgical HospitalCircle Streettart: 13-64-6669Asu Assigned At Not on fileNorthwestern Medical CenteriCopyright Medical Equipment Procedure CodeEquipment CodeEquipment Original TextEquipment IdentifierDatesMesh Plstr Clgn Symbotex 15cm 2 Sd Comp 3d Babsr Flm Srg - Sna - [id number] Start: 04-30-2023 Clinical Notes 11-19-2022 to 02-23-2025 Note Date & UaepJjqlTvauougi97-72-0670 NoteCardiothoracic Surgery Consultation Note 02/23/2025 Reason For Consult Bicuspid Aortic Valve, Severe Aortic Valve Regurgitation Referring Provider: Dr. Ashley Bowie History Of Present Illness Maddy Su is a 74 y.o. male with PMH [...] evaluation and recommendations. Patient is here with his . He states he continues to ride his bike, has intermittent episodes of SOB on exertion. Endorses some chest heaviness. Denies Dizziness or light headedness. Intermittent episodes of lower extremity swelling when he his on his feet for too long. 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 Assessment: Severe Aortic Valve Regurgitation CAD HTN DANIA Barretts Esophagus GERD Former Smoker Plan : -Patient seen and evaluated by Cardiothoracic Team. Dr. Orquidea Valle personally examined the patient and reviewed The Cardiac Catherization, Echocardiogram, CXR, and Other [...] old, White, male, 117kg, 175cm, BMI: 38.2 kg/m???, BSA: 2.3m??? Lab Values: Creatinine: 1.18 mg/dL, Hematocrit: 44 %, WBC Count: 6.3 10???/?L, Platelet Count: 621779 cells/?L, Total Albumin: 4 g/dL, Total Bilirubin: [...] Sitting, BP Cuff Size: Adult) Pulse 94 Resp 18 Ht 1.803 m (5' 11 ) Wt 117 kg (259 lb) SpO2 99% BMI 36.12 kg/m??? Physical Exam Vitals reviewed. Constitutional: General: He is not in acute distress. Appearance: Normal appearance. He is obese. He is not ill-appearing. HENT: Head: Normocephalic and atraumatic. Mouth/Throat: Mouth: Mucous membranes are moist. Pharynx: Oropharynx is clear. Eyes: (more content not included)...[facility] 02-18-2025 NotePatient: Maddy Su Procedure Information Date/Time: 02/18/25 1130 Procedures: Coronary angiography (Left) - PC APPROVED Right heart cath (Right) - with CAN Aortogram Location: [facility] [employer]URN[employer]SEM[employer] 3 / [facility] (Cath) Providers: Ahsley Bowie MD Clinical information reviewed: Allergies Meds Physical Exam Airway Mallampati: III TM distance: >3 FB Neck ROM: full Cardiovascular Rhythm: regular Dental Pulmonary Neurological Abdominal Anesthesia Plan ASA 3 other (Conscious sedation) intravenous induction Anesthetic plan and risks discussed with patient. Use of blood products discussed with patient who consented to blood products. Plan discussed with attending and fellow. 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 Hypertension Associated symptoms include chest [...] Follow up in about 6 weeks (around 03/17/2025).[facility]08-27-2025 Evaluation note* Diagnosis Onset Date Resolution Status Admit Date Chest pain acuteAugust 2024 2:05pmDyspneaacuteAugust 2024 2:05pmFamily history of coronary arteriosclerosisacuteAugust 2024 2:05pmHypercholesterolemia acuteAugust 2024 2:05pmHypertensionacuteAugust 2024 2:05pmOSA (obstructive sleep apnea)acuteAugust 2024 2:05pmPalpitationsacuteAugust 2024 2:05pmSystolic murmur of aortaacuteAugust 2024 2:05pm [facility] Work Phone: 1(933) 977-907008-27-2025 Evaluation note* Diagnosis Onset Date Resolution Status Admit Date Chest pain acuteAugust 2024 2:05pmDyspneaacuteAugust 2024 2:05pmFamily history of coronary arteriosclerosisacuteAugust 2024 2:05pmHypercholesterolemia acuteAugust 2024 2:05pmHypertensionacuteAugust 2024 2:05pmOSA (obstructive sleep apnea)acuteAugust 2024 2:05pmPalpitationsacuteAugust 2024 2:05pmSystolic murmur of aortadeletedAugust 2024 2:05pmAbnormal nuclear cardiac imaging testacuteSeptember 2024 2:05pmAortic insufficiency with aortic stenosisacuteSeptember 2024 2:05pmChest pain acuteSeptember 2024 2:05pmFamily history of coronary arteriosclerosisacute January 25, 2025 2:05pmHypercholesterolemiaacuteSeptember 2024 2:05pm HypertensionacuteSeptember 2024 2:05pmOSA (obstructive sleep apnea)acute January 25, 2025 2:05pmPalpitationsacuteSeptember 2024 2:05pm [facility] Work Phone: [phone] 792-382101-29-2024 History of Present illness Narrative* Elizabeth Cardoso, NITIN-LACQUER SPRAY BOOTH OPERATOR - 06/10/2023 2:30 PM EST Images from the original note were not included. Subjective Maddy Su is a 72 y.o. male status [...] dry. Comments: Lap sites well healed. Assessment Maddy Su is a 72 y.o.male postop hernia repair. Plan May return to work on 06/12/2023 and resume normal activities. Follow-up as needed. Status post hernia repair [Z98.890, Z87.19] JUAN CHAVEZ [facility] [place] This note was created with the assistance of a speech recognition program. While intending to generate a timely document that accurately reflects the content of the visit, no guarantee can be provided that every grammatical or spelling mistake has been or will be identified or corrected. Thank you for your understanding. JUAN Chavez 05/14/23 1359 JUAN Chavez 06/10/23 1432 documented in [address] encounterMer[facility] Health St. [facility]01-02-2024 History of Present illness Narrative* JUAN Chavez - 05/14/2023 2:00 PM EST Images from the original note were not included. Subjective Maddy Su is a 72 y.o. male status [...] Neurological: Mental Status: He is alert. Assessment Maddy Su is a 72 y.o.male postop hernia repair. Plan No heavy lifting for 4 more weeks. Follow-up in office at that time. Status post hernia repair [Z98.890, Z87.19] JUAN CHAVEZ [facility] This note was created with the assistance of a speech recognition program. While intending to generate a timely document that accurately reflects the content of the visit, no guarantee can be provided that every grammatical or spelling mistake has been or will be identified or corrected. Thank you for your understanding. JUAN Chavez 05/14/23 1359 documented in [address]Mer[facility]12-15-2023 Evaluation note* Encounter Date Diagnosis Assessment Notes Treatment Notes Treatment Clinical Notes Apr, Preop exam for internal medicine (ICD-10 - Z01.818) Mr. Su was seen and examined for his preoperative evaluation. I reviewed his medication and instructed him to avoid ASA and NSAIDs 7 days prior to surgery. Apr,rimary hypertension (ICD-10 - I10)He had stopped his Losartan and I instructed him to restart. Apr,Hyperlipidemia type II (ICD-10 - E78.01)Stable Continue medication w/o interruption. Apr,Obstructive sleep apnea (ICD-10 - G47.33)Compliant w/ treatment. Apr,astroesophageal reflux disease without esophagitis (ICD-10 - K21.9) Stable Continue PPI w/o interruption. Apr,Umbilical hernia without obstruction and without gangrene (ICD-10 - K42.9)Scheduled for repair. [facility] Other [id number] Miscellaneous Notes* Telephone Encounter - ROBERT Mccoy - 04/19/2023 1:37 PM EST I tried to call Mell however the voicemail is full. * Telephone Encounter - ROBERT Mccoy - 04/19/2023 1:37 PM EST I called Maddy and left a message to call the office. I tried to call Mell however her voicemail is full. A medical clearance is required prior to surgery on 04/30/23 for Maddy's hernia repair surgery. I am waiting on clarification from the physician to whom I should get the clearance from. The surgery consent was emailed to PAT at the hospital. * Telephone Encounter - ROBERT Mccoy - 04/19/2023 1:37 PM EST Mell called into the office to say that Maddy has an appointment on [address] Torres for a medical clearance. documented in this encounterMer[facility]12-08-2023 Telephone encounter Note* Telephone Encounter - ROBERT Mccoy - 04/19/2023 1:37 PM EST I tried to call Mell however the voicemail is full. [facility]12-08-2023 Telephone encounter Note* Telephone Encounter - ROBERT Mccoy - 04/19/2023 1:37 PM EST I called Maddy and left a message to call the office. I tried to call Mell however her voicemail is full. A medical clearance is required prior to surgery on 04/30/23 for Maddy's hernia repair surgery. I am waiting on clarification from the physician to whom I should get the clearance from. The surgery consent was emailed to PAT at the hospital. [facility]12-08-2023 Telephone encounter Note* Telephone Encounter - ROBERT Mccoy - 04/19/2023 1:37 PM EST Mell called into the office to say that Maddy has an appointment on [address] Torres for a medical clearance. [facility]11-15-2023 Evaluation note* Encounter Date Diagnosis Assessment Notes Treatment Notes Treatment Clinical Notes Mar, Wellness examination (ICD-10 - Z 00.00) Healthy diet and exercise. Reviewed age-appropriate preventive testing recommended. Mar,OSA (obstructive sleep apnea) (ICD-10 - G47.33)This patient is aware of the benefits associated with DANIA: With continued use, the patient reduces the risk for OK, CVA, HTN, cardiac dysrhythmias and sudden cardiac deaths.The patient is also aware of the association between DANIA and morning headaches, daytime somnolence, fatigue and obesity, whichalso has been improved with continued use.The patient is compliant with treatment, wearing the equipment every night for greater than 4 hours.The patient is instructed to continue use of the CPAP forOSA treatment. Mar,rimary hypertension (ICD-10 - I10)This patient is instructed to consume a healthy, low-fat, low-salt diet. They are also encouraged to continue exercise to achieve/maintain a normal BMI. Stopped his Losartan and has continued to perform home BP - goal < 140/90 Patient is instructed on home BP measurements: - rest for 5 minutes w/o talking- positioned w/ feeton floor and arm supported- average best 2/3 readings w/ goal < 135/85 Mar,Hypercholesteremia (ICD-10 - E78.00)Instructed on diet and exercise with continued statin therapy.Discussed the beneficial effects of lowering cholesterol in reducing the risk for cerebrovascular and cardiovascular disease. Mar,Morbid (severe) obesity due to excess calories (ICD-10 - E66.01)This patient has been instructed on a low-fat, high-fiber diet. They are instructed to reduce calories, portion sizes and snacks. It is recommended that they exercise for 30 minutes, 3-5 times weekly. Mar,enign prostatic hyperplasia with lower urinary tract symptoms (ICD- 10 - N40.1)Symptoms tolerable Continue medical therapy Yearly NAHID and PSA Mar,Nocturia (ICD-10 - R35.1) Mar,ody mass index [BMI] 35.0-35.9, adult (ICD-10 - Z68.35)This patient has been instructed on a low-fat, high-fiber diet. They are instructed to reduce calories, portion sizes and snacks. It is recommended that they exercise for 30 minutes, 3-5 times weekly. Mar,Screening PSA (prostate specific antigen) (ICD-10 - Z12.5)Yearly NAHID and PSA [facility] Other 07-10-2023 Evaluation note* Encounter Date Diagnosis Assessment Notes Treatment Notes Treatment Clinical Notes Nov, DANIA (obstructive sleep apnea) (I CD-10 - G47.33) This patient is aware of the benefits associated with DANIA: With continued use, the patient reduces the risk for OK, CVA, HTN, cardiac dysrhythmias and sudden cardiac deaths.The patient is also aware of the association between DANIA and morning headaches, daytime somnolence, fatigue and obesity, whichalso has been improved with continued use.The patient is compliant with treatment, wearing the equipment every night for greater than 4 hours.The patient is instructed to continue use of the CPAP forOSA treatment. Nov,rimary hypertension (ICD-10 - I10)This patient is instructed to consume a healthy, low-fat, low-salt diet. They are also encouraged to continue exercise to achieve/maintain a normal BMI. Patient is instructed on home BP measurements: - rest for 5 minutes w/o talking- positioned w/ feeton floor and arm supported- average best 2/3 readings w/ goal < 135-85 Initiated Losartan 25mg qd Nov,Other obesity due to excess calories (ICD-10 - E66.09)This patient has been instructed on a low-fat, high-fiber diet. They are instructed to reduce calories, portion sizes and snacks. It is recommended that they exercise for 30 minutes, 3-5 times weekly. 10 Nov,ody mass index [BMI] 34.0-34.9, adult (ICD-10 - Z68.34) [facility] Other Evaluation noteNo InformationNort [employer] Other Evaluation note* Diagnosis Onset Date Resolution Status Admit Date GERD (gastroesophageal reflux disease) acuteJanuary 2024 10:25amHypercholesterolemiaacuteJanuary 2024 10:25am HypertensionacuteJanuary 2024 10:25amObesityacuteJanuary 2024 10:25am DANIA (obstructive sleep apnea)acuteJanuary 2024 10:25amRhinitis medicamentosaacuteJanuary 2024 10:25amScreening PSA (prostate specific antigen)acuteJanuary 2024 10:25am [facility] Work Phone: Evaluation note* Diagnosis Status post hernia repair- Primary Other postprocedural status documented in this encounter [facility]* Diagnosis Status post hernia repair- Primary Other postprocedural status documented in this encounter [facility]* Diagnosis Onset Date Resolution Status Admit Date Dyspnea acuteAugust 2024 2:05pmHypertensionacuteAugust 2024 2:05pm [facility] Work Phone: History general Narrative - Reported* Type Description Date Medical History Cigarette nicotine dependence in remission Medical HistoryObstructive sleep apneaMedical HistoryBarrett's esophagus determined by endoscopyMedical HistoryGERD without esophagitisMedical History Chronic nonseasonal allergic rhinitis due to pollenMedical HistoryEssential hypertensionMedical HistoryHyperlipidemia type IIMedical HistoryAcute prostatitisMedical HistoryBenign prostatic hyperplasia with lower urinary tract symptomsMedical HistoryAortic valve sclerosisSurgical HistoryEGD2Surgical HistoryColonoscopy06/27/22Surgical HistoryCardiac CatheterizationHospitalization Historysee surgical history [facility] Other History general Narrative - Reported* Type Description Date Medical History Cigarette nicotine dependence in remission Medical HistoryObstructive sleep apneaMedical HistoryBarrett's esophagus determined by endoscopyMedical HistoryGERD without esophagitisMedical History Chronic nonseasonal allergic rhinitis due to pollenMedical HistoryEssential hypertensionMedical HistoryHyperlipidemia type IIMedical HistoryBenign prostatic hyperplasia with lower urinary tract symptomsMedical HistoryAortic valve sclerosisSurgical HistoryEGD2/15/Surgical HistoryColonoscopy2/Surgical HistoryCardiac CatheterizationHospitalization Historysee surgical history Knoda Other History general Narrative - Reported* Type Description Date Medical History Cigarette nicotine dependence in remission Medical HistoryObstructive sleep apneaMedical HistoryBarrett's esophagus determined by endoscopyMedical HistoryGERD without esophagitisMedical History Chronic nonseasonal allergic rhinitis due to pollenMedical HistoryEssential hypertensionMedical HistoryHyperlipidemia type IIMedical HistoryBenign prostatic hyperplasia with lower urinary tract symptomsMedical HistoryAortic valve sclerosisSurgical HistoryEGD2//Surgical HistoryColonoscopy06/27/22Surgical HistoryCardiac CatheterizationSurgical HistoryUmbilical hernia cqozui31/2023 Hospitalization Historysee surgical history Knoda Other InstructionsNot on filedocumented in this encounter [facility] SystemInstructionsNot on filedocumented in this encounter [facility] SystemReason for referral (narrative)No reason for referral information availableTrinity Health System [facility] Campus Work Phone: Summary Purpose Family History No Family History Records Found Relationship Condition Age at Onset Recorded Date/T darío father Heart disease Unknown motherHypertensionUnknown Advance Directives No Advanced Directives Records Found [...] Records FoundNo Status Records FoundNo Status Records FoundNo Status Records Found INFORMATION SOURCE (unrecogn ized section and content) DATE CREATED AUTHOR 07/04/2022 [facility] DATE CREATED AUTHOR AUTHOR'S ORGANIZ ATION 06/13/2023 [facility] DATE CREATED AUTHOR AUTHOR'S ORGANIZ ATION 01/31/2025 [facility] DATE CREATED AUTHOR AUTHOR'S ORGANIZ ATION 03/01/2025 [facility] REASON FOR VISIT (unrecogniz ed section and content) ReasonCommentsPOST-OP VISITPOST OP VENTRAL/UMBILICAL HERNIA PERFORMED 04/30/23 AT PMHReasonCommentsFollow-up6 WEEK FOLLOW UP POST UMBILICAL HERNIA REPAIR, PERFORMED ON 04/30/23 AT [facility] Care Teams (unrecognized sec tion and content) Team Status: Active Member Role Status Dates Juan Torres DO Primary Care Provider Active Team Status: Inactive Member Role Status Dates Juan Torres DO Primary Care Provide r, Attending Provider Active Start: May 21, 2024 End: May 21, 2024Team MemberRelationshipSpecialtyStart DateEnd Date Juan Torres DO [address] [place] [address] [facility] Medicine05/21/22Team MemberRelationshipSpecialtyStart Date End Date Juan Torres DO [address] [place] [address] PCP - GeneralInternal Medicine05/21/22 Team Status: Inactive Member Role Status Dates Juan Torres DO Primary Care Provider Active Start: January 06, 2025 End: January 06Yin Roach ProviderActiveStart: January 06, 2025 End: January 06, 2025 Team Status: Active Member Role Status Dates Juan Torres DO Primary Care Provider Active Start: January 06, 2025 Yin Ann ProviderActiveStart: January 06, 2025 Team Status: Active Member Role Status Dates Juan Torres DO Primary Care Provider Active Start: January 06, 2025 Juan Torres DOOther ProviderActiveStart: January 06, 2025 Kamilah Guillaume ProviderActiveStart: January 06, 2025 Team Status: Inactive Member Role Status Dates Juan DO Brian Primary Care Provider Active Start: January 25, 2025 End: January 25jagjitken Torres DOAttbacilio ProviderActiveStart: January 25, 2025 End: January 25, 2025 [...] BE BASED ON THE PRIMARY CLINICAL RECORDS. [facility]. provides no warranty or guarantee of the accuracy or completeness of information in this document.
--- OUTSIDE RECORDS SUMMARY | 2025-03-03 08:21 | XMS_ITS | Clinical Summary ---
Author Organization [employer] tem Address [id number] [address] [place] [address] Care Team Providers Care Washhouse Worker Name Role Phone uJan Torres Primary Care Provider [phone] Allergies No known active allergies Medications MedicationSigDispense QuantityRefillsLast FilledStart DateEnd DateStatus tamsulosin (FLOMAX) 0.4 mg capsule Take 1 capsule (0.4 mg total) by mouth in the morning.05/09/2022ctive omeprazole (PriLOSEC) 20 mg capsule Take 1 capsule (20 mg total) by mouth in the morning.Active Active Problems No known active problems Family History Medical HistoryRelationNameCommentsHeart attackBrother 1mikeHeart attackBrother 2billHeart attackFatherHeart attach and instantlyAlzheimer's disease MotherHypertensionMotherRelationNameStatusCommentsBrother 1mikeAliveBrother 2 billAliveFatherDeceasedMotherDeceased Social History Tobacco UseTypesPacks/DayYears UsedDateSmoking Tobacco: FormerCigarettesQuit: 1975Smokeless Tobacco: Never Tobacco Cessation:Counseling Given: Not Answered Alcohol UseStandard Drinks/WeekCommentsNot Currently0 (1 standard drink = 0.6 oz pure alcohol)ChildcareAnswerDate WxgorwmjLmrcoqerdFyxutfc04/12/2019Employment AnswerDate VmxcalevFbgompzkvzFgdtcnd41/12/2019Hunger ScreeningAnswerDate RecordedWithin the past 12 months we worried whether our food would run out before we got money to buy more.Never True05/21/2022Within the past 12 months the food we bought just didn't last and we didn't have money to get more.Never True3Purpose - LifeAnswerDate RecordedPurpose and direction in life Rpnscqh7106/23/2020ex and Gender InformationValueDate RecordedSex Assigned at BirthNot on fileLegal NgnYwoe7612/16/2014 12:05 PM EDTGender IdentityNot on file Sexual OrientationNot on file Last Filed Vital Signs Vital SignReadingTime TakenCommentsBlood Xoxstczc114/76006/10/2023 2:18 PM EST Puxxf179006/10/2023 2:18 PM HFSOejcmnptucy50.1 ??C (97 ??F)04/30/2023 1:29 PM EST Respiratory Cbrt407507/01/2022 2:13 PM ESTOxygen Papfmicayd66%04/30/2023 2:13 PM ESTInhaled Oxygen Concentration--Guryok668 kg (258 lb)06/10/2023 2:18 PM EST Hnbpua481.3 cm (5' 11 )06/10/2023 2:18 PM ESTBody Mass Index35.98006/10/2023 2:18 PM EST Plan of Treatment Health MaintenanceDue DateLast DoneCommentsDepression Cuvxuuaea85/27/1965 DTaP,Tdap and Td Vaccines (1 - Tdap)11/07/1971Abdominal Aortic Aneurysm (AAA) Vbuway7211/06/2017Fall Risk Wemvbtwrt56/27/2018Adult BMI Oubdzoaky01/29/2025 06/10/2023Tobacco Rxxfuiafh63/29/733270/Influenza Rjlpqjx8101/11/2025 Kjojvlijvkj32/15/05472606/27/2022Zoster (Shingles) CjuazlyCajcvrmed17/25/2022, 10/29/2021 Medical Devices ImplantedTypeAreaManufacturerDevice IdentifierShelf Expiration DateModel / Serial / LotMesh Plstr Clgn Symbotex 15cm 2 Sd Comp 3d Babsr Flm Srg - Sna - [id number] Implanted:Qty: 1 on 04/30/2023 by [facility]/A: AbdomenMEDTRONIC USA11/10/2027SYM15 / NA / [id number] [address] Care Teams Team MemberRelationshipSpecialtyStart DateEnd Date Juan Torres DO [address] [place] [address] PCP - GeneralInternal Medicine05/21/22
--- OUTSIDE RECORDS SUMMARY | 2025-03-03 08:21 | XMS_ITS | Encounter Summary ---
Author Organization [facility] Address [address] [place] [address] Care Team Providers Care Brake Repairer Bus Name Role Phone Juan Torres DO Primary Care Provider [phone] Encounter Details DateTypeDepartmentCare Team (Latest Contact Info)Nxzubcguczw74/16/2025Orders Only [facility] [address] [place] [address] Sujey Gallegos MA Social History Tobacco UseTypesPacks/DayYears UsedDateSmoking Tobacco: FormerCigarettes Smokeless Tobacco: NeverAlcohol UseStandard Drinks/WeekCommentsNot Currently0 (1 standard drink = 0.6 oz pure alcohol)Sex and Gender InformationValueDate RecordedSex Assigned at XohafErvp04/16/2025 10:29 AM EDTLegal SzkChkk7001/26/2025 10:26 AM EDTGender DptxevuqNkfx39/16/2025 10:29 AM EDTSexual Orientation Heterosexual or Saznllab98/16/2025 10:29 AM EDTdocumented as of this encounter Plan of Treatment DateTypeDepartmentCare Team (Latest Contact Info)Ncicrdryiva41/10/2025 11:00 AM ESTOffice Visit [facility] [address] [place] [address] Gulshan Bernard MD [address] [place] [address] documented as of this encounter Visit Diagnoses Not on filedocumented in this encounter Care Teams Team MemberRelationshipSpecialtyStart DateEnd Date Juan Torres DO [address] [place] [address] PCP - GeneralInternal Medicine02/02/25documented as of this encounter
--- NOTE | 2025-03-03 08:38 | CT_ITS ---
The [address] [address] Patient Name: MADDY PERAZA MRN: [id number] date: 1950 Sex: M Assigned Patient Location: CT Current Patient Location: CT Accession/Order Number: [id number] Exam Date: 03/03/2025 08:34 Report Date: 03/03/2025 09:48 At the request of: NON-STAFF PHYSICIAN Procedure: CT abdomen pelvis wo con CT ABDOMEN AND PELVIS WITHOUT CONTRAST COMPARISON: None CLINICAL DATA: Presurgical evaluation for abdominal aortic aneurysm Spiral images were obtained through the abdomen and pelvis without contrast. This CT exam was performed using one or more following dose reduction techniques: Automated exposure control, adjustment of the mA and/or kV according to patient size, or use of iterative reconstruction technique. Limited cuts through the lung bases show minimal scarring or atelectasis. A calcified granuloma is seen on the right. Evaluation of the intra-abdominal organs is slightly limited by the absence of contrast. There are calcified hepatic and splenic granulomas. The gallbladder is surgically absent. The pancreas and adrenal glands show no acute findings. There is minor bilateral perinephric fibrofatty stranding. There are bilateral renal stones, the largest is on the right measuring 7 mm. There are bilateral renal hypodensities measuring up to 7 cm in size suggesting cysts. No hydronephrosis is seen. There is no ureteral dilatation or stones. There is mild atherosclerotic plaque at the aorta and iliac arteries. No aortic aneurysm is identified. There are tiny lymph nodes. No ascites is seen. The small bowel loops are not distended. There is mild stool along the colon. A tiny umbilical hernia is present containing fat. 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 Mild degenerative changes at the spine are also seen. Images through the pelvis show normal caliber small bowel loops. There is no appendiceal inflammation. There is a small amount of distal colonic stool. No diverticular disease is seen. The prostate is enlarged and there is mild mass effect at the bladder trigone. The urinary bladder is under distended and the wall appears thickened. There are patulous inguinal rings containing fat, larger on the left. No ascites is identified. There is minor degenerative change at the SI joints. CT/CT abdomen pelvis wo con IMPRESSION: ATHEROSCLEROTIC PLAQUE, WITHOUT AORTIC ANEURYSM. RENAL CYSTS AND NEPHROLITHIASIS. NO BOWEL OR URINARY TRACT OBSTRUCTION. PROSTATE HYPERTROPHY. Impression dictated by: Natalie Bowling M.D. 03/03/2025 9:48 AM Dictation Location: [place] [address] Electronically authenticated by: [id number] Y Date: 03/03/2025 09:48
== END 2025-03-03 08:18 | disposition home or self-care (01) ==
LOC: CT 08:17
PROVIDERS: PCP Internal Medicine
DX: Z01.818 Encounter for other preprocedural examination (principal); I71.9 Aortic aneurysm of unspecified site, without rupture; I35.1 Nonrheumatic aortic (valve) insufficiency; R06.02 Shortness of breath; I70.0 Atherosclerosis of aorta; N28.1 Cyst of kidney, acquired; N20.0 Calculus of kidney
CPT/HCPCS: 74176

== ENCOUNTER 2025-03-03 11:15 | Outpatient (OUT) | payer MEDICARE, OTHER, SELFPAY ==
--- OUTSIDE RECORDS SUMMARY | 2025-02-18 08:48 | XMS_ITS | Encounter Summary ---
Author Organization [facility] Address [address] [place] [address] Care Team Providers Care Process Design Engineer Name Role Phone Juan Torres DO Primary Care Provider [phone] Reason for Referral * Imaging (Routine) - AuthorizedSpecialtyDiagnoses / ProceduresReferred By ContactReferred To ContactCardiology Diagnoses Nonrheumatic aortic valve insufficiency Nonrheumatic aortic valve stenosis Shortness of breath Coronary artery disease, unspecified vessel or lesion type, unspecified whether angina present, unspecified whether [place] or transplanted heart Procedures Transesophageal echo (CAN) Ashley Bowie MD [address] [place] [phone] Phone: tel: fax: [facility] [address] [place] [phone] Phone: tel: fax: Referral IDStatusReasonStart DateExpiration DateVisits RequestedVisits [id number] Perform Procedure * (Routine) - Pending ReviewSpecialtyDiagnoses / ProceduresReferred By Contact Referred To Contact Procedures Electrocardiogram, 12-lead Ashley Bowie MD [address] [place] [phone] Phone: tel: fax: Referral IDStatusReasonStart DateExpiration DateVisits RequestedVisits [id number] [id number] Reason for Visit * Auth/Cert (Routine)SpecialtyDiagnoses / ProceduresReferred By ContactReferred To Contact Diagnoses Nonrheumatic aortic valve insufficiency Nonrheumatic aortic valve stenosis Cardiovascular stress test abnormal Stable angina pectoris Shortness of breath Coronary artery disease, unspecified vessel or lesion type, unspecified whether angina present, unspecified whether [place] or transplanted heart Nonrheumatic aortic valve insufficiency [I35.1] Nonrheumatic aortic valve stenosis [I35.0] Cardiovascular stress test abnormal [R94.39] Stable angina pectoris [I20.89] Shortness of breath [R06.02] Coronary artery disease, unspecified vessel or lesion type, unspecified whether angina present, unspecified whether [place] or transplanted heart [I25.10] Procedures DC RIGHT HEART CATH O2 SATURATION & CARDIAC OUTPUT CHG AORTOGRAPHY THORACIC SERIALOGRAPHY RS&I DC CATH PLMT R HRT & ARTS W/NJX & ANGIO IMG S&I DC NJX DRG C-CATHJ SUPRAVALVULAR AORTOGRAPHY S&I Coronary angiography Right heart cath Aortogram Ashley Bowie MD [address] [place] [phone] Phone: tel: fax: [facility] [address] [place] [phone] Phone: tel: fax: Referral IDStatusReasonStart DateExpiration DateVisits RequestedVisits [id number] Encounter Details DateTypeDepartmentCare Team (Latest Contact Info)Lcvkygwgndg38/09/2025 8:48 AM EDT - 02/18/2025 2:12 PM EDTHospital Encounter [facility] [address] [place] [address] Ashley Bowie MD [address] [place] [phone] Nonrheumatic aortic valve insufficiency; Nonrheumatic aortic valve stenosis; Cardiovascular stress test abnormal; Stable angina pectoris; Shortness of breath; Coronary artery disease, unspecified vessel or lesion type, unspecified whether angina present, unspecified whether [place] or transplanted heart Discharge Disposition: Home or Self Care () Social History Tobacco UseTypesPacks/DayYears UsedDateSmoking Tobacco: FormerCigarettes Smokeless Tobacco: NeverAlcohol UseStandard Drinks/WeekCommentsNot Currently0 (1 standard drink = 0.6 oz pure alcohol)Sex and Gender InformationValueDate RecordedSex Assigned at ZcsjsAril70/16/2025 10:29 AM EDTLegal GmuYdlz2401/26/2025 10:26 AM EDTGender EvzfsfnxNvrc44/16/2025 10:29 AM EDTSexual Orientation Heterosexual or Kjuqetrh15/16/2025 10:29 AM EDTdocumented as of this encounter Last Filed Vital Signs Vital SignReadingTime TakenCommentsBlood Mayklseg167/ 1:56 PM EDT Rpbuh9877 1:56 PM EDTTemperature--Respiratory Uzgt5988 1:56 PM EDTOxygen Cjfkoclgvu00%02/18/2025 1:56 PM EDTInhaled Oxygen Concentration-- Weight--Height--Body Mass Index--documented in this encounter Functional Status * QuestionAnswerDate of NjedeagxpzYyjmudDG574 1:56 PM Luciana Heaton RNPulse6602/18/2025 1:56 PM Luciana Heaton RN * Pain Assessment TimerQuestionAnswerDate of AssessmentAuthorRestart Pain Assessment DjuwmKnu29/09/2025 1:56 PM Luciana Heaton RN * QuestionAnswerDate of AssessmentAuthorHeart Rate VlodnsUpojpzw59/09/2025 9:23 AM Eli Forte RN * Sepsis Model ScoresQuestionAnswerDate of AssessmentAuthorEarly Detection of Sepsis Score6. 2:01 PM Cleveland Allen * Pain AssessmentQuestionAnswerDate of AssessmentAuthorRamsay Scale (RS): Score2 02/18/2025 9:04 AM Eli Forte RNPain AssessmentNo/denies pain 02/18/2025 1:56 PM Luciana Heaton RN * Patient PositionAnswerDate of OpwfmoyymjOvhacyYgfuqzo24/24/2025 10:27 AM LORENAT Kim García MA * QuestionAnswerDate of AssessmentAuthorPulse rate from Plethysmogram (bpm)64 02/18/2025 1:56 PM Luciana Heaton RN * Vital SignsQuestionAnswerDate of XjulvvfuazCwghxzTL576/6602/18/2025 1:56 PM Luciana Heaton QANuxkk9294/09/2025 1:56 PM Luciana Heaton RNResp26 02/18/2025 1:56 PM Luciana Heaton RNSpO29902/18/2025 1:56 PM Luciana Heaton RNMAP (mmHg)7902/18/2025 1:45 PM Luciana Heaton RN * Peripheral VascularQuestionAnswerDate of AssessmentAuthorPulsesLeft pedal;Right pedal;Left posterior tibial;Right posterior igrhlb6602/18/2025 9:11 AM Eli Forte RN * RLE Neurovascular AssessmentQuestionAnswerDate of AssessmentAuthorRight Posterior Tibial Pulse+ 9:11 AM Eli Forte RNRight Pedal Pulse+ 9:11 AM Eli Forte RN * LLE Neurovascular AssessmentQuestionAnswerDate of AssessmentAuthorLeft Posterior Tibial Pulse+ 9:11 AM Eli Forte RNLeft Pedal Pulse+ 9:11 AM Eli Forte RN * RespiratoryQuestionAnswerDate of AssessmentAuthorRespiratory EffortUnlabored 02/18/2025 9:11 AM Eli Forte RN * NeurologicalQuestionAnswerDate of AssessmentAuthorOrientation LevelOriented X4 02/18/2025 9:11 AM Eli Forte RNCognitionAppropriate judgement 02/18/2025 9:11 AM Eli Forte NUCeqymiNgqij80/09/2025 9:11 AM Eli Jeff RNSwallowAble to swallow solids and liquids without xepxnzckzx48/09/2025 9:11 AM Eli Forte RN * QuestionAnswerDate of AssessmentAuthorHeart Rate CcxbkqPmddewj27/09/2025 9:23 AM Eli Forte RNBP LocationLeft arm02/18/2025 9:23 AM Eli Forte RN * Pain AssessmentQuestionAnswerDate of AssessmentAuthorRamsay Scale (RS): Score2 02/18/2025 9:04 AM Eli Forte RNPain AssessmentNo/denies pain 02/18/2025 1:56 PM Luciana Heaton RN * [place] Suicide Severity Rating ScaleQuestionAnswerDate of AssessmentAuthor1. Have you wished you were or wished you could go to sleep and not wake up?No02/18/2025 9:04 AM Eli Forte, LOLLY2. Have you actually had any thoughts of killing yourself?No02/18/2025 9:04 AM Eli Forte, LOLLY6. Have you ever done anything, started to do anything, or prepared to do anything to end your life?No02/18/2025 9:04 AM Eli Forte RN * Risk of SuicideAnswerDate of AssessmentAuthorNo Risk02/18/2025 9:04 AM Eli Jeff RN * Patient PositionAnswerDate of TdexkwjjewZrfztiNcqypxg67/24/2025 10:27 AM LORENAT Kim García MA * Modified AldreteQuestionAnswerDate of VtnnfeumriBetumaOyxgoywt772/09/2025 2:00 PM Luciana Heaton RNRespiration21 2:00 PM Luciana Heaton RN Oksuvuwfjbs333/09/2025 2:00 PM Luciana Heaton RNConsciousness 2:00 PM Luciana Heaton RNOxygen Gbggleeurw749/09/2025 2:00 PM Luciana Heaton RNModified Rhiannon Luroo7724/09/2025 2:00 PM Luciana Heaton RN documented as of this encounter Mental Status * Mina Agitation Sedation ScaleQuestionAnswerEntry DateAuthorRichmond Agitation Sedation Scale (RASS) 11:30 AM Cindy Zepeda RN * Modified AldreteQuestionAnswerEntry WiegZndvwiXppygusu767/09/2025 2:00 PM Luciana Azar RNRespiration 2:00 PM Luciana Heaton RN Mwsgesxiuxx983/09/2025 2:00 PM Luciana Heaton RNConsciousness 2:00 PM Luciana Heaton RNOxygen Xlpgbbkbma429/09/2025 2:00 PM Luciana Heaton RNModified Rhiannon Oivqd8408 2:00 PM Luciana Heaton RN documented in this encounter Discharge Instructions * Attachments The following attachments cannot be sent through Care Everywhere. * Transesophageal Echocardiogram Xgmg-py-Hgcp (Niuean) * Coronary Angiogram Care After (Niuean) * Moderate Conscious Sedation Adult Care After (Niuean) documented in this encounter Medications at Time of Discharge MedicationSigDispense QuantityRefillsLast FilledStart DateEnd amLODIPine (Norvasc) 5 mg tablet Take 1 tablet by mouth in the morning.06/27/2024 aspirin 81 mg EC tablet Take 81 mg by mouth in the morning. chlorthalidone (Hygroton) 25 mg tablet Indications:Shortness of breathTake 0.5 tablets (12.5 mg) by mouth in the morning. 15 tablet omeprazole (PriLOSEC) [address] capsule Take 20 mg by mouth in the morning. tamsulosin (Flomax) 0.4 mg 24 hr capsule Take 0.4 mg by mouth in the morning. telmisartan (MIcarDIS) 20 mg tablet Take 1 tablet by mouth in the morning.01/25/2025documented as of this encounter H&P Notes * Merlin Mena MD - 02/18/2025 9:39 AM EDT H&P reviewed. The patient was examined and there are no changes to the H&P. Cosigned by Ashley Bowie MD at 02/18/2025 10:43 AM EDT Source Note - Ashley Bowie MD - 02/03/2025 10:40 AM EDT Subjective Patient ID: Maddy Su is a 74 y.o. 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 In interim will [...] weeks (around 03/17/2025). documented in this encounter Nursing Notes * Luciana Cowart RN - 02/18/2025 2:01 PM EDT RN educated pt on d/c instructions. This included: site care, limited physical activity, resume normal diet, future appointments, medications, and moderate sedation instructions. RN educated pt on when to notify physician and when to go to the hospital. RN provided pt with arm sling and educated pt on importance of not using arm for 24 hours for radial sites. RN encouraged pt to voice any questions or concerns, and answered any questions or concerns if pt verbalized. Pt was wheeled off of unit with all of belongings. documented in this encounter Miscellaneous Notes * Pre-Sedation Documentation - Merlin Mena MD - 02/18/2025 9:39 AM EDT Patient: Maddy Su Choose an anesthesia record to view details Clinical information reviewed: Allergies Meds Physical Exam Airway Mallampati: III TM distance: >3 FB Neck ROM: full Cardiovascular Rhythm: regular Dental Pulmonary Neurological Abdominal Anesthesia Plan ASA 3 other (Conscious sedation) intravenous induction Anesthetic plan and risks discussed with patient. Use of blood products discussed with patient who consented to blood products. Plan discussed with attending and fellow. Additional Equipment Requests Cosigned by Lopez Galan MD at 02/18/2025 9:59 AM EDT Associated attestation - Lopez Galan MD - 02/18/2025 9:59 AM EDT By using the attestations below, the signing clinician agrees that I have read and verify that thedocumentation has been personally reviewed by me and ensure that the documentation accurately reflects the encounter. GC: I personally saw this patient on the day of the encounter, performed the miranda portion(s) of the service and participated in the management and confirm the resident's documentation. Please note there may be an additional personal documentation from me. * Pre-Sedation Documentation - Merlin Mena MD - 02/18/2025 9:39 AM EDT Patient: Maddy Su Procedure Information Date/Time: 02/18/25 1130 Procedures: Coronary angiography (Left) - PC APPROVED Right heart cath (Right) - with CAN Aortogram Location: [facility] 3 / [facility] (Cath) Providers: Ashley Bowie MD Clinical information reviewed: Allergies Meds Physical Exam Airway Mallampati: III TM distance: >3 FB Neck ROM: full Cardiovascular Rhythm: regular Dental Pulmonary Neurological Abdominal Anesthesia Plan ASA 3 other (Conscious sedation) intravenous induction Anesthetic plan and risks discussed with patient. Use of blood products discussed with patient who consented to blood products. Plan discussed with attending and fellow. Additional Equipment Requests Cosigned by Ashley Bowie MD at 02/18/2025 10:43 AM EDT documented in this encounter Plan of Treatment DateTypeDepartmentCare Team (Latest Contact Info)Syibnhbtknl86/10/2025 11:00 AM ESTOffice Visit [facility] [address] [place] [address] Ashley Bowie MD [address] [place] [phone] documented as of this encounter Procedures Procedure NamePriorityDate/TimeAssociated DiagnosisCommentsAORTOGRAMRoutine 02/18/2025 11:32 AM EDT Nonrheumatic aortic valve insufficiency Nonrheumatic aortic valve stenosis Cardiovascular stress test abnormal Stable angina pectoris Shortness of breath Coronary artery disease, unspecified vessel or lesion type, unspecified whether angina present, unspecified whether [place] or transplanted heart RIGHT HEART ALYNMqfnnds87/09/2025 11:32 AM EDT Nonrheumatic aortic valve insufficiency Nonrheumatic aortic valve stenosis Cardiovascular stress test abnormal Stable angina pectoris Shortness of breath Coronary artery disease, unspecified vessel or lesion type, unspecified whether angina present, unspecified whether [place] or transplanted heart CORONARY RYXMJHBVSRBQpxckmk30/09/2025 11:32 AM EDT Nonrheumatic aortic valve insufficiency Nonrheumatic aortic valve stenosis Cardiovascular stress test abnormal Stable angina pectoris Shortness of breath Coronary artery disease, unspecified vessel or lesion type, unspecified whether angina present, unspecified whether [place] or transplanted heart %UTH8Jymhmcd45/09/2025 10:59 AM EDT TRANSESOPHAGEAL ECHO (CAN) W/ LIMITED DOPPLER AND COLOR OMIRVyopqgl29/09/2025 10:39 AM EDT Nonrheumatic aortic valve insufficiency Nonrheumatic aortic valve stenosis Shortness of breath Coronary artery disease, unspecified vessel or lesion type, unspecified whether angina present, unspecified whether [place] or transplanted heart ECG 12-CQUXDzqchhg64/09/2025 9:41 AM EDT documented in this encounter Results * AORTOGRAM (02/18/2025 11:32 AM EDT)Anatomical RegionLateralityModalityOther Specimen (Source)Anatomical Location / LateralityCollection Method / Volume Collection TimeReceived Time Narrative 02/18/2025 11:54 AM EDT PROCEDURE PHYSICIAN: Ashley Bowie MD Clinical Presentation: 74 y.o. 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 with an ascending aortic diameter of approximately 7 cm 3) Normal right and left heart filling pressures 4) Mild decrease in LV systolic function with an ejection fraction estimated at 50% 5) There is a 80% stenosis of the proximal right coronary artery supplying a moderately sized RV acute marginal artery branch and 40% in the mid-LAD and a 50% stenosis in the proximal OM branch of the dominant circumflex coronary artery (see below for details) Recommendation: 1) Evaluation for aortic valve and aortic root replacement surgery Procedures Performed: coronary angiography, aortography, conscious sedation, ultrasound guidance for vascular access Procedure Description: he patient was brought to the cardiac catheterization lab in a fasting state. ??Informed written consent was obtained. ??darío-out was performed. he was prepped and draped in usual sterile fashion and 1% lidocaine was infiltrated. ??Using ultrasound guidance and a micropuncture access technique a 6 [place] sheath was placed in the right internal jugular vein. The catheter was advanced under fluoroscopic and hemodynamic monitoring to the right atrium. ??Pressure obtained of the right atrium, right ventricle, pulmonary artery, pulmonary capillary position. ??Oxygen saturation drawn for the pulmonary artery and Sunil cardiac with a cardiac index were calculated. 1% lidocaine was infiltrated over the left radial artery. ??A 6-Citizen [place] sheath was placed in left radial artery. ?? Radial anti-vasospasm cocktail of verapamil 2.5 mg was administered through the sheath. ??All catheter exchanges were made over the Soares guidewire. ?? Left heart catheterization and coronary angiography was performed with a JL4 and a JR4. Aortography was performed with a 6 Fr pigtail catheter. All catheters and wires were removed. ??The sheath was removed and a pressure band was applied to obtain hemostasis. Specimens Removed: None Complications: None Hemodynamic Data, baseline: ?? RA: 10/8/6 mmHg RV: 26/10 mmHg PA: 26/13/18 mmHg PCWP: 11/10/8 mmHg AO: 90/60/74 mmHg CO: 4.82 L/min CI: 2.05 L/min/m2 O2 Sat: PA sat: 66% AO sat: 94% Coronary Angiography: Left main: Normal LAD: Mild atherosclerosis with a mid vessel 40% stenosis LCX: This is a dominant supplying the posterior descending branch on the inferior wall. ??The first large obtuse marginal branch has a proximal 50% stenosis RCA: There is a proximal 80% stenosis in this non-dominant vessel Coronary Findings Diagnostic Dominance: Right No diagnostic findings have been documented. Intervention No interventions have been documented. Study Details Nonrheumatic aortic valve insufficiency [I35.1]Nonrheumatic aortic valve stenosis [I35.0]Cardiovascular stress test abnormal [R94.39]Stable angina pectoris [I20.89]Shortness of breath [R06.02] Authorizing ProviderResult TypeResult StatusChristopher Marco Antonio [facility] INVASIVE VASCULAR PROCEDURESFinal Result * CORONARY ANGIOGRAPHY, RIGHT HEART CATH (02/18/2025 11:32 AM EDT)Anatomical RegionLateralityModalityOtherSpecimen (Source)Anatomical Location / Laterality Collection Method / VolumeCollection TimeReceived Time Narrative 02/18/2025 11:54 AM EDT PROCEDURE PHYSICIAN: Ashley Bowie MD Clinical Presentation: 74 y.o. 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 with an ascending aortic diameter of approximately 7 cm 3) Normal right and left heart filling pressures 4) Mild decrease in LV systolic function with an ejection fraction estimated at 50% 5) There is a 80% stenosis of the proximal right coronary artery supplying a moderately sized RV acute marginal artery branch and 40% in the mid-LAD and a 50% stenosis in the proximal OM branch of the dominant circumflex coronary artery (see below for details) Recommendation: 1) Evaluation for aortic valve and aortic root replacement surgery Procedures Performed: coronary angiography, aortography, conscious sedation, ultrasound guidance for vascular access Procedure Description: he patient was brought to the cardiac catheterization lab in a fasting state. ??Informed written consent was obtained. ??darío-out was performed. he was prepped and draped in usual sterile fashion and 1% lidocaine was infiltrated. ??Using ultrasound guidance and a micropuncture access technique a 6 [place] sheath was placed in the right internal jugular vein. The catheter was advanced under fluoroscopic and hemodynamic monitoring to the right atrium. ??Pressure obtained of the right atrium, right ventricle, pulmonary artery, pulmonary capillary position. ??Oxygen saturation drawn for the pulmonary artery and Sunil cardiac with a cardiac index were calculated. 1% lidocaine was infiltrated over the left radial artery. ??A 6-Citizen [place] sheath was placed in left radial artery. ?? Radial anti-vasospasm cocktail of verapamil 2.5 mg was administered through the sheath. ??All catheter exchanges were made over the Soares guidewire. ?? Left heart catheterization and coronary angiography was performed with a JL4 and a JR4. Aortography was performed with a 6 Fr pigtail catheter. All catheters and wires were removed. ??The sheath was removed and a pressure band was applied to obtain hemostasis. Specimens Removed: None Complications: None Hemodynamic Data, baseline: ?? RA: 10/8/6 mmHg RV: 26/10 mmHg PA: 26/13/18 mmHg PCWP: 11/10/8 mmHg AO: 90/60/74 mmHg CO: 4.82 L/min CI: 2.05 L/min/m2 O2 Sat: PA sat: 66% AO sat: 94% Coronary Angiography: Left main: Normal LAD: Mild atherosclerosis with a mid vessel 40% stenosis LCX: This is a dominant supplying the posterior descending branch on the inferior wall. ??The first large obtuse marginal branch has a proximal 50% stenosis RCA: There is a proximal 80% stenosis in this non-dominant vessel Coronary Findings Diagnostic Dominance: Right No diagnostic findings have been documented. Intervention No interventions have been documented. Study Details Nonrheumatic aortic valve insufficiency [I35.1]Nonrheumatic aortic valve stenosis [I35.0]Cardiovascular stress test abnormal [R94.39]Stable angina pectoris [I20.89]Shortness of breath [R06.02] Authorizing ProviderResult TypeResult Ramez Bowie [facility] CARDIAC CATH PROCEDURESFinal Result * (ABNORMAL) %HbO2 (02/18/2025 10:59 AM EDT)ComponentValueRef RangeTest Method Analysis TimePerformed AtPathologist KxwgvsealF4Fu%66.0(L)90.0 - 95.0 % 02/18/2025 11:00 AM [facility] ([place])Specimen (Source)Anatomical Location / LateralityCollection Method / VolumeCollection TimeReceived Time BloodVenous blood specimen / Fvqffwz9502/18/2025 10:59 AM EDT1 11:00 AM EDT Narrative Authorizing ProviderResult TypeResult StatusAshley [place] POINT OF CARE TEST DOCKED DEVICE UNSOLICITED RESULTSFinal ResultPerforming Organization AddressCity/State/ZIP CodePhone Number [facility] ([place]) [address] [place] [address] * TRANSESOPHAGEAL ECHO (CAN) W/ LIMITED DOPPLER AND COLOR FLOW (02/18/2025 10:39 AM EDT)Anatomical RegionLateralityModalityOtherSpecimen (Source)Anatomical Location / LateralityCollection Method / VolumeCollection TimeReceived Time 02/18/2025 9:38 AM EDT Narrative 02/18/2025 12:03 PM EDT [facility] [address] [place] [address] [phone] (fax) Transesophageal Echocardiogram-[facility] Name: MADDY SU Study Date: 02/18/2025 09:38 AM B/P: 13 mmHg/63 mmHg HR: 84 bpm Date of : 1950 Location: [facility] Height: 72 in. Age: 74 year(s) Patient Room: [facility] Weight: 259 lb. Gender: Male Patient Status: OutPt BSA: 2.38 m2 Indication: aortic insufficiency, Murmur, Hypertension Examination: CAN/Limited Doppler/CFI, Agitated Saline Image Quality: Good Patient Consent: Informed, written consent was obtained for the procedure Exam Details Contrast: I.V. dose of agitated saline Exam Location: A CAN was performed in the [place] without complications Anesthesia Pharyngeal anesthesia with viscous Lidocaine Conclusions Left Ventricle: The left ventricle is normal size. Global left ventricular systolic function is normal. Right Ventricle: The right ventricle is normal in size. Normal right ventricular systolic function. IAS: Agitated saline injections with valsalva suggest a PFO. Aortic Valve: The aortic valve is bicuspid with a prominant raphe. Severe aortic valve regurgitation. Aorta: The aortic root size in 2D measures 4.30 cm. The aortic root exhibits moderate dilation. The aortic sinotubular junction measures 4.10 cm. The aortic sinotubular junction exhibits dilatation, with moderate aortic tubulojunction effacement . The ascending aorta measures 4.30 cm. Moderate dilatation of the ascending aorta. Medications Date Time Name Route Form Dose Units Ordered By Given By Comment 02/18/2025 10:56 AM Midazolam HCL (Versed) 4 milligrams 02/18/2025 10:56 AM Fentanyl (Opiates) 50 micrograms Measurements Aorta Label Value Normal Value AoAsc 4.3 cm AoRoot, 2D 4.3 cm (1.4cm - 3.8cm) AoST 4.1 cm Valvular Assessment LVOT 0.7 - 1.1 m/sec Aortic Valve 1.0 - 1.7 m/sec Mitral Valve 0.6 - 1.3 m/sec Tricuspid Valve 0.3 - 0.7 m/sec Pulmonic Valve 0.6 - 0.9 m/sec Regurgitation Severe trivMil Trivial No Findings Left Ventricle: The left ventricle is normal size. Global left ventricular systolic function is normal. Right Ventricle: The right ventricle is normal in size. Normal right ventricular systolic function. Left Atrium Appendage: Normal left atrial appendage, no thrombus seen. IAS: Agitated saline injections with valsalva suggest a PFO. Right Atrium: The right atrium is normal in size. Mitral Valve: The mitral valve is normal in mobility and thickness. Trvial to mild mitral regurgitation. Aortic Valve: The aortic valve is bicuspid with a prominant raphe. Severe aortic valve regurgitation. Tricuspid Valve: Trivial tricuspid regurgitation. Pulmonic Valve: Normal pulmonary valve. No pulmonary regurgitation. Aorta: The aortic root size in 2D measures 4.30 cm. The aortic root exhibits moderate dilation. The aortic sinotubular junction measures 4.10 cm. The aortic sinotubular junction exhibits dilatation, with moderate aortic tubulojunction effacement . The ascending aorta measures 4.30 cm. Moderate dilatation of the ascending aorta. Pericardium: No pericardial effusion. Procedure Staff Reading Group: [facility] Referring Physician: JUAN TORRES ??Farm Operations Manager: DIONI Becerra, RDCS ??Ordering Physician: ASHLEY BOWIE ?? Procedure Note Lopez Galan MD - 02/18/2025 1 [facility] [address]. [place], [place] [id number] (fax) Transesophageal Echocardiogram-[facility] Name: MADDY SU Study Date: 02/18/2025 09:38 AM B/P: 13 mmHg/63 mmHg HR: 84 bpm Date of : 1950 Location: [facility] Height: 72 in. Age: 74 year(s) Patient Room: [facility] Weight: 259 lb. Gender: Male Patient Status: OutPt BSA: 2.38 m2 Indication: aortic insufficiency, Murmur, Hypertension Examination: CAN/Limited Doppler/CFI, Agitated Saline Image Quality: Good Patient Consent: Informed, written consent was obtained for the procedure Exam Details Contrast: I.V. dose of agitated saline Exam Location: A CAN was performed in the [facility] without complications Anesthesia Pharyngeal anesthesia with viscous Lidocaine Conclusions Left Ventricle: The left ventricle is normal size. Global left ventricular systolic function is normal. Right Ventricle: The right ventricle is normal in size. Normal right ventricular systolic function. IAS: Agitated saline injections with valsalva suggest a PFO. Aortic Valve: The aortic valve is bicuspid with a prominant raphe. Severe aortic valve regurgitation. Aorta: The aortic root size in 2D measures 4.30 cm. The aortic root exhibits moderate dilation. The aortic sinotubular junction measures 4.10 cm. The aortic sinotubular junction exhibits dilatation, with moderate aortic tubulojunction effacement . The ascending aorta measures 4.30 cm. Moderate dilatation of the ascending aorta. Medications Date Time Name Route Form Dose Units Ordered By Given By Comment 02/18/2025 10:56 AM Midazolam HCL (Versed) 4 milligrams 02/18/2025 10:56 AM Fentanyl (Opiates) 50 micrograms Measurements Aorta Label Value Normal Value AoAsc 4.3 cm AoRoot, 2D 4.3 cm (1.4cm - 3.8cm) AoST 4.1 cm Valvular Assessment LVOT 0.7 - 1.1 m/sec Aortic Valve 1.0 - 1.7 m/sec Mitral Valve 0.6 - 1.3 m/sec Tricuspid Valve 0.3 - 0.7 m/sec Pulmonic Valve 0.6 - 0.9 m/sec Regurgitation Severe trivMil Trivial No Findings Left Ventricle: The left ventricle is normal size. Global left ventricular systolic function is normal. Right Ventricle: The right ventricle is normal in size. Normal right ventricular systolic function. Left Atrium Appendage: Normal left atrial appendage, no thrombus seen. IAS: Agitated saline injections with valsalva suggest a PFO. Right Atrium: The right atrium is normal in size. Mitral Valve: The mitral valve is normal in mobility and thickness. Trvial to mild mitral regurgitation. Aortic Valve: The aortic valve is bicuspid with a prominant raphe. Severe aortic valve regurgitation. Tricuspid Valve: Trivial tricuspid regurgitation. Pulmonic Valve: Normal pulmonary valve. No pulmonary regurgitation. Aorta: The aortic root size in 2D measures 4.30 cm. The aortic root exhibits moderate dilation. The aortic sinotubular junction measures 4.10 cm. The aortic sinotubular junction exhibits dilatation, with moderate aortic tubulojunction effacement . The ascending aorta measures 4.30 cm. Moderate dilatation of the ascending aorta. Pericardium: No pericardial effusion. Procedure Staff Reading Group: [facility] Referring Physician: JUAN TORRES Farm Operations Manager: DIONI Becerra, RDCS Ordering Physician: ASHLEY BOWIE Authorizing ProviderResult TypeResult StatusChristopher Marco Antonio [facility] ECHO PROCEDURESFinal Result * Electrocardiogram, 12-lead (02/18/2025 9:41 AM EDT)ComponentValueRef RangeTest MethodAnalysis TimePerformed AtPathologist SignatureVentricular [id number] MUSEAtrial [id number] MUSEPR [id number] MUSEQRS [id number] MUSEQT [id number] MUSEQTC CALCULATION(BAZETT)427msGE MUSEP Sckk74wscfcwhYI MUSE U-[id number]-[id number] MUSET Wave [id number] MUSESpecimen (Source)Anatomical Location / LateralityCollection Method / VolumeCollection TimeReceived Time 02/18/2025 9:36 AM EDT1 12:50 PM EDT Impressions GE MUSE - 02/18/2025 12:50 PM EDT Normal sinus rhythm with sinus arrhythmia Normal ECG No previous ECGs available Confirmed by Reese GALAN SAMER J. ([id number]) on 02/18/2025 12:50:48 PM Narrative Procedure Note Lopez Galan MD - 02/18/2025 IMPRESSION: Normal sinus rhythm with sinus arrhythmia Normal ECG No previous ECGs available Confirmed by Reese GALAN, LOPEZ Aquino ([id number]) on 02/18/2025 12:50:48 PM Authorizing ProviderResult TypeResult StatusChristopher Marco Antonio MDECG ORDERABLES Final ResultPerforming OrganizationAddressCity/State/ZIP CodePhone Number GE MUSE documented in this encounter Visit Diagnoses Diagnosis Nonrheumatic aortic valve insufficiency Nonrheumatic aortic valve stenosis Cardiovascular stress test abnormal Stable angina pectoris Shortness of breath Coronary artery disease, unspecified vessel or lesion type, unspecified whether angina present, unspecified whether [place] or transplanted heart Nonrheumatic aortic valve insufficiency Nonrheumatic aortic valve stenosis Cardiovascular stress test abnormal Stable angina pectoris Shortness of breath documented in this encounter Admitting Diagnoses Diagnosis Nonrheumatic aortic valve insufficiency Nonrheumatic aortic valve stenosis Cardiovascular stress test abnormal Stable angina pectoris Shortness of breath Coronary artery disease Coronary atherosclerosis of unspecified type of vessel, [place] or graft documented in this encounter Administered Medications Medication OrderMAR ActionAction DateDoseRateSite fentaNYL (Sublimaze) injection As needed, Starting on Eileen 02/18/25 at 1009, Intraprocedure Given02/18/2025 10:49 AM EDT25 anxIkqey65/09/2025 10:11 AM EDT25 mcgGiven 02/18/2025 10:09 AM EDT25 mcg lidocaine (Xylocaine) 2 % mouth solution Mouth/Throat, As needed, Procedure Medication, Starting on Eileen 02/18/25 at 0951, Intraprocedure Given02/18/2025 9:51 AM EDT15 mL midazolam (Versed) injection As needed, Starting on Eileen 02/18/25 at 1009, Intraprocedure Given02/18/2025 10:49 AM EDT1 bpAxlus6702/18/2025 10:09 AM EDT2 kaPydam9402/18/2025 10:09 AM EDT2 mgdocumented in this encounter Active and Recently Administered Medications Times are shown in EDT.Medication Order/ fentaNYL (Sublimaze) injection (COMPLETED) As needed, Starting on Eileen 02/18/25 at 1009, Intraprocedure * 1009 (Given - Provider: Eli Rose RN) * 1011 (Given - Provider: Eli Rose RN) * 1049 (Given - Provider: Cindy Perdomo, LOLLY) heparin (porcine) injection (CANCELED) As needed, Starting on Eileen 02/18/25 at 1105, Intraprocedure * 1105 (Given - Provider: Cindy Perdomo, LOLLY) heparin irrigation 2 units/mL in NS (COMPLETED) As needed, Starting on Eileen 02/18/25 at 1038, Intraprocedure * 1038 (Given - Provider: Ashley Bowie MD) lidocaine (PF) (Xylocaine) 10 mg/mL (1 %) injection (COMPLETED) As needed, Starting on Eileen 02/18/25 at 1039, Intraprocedure * 1039 (Given - Provider: Ashley Bowie MD) lidocaine (Xylocaine) 2 % mouth solution (COMPLETED) Mouth/Throat, As needed, Procedure Medication, Starting on Eileen 02/18/25 at 0951, Intraprocedure * 0951 (Given - Provider: Eli Rose RN) midazolam (Versed) injection (COMPLETED) As needed, Starting on Eileen 02/18/25 at 1009, Intraprocedure * 1009 (Given - Provider: Eli Rose RN) * 1009 (Given - Provider: Eli Rose RN) * 1049 (Given - Provider: Cindy Perdomo, LOLLY) sodium chloride 0.9 % infusion (COMPLETED) Continuous PRN, Starting on Eileen 02/18/25 at 1039, Intraprocedure * 1039 (New Bag - Provider: Cindy Perdomo, LOLLY) verapamil (Isoptin) injection (CANCELED) As needed, Starting on Eileen 02/18/25 at 1104, Intraprocedure * 1104 (Given - Provider: Ashley Bowie MD) documented in this encounter Care Teams Team MemberRelationshipSpecialtyStart DateEnd Date Juan Torres DO [address] [facility] [facility] [place] [address] PCP - GeneralInternal Medicine02/02/25documented as of this encounter
--- OUTSIDE RECORDS SUMMARY | 2025-02-18 11:30 | XMS_ITS | Encounter Summary ---
Author Organization [facility] Address [address] [place] [address] Care Team Providers Care Telecommunications Line Mechanic Name Role Phone Juan Torres DO Primary Care Provider [phone] Reason for Visit * Auth/Cert (Routine)SpecialtyDiagnoses / ProceduresReferred By ContactReferred To Contact Diagnoses Nonrheumatic aortic valve insufficiency Nonrheumatic aortic valve stenosis Cardiovascular stress test abnormal Stable angina pectoris Shortness of breath Coronary artery disease, unspecified vessel or lesion type, unspecified whether angina present, unspecified whether [place] or transplanted heart Nonrheumatic aortic valve insufficiency [I35.1] Nonrheumatic aortic valve stenosis [I35.0] Cardiovascular stress test abnormal [R94.39] Stable angina pectoris [I20.89] Shortness of breath [R06.02] Coronary artery disease, unspecified vessel or lesion type, unspecified whether angina present, unspecified whether [place] or transplanted heart [I25.10] Procedures MN RIGHT HEART CATH O2 SATURATION & CARDIAC OUTPUT CHG AORTOGRAPHY THORACIC SERIALOGRAPHY RS&I MN CATH PLMT R HRT & ARTS W/NJX & ANGIO IMG S&I MN NJX DRG C-CATHJ SUPRAVALVULAR AORTOGRAPHY S&I Coronary angiography Right heart cath Aortogram Ashley Bowie MD [address] [place] [address] Phone: tel: fax: [facility] Vascular Lab [address] [place] [address] Phone: tel: fax: Referral IDStatusReasonStart DateExpiration DateVisits RequestedVisits [id number] Encounter Details DateTypeDepartmentCare Team (Latest Contact Info)Unsjowmivup44/09/2025 11:30 AM EDT - 02/18/2025 1:00 PM EDTSurgery [facility] [address] [place] [address] Ashley Bowie MD [address] [place] [address] Coronary angiography Social History Tobacco UseTypesPacks/DayYears UsedDateSmoking Tobacco: FormerCigarettes Smokeless Tobacco: NeverAlcohol UseStandard Drinks/WeekCommentsNot Currently0 (1 standard drink = 0.6 oz pure alcohol)Sex and Gender InformationValueDate RecordedSex Assigned at HsluzKxni11/16/2025 10:29 AM EDTLegal ZpiCksc2701/26/2025 10:26 AM EDTGender KnkvynqhFayp58/16/2025 10:29 AM EDTSexual Orientation Heterosexual or Fppdqoar66/16/2025 10:29 AM EDTdocumented as of this encounter Last Filed Vital Signs Vital SignReadingTime TakenCommentsBlood Eekgmmbs602/5702/18/2025 1:00 PM EDT Afqyk957102/18/2025 1:00 PM EDTTemperature--Respiratory Bzax5553 1:00 PM EDTOxygen Sflsalbljb117%02/18/2025 1:00 PM EDTInhaled Oxygen Concentration-- Weight--Height--Body Mass Index--documented in this encounter Functional Status * QuestionAnswerDate of AgcxkltgccLmqjqvRD372/5702/18/2025 1:00 PM Luciana Heaton RNPulse7102/18/2025 1:00 PM Luciana Heaton RN * Pain Assessment TimerQuestionAnswerDate of AssessmentAuthorRestart Pain Assessment EbszdZww59/09/2025 1:00 PM Luciana Heaton RN * QuestionAnswerDate of AssessmentAuthorHeart Rate HkznnxMskwjyv19/09/2025 9:23 AM Eli Forte RN * Sepsis Model ScoresQuestionAnswerDate of AssessmentAuthorEarly Detection of Sepsis Score2.510 12:46 PM Jesus Allenq * Pain AssessmentQuestionAnswerDate of AssessmentAuthorRamsay Scale (RS): Score2 02/18/2025 9:04 AM Eli Forte RNPain AssessmentNo/denies pain 02/18/2025 1:00 PM Luciana Heaton RN * Patient PositionAnswerDate of ZiwevbsjfjKxmfygDerncid24/24/2025 10:27 AM EDT Kim García MA * QuestionAnswerDate of AssessmentAuthorPulse rate from Plethysmogram (bpm)69 02/18/2025 1:00 PM Luciana Heaton RN * Vital SignsQuestionAnswerDate of GtxvyzitrmRuowpcSY228/5702/18/2025 1:00 PM Luciana Heaton ZHMmata9925/09/2025 1:00 PM Luciana Heaton TYCaam56 02/18/2025 1:00 PM Luciana Heaton AFSuN417707/09/2025 1:00 PM Luciana Heaton RNMAP (mmHg)8502/18/2025 12:45 PM Luciana Heaton RN * Peripheral VascularQuestionAnswerDate of AssessmentAuthorPulsesLeft pedal;Right pedal;Left posterior tibial;Right posterior hrbnpe1402/18/2025 9:11 AM Eli Forte RN * RLE [...] RNSwallowAble to swallow solids and liquids without cawaxmhoxn86/09/2025 9:11 AM Eli Forte RN * QuestionAnswerDate of AssessmentAuthorHeart Rate ActxaePjqtjwj83/09/2025 9:23 AM Eli Forte RNBP LocationLeft arm02/18/2025 9:23 AM Eli Forte RN * Pain AssessmentQuestionAnswerDate of AssessmentAuthorRamsay Scale (RS): Score2 02/18/2025 9:04 AM Eli Forte RNPain AssessmentNo/denies pain 02/18/2025 1:00 PM Luciana Heaton RN * [place] Suicide Severity Rating ScaleQuestionAnswerDate of AssessmentAuthor1. Have [...] Eli Jeff, LOLLY * Patient PositionAnswerDate of MkywycnnsoEtfpraAngehvo76/24/2025 10:27 AM EDT Kim García MA * Modified AldreteQuestionAnswerDate of DdzcuxwufjCervpoSmicdakz948/09/2025 11:43 AM Luciana Heaton RNRespiration 11:43 AM Luciana Heaton RNCirculation 11:43 AM Luciana Heaton RNConsciousness 11:43 AM Luciana Heaton RNOxygen Yuolgwuofj570/09/2025 11:43 AM Luciana Heaton RNModified Rhiannon Hdvwz9771/09/2025 11:43 AM Luciana Heaton RN documented as of this encounter Mental Status * Mina Agitation Sedation ScaleQuestionAnswerEntry AutrRsauk prairie memorial hospitalmond Agitation Sedation Scale (RASS) 11:30 AM Cindy Zepeda RN * Modified AldreteQuestionAnswerEntry LwmkGkyijiDtvforqt141/09/2025 11:43 AM Luciana Azar RNRespiration 11:43 AM Luciana Heaton RN Arenexleegb914/09/2025 11:43 AM Luciana Heaton RNConsciousness 11:43 AM Luciana Heaton RNOxygen Ffzoslycru121/09/2025 11:43 AM Luciana Heaton RNModified Rhiannon Cdcju5577/09/2025 11:43 AM Luciana Heaton RN documented in this encounter Discharge Instructions * Attachments The following attachments cannot be sent through Care Everywhere. 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 In interim will [...] cath (Right) - with CAN Aortogram Location: [facility]PL[facility] TECHNICIAN 3 / [facility] VASCULAR [facility] (Cath) Providers: Ashley Bowie MD [...] Plan of Treatment DateTypeDepartmentCare Team (Latest Contact Info)Aqhtqepjgin27/10/2025 11:00 AM ESTOffice Visit [facility] Heart at [place] [address] [place] [address] Ashley Bowie MD [address] [place] [phone] documented as of this encounter Procedures Procedure NamePriorityDate/TimeAssociated DiagnosisCommentsAORTOGRAMRoutine 02/18/2025 11:32 AM EDT Nonrheumatic aortic valve insufficiency Nonrheumatic aortic valve stenosis Cardiovascular stress test abnormal Stable angina pectoris Shortness of breath Coronary artery disease, unspecified vessel or lesion type, unspecified whether angina present, unspecified whether [place] or transplanted heart RIGHT HEART TXDIDkigxhi67/09/2025 11:32 AM EDT Nonrheumatic aortic valve insufficiency Nonrheumatic aortic valve stenosis Cardiovascular stress test abnormal Stable angina pectoris Shortness of breath Coronary artery disease, unspecified vessel or lesion type, unspecified whether angina present, unspecified whether [place] or transplanted heart CORONARY CWYWVJIHTMKQfntgtx23/09/2025 11:32 AM EDT Nonrheumatic aortic valve insufficiency Nonrheumatic aortic valve stenosis Cardiovascular stress test abnormal Stable angina pectoris Shortness of breath Coronary artery disease, unspecified vessel or lesion type, unspecified whether angina present, unspecified whether [place] or transplanted heart %TIC6Fkhksmf35/09/2025 10:59 AM EDT TRANSESOPHAGEAL ECHO (CAN) W/ LIMITED DOPPLER AND COLOR HPJOGcqhdby71/09/2025 10:39 AM EDT Nonrheumatic aortic valve insufficiency Nonrheumatic aortic valve stenosis Shortness of breath Coronary artery disease, unspecified vessel or lesion type, unspecified whether angina present, unspecified whether [place] or transplanted heart ECG 12-GTNCWhqiziu87/09/2025 9:41 AM EDT documented in this encounter [...] and a micropuncture access technique a 6 Argentine sheath was placed in the right internal jugular vein. The catheter was advanced under fluoroscopic and hemodynamic monitoring to the right atrium. ??Pressure obtained of the right atrium, right ventricle, pulmonary artery, pulmonary capillary position. ??Oxygen saturation drawn for the pulmonary artery and Sunil cardiac with a cardiac index were calculated. 1% lidocaine was infiltrated over the left radial artery. ??A 6-Argentine sheath was placed in left radial artery. [...] [R06.02] Authorizing ProviderResult TypeResult StatusChristopher Marco Antonio [facility] INVASIVE VASCULAR PROCEDURESFinal Result * CORONARY ANGIOGRAPHY, [...] and a micropuncture access technique a 6 Argentine sheath was placed in the right internal jugular vein. The catheter was advanced under fluoroscopic and hemodynamic monitoring to the right atrium. ??Pressure obtained of the right atrium, right ventricle, pulmonary artery, pulmonary capillary position. ??Oxygen saturation drawn for the pulmonary artery and Sunil cardiac with a cardiac index were calculated. 1% lidocaine was infiltrated over the left radial artery. ??A 6-Argentine sheath was placed in left radial artery. [...] breath [R06.02] Authorizing ProviderResult TypeResult StatusChristopher [facility] CARDIAC CATH PROCEDURESFinal Result * (ABNORMAL) %HbO2 (02/18/2025 10:59 AM EDT)ComponentValueRef RangeTest Method Analysis TimePerformed AtPathologist CrjeqacpzW5Lu%66.0(L)90.0 - 95.0 % 02/18/2025 11:00 AM [facility] ([place]ART[facility]NE[place])Specimen (Source)Anatomical Location / LateralityCollection Method / VolumeCollection TimeReceived Time BloodVenous blood specimen / Owfwjwc3102/18/2025 10:59 AM EDT1 11:00 AM EDT Narrative Authorizing ProviderResult TypeResult StatusChristopher Marco Antonio [place] POINT OF CARE TEST DOCKED DEVICE UNSOLICITED RESULTSFinal ResultPerforming Organization AddressCity/State/ZIP CodePhone Number [facility] (BEAKER) [address] [place] [address] * TRANSESOPHAGEAL ECHO (CAN) W/ LIMITED DOPPLER AND COLOR FLOW (02/18/2025 10:39 AM EDT)Anatomical RegionLateralityModalityOtherSpecimen (Source)Anatomical Location / LateralityCollection Method / VolumeCollection TimeReceived Time 02/18/2025 9:38 AM EDT Narrative 02/18/2025 12:03 PM EDT [facility] Heart Station [address] [place] [address] [phone] (fax) Transesophageal Echocardiogram-[facility] Name: MADDY SU Study Date: 02/18/2025 09:38 AM B/P: 13 mmHg/63 mmHg HR: 84 bpm Date of : 1950 Location: [facility] Height: 72 in. Age: 74 year(s) Patient Room: [facility] Weight: 259 lb. Gender: Male Patient Status: OutPt BSA: 2.38 m2 Indication: aortic insufficiency, Murmur, Hypertension Examination: CAN/Limited Doppler/CFI, Agitated Saline Image Quality: Good Patient Consent: Informed, written consent was obtained for the procedure Exam Details Contrast: I.V. dose of agitated saline Exam Location: A CAN was performed in the Tool Rental Technician without complications Anesthesia Pharyngeal anesthesia with viscous [...] No pericardial effusion. Procedure Staff Reading Group: [facility] Referring Physician: JUAN TORRES ??Aircraft Electronics Technical Officer: DIONI Becerra, RDCS ??Ordering Physician: ASHLEY BOWIE ?? Procedure Note Lopez Galan MD - 10/09/2025 1 [facility] Heart Station [address] [place] [address] [phone] (fax) Transesophageal Echocardiogram-[facility] Name: MADDY SU Study Date: 02/18/2025 09:38 AM B/P: 13 mmHg/63 mmHg HR: 84 bpm Date of : 1950 Location: [facility] Height: 72 in. Age: 74 year(s) Patient Room: [facility]ASC[facility] PO[facility] Weight: 259 lb. Gender: Male Patient Status: OutPt BSA: 2.38 m2 Indication: aortic insufficiency, Murmur, Hypertension Examination: CAN/Limited Doppler/CFI, Agitated Saline Image Quality: Good Patient Consent: Informed, written consent was obtained for the procedure Exam Details Contrast: I.V. dose of agitated saline Exam Location: A CAN was performed in the Tool Rental Technician without complications Anesthesia Pharyngeal anesthesia with viscous [...] No pericardial effusion. Procedure Staff Reading Group: [facility] Referring Physician: JUAN TORRES Aircraft Electronics Technical Officer: DIONI Becerra, RDCS Ordering Physician: ASHLEY BOWIE Authorizing ProviderResult TypeResult StatusChristopher Marco Antonio [facility] ECHO PROCEDURESFinal Result * Electrocardiogram, 12-lead (02/18/2025 9:41 AM EDT)ComponentValueRef RangeTest MethodAnalysis TimePerformed AtPathologist SignatureVentricular Yrea36BQNXH MUSEAtrial Moiu00SRRTA MUSEPR Hxuxqmoc937gdAH MUSEQRS EGIIINTZ91vuMM MUSEQT Epbxnucl551opSJ MUSEQTC CALCULATION(BAZETT)427msGE MUSEP Rdhq42jcaxpgrQO MUSE Y-Sqke-51nmgaomlYC MUSET Wave Iqxs65kknbvtmAH MUSESpecimen (Source)Anatomical Location / LateralityCollection Method / [...] type, unspecified whether angina present, unspecified whether [place] or transplanted heart Nonrheumatic aortic valve insufficiency Nonrheumatic aortic valve stenosis Cardiovascular stress test abnormal Stable angina pectoris Shortness of breath documented in this encounter Admitting Diagnoses Diagnosis Nonrheumatic aortic valve insufficiency Nonrheumatic aortic valve stenosis Cardiovascular stress test abnormal Stable angina pectoris Shortness of breath Coronary artery disease Coronary atherosclerosis of unspecified type of vessel, [place] or graft documented in this encounter Administered Medications Medication OrderMAR ActionAction DateDoseRateSite fentaNYL (Sublimaze) injection As needed, Starting on Eileen 02/18/25 at 1009, Intraprocedure Given02/18/2025 10:49 AM EDT25 lauYmcso74/09/2025 10:11 AM EDT25 mcgGiven 02/18/2025 10:09 AM [...] at 1009, Intraprocedure Given02/18/2025 10:49 AM EDT1 ryXdzua2402/18/2025 10:09 AM EDT2 fdLzqbn8002/18/2025 10:09 AM EDT2 mg sodium chloride 0.9 [...] DateEnd Date Juan Torres DO [address] [place] [phone] PCP - GeneralInternal Medicine02/02/25documented as of this encounter
--- OUTSIDE RECORDS SUMMARY | 2025-02-19 | XMS_ITS | Encounter Summary ---
Author Organization [facility] Address [address] [place] [address] Care Team Providers Care Legal Mediator Name Role Phone uJan Torres DO Primary Care Provider [phone] Encounter Details DateTypeDepartmentCare Team (Latest Contact Info)Apdqnagbojd14/10/2025 - 02/19/2025 12:04 AM EDTHospital Encounter [facility] Radiology External Films [address] [place] [phone] Discharge Disposition: Home or Self Care () Social History Tobacco UseTypesPacks/DayYears UsedDateSmoking Tobacco: FormerCigarettes Smokeless Tobacco: NeverAlcohol UseStandard Drinks/WeekCommentsNot Currently0 (1 standard drink = 0.6 oz pure alcohol)Sex and Gender InformationValueDate RecordedSex Assigned at LolqoJxda14/16/2025 10:29 AM EDTLegal RpwFuai5001/26/2025 10:26 AM EDTGender QfnuqnqjXtsn63/16/2025 10:29 AM EDTSexual Orientation Heterosexual or Lsapwghh62/16/2025 10:29 AM EDTdocumented as of this encounter Medications at Time of Discharge MedicationSigDispense QuantityRefillsLast FilledStart DateEnd Date amLODIPine (Norvasc) 5 mg tablet Take 1 tablet by mouth in the morning.06/27/2024 aspirin 81 mg EC tablet Take 81 mg by mouth in the morning. chlorthalidone (Hygroton) 25 mg tablet Indications:Shortness of breathTake 0.5 tablets (12.5 mg) by mouth in the morning. 15 tablet 5008/02/2025 omeprazole (PriLOSEC) [address] capsule Take 20 mg by mouth in the morning. tamsulosin (Flomax) 0.4 mg 24 hr capsule Take 0.4 mg by mouth in the morning. telmisartan (MIcarDIS) 20 mg tablet Take 1 tablet by mouth in the morning.01/25/2025documented as of this encounter Plan of Treatment DateTypeDepartmentCare Team (Latest Contact Info)Dcyigplekkj57/10/2025 11:00 AM ESTOffice Visit [facility] [address] [place] [address] Gulshan Bernard MD [address] [place] [phone] documented as of this encounter Procedures Procedure NamePriorityDate/TimeAssociated DiagnosisCommentsCT TRANSFER OF OUTSIDE EIAXRSsuaagc39/10/2025 12:00 AM EDT documented in this encounter Results * CT transfer of outside films (02/19/2025 12:00 AM EDT)Specimen (Source) Anatomical Location / LateralityCollection Method / VolumeCollection Time Received Time Narrative IMAGING - 02/19/2025 1:10 PM EDT This order has been auto-finalized and does not contain a result. Authorizing ProviderResult TypeResult StatusNacho Valle MDIMJacki CT PROCEDURESFinal ResultPerforming OrganizationAddressCity/State/ZIP CodePhone Number IMAGING documented in this encounter Visit Diagnoses Not on filedocumented in this encounter Care Teams Team MemberRelationshipSpecialtyStart DateEnd Date Juan Torres DO [address] [facility] [place] [address] PCP - GeneralInternal Medicine02/02/25documented as of this encounter
--- OUTSIDE RECORDS SUMMARY | 2025-02-19 00:05 | XMS_ITS | Encounter Summary ---
Author Organization [facility] Address [address] [place] [address] Care Team Providers Care Bulk Plant Manager Name Role Phone Juan Torres DO Primary Care Provider [phone] Encounter Details DateTypeDepartmentCare Team (Latest Contact Info)Bspyrwixbeu11/10/2025 12:05 AM EDT - 02/19/2025 12:09 AM EDTHospital Encounter [facility] Radiology External Films [address] [place] [phone] Discharge Disposition: Home or Self Care () Social History Tobacco UseTypesPacks/DayYears UsedDateSmoking Tobacco: FormerCigarettes Smokeless Tobacco: NeverAlcohol UseStandard Drinks/WeekCommentsNot Currently0 (1 standard drink = 0.6 oz pure alcohol)Sex and Gender InformationValueDate RecordedSex Assigned at FsufvZaky17/16/2025 10:29 AM EDTLegal QboAgpu3701/26/2025 10:26 AM EDTGender JqzequvjLlbt39/16/2025 10:29 AM EDTSexual Orientation Heterosexual or Kbtjquzp84/16/2025 10:29 AM EDTdocumented as of this encounter Medications at Time of Discharge MedicationSigDispense QuantityRefillsLast FilledStart DateEnd Date amLODIPine (Norvasc) 5 mg tablet Take 1 tablet by mouth in the morning.06/27/2024 aspirin 81 mg EC tablet Take 81 mg by mouth in the morning. chlorthalidone (Hygroton) 25 mg tablet Indications:Shortness of breathTake 0.5 tablets (12.5 mg) by mouth in the morning. 15 tablet /022910/ omeprazole (PriLOSEC) [address] capsule Take 20 mg by mouth in the morning. tamsulosin (Flomax) 0.4 mg 24 hr capsule Take 0.4 mg by mouth in the morning. telmisartan (MIcarDIS) 20 mg tablet Take 1 tablet by mouth in the morning.01/25/2025documented as of this encounter Plan of Treatment DateTypeDepartmentCare Team (Latest Contact Info)Sbnxlznrydb83/10/2025 11:[address] [facility] [address] [place] [address] Gulshan Bernard MD [address] [place] [phone] documented as of this encounter Procedures Procedure NamePriorityDate/TimeAssociated DiagnosisCommentsXR TRANSFER OF OUTSIDE CLCTIFzzthse62/10/2025 12:05 AM EDT documented in this encounter Results * XR transfer of outside films (02/19/2025 12:05 AM EDT)Specimen (Source) Anatomical Location / LateralityCollection Method / VolumeCollection Time Received Time Narrative IMAGING - 02/19/2025 1:10 PM EDT This order has been auto-finalized and does not contain a result. Authorizing ProviderResult TypeResult StatusNacho Valle MDIMJacki XR PROCEDURESFinal ResultPerforming OrganizationAddressCity/State/ZIP CodePhone Number IMAGING documented in this encounter Visit Diagnoses Not on filedocumented in this encounter Care Teams Team MemberRelationshipSpecialtyStart DateEnd Date Juan Torres DO [address] [facility] [place] [address] PCP - GeneralInternal Medicine02/02/25documented as of this encounter
--- OUTSIDE RECORDS SUMMARY | 2025-02-19 00:10 | XMS_ITS | Encounter Summary ---
Author Organization [facility] Address [address] [place] [address] Care Team Providers Care Chair Trimmer Name Role Phone Juan Torres DO Primary Care Provider [phone] Encounter Details DateTypeDepartmentCare Team (Latest Contact Info)Yfhipiddqam00/10/2025 12:10 AM EDT - 02/19/2025 11:59 PM EDTHospital Encounter [facility] Radiology External Films [address] [place] [phone] Discharge Disposition: Home or Self Care () Social History Tobacco UseTypesPacks/DayYears UsedDateSmoking Tobacco: FormerCigarettes Smokeless Tobacco: NeverAlcohol UseStandard Drinks/WeekCommentsNot Currently0 (1 standard drink = 0.6 oz pure alcohol)Sex and Gender InformationValueDate RecordedSex Assigned at TydazOqxh33/16/2025 10:29 AM EDTLegal IssObyz1701/26/2025 10:26 AM EDTGender AnlevirsXaqd15/16/2025 10:29 AM EDTSexual Orientation Heterosexual or Tafskopi47/16/2025 10:29 AM EDTdocumented as of this encounter Medications at Time of Discharge MedicationSigDispense QuantityRefillsLast FilledStart DateEnd Date amLODIPine (Norvasc) 5 mg tablet Take 1 tablet by mouth in the morning.06/27/2024 aspirin 81 mg EC tablet Take 81 mg by mouth in the morning. chlorthalidone (Hygroton) 25 mg tablet Indications:Shortness of breathTake 0.5 tablets (12.5 mg) by mouth in the morning. 15 tablet /[id number]/ omeprazole (PriLOSEC) [address] capsule Take 20 mg by mouth in the morning. tamsulosin (Flomax) 0.4 mg 24 hr capsule Take 0.4 mg by mouth in the morning. telmisartan (MIcarDIS) 20 mg tablet Take 1 tablet by mouth in the morning.01/25/2025documented as of this encounter Plan of Treatment DateTypeDepartmentCare Team (Latest Contact Info)Tlttdvflhxj38/10/2025 11:00 AM ESTOffice Visit [facility] [address] [place] [address] Gulshan Bernard MD [address] [place] [phone] documented as of this encounter Procedures Procedure NamePriorityDate/TimeAssociated DiagnosisCommentsUS TRANSFER OF OUTSIDE UGFUAEkxyriw17/10/2025 12:10 AM EDT documented in this encounter Results * US transfer of outside films (02/19/2025 12:10 AM EDT)Specimen (Source) Anatomical Location / LateralityCollection Method / VolumeCollection Time Received Time Narrative IMAGING - 02/19/2025 2:59 PM EDT This order has been auto-finalized and does not contain a result. Authorizing ProviderResult TypeResult StatusNacho Valle MDIMJacki US PROCEDURESFinal ResultPerforming OrganizationAddressCity/State/ZIP CodePhone Number IMAGING documented in this encounter Visit Diagnoses Not on filedocumented in this encounter Care Teams Team MemberRelationshipSpecialtyStart DateEnd Date Juan Torres DO [address] [facility] [place] [place] [address] PCP - GeneralInternal Medicine02/02/25documented as of this encounter
--- OUTSIDE RECORDS SUMMARY | 2025-02-23 15:00 | XMS_ITS | Encounter Summary ---
Author Organization [facility] Address [address] [place] [address] Care Team Providers Care Creative Project Manager Name Role Phone Juan Stanton DO Primary Care Provider [phone] Reason for Visit * ReasonCommentsNew PatientBicuspid Aortic Valve, Severe Aortic Valve Regurgitation Encounter Details DateTypeDepartmentCare Team (Latest Contact Info)Phvqevylixt62/14/2025 3:00 PM EDTConsult [facility] [address] [place] [phone] George Abdalla, QUALITY PROCESS LEAD [address] [place], [place] [id number] Nonrheumatic aortic valve insufficiency (Primary Dx); Pre-op testing Social History Tobacco UseTypesPacks/DayYears UsedDateSmoking Tobacco: FormerCigarettes Smokeless Tobacco: Never Tobacco Cessation:Counseling Given: Not Answered Alcohol UseStandard Drinks/WeekCommentsNot Currently0 (1 standard drink = 0.6 oz pure alcohol)Sex and Gender InformationValueDate RecordedSex Assigned at Male01/26/2025 10:29 AM EDTLegal LlhZhiz9101/26/2025 10:26 AM EDTGender Identity Male01/26/2025 10:29 AM EDTSexual OrientationHeterosexual or Qrufuiuk91/16/2025 10:29 AM EDTdocumented as of this encounter Last Filed Vital Signs Vital SignReadingTime TakenCommentsBlood Pdjtajys256/7310 3:05 PM EDT Yizcc2211 3:05 PM EDTTemperature--Respiratory Ndkb8417 3:05 PM EDTOxygen Pjowoiukmd43%02/23/2025 3:05 PM EDTInhaled Oxygen Concentration-- Wmtqvy462 kg (259 lb)02/23/2025 3:05 PM ORZFnxhhh673.3 cm (5' 11 )02/23/2025 3:05 PM EDTBody Mass Index36.121 3:05 PM EDTdocumented in this encounter Functional Status * BPAnswerDate of JbchmxtyceIgolbz090/7302/23/2025 3:05 PM Keith Otto MA * PulseAnswerDate of HxlyijmgvmXqkyfv2221 3:05 PM Keith Otto MA * Patient PositionAnswerDate of HwzcyragjdZpelcbFsgyibf90/14/2025 3:05 PM EDT Keith Guerin MA * BPAnswerDate of BzyrtmwqacYhnjst430/7302/23/2025 3:05 PM Keith Otto MA * PulseAnswerDate of GwzlbqdubeTbhjsj5985/14/2025 3:05 PM Keith Otto MA * RespAnswerDate of OpmtewunemMvcjcx3752/14/2025 3:05 PM Keith Otto MA * IbR7JzabgiQaui of RfwdswbbguWcicjx4851/14/2025 3:05 PM Keith Otto MA * BP LocationAnswerDate of AssessmentAuthorLeft arm02/23/2025 3:05 PM EDT Keith Guerin MA * Patient PositionAnswerDate of JabrswiygwGjzvnhTttnymk36/14/2025 3:05 PM EDT Keith Guerin MA documented as of this encounter Progress Notes * George Abdalla, LANCE - 02/23/2025 3:00 PM EDT Images from the original note were not included. Cardiothoracic Surgery Consultation Note 02/23/2025 Reason For Consult Bicuspid Aortic Valve, Severe Aortic Valve Regurgitation Referring Provider: Dr. Ashley Bowie History Of Present Illness Maddy Peraza is a 74 y.o. male with PMH of Aortic Valve Insufficiency, Ascending Aortic Aneurysm, Hypertension, Hyperlipidemia, Sleep Apnea (Non complaint), GERD, Barretts Esophagus. He was referred to cardiology in January due to abnormal echocardiogram and stress test. He was also experiencing SOB, HOLMAN, chest tightness, dizziness/lightheadedness with position changes. Leg pain with walking, Underwent cardiac catherization 02/2025 that showed mild disease to RCA/LCX. RCA non dominant vessel 80% proximal stenosis. CAN 02/2025 showed EF normal. IAS: Agitated saline injections with valsalva suggest a PFO. Aortic Valve: The aortic valve is bicuspid with a prominant raphe. Severe aortic valve regurgitation. Aorta:The aortic root size in 2D measures 4.30 cm. The aortic root exhibits moderate dilation. The aortic sinotubular junction measures 4.10 cm. He was referred to CT Surgery for surgical evaluation and recommendations. Patient is here with hiswife. He states he continues to ride his bike, has intermittent episodes of SOB on exertion. Endorses some chest heaviness. Denies Dizziness or light headedness. Intermittent episodes of lower extremity swelling when he his on his feet for too long. 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 Assessment: Severe Aortic Valve Regurgitation CAD HTN DANIA Barretts Esophagus GERD Former Smoker Plan : -Patient seen and evaluated by Cardiothoracic Team. Dr. Nacho Valle personally examined the patient andreviewed The Cardiac Catherization, Echocardiogram, CXR, and Other Diagnostic Testing. Findings discussed with patient and his . Explained current disease process and reviewed treatment options. -CT Surgery Recommendation: Aortic Root and Aortic Valve replacement. CAD seen on cardiac catherization, RCA 80% stenosis- can be stented at a later time, patient is not right sided dominant in circulatory system of heart. PFO seen on CAN, possible repair. Will start pre-op work up. -STS Score for this surgery is: Procedure Type: Bentall (AVR+Root+Asc) Operative Outcome Estimate % Operative Mortality 2.58% Morbidity & Mortality 16.2% Stroke 3.47% Renal Failure 2.35% Reoperation 5.46% Prolonged Ventilation 8.12% Deep Sternal Wound Infection NA Long Hospital Stay (>14 days) 7.13% Short Hospital Stay (<6 days)* 28.1% Clinical Summary Planned Surgery: Bentall (AVR+Root+Asc), Elective, First cardiovascular surgery, Planned Circulatory Arrest Demographics: 74 year old, White, male, 117kg, 175cm, BMI: 38.2 kg/m??, BSA: 2.3m?? Lab Values: Creatinine: 1.18 mg/dL, Hematocrit: 44 %, WBC Count: 6.3 10??/?L, Platelet Count: 601487 cells/?L, Total Albumin: 4 g/dL, Total Bilirubin: 0.6 mg/dL, INR: 1.1, MELD score: 9 Substance Abuse: Former smoker Risk Factors / Comorbidities: Hypertension, Family Hx of CAD Pulmonary RF: Sleep Apnea Cardiac Status: NYHA Class II, Ejection Fraction = 60% Coronary Artery Disease: 1 vessel diseased, Stable Angina Valve Disease: Severe AR, Mild MR -Pre-Op Testing needed for this surgery: CT of ABD/Pelvis, PFTs, Labs, Urinalysis. Aim to complete in 2 weeks and bring back to office to discuss surgical date. -Patient and agreeable to POC.. Informed if any episodes of increasing SOB/Chest pain to be evaluated in ED or call 911. Past Medical History He has a past medical history of Aortic valve sclerosis, Barretts esophagus, BPH (benign prostatic hyperplasia), GERD (gastroesophageal reflux disease), Hypercholesterolemia, Hypertension, and DANIA (obstructive sleep apnea). Surgical History He has a past surgical history that includes Umbilical hernia repair; Colonoscopy; Esophagogastroduodenoscopy; and Cardiac catheterization. Family History Family History[1] Social History He reports that he has quit smoking. His smoking use included cigarettes. He has never used smokeless tobacco. He reports that he does not currently use alcohol. He reports that he does not use drugs. Allergies Patient has no known allergies. Medications Current Medications[2] Review of Systems Review of Systems: All 14 Systems Reviewed and Negative unless otherwise indicated in the above HPI. Last Recorded Vitals BP 151/73 (BP Location: Left arm, Patient Position: Sitting, BP Cuff Size: Adult) Pulse 94 Resp18 Ht 1.803 m (5' 11 ) Wt 117 kg (259 lb) SpO2 99% BMI 36.12 kg/m?? Physical Exam Vitals reviewed. Constitutional: General: He is not in acute distress. Appearance: Normal appearance. He is obese. He is not ill-appearing. HENT: Head: Normocephalic and atraumatic. Mouth/Throat: Mouth: Mucous membranes are moist. Pharynx: Oropharynx is clear. Eyes: Extraocular Movements: Extraocular movements intact. Conjunctiva/sclera: Conjunctivae normal. Pupils: Pupils are equal, round, and reactive to light. Neck: Vascular: No carotid bruit. Cardiovascular: Rate and Rhythm: Normal rate and regular rhythm. Pulses: Normal pulses. Heart sounds: Murmur heard. Pulmonary: Effort: Pulmonary effort is normal. No respiratory distress. Breath sounds: Normal breath sounds. Abdominal: General: Abdomen is flat. There is no distension. Palpations: Abdomen is soft. Musculoskeletal: General: Normal range of motion. Cervical back: Normal range of motion. Right lower leg: No edema. Left lower leg: No edema. Skin: General: Skin is warm and dry. Capillary Refill: Capillary refill takes less than 2 seconds. Coloration: Skin is not pale. Neurological: General: No focal deficit present. Mental Status: He is alert and oriented to person, place, and time. Mental status is at baseline. Psychiatric: Mood and Affect: Mood normal. Behavior: Behavior normal. Thought Content: Thought content normal. Judgment: Judgment normal. Relevant Results No visits with results within 1 Day(s) from this visit. Latest known visit with results is: Admission on 02/18/2025, Discharged on 02/18/2025 Component Date Value Ref Range Status Ventricular Rate 02/18/2025 82 BPM Final Atrial Rate 02/18/2025 82 BPM Final WA Interval 02/18/2025 166 ms Final QRS DURATION 02/18/2025 94 ms Final QT Interval 02/18/2025 366 ms Final QTC CALCULATION(BAZETT) 02/18/2025 427 ms Final P [place] 02/18/2025 34 degrees Final R-[place] 02/18/2025 -15 degrees Final T Wave [place] 02/18/2025 25 degrees Final O2Hb% 02/18/2025 66.0 (L) 90.0 - 95.0 % Final Cardiac Catherization 02/18/2025: Hemodynamic Data, baseline: RA: 10/8/6 mmHg RV: 26/10 mmHg PA: 26/13/18 mmHg PCWP: 11/10/8 mmHg AO: 90/60/74 mmHg CO: 4.82 L/min CI: 2.05 L/min/m2 O2 Sat: PA sat: 66% AO sat: 94% Coronary Angiography: Left main: Normal LAD: Mild atherosclerosis with a mid vessel 40% stenosis LCX: This is a dominant supplying the posterior descending branch on the inferior wall. The first large obtuse marginal branch has a proximal 50% stenosis RCA: There is a proximal 80% stenosis in this non-dominant vessel Transesophageal echo (CAN) Result Date: 02/18/2025 1 [facility] Heart Station [address] [place] [address] [phone] (fax) Transesophageal Echocardiogram-[facility] Name: MADDY PERAZA Study Date: 02/18/2025 09:38 AM B/P: 13 mmHg/63 mmHg HR: 84 bpm Date of : 1950 Location: [facility] Height: 72 in. Age: 74 year(s) Patient Room: [facility] VASCULAR POOL Weight: 259 lb. Gender: Male Patient Status: OutPt BSA: 2.38 m2 Indication: aortic insufficiency, Murmur, Hypertension Examination: CAN/Limited Doppler/CFI, Agitated Saline Image Quality: Good Patient Consent: Informed,written consent was obtained for the procedure Exam Details Contrast: I.V. dose of agitated saline Exam Location: A CAN was performed in the Location Director without complications Anesthesia Pharyngeal anesthesia with viscous Lidocaine Conclusions Left Ventricle: The left ventricle is normal size. Global left ventricular systolic function is normal. Right Ventricle: The right ventricle is normal in size. Normal right ventricular systolic function. IAS: Agitated saline injections with valsalva suggest aPFO. Aortic Valve: The aortic valve is bicuspid [...] aortic root size in 2D measures 4.30 cm.The aortic root exhibits moderate dilation. The aortic sinotubular junction measures 4.10 cm. The aortic sinotubular junction exhibits dilatation, with moderate aortic tubulojunction effacement . Theascending aorta measures 4.30 cm. Moderate dilatation of the ascending aorta. Pericardium: No pericardial effusion. Procedure Staff Reading Group: [facility] Referring Physician: JUAN STANTON Wet Process Technician: DIONI Becerra, RDCS Ordering Physician: ASHLEY BOWIE No CT results found for the past 6 months No X-ray results found for the past 3 days To reach Cardiothoracic Surgery Inpatient from 8am-4pm call Ascom #[phone]. Only use Vyykn chat for general questions. If unable to reach Ascom Number call hospital cinder crane operator for Cardiothoracic Provider Building Rental Superintendent. Cardiothoracic Surgery outpatient Office Number [phone]. Cardiothoracic Surgery outpatient . [1] Family History Problem Relation Name Age of Onset Heart attack Mother [2] Current Outpatient Medications: amLODIPine (Norvasc) 5 mg tablet, Take 1 tablet by mouth in the morning., Disp: , Rfl: aspirin 81 mg EC tablet, Take 81 mg by mouth in the morning., Disp: , Rfl: chlorthalidone (Hygroton) 25 mg tablet, Take 0.5 tablets (12.5 mg) by mouth in the morning., Disp: 15 tablet, Rfl: 5 omeprazole (PriLOSEC) [address] capsule, Take 20 mg by mouth in the morning., Disp: , Rfl: tamsulosin (Flomax) 0.4 mg 24 hr capsule, Take 0.4 mg by mouth in the morning., Disp: , Rfl: telmisartan (MIcarDIS) 20 mg tablet, Take 1 tablet by mouth in the morning., Disp: , Rfl: documented in this encounter Miscellaneous Notes * Addendum Note - Roxana Gallegos MA - 02/23/2025 3:00 PM EDTAddended by: ROXANA GALLEGOS on: 02/25/2025 10:01 AM Modules accepted: Orders documented in this encounter Plan of Treatment DateTypeDepartmentCare Team (Latest Contact Info)Pxxrrzsmomp65/10/2025 11:00 AM ESTOffice Visit [facility] [address] [place] [address] Ashley Bowie MD [address] [place] [phone] NameTypePriorityAssociated DiagnosesOrder SchedulePulmonary function testing Spirometry; DLCOPFTRoutine Pre-op testing Expected: 02/25/2025 (Approximate), Expires: 02/25/2026documented as of this encounter Visit Diagnoses Diagnosis Nonrheumatic aortic valve insufficiency- Primary Pre-op testing Unspecified pre-operative examination documented in this encounter Care Teams Team MemberRelationshipSpecialtyStart DateEnd Date Juan Stanton DO [address] [place] [address] PCP - GeneralInternal Medicine02/02/25documented as of this encounter
--- OUTSIDE RECORDS SUMMARY | 2025-03-03 11:18 | XMS_ITS | Encounter Summary ---
Author Organization The [facility] Address [address] [place] [address] Care Team Providers Care Appraisal Technician Name Role Phone Juan Torres DO Primary Care Provider [phone] Encounter Details DateTypeDepartmentCare Team (Latest Contact Info)Slcfdwlwvrm03/09/2025Travel Social History Tobacco UseTypesPacks/DayYears UsedDateSmoking Tobacco: FormerCigarettes Smokeless Tobacco: NeverAlcohol UseStandard Drinks/WeekCommentsNot Currently0 (1 standard drink = 0.6 oz pure alcohol)Sex and Gender InformationValueDate RecordedSex Assigned at VatntOtge70/16/2025 10:29 AM EDTLegal XqgWybd7801/26/2025 10:26 AM EDTGender AyrjvnwwJrml88/16/2025 10:29 AM EDTSexual Orientation Heterosexual or Scxpsvqd94/16/2025 10:29 AM EDTdocumented as of this encounter Functional Status * QuestionAnswerDate of PnrqmxyxnxSojfscPO597/6602/18/2025 1:56 PM Luciana Heaton RNPulse6602/18/2025 1:56 PM Luciana Heaton RN * Pain Assessment TimerQuestionAnswerDate of AssessmentAuthorRestart Pain Assessment QuvcwQzg59/09/2025 1:56 PM Luciana Heaton RN * QuestionAnswerDate of AssessmentAuthorHeart Rate MbgphqLqlghdc61/09/2025 9:23 AM Eli Forte RN * Sepsis Model ScoresQuestionAnswerDate of AssessmentAuthorEarly Detection of Sepsis Score6.410 2:01 PM [place] Allen * Pain AssessmentQuestionAnswerDate of AssessmentAuthorRamsay Scale (RS): Score2 02/18/2025 9:04 AM Eli Forte RNPain AssessmentNo/denies pain 02/18/2025 1:56 PM Luciana Heaton RN * QuestionAnswerDate of AssessmentAuthorPulse rate from Plethysmogram (bpm)64 02/18/2025 1:56 PM Luciana Heaton RN * Vital SignsQuestionAnswerDate of LtpbthnpheAithyqYX861/6602/18/2025 1:56 PM Luciana Heaton DZVvecu0049/09/2025 1:56 PM Luciana Heaton RNResp26 02/18/2025 1:56 PM Luciana Heaton RNSpO29902/18/2025 1:56 PM Luciana Heaton RNMAP (mmHg)7902/18/2025 1:45 PM Luciana Heaton RN * Peripheral VascularQuestionAnswerDate of AssessmentAuthorPulsesLeft pedal;Right pedal;Left posterior tibial;Right posterior wommjj0502/18/2025 9:11 AM Eli Forte RN * RLE [...] AssessmentAuthorOrientation LevelOriented X4 02/18/2025 9:11 AM Eli oFrte RNCognitionAppropriate judgement 02/18/2025 9:11 AM Eli Forte LDFpseejNdecb72/09/2025 9:11 AM Eli Jeff RNSwallowAble to swallow solids and liquids without ddjxeozxip80/09/2025 9:11 AM Eli Forte RN * QuestionAnswerDate of AssessmentAuthorHeart Rate BpqlleDkjjejo19/09/2025 9:23 AM Eli Forte RNBP LocationLeft arm02/18/2025 9:23 AM Eli Forte RN * Pain AssessmentQuestionAnswerDate of AssessmentAuthorRamsay Scale (RS): Score2 02/18/2025 9:04 AM Eli Forte RNPain AssessmentNo/denies pain 02/18/2025 1:56 PM Luciana Heaton RN * [place] Suicide Severity Rating ScaleQuestionAnswerDate of AssessmentAuthor1. Have [...] Eli Jeff RN * Modified AldreteQuestionAnswerDate of PxujiqyjdlAjxuvmAogpfdoh606/09/2025 2:00 PM Luciana Heaton RNRespiration21 2:00 PM Luciana Heaton RN Gltetrqqmhm084/09/2025 2:00 PM Luciana Heaton RNConsciousness21 2:00 PM Luicana Heaton RNOxygen Duboshbyki591/09/2025 2:00 PM Luciana Heaton RNModified Rhiannon Lovvd7358/09/2025 2:00 PM Luciana Heaton RN documented as of this encounter Mental Status * Mina Agitation Sedation ScaleQuestionAnswerEntry DateAuthorRichmond Agitation Sedation Scale (RASS) 11:30 AM Cindy Zepeda RN * Modified AldreteQuestionAnswerEntry ClowMnodsrEgeflwum590/09/2025 2:00 PM Luciana Azar RNRespiration 2:00 PM Luciana Heaton RN Yqvpowafjyu381/09/2025 2:00 PM Luciana Heaton RNConsciousness 2:00 PM Luciana Heaton RNOxygen Rzcpapnvwv615/09/2025 2:00 PM Luciana Heaton RNModified Rhiannon Zqnxk0706/09/2025 2:00 PM Luciana Heaton RN documented in this encounter Plan of Treatment DateTypeDepartmentCare Team (Latest Contact Info)Wmexepfawws42/10/2025 11:00 AM ESTOffice Visit [facility] [address] [place] [address] Gulshan Bernard MD [address] [place] [phone] documented as of this encounter Visit Diagnoses Not on filedocumented in this encounter Care Teams Team MemberRelationshipSpecialtyStart DateEnd Date Juan Torres DO [address] [facility] [place] [place] [phone] PCP - GeneralInternal Medicine02/02/25documented as of this encounter
--- OUTSIDE RECORDS SUMMARY | 2025-03-03 11:18 | XMS_ITS | Encounter Summary ---
Author Organization [facility] Address [address] [place] [address] Care Team Providers Care Body Maker Machine Setter Name Role Phone Juan Torres DO Primary Care Provider [phone] Encounter Details DateTypeDepartmentCare Team (Latest Contact Info)Rwhvaqynaks41/15/2025Orders Only [facility] [address] [place] [address] Cristel Mendez RN Pre-op testing (Primary Dx) Social History Tobacco UseTypesPacks/DayYears UsedDateSmoking Tobacco: FormerCigarettes Smokeless Tobacco: NeverAlcohol UseStandard Drinks/WeekCommentsNot Currently0 (1 standard drink = 0.6 oz pure alcohol)Sex and Gender InformationValueDate RecordedSex Assigned at PvtfgInxt84/16/2025 10:29 AM EDTLegal VfxVgdp5301/26/2025 10:26 AM EDTGender UjakdrymSrtp32/16/2025 10:29 AM EDTSexual Orientation Heterosexual or Tytupfes83/16/2025 10:29 AM EDTdocumented as of this encounter Plan of Treatment DateTypeDepartmentCare Team (Latest Contact Info)Fvrbbrsvqeh33/10/2025 11:00 AM ESTOffice Visit [facility] [address] [place] [address] Gulshan Bernard MD [address] [place] [address] documented as of this encounter Visit Diagnoses Diagnosis Pre-op testing- Primary Unspecified pre-operative examination documented in this encounter Care Teams Team MemberRelationshipSpecialtyStart DateEnd Date Juan Torres DO [address] [place] [phone] PCP - GeneralInternal Medicine02/02/25documented as of this encounter
--- OUTSIDE RECORDS SUMMARY | 2025-03-03 11:18 | XMS_ITS | Encounter Summary ---
Author Organization The [facility] Address [address] [place] [address] Care Team Providers Care Excellence Specialist Name Role Phone Juan Torres DO Primary Care Provider [phone] Encounter Details DateTypeDepartmentCare Team (Latest Contact Info)Jlqulgodaac22/16/2025Orders Only [facility] [address] [place] [address] Sujey Gallegos MA Social History Tobacco UseTypesPacks/DayYears UsedDateSmoking Tobacco: FormerCigarettes Smokeless Tobacco: NeverAlcohol UseStandard Drinks/WeekCommentsNot Currently0 (1 standard drink = 0.6 oz pure alcohol)Sex and Gender InformationValueDate RecordedSex Assigned at YlmljMnmc08/16/2025 10:29 AM EDTLegal GstYbrj9101/26/2025 10:26 AM EDTGender CugfimtyKkve10/16/2025 10:29 AM EDTSexual Orientation Heterosexual or Wjzwwxfm41/16/2025 10:29 AM EDTdocumented as of this encounter Plan of Treatment DateTypeDepartmentCare Team (Latest Contact Info)Svrghqwplsa81/10/2025 11:00 AM ESTOffice Visit [facility] [address] [place] [address] Gulshan Bernard MD [address] [place] [address] documented as of this encounter Visit Diagnoses Not on filedocumented in this encounter Care Teams Team MemberRelationshipSpecialtyStart DateEnd Date Juan Torres DO [address] [place] [address] PCP - GeneralInternal Medicine02/02/25documented as of this encounter
--- OUTSIDE RECORDS SUMMARY | 2025-03-03 11:18 | XMS_ITS | Clinical Summary ---
Author Organization [facility] Address [address] [facility] [address] Care Team Providers Care Finishing Machine Operator Automatic Name Role Phone Unavailable Primary Care Provider Unavailabl e Social History Tobacco UseTypesPacks/DayYears UsedDateSmoking Tobacco: Never AssessedSex and Gender InformationValueDate RecordedSex Assigned at BirthNot on fileLegal Sex Male07/25/2022 6:43 PM EDTGender IdentityNot on fileSexual OrientationNot on file Last Filed Vital Signs Vital SignReadingTime TakenCommentsBlood Ivevgvmz677/8306/04/2018 12:00 PM EST Pulse--Temperature--Respiratory Rate--Oxygen Saturation--Inhaled Oxygen Concentration--Eqtfnw497 kg (256 lb)06/04/2018 12:00 PM RTGFwcxyy814.9 cm (6') 06/04/2018 12:00 PM ESTBody Mass Index34.72006/04/2018 12:00 PM EST Plan of Treatment Not on file Insurance * Guarantor: Pramod Su TypeRelation to PatientDate of BirthPhone Billing AddressPersonal/XpizjdBbkp[address][birth year][address] [place] [address]
--- OUTSIDE RECORDS SUMMARY | 2025-03-03 11:18 | XMS_ITS | Clinical Summary ---
Author Organization [employer] tem Address [id number] [address] [place] [address] Care Team Providers Care Water Resource Specialist Name Role Phone Juan Torres Primary Care Provider [phone] Allergies No known active allergies Medications MedicationSigDispense [...] standard drink = 0.6 oz pure alcohol)ChildcareAnswerDate GhckviysPcnqnieynZutyqys53/12/2019Employment AnswerDate MauqwiapBstdrxrohbIqdigmd55/12/2019Hunger ScreeningAnswerDate RecordedWithin the past 12 months we worried whether our food would run out before we got money to buy more.Never True05/21/2022Within the past 12 months the food we bought just didn't last and we didn't have money to get more.Never True3Purpose - LifeAnswerDate RecordedPurpose and direction in life Ehzpohj2106/23/2020ex and Gender InformationValueDate RecordedSex Assigned at BirthNot on fileLegal QluIxrr2512/16/2014 12:05 PM EDTGender IdentityNot on file Sexual OrientationNot on file Last Filed Vital Signs Vital SignReadingTime TakenCommentsBlood Aybjunsi493/76006/10/2023 2:18 PM EST Xnfkn156306/10/2023 2:18 PM PBPBchnzhxgphi19.1 ??C (97 ??F)04/30/2023 1:29 PM EST Respiratory Llxf432607/01/2022 2:13 PM ESTOxygen Pegapfcywy15%04/30/2023 2:13 PM ESTInhaled Oxygen Concentration--Kphjvk976 kg (258 lb)06/10/2023 2:18 PM EST Agzett659.3 cm (5' 11 )06/10/2023 2:18 PM ESTBody Mass Index35.98006/10/2023 2:18 PM EST Plan of Treatment Health MaintenanceDue DateLast DoneCommentsDepression Hxslizjbl17/27/1965 DTaP,Tdap and Td Vaccines (1 - Tdap)11/07/1971Abdominal Aortic Aneurysm (AAA) Mcmddc9011/06/2017Fall Risk Yxmrkusfi72/27/2018Adult BMI Mibixqbqc23/29/2025 06/10/2023Tobacco Pxewnwidl18/29/677738/Influenza Wcshneo7301/11/2025 Dekaqhupbpa39/15/81085806/27/2022Zoster (Shingles) KrdueniXtcjxnnve43/25/2022, 10/29/2021 Medical Devices ImplantedTypeAreaManufacturerDevice IdentifierShelf Expiration DateModel / Serial / LotMesh Plstr Clgn Symbotex 15cm 2 Sd Comp 3d Babsr Flm Srg - Sna - [id number] Implanted:Qty: 1 on 04/30/2023 [facility] AbdomenMEDTRONIC USA11/10/2027SYM15 / NA / [id number] [address] Care Teams Team MemberRelationshipSpecialtyStart DateEnd Date Juan Torres DO [address] [place] [address] PCP - GeneralInternal Medicine05/21/22
--- OUTSIDE RECORDS SUMMARY | 2025-03-03 11:18 | XMS_ITS | Encounter Summary ---
Author Organization [facility] Address [address] [place] [address] Care Team Providers Care Community Cultural Development Officer Name Role Phone Juan Torres DO Primary Care Provider [phone] Reason for Referral * Imaging (Routine) - Pending ReviewSpecialtyDiagnoses / ProceduresReferred By ContactReferred To Contact Diagnoses Aortic aneurysm without rupture, unspecified portion of aorta Procedures CT abdomen pelvis wo IV contrast Nacho Valle MD [address] [place] [address] Phone: tel: fax: [address] [address] Phone: tel: fax: Referral IDStatusReasonStart DateExpiration DateVisits RequestedVisits [id number] Encounter Details DateTypeDepartmentCare Team (Latest Contact Info)Wirdnsaovcl78/15/2025Orders Only [facility] [address] [place] [address] Cristel Mendez RN Aortic aneurysm without rupture, unspecified portion of aorta (Primary Dx) Social History Tobacco UseTypesPacks/DayYears UsedDateSmoking Tobacco: FormerCigarettes Smokeless Tobacco: NeverAlcohol UseStandard Drinks/WeekCommentsNot Currently0 (1 standard drink = 0.6 oz pure alcohol)Sex and Gender InformationValueDate RecordedSex Assigned at IdzztPxbw88/16/2025 10:29 AM EDTLegal UqnFmka5101/26/2025 10:26 AM EDTGender NbqzoisrEkqe21/16/2025 10:29 AM EDTSexual Orientation Heterosexual or Vvsblhhh45/16/2025 10:29 AM EDTdocumented as of this encounter Plan of Treatment DateTypeDepartmentCare Team (Latest Contact Info)Qbiwfdxzckx75/10/2025 11:00 AM ESTOffice Visit [facility] [address] [place] [address] Gulshan Bernard MD [address] [place] [phone] NameTypePriorityAssociated DiagnosesOrder ScheduleCT abdomen pelvis wo IV contrastImagingRoutine Aortic aneurysm without rupture, unspecified portion of aorta Expected: 03/12/2025, Expires: 02/26/2026documented as of this encounter Visit Diagnoses Diagnosis Aortic aneurysm without rupture, unspecified portion of aorta- Primary documented in this encounter Care Teams Team MemberRelationshipSpecialtyStart DateEnd Date Juan Torres DO [address] [facility] [place] [phone] PCP - GeneralInternal Medicine02/02/25documented as of this encounter
--- OUTSIDE RECORDS SUMMARY | 2025-03-03 11:18 | XMS_ITS | Clinical Summary ---
Author Organization [facility] Address [address] [place] [address] Care Team Prov[address] Care Court Reporter Name Role Phone Juan Torres DO Primary Care Provider [phone] Allergies No known active allergies Medications MedicationSigDispense [...] by mouth in the morning. 15 tablet /901211/6Active Active Problems ProblemNoted DateDiagnosed DateNonrheumatic aortic valve bbonxrzvlmukp63/24/2025 Nonrheumatic aortic valve bvhyxpzz28/24/2025ardiovascular stress test abnormal 02/03/2025Stable angina ebaunbsy04/24/2025Shortness of pgsesr0702/03/2025oronary artery bfkexrl1702/03/2025 Encounters DateTypeDepartmentCare YvlsKmvdcqejbbq36/16/2025Orders Only [facility] [address] [place] [phone] Sujey Gallegos MA 02/24/2025Orders Only [facility] [address] [place] [address] Cristel Mendez RN Aortic aneurysm without rupture, unspecified portion of aorta (Primary Dx) 02/24/2025Orders Only [facility] [place] [address] Cristel Mendez RN Pre-op testing (Primary Dx)02/23/2025 3:00 PM [facility]TCons[facility] [address] [place] [address] George Abdalla CNP Nonrheumatic aortic valve insufficiency (Primary Dx); Pre-op mnqodda2602/19/2025 12:10 AM EDT - 02/19/2025 11:59 [address] [facility] [place] [address] Discharge Disposition: Home or Self Care ()02/19/2025 12:05 AM EDT - 02/19/2025 12:09 AM EDTHospital Encounter [facility] [place] [address] Discharge Disposition: Home or Self Care ()02/19/2025 - 02/19/2025 12:04 AM EDTHospital Encounter [facility] [place] [address] Discharge Disposition: Home or Self Care ()02/18/2025 11:30 AM EDT - 02/18/2025 1:[address] [facility] Heart formerly [facility] [place] [address] Ashley Bowie MD Coronary pfdxncysvcw47/09/2025 8:48 AM EDT - 02/18/2025 2:12 PM EDTHospital Encounter [facility] [address] [place] [address] Ashley Bowie MD Nonrheumatic aortic valve insufficiency; Nonrheumatic aortic valve stenosis; Cardiovascular stress test abnormal; Stable angina pectoris; Shortness of breath; Coronary artery disease, unspecified vessel or lesion type, unspecified whether angina present, unspecified whether [place] or transplanted heart Discharge Disposition: Home or Self Care (01)02/18/20255387Gpnabg76/24/2025 10:40 AM EDTOffice Visit [facility] [address] [place] [address] Ashley Bowie MD Nonrheumatic aortic valve insufficiency (Primary Dx); Nonrheumatic aortic valve stenosis; Cardiovascular stress test abnormal; Stable angina pectoris; Shortness of breath; Coronary artery disease, unspecified vessel or lesion type, unspecified whether angina present, unspecified whether [place] or transplanted heartfrom Last 3 Months Family History Medical HistoryRelationNameCommentsHeart attackMotherRelationNameStatusComments FatherDeceasedMotherDeceased Social History Tobacco UseTypesPacks/DayYears UsedDateSmoking Tobacco: FormerCigarettes Smokeless Tobacco: Never Tobacco Cessation:Counseling Given: Not Answered Alcohol UseStandard Drinks/WeekCommentsNot Currently0 (1 standard drink = 0.6 oz pure alcohol)Sex and Gender InformationValueDate RecordedSex Assigned at Male01/26/2025 10:29 AM EDTLegal HoeAzhi6301/26/2025 10:26 AM EDTGender Identity Male01/26/2025 10:29 AM EDTSexual OrientationHeterosexual or Ovraddwq23/16/2025 10:29 AM EDT Last Filed Vital Signs Vital SignReadingTime TakenCommentsBlood Iopgcuan143/7310 3:05 PM EDT Wsnkq100002/23/2025 3:05 PM EDTTemperature--Respiratory Harn7996 3:05 PM EDTOxygen Olgysnfhdd20%02/23/2025 3:05 PM EDTInhaled Oxygen Concentration-- Gmcqiw062 kg (259 lb)02/23/2025 3:05 PM XGDMfxgoz170.3 cm (5' 11 )02/23/2025 3:05 PM EDTBody Mass Index36.121 3:05 PM EDT Plan of Treatment DateTypeDepartmentCare Team (Latest Contact Info)Ivmpolvbeht47/10/2025 11:00 AM ESTOffice Visit [facility] [address] [place] [address] Ashley Bowie MD [address] [place] [address] Health MaintenanceDue DateLast DoneCommentsCT Hrtzmevfpxgp30/27/1953Colonoscopy 3Colorectal Cancer Ivatsvztb76/27/1953FIT-DNA1952FIT1952 FOBT1952Medicare Annual Wellness (AWV)1950 7900Kzwwajwzvpatd90/27/1953 Depression Ehoxhniei72/27/1965Adult Thgzlnp4611/06/1974Fall Risk Screening 2017Pneumococcal Vaccine: 50+ Years (2 of 2 - PPSV23, PCV20, or PCV21) COVID-19 Vaccine (1 - season)2025Influenza Vaccine (#1)2025Zoster OuldlwbjLwqdaujbo30/25/2022, 10/29/2021HIB Vaccines Aged OutNo longer eligible based [...] Procedures Procedure NamePriorityDate/TimeAssociated DiagnosisCommentsUS TRANSFER OF OUTSIDE RNMZMShazlmb63/10/2025 12:10 AM EDT XR TRANSFER OF OUTSIDE CGKLRIuygkhv37/10/2025 12:[address] TRANSFER OF OUTSIDE HOAVOOfmpudp90/10/2025 12:00 AM EDT UFPFLEPMGZbmlsik17/09/2025 11:32 AM EDT Nonrheumatic aortic valve insufficiency Nonrheumatic aortic valve stenosis Cardiovascular stress test abnormal Stable angina pectoris Shortness of breath Coronary artery disease, unspecified vessel or lesion type, unspecified whether angina present, unspecified whether [place] or transplanted heart RIGHT HEART SRQKKslebfe78/09/2025 11:32 AM EDT Nonrheumatic aortic valve insufficiency Nonrheumatic aortic valve stenosis Cardiovascular stress test abnormal Stable angina pectoris Shortness of breath Coronary artery disease, unspecified vessel or lesion type, unspecified whether angina present, unspecified whether [place] or transplanted heart CORONARY DCJWVMUMQYDEcpyuea45/09/2025 11:32 AM EDT Nonrheumatic aortic valve insufficiency Nonrheumatic aortic valve stenosis Cardiovascular stress test abnormal Stable angina pectoris Shortness of breath Coronary artery disease, unspecified vessel or lesion type, unspecified whether angina present, unspecified whether [place] or transplanted heart %KEN0Scoupmn13/09/2025 10:59 AM EDT TRANSESOPHAGEAL ECHO (CAN) W/ LIMITED DOPPLER AND COLOR SWBVIlqezuu21/09/2025 10:39 AM EDT Nonrheumatic aortic valve insufficiency Nonrheumatic aortic valve stenosis Shortness of breath Coronary artery disease, unspecified vessel or lesion type, unspecified whether angina present, unspecified whether [place] or transplanted heart ECG 12-HQZGOwbcuqp63/09/2025 9:41 AM EDT from Last 3 Months [...] and a micropuncture access technique a 6 [place] sheath was placed in the right internal jugular vein. The catheter was advanced under fluoroscopic and hemodynamic monitoring to the right atrium. ??Pressure obtained of the right atrium, right ventricle, pulmonary artery, pulmonary capillary position. ??Oxygen saturation drawn for the pulmonary artery and Sunil cardiac with a cardiac index were calculated. 1% lidocaine was infiltrated over the left radial artery. ??A 6-[place] sheath was placed in left radial artery. [...] of breath [R06.02] Authorizing ProviderResult TypeResult StatusChristopher [facility] INVASIVE VASCULAR PROCEDURESFinal Result * CORONARY ANGIOGRAPHY, [...] and a micropuncture access technique a 6 [place] sheath was placed in the right internal jugular vein. The catheter was advanced under fluoroscopic and hemodynamic monitoring to the right atrium. ??Pressure obtained of the right atrium, right ventricle, pulmonary artery, pulmonary capillary position. ??Oxygen saturation drawn for the pulmonary artery and Sunil cardiac with a cardiac index were calculated. 1% lidocaine was infiltrated over the left radial artery. ??A 6-[place] sheath was placed in left radial artery. [...] breath [R06.02] Authorizing ProviderResult TypeResult StatusAshley Bowie [facility] CARDIAC CATH PROCEDURESFinal Result * (ABNORMAL) %HbO2 (02/18/2025 10:59 AM EDT)ComponentValueRef RangeTest Method Analysis TimePerformed AtPathologist AbivomcybY6Sd%66.0(L)90.0 - 95.0 % 02/18/2025 11:00 AM EDTMIMBRES [facility] ([place])Specimen (Source)Anatomical Location / LateralityCollection Method / VolumeCollection TimeReceived Time BloodVenous blood specimen / Esfqrxh3002/18/2025 10:59 AM EDT1 11:00 AM EDT Narrative Authorizing ProviderResult TypeResult Ramez Bowie MDJEFFERSON COUNTY [facility] POINT OF CARE TEST DOCKED DEVICE UNSOLICITED RESULTSFinal ResultPerforming Organization AddressCity/State/ZIP CodePhone Number [facility] ([facility]) [address] [place] [address] * TRANSESOPHAGEAL ECHO (CAN) W/ LIMITED DOPPLER AND COLOR FLOW (02/18/2025 10:39 AM EDT)Anatomical RegionLateralityModalityOtherSpecimen (Source)Anatomical Location / LateralityCollection Method / VolumeCollection TimeReceived Time 02/18/2025 9:38 AM EDT Narrative 02/18/2025 12:03 PM EDT 1 [place] [facility] Heart Station [address] [place] [address] [phone] (fax) Transesophageal Echocardiogram-[facility] Name: MADDY SU Study Date: 02/18/2025 09:38 AM B/P: 13 mmHg/63 mmHg HR: 84 bpm Date of : 1950 Location: [facility] Height: 72 in. Age: 74 year(s) Patient Room: [facility] VASCULAR POOL Weight: 259 lb. Gender: Male Patient Status: OutPt BSA: 2.38 m2 Indication: aortic insufficiency, Murmur, Hypertension Examination: CAN/Limited Doppler/CFI, Agitated Saline Image Quality: Good Patient Consent: Informed, written consent was obtained for the procedure Exam Details Contrast: I.V. dose of agitated saline Exam Location: A CAN was performed in the [facility] without complications Anesthesia Pharyngeal anesthesia with viscous [...] No pericardial effusion. Procedure Staff Reading Group: [facility] Referring Physician: JUAN TORRES ??Court Monitor: DIONI Becerra, RDCS ??Ordering Physician: ASHLEY BOWIE ?? Procedure Note Lopez Galan MD - 02/18/2025 1 [place] [facility] Heart Station [address] [place] [address] [phone] (fax) Transesophageal Echocardiogram-[facility] Name: MADDY SU Study Date: 02/18/2025 09:38 AM B/P: 13 mmHg/63 mmHg HR: 84 bpm Date of : 1950 Location: [facility] Height: 72 in. Age: 74 year(s) Patient Room: [facility] VASCULAR POOL Weight: 259 lb. Gender: Male Patient Status: OutPt BSA: 2.38 m2 Indication: aortic insufficiency, Murmur, Hypertension Examination: CAN/Limited Doppler/CFI, Agitated Saline Image Quality: Good Patient Consent: Informed, written consent was obtained for the procedure Exam Details Contrast: I.V. dose of agitated saline Exam Location: A CAN was performed in the [facility] without complications Anesthesia Pharyngeal anesthesia with viscous [...] No pericardial effusion. Procedure Staff Reading Group: [facility] Referring Physician: JUAN TORRES Court Monitor: DIONI Becerra, RDCS Ordering Physician: ASHLEY BOWIE Authorizing ProviderResult TypeResult StatusChrisjossie Bowie [facility] ECHO PROCEDURESFinal Result * Electrocardiogram, 12-lead (02/18/2025 9:41 AM EDT)ComponentValueRef RangeTest MethodAnalysis TimePerformed AtPathologist SignatureVentricular Fyso88DIPMD MUSEAtrial Ryjv20WVAUP MUSEPR Petbyfqr959coJQ MUSEQRS YNRMLGUY11abSH MUSEQT Drmyywoc521ioZA MUSEQTC CALCULATION(ANDERSONZETT)427msGE MUSEP Uawq20qsobbtbVJ MUSE K-Kssz-41hosozbaDM MUSET Wave Awop63ukydcegBS MUSESpecimen (Source)Anatomical Location / LateralityCollection Method / [...] MUSE from Last [address] [place] [address] MemberSubscriberPlan / Payer (Effective 2025-Present)Name:Maddy Su Member ID:[id number] Relation to Subscriber:SelfName:Maddy Su Subscriber ID:[id number] Payer ID:[id number] Group ID:Not on file Type:Medicare Address: [facility] [place] [id number] Care Teams Team MemberRelationshipSpecialtyStart DateEnd Date Juan Torres DO [address] [place] [address] PCP - GeneralInternal Medicine02/02/25
--- OUTSIDE RECORDS SUMMARY | 2025-03-03 11:20 | XMS_ITS | CCD ---
Author Organization [facility] Care Team Providers Care Political Theory Professor Name Role Phone MEÑO ., DR ANTOINE [...] Care Provider Juan Torres DO Attending Provider [phone] Juan Torres DO Other Provider Franklin Kerr [...] reviewed by nurse or physiciaPropensity to adverse -[phone]:[place]op[place] Other Medications Current Medications MedicationDrug Class(es)DatesSig (Normalized)Sig (Original)amLODIPine 5 mg oral tablet (4 sources)Dihydropyridine Calcium Channel BlockerStart: 42-33-9521cqbz 1 tablet by mouth once dailyAmlodipine 5 mg tablet Active 5 MG PO Daily May 21, 2024 1:00am Complies with drug therapyomeprazole 20 mg delayed release oral capsule (14 sources)Proton Pump InhibitorStart: 02-22-0816takq 1 capsule by mouth once dailyOmeprazole 20 mg capsule,delayed release(DR/EC) Active 20 MG PO Daily September 24, 2023 12:00am Complies with drug therapytamsulosin hydrochloride 0.4 mg oral capsule (20 sources)alpha-Adrenergic BlockerStart: 02-16-2024 End: 59-70-8574kwue 1 capsule by mouth once daily at dinnerTamsulosin 0.4 mg capsule Active 0 .ROUTE .COMPLEX May 19, 2024 2:00pm TAKE 1 CAPSULE BY MOUTH EVERY DAY AFTER EVENING MEAL Complies with drug therapyStart: 05-09-2022 End: 58-00-1090aomu 1 capsule by mouth once dailyTamsulosin 0.4 mg capsule Discontinued 0.4 MG PO Daily September 24, 2023 12:00am February 16, 2024 7:40pm telmisartan 20 mg oral tablet (1 source)Angiotensin 2 Receptor BlockerStart: 68-87-1519cvdo 1 tablet by mouth once dailyTelmisartan 20 mg tablet Active 20 MG PO Daily January 25, 2025 12:00am Complies with drug therapytriamcinolone acetonide 0.001 mg/mg topical ointment (3 sources)CorticosteroidStart: 32-86-9401Vxihkocgvqeho Acetonide 0.1 % ointment Active 1 APPLIC TOPICAL Twice daily January 062:00am Complies with drug therapy Completed/Discontinued Medications MedicationDrug Class(es)DatesSig (Normalized)Sig (Original)acetaminophen 325 mg / oxyCODONE hydrochloride 5 mg oral tablet (1 source)Opioid AgonistStart: 04-30-2023 End: 22-93-3090dpuIWMDRG-acetaminophen (PERCOCET) 5-325 mg per tablet Indications: Incarcerated ventral hernia Take 1 tablet by mouth every 6 (six) hours as needed for pain for up to 12 doses. Max Daily Amount: 4 tablets 12 tablet 0 04/30/2023 05/14/2023 Discontinued (Therapy completed)atorvastatin 40 mg oral tablet (11 sources)HMG-CoA Reductase InhibitorStart: 09-24-2023 End: 85-15-2691gjyx 1 tablet by mouth once dailyAtorvastatin 40 mg tablet Discontinued 40 MG PO Daily September 24, 2023 12:00am May 21, 2024 11:34amtake 1 tablet by mouth every twenty-four hoursAtorvastatin Calcium 40 MG 1 tablet Orally Once a day Activeibuprofen 800 mg oral tablet (1 source)Nonsteroidal Anti-inflammatory DrugStart: 04-30-2023 End: 28-00-5912segg 1 tablet by mouth every eight hours as needed for pain ibuprofen (MOTRIN) 800 mg tablet Take 1 tablet (800 mg total) by mouth every 8 (eight) hours as needed for pain. 30 tablet 0 04/30/2023 05/14/2023 Discontinued (Therapy completed)loratadine 10 mg oral tablet (14 sources)Start: 09-24-2023 End: 73-78-7045lelw 1 tablet by mouth once dailyLoratadine 10 mg tablet Discontinued 10 MG PO Daily September 24, 2023 12:00am May 21, 2024 11:34amtake 1 tablet by mouth once dailyLoratadine 10 MG TAKE 1 TABLET BY MOUTH EVERY DAY for 90 Activelosartan potassium 25 mg oral tablet (11 sources)Angiotensin 2 Receptor BlockerStart: 09-24-2023 End: 69-14-9389cqqq 1 tablet by mouth once dailyLosartan 25 mg tablet Discontinued 25 MG PO Daily September 24, 2023 12:00am May 21, 2024 11:34am Start: 44-69-9580ctdp 1 tablet by mouth every twenty-four hoursLosartan Potassium 25 MG 1 tablet Orally Once a day for 30 days Nov, Active Problems Active Problems Problem ClassificationProblemDateDocumented DateEpisodic/ChronicAbdominal hernia (1 source)Umbilical hernia without obstruction or gangreneEpisodicCardiac dysrhythmias (7 sources)Palpitations; Translations: [Palpitations]Onset: EpisodicCoronary atherosclerosis and other heart disease (4 sources)Other forms of angina pectoris; Translations: [Atherosclerotic heart disease of cheesh-na coronary artery without angina pectoris]Onset: 02-03-2025 ChronicDisorders of lipid metabolism (20 sources)Pure hypercholesterolemia; Translations: [Familial hypercholesterolemia]ChronicEsophageal disorders (20 sources)Lucas's esophagus without dysplasia; Translations: [Gastro- esophageal reflux disease without esophagitis]Onset: 91-98-0311XwjrxheCtbhlwibq hypertension (20 sources)Essential hypertension; Translations: [Essential (primary) hypertension]ChronicComment on above:Echo: LVEF 50%, normal RV size/function, mild , mod-severe AI, RVSP 43 - 01/2025Gastritis and duodenitis (1 source)Gastritis, unspecified, without bleeding; Translations: [GASTRITIS UNS WITHOUT BLEEDING]Onset: 30-35-8025AmmzuageDzxbwbxsnlgbr symptoms and ill- defined conditions (2 sources)Unspecified abnormal findings in urine; Translations: [Nocturia] Onset: 67-63-7705CenspthsYqbrp valve disorders (18 sources)Aortic valve sclerosis; 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]Onset: 184756-56-5506NpyvbabPmzrzjm on above:AV: KEVIN 2.0, velocity 2.62 m/s, gradient 27/15 mmHg with Mod-Severe AI - 01/2025Hyperplasia of prostate (14 sources)Lower urinary tract symptoms due to benign prostatic hypertrophy; Translations: [Benign prostatic hyperplasia with lower urinary tract symptoms] Onset: 89-27-5008KzvioifSihhflyatbho conditions of male genital organs (4 sources)Acute prostatitis; Translations: [Acute prostatitis]Episodic Nonspecific chest pain (5 sources)Chest pain; Translations: [Chest pain, unspecified]80-54-3913Vbbobdgw Other aftercare (1 source)Other rn long term care (current) drug therapy; Translations: [OTH SHELTER CURRENT DRUG THERAPY]Onset: 29-65-1946JzqstxviXered aftercare (3 sources)Taking high risk medication; Translations: [Other rn long term care (current) drug therapy]32-73-3324GjjeypyzLllew and unspecified benign neoplasm (1 source)Personal history of colonic polyps; Translations: [PERSONAL HISTORY OF COLONIC POLYPS]Onset: 41-07-6581AntlqavzTslks circulatory disease (1 source)Elevated blood-pressure reading without diagnosis of hypertension; Translations: [Elevated blood-pressure reading, without diagnosis of hypertension]EpisodicOther gastrointestinal disorders (1 source)Personal history of other diseases of the digestive system; Translations: [Personal history of other diseases of the digestive system]Onset: 45-70-1175UlymrormObnpq lower respiratory disease (6 sources)Dyspnea; Translations: [Dyspnea, unspecified]24-85-6000HpkkwzblIqrzw lower respiratory disease (2 sources)Shortness of breath; Translations: [Shortness of breath]Onset: 72-72-4392UoxnufsrWytht nutritional; endocrine; and metabolic disorders (2 sources)Morbid (severe) obesity due to excess calories; Translations: [MORBID SEVERE OBES D/T EXCESS RAUL]Onset: 56-50-7983WbyrajhMeypk nutritional; endocrine; and metabolic disorders (1 source)Body mass index (BMI) 37.0-37.9, adult; Translations: [BODY MASS INDEX BMI 37.0-37.9 ADULT]Onset: 49-02-5872TqzinuxFiufa nutritional; endocrine; and metabolic disorders (13 sources)Body mass index 30+ - obesity; Translations: [Body mass index (BMI) 34.0-34.9, adult]Onset: 52-32-6108NtuhrzxEpalm nutritional; endocrine; and metabolic disorders (7 sources)Obesity caused by energy imbalance; Translations: [Other obesity due to excess calories]ChronicOther nutritional; endocrine; and metabolic disorders (1 source)Other obesity due to excess caloriesChronicOther nutritional; endocrine; and metabolic disorders (1 source)Body mass index (BMI) 34.0-34.9, adultChronicOther nutritional; endocrine; and metabolic disorders (1 source)Obese class II; Translations: [Body mass index (BMI) 35.0-35.9, adult] Onset: 19-39-9870AfijjutOrodw nutritional; endocrine; and metabolic disorders (5 sources)Obesity; Translations: [Obesity, unspecified]53-11-0057EgoeqntOdarh nutritional; endocrine; and metabolic disorders (1 source)Morbid obesity; Translations: [Morbid (severe) obesity due to excess calories]Onset: 75-92-1254NfbhqahIulrr nutritional; endocrine; and metabolic disorders (5 sources)Severe [...] and certain disorders involving the immune mechanism]Onset: 23-50-4507JwdfsmoiMybkhrl on above:PSA: 3.78 - 03/2022, 3.38 - 3PSA: 3.78 - 03/2022, 3.38 - 03/2023, 3.46 - 05/2023Other upper respiratory disease (7 sources)Allergic rhinitis due to pollen; Translations: [Allergic rhinitis due to pollen]ChronicOther upper respiratory disease (1 source)Allergic rhinitis; Translations: [Other allergic rhinitis]ChronicOther upper respiratory disease (4 sources)Rhinitis medicamentosa; Translations: [Chronic rhinitis]05-21-2024 ChronicOther upper respiratory disease (1 source)Chronic rhinitis; Translations: [Chronic rhinitis]16-63-2132Mzeghil Residual codes; unclassified (20 sources)Obstructive sleep apnea syndrome; Translations: [Obstructive sleep apnea (adult) (pediatric)]Onset: 638164-55-9692FmqscyyTjhxekob codes; unclassified (4 sources)Obstructive sleep apnea (adult) (pediatric); Translations: [Obstructive sleep apnea (adult)(pediatric)]ChronicResidual codes; unclassified (1 source)Acquired absence of other specified parts of digestive tract; Translations: [ACQ ABSENCE OTH PART DIGESTV TRACT]Onset: 68-41-8817Hrcoaknt Residual codes; unclassified (1 source)Other specified postprocedural states; Translations: [Other specified postprocedural states]Onset: 45-01-8183DepnmcrjMocqsxqt codes; unclassified (5 sources)Family history of coronary arteriosclerosis; Translations: [Family history of ischemic heart disease and other diseases of the circulatory system] 05-95-6153NymgcxrsWulynhcrm-related disorders (8 sources)Tobacco user; Translations: [Nicotine dependence, cigarettes, in remission]ChronicUnclassified (1 source)CONTACT W/AND (SUSP) EXPOS COVID-19; Translations: [CONTACT W/AND (SUSP) EXPOS COVID-19]Onset: 68-51-9789Ykpbxadrldaj (1 source)POST-OP VISITOnset: 05-14-2023 Past or Other Problems Problem ClassificationProblemDateDocumented DateEpisodic/ChronicMalaise and fatigue (1 source)Malaise and fatigue; Translations: [Other malaise and fatigue]Onset: 03-65-4694AcgoksicAznwg eye disorders (4 sources)Dermatochalasis of unspecified eye, unspecified eyelid; Translations: [DERMATOCHALASIS UNS EYE UNS EYELID]Onset: 41-89-3699NfqpgmzyRghca eye disorders (1 source)Unspecified ptosis of unspecified eyelid; Translations: [UNSPEC PTOSIS OF UNS EYELID]Onset: 64-67-8457UkptjbacPbinf injuries and conditions due to external causes (1 source)Foreign body in left ear; Translations: [Foreign body in left ear, initial encounter]Onset: 16-18-2841ObugjrrcAzgcz upper respiratory disease (1 source)Difficulty speaking; Translations: [Other voice and resonance disorders]Onset: 33-89-5257KgyynsjuFdvcnfvf codes; unclassified (2 sources)History of hernia repair; Translations: [Other specified postprocedural states]66-21-9338JvkyvvmfHselbxhuu and history of mental health and substance abuse codes (2 sources)Personal history of nicotine dependence; Translations: [History of tobacco use]Onset: 10-55-8763Buijrhtf Results Test NameValueInterpretationReference RangeFacilityOrders Onlyon 02-25-2025 Orders [id number] Maddy Su 1950 M Date Provider Department [facility] 02/25/2025 16370-YSDLEXROXANA MASTERSON HVCTS PA HeartVAS Family History Problem Relation Age of Onset Heart attack Mother Family Status - Relation Status Age at Mother Father DeceasedNormalU[address] Addended by: ROXANA MASTERSON on: 02/25/2025 10:01 AM Modules accepted: OrdersNormalUniDetwiler Memorial HospitalConpalisades medical center [id number] Maddy Su Efra 1950 M Date Provider Department [facility] 02/23/2025 54894-KIYCWZBTXXJENNIFER GALVEZ JHVCTS PA HeartVAS Family History Problem Relation Age of Onset Heart attack Mother Family Status - Relation Status Age at Mother Father Level of Service:59164 MS OFFICE/OP CONSLTJ NEW/EST PT HIGH MDM 55 MINUTES Reason for Visit and Comments: New Patient [632] - Bicuspid Aortic Valve, Severe Aortic Valve RegurgitationNoUniversity Hospitals Lake [facility] 56-03-0204GLCM Attestation signed by Lopez Torres MD at [...] discussed with attending and fellow. Additional Equipment RequestsNormalUniversAshtabula County Medical Center 66-31-5838FRM&P reviewed. The patient was examined and there are no changes to the H&P.[facility] HospitalNPRESBYTERIAN HOSPITALNOTHonorhealth [facility] 36-85-2524BUBQWGGPQV educated pt on d/c instructions. 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 In interim will [...] Follow up in about 6 weeks (around 03/17/2025).NormalOhioHealth Grove City Methodist HospitalOffice Visiton 39-14-0684Dinkml-up [id number] Maddy Su 1950 M Date Provider Department Center 02/03/2025 245-ASHLEY BOWIE Family History Problem Relation Age of Onset Heart attack Mother Family Status - Relation Status Age at Mother Father Level of Service:00672 MS OFFICE/OUTPATIENT [facility] HIGH [facility] 60 MINUTES Reason for Visit and Comments: New Patient [632] - Patient is here today to establish care with cardiology. Patient recently has a stress test and Echo which were abnormal. Patient has complaints of SOB, HOLMAN, chest tightness, dizziness/lightheadedness with position changes. Leg pain with walking Cardiac Stress Test [489] Hypertension [519391] Hyperlipidemia [182] Sleep Apnea [348] - Non complaint with CPAP due to it being uncomfortable GERD [270089] Barretts esophagus [Other] Valve Disorder [3372] - Aortic valve sclerosisNormalUniversity Guernsey Memorial HospitalBasophils Auto (Bld) [#/Vol]Ordered By: Juan Torres on 01-06-2025 Basophils (Bld) [#/Vol]0.0 10 3/uL0.0-0.1FSelect Medical Specialty Hospital - [facility] Basophils/100 WBC Auto (Bld)Ordered By: Juan Torres on 77-27-3440Qgddiocmu/100 WBC (Bld)0.3 %0.2-2.0[facility] Health SystemEosinophils/100 WBC Auto (Bld)Ordered By: Juan Torres on 81-74-2600Vsiznlhkdec/100 WBC (Bld)2.1 % 0.9-7.0[facility] Hospitals Health SystemErythrocyte distribution width Auto (RBC) [Ratio]Ordered By: Juan Torres on 07-29-3592Jzsaqcdajvr distribution width (RBC) [Ratio]12.3 %11.0-15.0[facility] Health SystemFPG ECG *PCP OFFICE ONLY*on 15-54-6530KPB ECG *PCP OFFICE ONLY*[facility] [place] [address] Electrocardiograph Report Signed Patient: Maddy Su MR#: [id number] 943 : 1950 Acct:[id number] Age/Sex: 74 / M ADM Date: 01/06/25 [facility]: [facility] Attending Dr: Juan Torres DO Ordering [...] previous ECGs available Confirmed by Franklin Kerr ([id number]) on 01/07/2025 3:04:16 PM Referred By: Electronically Signed By: Franklin Kerr Transcribed By: MUS Signed By Franklin Kerr MD 01/07/25 1504TGH Crystal River Physician GroupFibrin D-dimer [Presence] in Platelet poor plasma by Latex agglutinationOrdered By: Juan Torres on 82-76-5811Ohhtwn D-dimer LA Ql (PPP)0.50 mg/L FEU<=0.59[facility] Hospitals Health SystemComment on above:Increases in D-Dimer concentration observed withthromboembolic [...] Calc (S) [Mass/Vol]Ordered By: Juan Torres on 85-02-4789Iplvtjoc (S) [Mass/Vol]3.5 g/dLUniversity Hospitals Health System Glomerular filtration rate (GFR) estimation in non- AmericanOrdered By: Juan Torres on 22-51-0954YSX/1.73 sq M.predicted among non-blacks MDRD (S/P/Bld) [Vol rate/Area]56 mL/min/{1.73_m2}Low>=60 mL/min/1.73m 2FSelect Medical Specialty Hospital - AkronHematocrit Auto (Bld) [Volume fraction]Ordered By: Juan Torres on 85-33-5518Sogpyjoxvr (Bld) [Volume fraction]46.9 %42.0-54.0 [facility] Health SystemHemoglobin [Mass/volume] in BloodOrdered By: Juan Torres on 65-50-7523Befxtjngpk (Bld) [Mass/Vol]16.8 g/dL14.0-18.0 [facility] SystemLaboratory - Chemistry and Chemistry - challengeOrdered By: Juan Torres on 78-59-8268Nnwkxay [Mass/Vol]4.0 g/dL 3.4-5.0[facility] Health SystemALP [Catalytic activity/Vol]63 U/L46-116 [facility] SystemALT [Catalytic activity/Vol]31 U/L16-63 [facility] Health SystemAST [Catalytic activity/Vol]18 U/L15-37 [facility] SystemBilirubin [Mass/Vol]0.6 mg/dL0.2-1.0[facility] Health SystemCalcium [Mass/Vol]9.1 mg/dL8.5-10.1FSelect Medical Specialty Hospital - AkronChloride [Moles/Vol]108 mmol/DFtua13-055YpuwghjacUniversity Hospitals Health SystemCO2 [Moles/Vol]23.7 mmol/L21.0-32.0[facility] Creatinine [Mass/Vol]1.26 mg/dL0.70-1.30[facility] GFR/1.73 sq M.predicted MDRD (S/P/Bld) [Vol rate/Area]mL/min/{1.73_m2}>=60 mL/min/1.73m 2FSelect Medical Specialty Hospital - AkronGlucose [Mass/Vol]97 mg/pW73-955 [facility] Health SystemNatriuretic peptide B (Bld) [Mass/Vol]443.0 pg/mL<=900.0[facility] SystemPotassium [Moles/Vol]4.2 mmol/L 3.5-5.1FSelect Medical Specialty Hospital - AkronProtein [Mass/Vol]7.5 g/dL6.4-8.2 [facility] Hospitalodium [Moles/Vol]141 mmol/O305-253PgzoxznvuUniversity Hospitals Health SystemTSH Qn3.428 m[IU]/L0.358-3.740[facility] Health SystemUrea nitrogen [Mass/Vol]19.0 mg/dLHigh7.0-18.0[facility] Health SystemUrea nitrogen/Creatinine [Mass ratio]15.1 mg/mgUniversity Hospitals Health SystemLaboratory - Hematology and Cell countsOrdered By: Juan Torres on 84-72-9706Vsuyvfsi granulocytes/100 WBC (Bld)0.3 %0.0-0.5FSelect Medical Specialty Hospital - AkronLeukocytes [#/volume] corrected for nucleated erythrocytes in Blood by Automated counOrdered By: Juan Torres on 47-61-2122WML corrected for nucl RBC Auto (Bld) [#/Vol]7.2 10 3/uL4.0-11.0[facility] Lymphocytes Auto (Bld) [#/Vol]Ordered By: Juan Torres on 92-97-5554Rafjdqjsfmn (Bld) [#/Vol]2.2 10 3/uL1.2-3.8[facility] Health SystemLymphocytes/100 WBC Auto (Bld)Ordered By: Juan Torres on 89-38-4669Mmdtczropbr/100 WBC (Bld) 31.0 %20.5-60.0[facility] Auto (RBC) [Entitic mass] Ordered By: Juan Torres on 39-73-3617QRR (RBC) [Entitic mass]31.7 pg25.9-34.0 [facility] Health SystemMCHC Auto (RBC) [Mass/Vol]Ordered By: Juan Torres on 87-92-2143XESM (RBC) [Mass/Vol]35.8 g/zDFerb77.9-35.2FSelect Medical Specialty Hospital - AkronMCV Auto (RBC) [Entitic vol]Ordered By: Juan Torres on 55-57-9479HGX (RBC) [Entitic vol]88.5 fL80.0-94.0[facility] Health SystemMonocytes Auto (Bld) [#/Vol]Ordered By: Juan Torres on 01-06-2025 Monocytes (Bld) [#/Vol]0.8 10 3/uL0.3-0.8[facility] Monocytes/100 WBC Auto (Bld)Ordered By: Juan Torres on 95-57-0564Smxqmnvim/100 WBC (Bld)10.9 %1.7-12.0[facility] Health SystemNeutrophils Auto (Bld) [#/Vol]Ordered By: Juan Torres on 39-52-9724Zewdxavange (Bld) [#/Vol]4.0 10 3/uL1.4-6.5FSelect Medical Specialty Hospital - AkronNeutrophils/100 WBC Auto (Bld) Ordered By: Juan Torres on 15-79-0461Gkxooippvpr/100 WBC (Bld)55.4 %43.0-75.0 [facility] SystemNo Panel InformationOrdered By: Juan Torres on 09-06-6441Bfvcrksbioj # (Auto)0.2 10 3/uL0.0-0.7FSelect Medical Specialty Hospital - AkronImmature Granulocyte # (Auto)0.02 10 3/uL0.00-0.03[facility] Health SystemPlatelet mean volume Auto (Bld) [Entitic vol]Ordered By: Juan Brian on 24-66-2489Vbtisnvu mean volume (Bld) [Entitic vol]9.3 fLLow9.5-13.5 [facility] Health SystemPlatelets Auto (Bld) [#/Vol]Ordered By: Juan Brian on 55-93-3647Zcscxdzbp (Bld) [#/Vol]202 10 3/oH941-285MmvisfkdfUniversity Hospitals Health SystemRBC Auto (Bld) [#/Vol]Ordered By: Juan Torres on 02-72-9025NIY (Bld) [#/Vol]5.30 10 6/uL4.70-6.10H[facility] Community Hospitalerum or plasma albumin/globulin mass ratioOrdered By: Juan Torres on 17-44-5332Nwxsexo/Globulin [Mass ratio]1.1 {ratio}[facility] Community Hospitalerum or plasma anion gap determinationOrdered By: Juan Torres on 77-88-2978Nlcum gap [Moles/Vol]13.5 mmol/LFSelect Medical Specialty Hospital - AkronH PYLORI TISSUEon 06-27-2022H PYL TISSUE, UREASENegativeNormalNEGATIVEThe [facility] Surgical HospitalComment on above:Performed By: #### HPYLT #### [facility] [address] [address] [address] Cash Luna-19 PCR ([facility])on 41-12-3684WXOZ-CoV-2 (COVID-19) RNA MICAH+probe Ql (Unsp spec)Not detectedNormalNOT DETECTEDThe [facility] Comment on above:Result Comment: This test is not yet approved or cleared by the [place] FDA. When there are no FDA-approved or cleared tests available, and other criteria are met, FDA can make tests available under an emergency access mechanism called an Emergency Use Authorization (EUA). The EUA for this test is supported by the Human Capital Analyst of Health and Human Service's (HHS's) declaration [...] consistent with SARS-CoV-2.Performed By: #### CVDTBH #### [facility] [address] [place] [address] Dr. Cash Hester AUTO DIFFon 62-32-6400KPYH #0.0 103/ulNormal0.0-0.1The [facility] HospitalComment on above:Performed By: #### CBC #### [facility] [address] [place] [address] Dr. Cash ZapataBasophils/100 WBC (Bld)0.3 %Normal0.2-2.0[facility] Comment on above:Performed By: #### CBC #### [facility] [address] [place] [address] Dr. Cash Navarrete #0.1 103/ulNormal0.0-0.7The [facility] Surgical HospitalComment on above: Performed By: #### CBC #### [facility] [address] [place] [address] Dr. Cash Tayosinophils/100 WBC (Bld)1.1 %Normal0.9-7.0[facility] Comment on above:Performed By: #### CBC #### [facility] [address] [place] [address] Dr. Cash Tayrythrocyte distribution width (RBC) [Ratio]12.8 %Hyqezq24.0-15.0 [facility] CenterComment on above:Performed By: #### CBC #### [facility] [address] [place] [address] Dr. Cash ZapataHematocrit (Bld) [Volume fraction]46.3 %Lzxgbt77.0-54.0[facility] CenterComment on above:Performed By: #### CBC #### [facility] [address] [place] [address] Dr. Cash ZapataHemoglobin (Bld) [Mass/Vol]16.0 g/qSEgkmhn20.0-18.0The [facility] HospitalComment on above:Performed By: #### CBC #### [facility] [address] [place] [address] Dr. Cash Dhillon #0.04 10e3/ulCritically high0.00-0.03The [facility] Comment on above:Performed By: #### CBC #### [facility] [address] [place] [address] Dr. Cash Dhillon %0.6 %Critically high0.0-0.5The [facility] HospitalComment on above:Performed By: #### CBC #### [facility] [address] [place] [address] Dr. Cash Woodson #1.9 103/ulNormal1.2-3.8The [facility] HospitalComment on above:Performed By: #### CBC #### [facility] [address] [place] [address] Dr. Cash Soareshocytes/100 WBC (Bld)25.9 %Upzyms16.5-60.0The [facility] HospitalComment on above:Performed By: #### CBC #### [facility] [address] [place] [address] Dr. Cash Hudson DIFF REQNONormalThe [facility] Surgical HospitalComment on above: Performed By: #### CBC #### [facility] [address] [place] [address] Dr. Cash Storey (RBC) [Entitic mass]30.7 ytDuoren39.9-34.0The [facility] Surgical HospitalComment on above:Performed By: #### CBC #### [facility] [address] [place] [address] Dr. Cash Galeana (RBC) [Mass/Vol]34.6 g/dKLrfoyb73.9-35.2The [facility] HospitalComment on above:Performed By: #### CBC #### [facility] [address] [place] [address] Dr. Yilan ChangMCV (RBC) [Entitic vol]88.9 eEFsovkd02.0-94.0The [facility] HospitalComment on above:Performed By: #### CBC #### [facility] [address] [place] [address] Dr. Cash Valdivia #0.6 103/ulNormal0.3-0.8The [facility] HospitalComment on above:Performed By: #### CBC #### [facility] [address] [place] [address] Dr. Cash Casperocytes/100 WBC (Bld)8.5 %Normal1.7-12.0[facility] Comment on above:Performed By: #### CBC #### [facility] [address] [place] [address] Dr. Cash Borges #4.6 103/ulNormal1.4-6.5The [facility] HospitalComment on above:Performed By: #### CBC #### [facility] [address] [place] [address] Dr. Cash Dueñasutrophils/100 WBC (Bld)63.6 %Bsrjbf94.0-75.0The [facility] HospitalComment on above:Performed By: #### CBC #### [facility] [address] [place] [address] Dr. Cash Ramírez mean volume (Bld) [Entitic vol]9.0 fLCritically low 9.5-13.5The [facility] HospitalComment on above:Performed By: #### CBC #### [facility] [address] [place] [address] Dr. Cash AquinoT209 103/lkEbypwn564-078Tgi [facility] HospitalComment on above: Performed By: #### CBC #### [facility] [address] [place] [address] Dr. Cash TariqC5.21 106/ulNormal4.70-6.10The [facility] HospitalComment on above:Performed By: #### CBC #### [facility] [address] [place] [address] Dr. Cash ZapataWBC7.3 103/ulNormal4.0-11.0The [facility] HospitalComment on above: Performed By: #### CBC #### [facility] [address] [address] [address] Cash ZapataCULTURE URINEon [id number] URINECulture Observations: NO GROWTH.NormalUniversity Hospitals Parma Medical CenterComment on above:Performed By: #### URCX #### [facility] [address] [address] [address] Cash ZapataLIPID PROFILEon [id number]-HDL RATIO NORMSEE [facility] CenterComment on above:Result Comment: 3.3 - 4.4 LOW RISK 4.4 - 7.1 AVERAGE RISK 7.1 - 11.0 MODERATE RISK >11.0 HIGH RISKPerformed By: #### CMP, LIPID #### [facility] [address] [place] [address] Dr. Cash ZapataCholesterol [Mass/Vol]187 mg/dLNormal<=200[facility] Comment on above:Performed By: #### CMP, LIPID #### [facility] [address] [place] [address] Dr. Cash Phanesterol in HDL [Mass/Vol]44 mg/qJTjfbsa15-19UbdUniversity Hospitals Parma Medical CenterComascension genesys hospital on above:Performed By: #### CMP, LIPID #### [facility] [address] [place] [address] Dr. Cash ZapataCholesterol in LDL [Mass/Vol]124.6 mg/dLPremier Health Miami Valley Hospital NorthComment on above:Performed By: #### CMP, LIPID #### [facility] [address] [place] [address] Dr. Cash Burgos.total/Cholesterol in HDL [Mass ratio]4.3 {ratio} NormalUniversity Hospitals Parma Medical CenterComment on above:Performed By: #### CMP, LIPID #### [facility] [address] [place] [address] Dr. Cash ZapataHDL NORMAL> or = 60 mg/dl - LOW CARDIOVASCULAR RISK <40 mg/dl - HIGH CARDIOVASCULAR RISKPremier Health Miami Valley Hospital NorthComment on above:Performed By: #### CMP, LIPID #### [facility] [address] [address] [address] Cash Oshea CALC NORMALSEE BELOWPremier Health Miami Valley Hospital NorthComment on above:Result Comment: <100 mg/dl OPTIMAL 100 - 129 mg/dl NEAR OR ABOVE OPTIMAL 130 - 159 mg/dl BORDERLINE HIGH 160 - 189 mg/dl HIGH >190 mg/dl VERY HIGH Performed By: #### CMP, LIPID #### [facility] [address] [address] [address] Cash ZapataTriglyceride [Mass/Vol]92 mg/dLNormal<=150The [facility] Comment on above:Performed By: #### CMP, LIPID #### [facility] [address] [place] [address] Dr. Cash OchoaLDL CALC18.4 mg/dLNoMemorial HospitalComment on above: Performed By: #### CMP, LIPID #### [facility] [address] [place] [address] Dr. Cash ZapataPROF 14(COMP METB)on 52-53-7711Zphnspy [Mass/Vol]4.0 g/dLNormal 3.4-5.0[facility] on above:Performed By: #### CMP, LIPID #### [facility] [address] [place] [address] Dr. Cash ZapataAlbumin/Globulin [Mass ratio]1.2 {ratio}NormalThe [facility] HospitalComment on above:Performed By: #### CMP, LIPID #### [facility] [address] [place] [address] Dr. Cash Nielsen [Catalytic activity/Vol]47 U/LHivjzd01-675Guc [facility] on above:Performed By: #### CMP, LIPID #### [facility] [address] [place] [address] Dr. Cash Back [Catalytic activity/Vol]52 U/CQhdbvw92-65Dkm [facility] HospitalComment on above:Performed By: #### CMP, LIPID #### [facility] [address] [address] [address] Cash Luon gap [Moles/Vol]9.8 mmol/LNormalThe [facility] HospitalComment on above:Performed By: #### CMP, LIPID #### [facility] [address] [address] [address] Cash ZapataAST [Catalytic activity/Vol]21 U/KNaessj80-57Faf [facility] HospitalComment on above:Performed By: #### CMP, LIPID #### [facility] [address] [address] [address] Cash ZapataBilirubin [Mass/Vol]0.5 mg/dLNormal0.2-1.0[facility] Comment on above:Performed By: #### CMP, LIPID #### [facility] [address] [address] [address] Cash ZapataCalcium [Mass/Vol]9.5 mg/dLNormal8.5-10.1The [facility] Comment on above:Performed By: #### CMP, LIPID #### [facility] [address] [address] [address] Cash ZapataChloride [Moles/Vol]104 mmol/OBpjpzp87-728Qdx [facility] Comment on above:Performed By: #### CMP, LIPID #### [facility] [address] [address] [address] Cash ZapataCO2 [Moles/Vol]31.3 mmol/NHzpcam49.0-32.0The [facility] Comment on above:Performed By: #### CMP, LIPID #### [facility] [address] [address] [address] Cash ZapataCreatinine [Mass/Vol]1.26 mg/dLNormal0.70-1.30The [facility] HospitalComment on above:Performed By: #### CMP, LIPID #### [facility] [address] [address] [address] Cash TayGFR-AF GRENADIAN>60Normal>=60The [facility] HospitalComment on above:Performed By: #### CMP, LIPID #### [facility] [address] [address] [address] Cash TayGFR-NON AF HKBZJFUZ10 mL/min/1.92a8Ycoducjiih low>=60The [facility] HospitalComment on above:Performed By: #### CMP, LIPID #### [facility] [address] [address] [address] Cash ZapataGlobulin (S) [Mass/Vol]3.3 g/dLNormalThe [facility] HospitalComment on above:Performed By: #### CMP, LIPID #### [facility] [address] [address] [address] Cash ZapataGlucose [Mass/Vol]109 mg/dLCritically zohd66-333Yxl [facility] HospitalComment on above:Performed By: #### CMP, LIPID #### [facility] [address] [address] [address] Cash ZapataPotassium [Moles/Vol]5.1 mmol/LNormal3.5-5.1The [facility] Comment on above:Performed By: #### CMP, LIPID #### [facility] [address] [address] [address] Cash ZapataProtein [Mass/Vol]7.3 g/dLNormal6.4-8.2[facility] Comment on above:Performed By: #### CMP, LIPID #### [facility] [address] [address] [address] Cash Shepparddium [Moles/Vol]140 mmol/NGbcwdk553-538Ied [facility] Comment on above:Performed By: #### CMP, LIPID #### [facility] [address] [address] [address] Cash ZapataUrea nitrogen [Mass/Vol]23.0 mg/dLCritically high7.0-18.0The [facility] HospitalComment on above:Performed By: #### CMP, LIPID #### [facility] [address] [address] [address] Cash ZapataUrea nitrogen/Creatinine [Mass ratio]18.3 mg/mgNormalThOhioHealth Grady Memorial HospitalComment on above:Performed By: #### CMP, LIPID #### [facility] [address] [address] [address] Cash Siddiqui RANDOM W/MICROSCOPICon 27-85-5927EXYLAEEOKWUS SEENNormalNONE SEENUniversity Hospitals Parma Medical CenterComment on above:Performed By: #### UAMIC #### [facility] [address] [address] [address] Cash Mcdonnellirubin Ql (U)NegativeNormalNEGATIVESheltering Arms Hospital on above:Performed By: #### UAMIC #### [facility] [address] [address] [address] Cash GarciaNONEduarda SEENNormalNONE SEENUniversity Hospitals Parma Medical CenterComment on above:Performed By: #### UAMIC #### [facility] [address] [address] [address] Cash Solis (U)CLEARNormalCLEARUniversity Hospitals Parma Medical CenterComment on above: Performed By: #### UAMIC #### [facility] [address] [address] [address] Cash Figueroa (U)LT. YELLOWNormalYDunlap Memorial HospitalComment on above:Performed By: #### UAMIC #### [facility] [address] [address] [address] Cash ZapataCrystals LM Nom (Urine sed)NONE SEENNormalNONE SEENUniversity Hospitals Parma Medical CenterComment on above:Performed By: #### UAMIC #### [facility] [address] [address] [address] Castrejon ChangEpithelial cells LM Ql (Urine sed)RARENormalNONE SEEN /RAREUniversity Hospitals Parma Medical CenterComment on above:Performed By: #### UAMIC #### [facility] [address] [address] [address] Cash Mejíaose Ql (U)NegativeNormalNEGATIVEUniversity Hospitals Parma Medical CenterComment on above:Performed By: #### UAMIC #### [facility] [address] [address] [address] Cash ZapataHemoglobin Ql (U)NegativeNormalNEGATIVEUniversity Hospitals Parma Medical Center Comment on above:Performed By: #### UAMIC #### [facility] [address] [place] [address] Dr. Cash ZapataKetones Ql (U)NegativeNormalNEGATIVEUniversity Hospitals Parma Medical CenterComment on above:Performed By: #### UAMIC #### [facility] [address] [address] [address] Cash ZapataLEUKOCYTESNegativeNormalNEGATIVEThe [place] [facility] HospitalComment on above:Performed By: #### UAMIC #### [facility] [address] [place] [address] Dr. Cash ZapataMUCOUSNONE SEENNormalNONE SEENUniversity Hospitals Parma Medical CenterComment on above:Performed By: #### UAMIC #### [facility] [address] [place] [address] Dr. Cash ZapataNitrite Ql (U)NegativeNormalNEGATIVEUniversity Hospitals Parma Medical CenterComment on above:Performed By: #### UAMIC #### [facility] [address] [place] [address] Dr. Cash ZapatapH (U)6.0 [pH]Normal5-9[facility] Parma Medical CenterComment on above: Performed By: #### UAMIC #### [facility] [address] [place] [address] Dr. Cash ZapataRBCNONE SEENAbnormal0-2The [facility] HospitalComment on above: Performed By: #### UAMIC #### [facility] [address] [place] [address] Dr. Cash ZapataSPEC GRAVITY1.683Ejsxba2.005-<=1.025The [place] [facility] HospitalComment on above:Performed By: #### UAMIC #### [facility] [address] [place] [address] Dr. Cash ZapataUA PROTEINNegativeNormalNEGATIVE/ TRACEThe [facility] Comment on above:Performed By: #### UAMIC #### [facility] [address] [place] [address] Dr. Cash Ross Qn (U)1.0 {Atilio'U}/dLNormal0.2 - 1.0[facility] Parma Medical CenterComment on above:Performed By: #### UAMIC #### [facility] [address] [place] [address] Dr. Cash ZapataWBC0-2AbnormalNONE SEENThe [facility] HospitalComment on above: Performed By: #### UAMIC #### [facility] [address] [place] [address] Dr. Cash Hester AUTO DIFFon 31-92-9089YVVM #0.0 103/ulNormal0.0-0.1The [facility] HospitalComment on above:Performed By: #### CBC #### [facility] [address] [place] [address] Dr. Cash ZapataBasophils/100 WBC (Bld)0.3 %Normal0.2-2.0[facility] Comment on above:Performed By: #### CBC #### [facility] [address] [place] [address] Dr. Cash Navarrete #0.1 103/ulNormal0.0-0.7The [facility] HospitalComment on above: Performed By: #### CBC #### [facility] [address] [place] [address] Dr. Cash Tayosinophils/100 WBC (Bld)1.4 %Normal0.9-7.0[facility] Comment on above:Performed By: #### CBC #### [facility] [address] [place] [address] Dr. Cash Tayrythrocyte distribution width (RBC) [Ratio]12.4 %Ulynle24.0-15.0 [facility] Medical CenterComment on above:Performed By: #### CBC #### [facility] [address] [place] [address] Dr. Cash ZapataHematocrit (Bld) [Volume fraction]46.5 %Xhbocf02.0-54.0The [facility] HospitalComment on above:Performed By: #### CBC #### [facility] [address] [place] [address] Dr. Cash ZapataHemoglobin (Bld) [Mass/Vol]16.4 g/yWQanijm46.0-18.0The [facility] HospitalComment on above:Performed By: #### CBC #### [facility] [address] [place] [address] Dr. Cash Dhillon #0.02 10e3/ulNormal0.00-0.03The [facility] HospitalComment on above:Performed By: #### CBC #### [facility] [address] [place] [address] Dr. Cash Dhillon %0.3 %Normal0.0-0.5The [facility] HospitalComment on above: Performed By: #### CBC #### [facility] [address] [place] [address] Dr. Cash Woodson #2.5 103/ulNormal1.2-3.8The [facility] HospitalComment on above:Performed By: #### CBC #### [facility] [address] [place] [address] Dr. Cash Soareshocytes/100 WBC (Bld)39.4 %Rbiiba02.5-60.0The [facility] HospitalComment on above:Performed By: #### CBC #### [facility] [address] [place] [address] Dr. Cash RosasUAL DIFF REQNONormalThe [facility] HospitalComment on above: Performed By: #### CBC #### [facility] [address] [place] [address] Dr. Cash Storey (RBC) [Entitic mass]31.2 pzJajzrd48.9-34.0The [facility] HospitalComment on above:Performed By: #### CBC #### [facility] [address] [place] [address] Dr. Cash Galeana (RBC) [Mass/Vol]35.3 g/dLCritically high29.9-35.2The [facility] HospitalComment on above:Performed By: #### CBC #### [facility] [address] [place] [address] Dr. Cash Raza (RBC) [Entitic vol]88.6 mMWodptg62.0-94.0The [facility] HospitalComment on above:Performed By: #### CBC #### [facility] [address] [place] [address] Dr. Cash Valdivia #0.7 103/ulNormal0.3-0.8The [facility] HospitalComment on above:Performed By: #### CBC #### [facility] [address] [place] [address] Dr. Cash Casperocytes/100 WBC (Bld)10.4 %Normal1.7-12.0[facility] Comment on above:Performed By: #### CBC #### [facility] [address] [place] [address] Dr. Cash Borges #3.1 103/ulNormal1.4-6.5The [facility] HospitalComment on above:Performed By: #### CBC #### [facility] [address] [place] [address] Dr. Cash Dueñasutrophils/100 WBC (Bld)48.2 %Lqodvl42.0-75.0The [facility] HospitalComment on above:Performed By: #### CBC #### [facility] [address] [place] [address] Dr. Cash Ramírez mean volume (Bld) [Entitic vol]9.4 fLCritically low 9.5-13.5The [facility] HospitalComment on above:Performed By: #### CBC #### [facility] [address] [place] [address] Dr. Cash AquinoT210 103/lrZblokn270-131Udk [facility] HospitalComment on above: Performed By: #### CBC #### [facility] [address] [place] [address] Dr. Cash ZapataRBC5.25 106/ulNormal4.70-6.10The [facility] HospitalComment on above:Performed By: #### CBC #### [facility] [address] [place], [place] [address] Dr. Cash ZapataWBC6.4 103/ulNormal4.0-11.0The [facility] HospitalComment on above: Performed By: #### CBC #### [facility] [address] [place], [place] [address] Dr. Cash Zapata Vital Signs Date TimeVital SignValuePerforming QtntxyfebOrvontmt47-00-0844 14:19-0400Body iprhcu661.34 cmBenjamin Ball DO Work Phone: [phone]09-15-2025 14:19-0400 Body mass index (BMI) [Ratio]36.2 kg/z5Slermppp Ball DO Work Phone: [phone])[address] [place], [place] 7367309-15-2025 14:19-0400 Body .93 kgBenjamin Ball DO Work Phone: [phone])[address] [place], [place] 7367309-15-2025 14:19-0400 Diastolic blood deyhoghx27 mm[Hg]Juan Ball DO Work Phone: [phone])[address]09-15-2025 14:19-0400 Heart qnuk726 /minBenjamin Ball DO Work Phone: 1419)[facility] [place], [place] 3865509-15-2025 14:19-0400 Respiratory rate12 /minBenjamin Ball DO Work Phone: [phone])[address]09-15-2025 14:19-0400 Systolic blood boswcgwu604 mm[Hg]Juan Ball DO Work Phone: [phone])[address] [place], [place] 7367308-27-2025 14:18-0400 Body .34 cmBenjamin Ball DO Work Phone: [phone] [place], [place] 3865508-27-2025 14:18-0400 Body mass index (BMI) [Ratio]35.7 kg/x2Kjzgzavd Ball DO Work Phone: [facility]08-27-2025 14:18-0400 Body .28 kgBenjamin Ball DO Work Phone: [facility]08-27-2025 14:18-0400 Diastolic blood ehqqofdb10 mm[Hg]Juan Ball DO Work Phone: [facility]08-27-2025 14:18-0400 Heart rate69 /minBenjamin Ball DO Work Phone: [facility]08-27-2025 14:18-0400 Respiratory rate12 /minBenjamin Ball DO Work Phone: [facility]08-27-2025 14:18-0400 Systolic blood xbvrcywe924 mm[Hg]Juan Ball DO Work Phone: [facility]01-09-2025 10:36-0500 Body tdseqn791.34 cmUniversity [facility]als Health [facility]01-09-2025 10:36-0500Body mass index (BMI) [Ratio]34.2 kg/s9UfzbnyiokUniversity Hospitals Health System01-09-2025 10:36-0500Body slfooe015.35 kgUniversity Hospitals Health System01-09-2025 10:36-0500Diastolic blood mm[Hg][facility] 05-21-2024 10:36-0500Heart rate65 /[facility] 05-21-2024 10:36-0500Respiratory rate12 /[facility] 05-21-2024 10:36-0500Systolic blood mhphtoel698 mm[Hg][facility]01-29-2024 14:18-0500Body jigblm968.3 cmElizabeth Cardoso APRN-POCKET FLAP CREASING MACHINE OPERATOR Work Phone: [facility]01-29-2024 14:18-0500Body mass index (BMI) [Ratio]35.98 kg/h1QrffpgzElizabeth Cardoso APRN-POCKET FLAP CREASING MACHINE OPERATOR Work Phone: [facility] CenterMipso Paul [facility] Memorial HospitalQhpumg72-14-6106 14:18-0500Body .03 kgElizabeth Cardoso DIGITAL COMMENTATOR-POCKET FLAP CREASING MACHINE OPERATOR Work Phone: [facility]-29-2024 14:18-0500Diastolic blood muztsmzb72 mm[Hg]Elizabeth Cardoso DIGITAL COMMENTATOR-POCKET FLAP CREASING MACHINE OPERATOR Work Phone: [facility]01-29-2024 14:18-0500Heart rate 76 /minElizabeth Cardoso DIGITAL COMMENTATOR-POCKET FLAP CREASING MACHINE OPERATOR Work Phone: [facility] CenterL[facility]01-29-2024 14:18-0500Systolic blood fixqqojw059 mm[Hg]Elizabeth Cardoso DIGITAL COMMENTATOR-POCKET FLAP CREASING MACHINE OPERATOR Work Phone: [facility] CenterL[facility]01-02-2024 13:47-0500Body nhavyx248.3 cmElizabeth Cardoso DIGITAL COMMENTATOR-POCKET FLAP CREASING MACHINE OPERATOR Work Phone: [facility]01-02-2024 13:47-0500Body mass index (BMI) [Ratio]35.93 kg/d8YyyflaaElizabeth Cardoso DIGITAL COMMENTATOR-POCKET FLAP CREASING MACHINE OPERATOR Work Phone: [facility]01-02-2024 13:47-0500Body nsbyru847.85 kgElizabeth Cardoso DIGITAL COMMENTATOR-POCKET FLAP CREASING MACHINE OPERATOR Work Phone: [facility] CenterL[facility]01-02-2024 13:47-0500Diastolic blood bmkifvuk36 mm[Hg]Elizabeth Cardoso DIGITAL COMMENTATOR-POCKET FLAP CREASING MACHINE OPERATOR Work Phone: [facility] CenterL[facility]01-02-2024 13:47-0500Systolic blood xguaoovm053 mm[Hg]Elizabeth Cardoso DIGITAL COMMENTATOR-POCKET FLAP CREASING MACHINE OPERATOR Work Phone: [facility]12-15-2023 10:30-0500Body havorc728.88 cmBenken Ball Other [employer] Other [id number] 10:30-0500Body mass index (BMI) [Ratio] 34.28 kg/i8Ztralwhp Ball Other [employer] Other 12-15-2023 10:30-0500Body tatwhe402.67 kgBenjamin Ball Other [employer] Other 12-15-2023 10:30-0500Diastolic blood ggooqunp30 mm[Hg] Juan Ball Other [employer] Other 12-15-2023 10:30-0500Respiratory rate12 /minBenjamin Ball Other [employer] Other 12-15-2023 10:30-0500Systolic blood cofywfwv973 mm[Hg] Juan Ball Other [employer] Other 11-15-2023 11:30-0500Body .88 cmBenjamin Ball Other [employer] Other 11-15-2023 11:30-0500Body mass index (BMI) [Ratio] 35.01 kg/l8Bdymijbn Ball Other [employer] Other 11-15-2023 11:30-0500Body sxjipv712.12 kgBenjamin Ball Other [employer] Other 11-15-2023 11:30-0500Diastolic blood sigelgcm32 mm[Hg] Juan Ball Other [employer] Other 11-15-2023 11:30-0500Respiratory rate12 /minBenjamin Ball Other [employer] Other 11-15-2023 11:30-0500Systolic blood jgitwrcc027 mm[Hg] Juan Ball Other [phone] Other 07-10-2023 13:30-0400Body qckjda943.88 cmBenjamin Ball Other [employer] Other 07-10-2023 13:30-0400Body mass index (BMI) [Ratio] 34.17 kg/t4Acvdaxro Ball Other [employer] Other 07-10-2023 13:30-0400Body ihkczq206.31 kgBenjamin Ball Other [employer] Other 07-10-2023 13:30-0400Diastolic blood shjgtjha90 mm[Hg] Juan Ball Other [employer] Other 07-10-2023 13:30-0400Respiratory rate16 /minBenjamin Ball Other [employer] Other 07-10-2023 13:30-0400Systolic blood yguumoiu313 mm[Hg] Juan Ball Other [employer] Other Encounters Encounter DateEncounter TypeCare ProviderFacilityStart: 89-07-6668lordppjtcr [facility]ZL[facility] Hospitalt[facility]: [facility]-23[facility]2025 Encounter for other preprocedural examinationJENNIFER AGRAWALKindred Healthcaretart: 02-19-2025 End: 78-97-0855zujhztpyomXIM [facility]: 02-19-2025 End: 03-01-7501dntyosnwvfUBTOhioHealth Grove City Methodist Hospitaltart: 02-18-2025 End: 85-92-8459xpkjdrgynyYVMVSAXRFHI [facility] Start: 02-03-2025 End: 42-24-8268tfhjirhhzjBZMJWOPKBQS [facility] Start: 01-25-2025 End: 12-81-9148ffavkyjpnwQnramuiy Ball DO Work Phone: [facility] Work Phone: Start: 01-25-2025 End: 51-57-7170Aisuupn encounter procedureBenken Torres DO-[facility] Work Phone: Start: 92-18-5641Azs-patient / Non-visitGeorge Walker Kerr MD-[facility] Work Phone: Start: 01-06-2025 End: 25-52-5581bszpeaacqgWhrrudcf Ball DO Work Phone: [facility] Work Phone: Start: 01-06-2025 End: 86-62-4373Scjaipn encounter procedureBeumerclive Torres DO-[facility] Work Phone: Start: 05-21-2024 End: 94-72-8584txhkmdeediYyghdgikrMercy Health [facility] Work Phone: Start: 05-21-2024 End: 76-47-0814Vpsvics encounter procedureAndre Physician [facility] Work Phone: Start: 06-10-2023 End: 32-69-0428snqddifexaWWFDQSQPinnacle Hospital [facility] Start: 06-10-2023 End: 12-45-0131Tdextf follow up visit related to original Bello Caleb Joce DIGITAL COMMENTATOR-POCKET FLAP CREASING MACHINE OPERATOR Work Phone: [facility] General SurgeryComment on above: Status post hernia repair (Primary Dx)Start: 05-14-2023 End: 45-53-6608wrrlvywztnPKRBDUIProvidence St. [facility] Start: 05-14-2023 End: 24-99-5544Vwdtbe follow up visit related to original Bello Cardoso DIGITAL COMMENTATOR-POCKET FLAP CREASING MACHINE OPERATOR Work Phone: [facility] General SurgeryComment on above: Status post hernia repair (Primary Dx)Start: 04-30-2023 End: 33-63-7603wiahjzzwjhMrxjvxtu Ball Other [employer] Other Start: 00-13-7113Excibxvfv encounterBenjamin BallFPG [facility] ClinicStart: 04-26-2023 End: 26-77-7609tjeqnqsdoeSorcaoxp Ball Other [employer] Other Start: 72-32-7256Psqfvwswx for other preprocedural examinationBenjamin BallFPG [facility] ClinicStart: 88-77-0945Wziayj outpatient visit 25 minutesBenjamin BallFPG [facility] ClinicStart: 04-26-2023 Telephone encounterBenjamin BallFPG [facility] ClinicStart: 04-19-2023 End: 93-43-6028Szguyhlgs encounterHanane REYESAProMedjaneth Physicians General SurgeryStart: 04-01-2023 End: 19-60-5921funnmauogoFzlbnjiy Ball Other [employer] Other Start: 07-49-3322Hbypfdvlh encounterBenjamin BallFPG [facility] ClinicStart: 03-27-2023 End: 74-05-2453wricfesldrPvlzrhur Ball Other [employer] Other Start: 97-31-2045Xxacvatgm for general adult medical examination without abnormal findingsBenjamin BallFPG [facility] ClinicStart: 82-40-0956Slwwaexy preventive med est patient 65yrs& olderBenjamin BallFPG [facility] ClinicStart: 02-22-2023 End: 62-15-9898pejdudbjqlZarfkzci Ball Other [employer] Other Start: 26-10-9904Didctwhab encounterBenjamin BallFPG [facility] ClinicStart: 11-19-2022 End: 46-48-9297zerrggizwuHntzovmt Ball Other [facility]eng[facility] Other Start: 11-08-3212Kbrphp outpatient visit 15 minutes [facility] ClinicStart: 75-80-4221Gpjtclgyr for preprocedural laboratory examinationDR ANTOINE WILDER .[facility] Limatart: 06-27-2022 End: 16-42-5529euhrekscupHR ANTOINE WILDER .Facility:X0Mwbrl: 06-23-2022 End: 94-39-4736turydsxkwsKJ ANTOINE WILDER .Facility:W1Oevfg: 06-23-2022 End: 22-90-7646Xpghevqru for preprocedural laboratory examinationDR ANTOINE WILDER .Facility:I5Lvugm: 49-10-2699Lrydwvmpu for general adult medical examination without abnormal findings JUAN TORRESMercy Health West Hospitaltart: 58-96-2982Qumiq health examinationJuan Torres Other [facility] [employer] Other Start: 03-14-2022 End: 64-09-4737pkgpocvussRB JUAN TORRESFacility:Q1Lkrsy: 03-14-2022 End: 38-40-1993Ksscpoubr for general adult medical examination without abnormal findingsDR JUAN BRIANFacility:V8Xrxkr: 03-06-2022 End: 30-81-7572sggylubdlcIU DOCTOR MISCFacility:H1 Procedures DateProcedureProcedure DetailPerforming ClinicianStart: 82-58-9706Byskap-up visitFollow-upJEPRITI CARDOSOStart: 37-18-1841YpcjvcfyeicTyqcimb Carroll DIGITAL COMMENTATOR-POCKET FLAP CREASING MACHINE OPERATOR Work Phone: Start: 64-41-9727EHZ screeningDR ANTOINE WILDER . Comment on above:Performed By: #### PSASC #### [facility] [address] [place] [address] Dr. Cash ZapataStart: 89-18-1201Qljivzm examination of patientBenjamin Ball Other Start: 83-69-1465Lkfxheqxovcjhv screeningJuan Torres Other Start: 92-11-9741Ooftdwhaz for malignant neoplasm of colonJuan Torres Other Start: 63-87-8924Cqdsotcba for malignant neoplasm of prostateJuan Torres Other Depression screeningJuan Torres Other Plan of Treatment DateCare ActivityDetailAuthorStart: 13-90-0652Qkuqsbxbp for malignant neoplasm of colonColonoscopyUNC Health Rex Holly Springstart: 66-39-9882PerqcfusdHarrison Community Hospitaltart: 17-58-9150Ibeje BMI ScreeningAdult BMI ScreeningUNC Health Rex Holly Springstart: 35-22-9700Wcwccjl ScreeningTobacco ScreeningUNC Health Rex Holly Springstart: 62-78-7836Hdxyy BMI ScreeningAdult BMI ScreeningUNC Health Rex Holly Springstart: 22-71-6873Umdusdk ScreeningTobacco ScreeningSycamore Medical Center Start: 18-10-5419Yjbnawhhn vaccinationInfluenza VaccineSycamore Medical Center Start: 98-75-8383Omyzfikfu vaccinationInfluenza VaccineSycamore Medical Center Start: 64-04-3077Ijsjtxbtj aortic aneurysm screeningAbdominal Aortic Aneurysm (AAA) ScreenUNC Health Rex Holly Springstart: 81-66-8371Ojar Risk ScreeningFall Risk ScreeningUNC Health Rex Holly Springstart: 71-13-3881ZYrL,Tdap and Td Vaccines (1 - Tdap)DTaP,Tdap and Td Vaccines (1 - Tdap)[facility] SystemStart: 00-28-8550Fvahr BMI Follow Up PlanAdult BMI Follow Up PlanUNC Health Rex Holly Springstart: 09-51-3606Qumvuuwofl ScreeningDepression ScreeningUNC Health Rex Holly Springstart: 06-27-1953Medicare Annual Wellness VisitMedicare Annual Wellness VisitSycamore Medical CenterComprehensive metabolic 2000 panel - Serum or Plasma [facility] SystemComprehensive metabolic 2000 panel - Serum or PlasmaUniversity Hospitals Health SystemFibrin D-dimer [Presence] in Platelet poor plasma by Latex agglutinationUniversity Hospitals Health SystemUS Heart TransthoracicUniversity Hospitals Health SystemXR Chest 2 ViewsHCA [facility] Immunizations Immunization DateImmunizationNotesCare SuiytttmWumxxefg59-03-9574hmuxvh vaccine, liveBenjaclive Brian Other [facility]03-16-2020 pneumococcal polysaccharide vaccine, 23 valentBenjamin Ball Other [facility]02-15-2019 pneumococcal conjugate vaccine, 13 valentBenjamin Ball Other [facility] Systempneumococcal Conjugate, unspecified formulation; Translations: [Need for prophylactic vaccination against Streptococcus pneumoniae (pneumococcus)]Juan Torres Other [facility] Other Payers DatePayer CategoryPayerPolicy [id number] [id number] Managed Care - POSAETNA [id number] Health Insurance AETNA AETNA POS II [id number] 1998-Present [phone] [address] [place] [id number] Health [id number] [id number] [id number] 2.16.840.1.128660.3.57[id number] 2.16.840.1.400916.3.57[id number] 2.16.840.1.623004.3.57[id number] 2.16.840.1.576552.3.57[id number] 2.16.840.1.061043.3.579.2.1286Private Health [id number] [id number] 2.16.840.1.095439.3.579.2.531 Social History DateTypeDetailFacilityStart: 06-23-2020 End: 31-84-6730Xmk Assigned At [facility] HengZhi Other Tobacco smoking status NHISUnknown if ever smoked [facility] Work Phone: Start: 12-16-2014 End: 61-11-2909EnkIiib (finding)[facility] Hospitaltart: 88-18-7935Sqm Assigned At [facility] Medical Centertart: 67-68-1521Edciufl smoking status NHISEx-smokerProAcmc Healthcare System [facility] End: 49-13-4364Rwhmrwq of tobacco useCurrent smokerProMedica Health System End: 17-17-9771Rdteajn of tobacco useCigarette SmokerProMedica Health System Start: 06-23-2020 End: 72-49-6101Eyzskrlcsb smoked current (pack per day) - Reported1.5PTouro InfirmaryLocalocracytart: 11-08-9462Qrvbqxc use and exposureSmokeless tobacco non-user [facility]Near Infinitytart: 04-19-2023 End: 79-66-7242Zjbuauu intakeEx-drinker (finding)[facility] CenterLee SilberHousing InstabilityUnknownPTouro InfirmaryLocalocracytart: 50-78-2072Izr Assigned At Not on fileCopley HospitalCladwell [facility] Equipment Procedure CodeEquipment CodeEquipment Original TextEquipment IdentifierDatesMesh Plstr Clgn Symbotex 15cm 2 Sd Comp 3d Babsr Flm Srg - Sna - [id number] Start: 04-30-2023 Clinical Notes 11-19-2022 to 02-23-2025 Note Date & HgbvRfflWxyruuhl60-66-4886 NoteCardiothoracic Surgery Consultation Note 02/23/2025 Reason For [...] long. 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 Eyes: (more content not included)...[facility] 02-18-2025 NotePatient: Maddy Su Procedure Information Date/Time: 02/18/25 1130 Procedures: Coronary angiography (Left) - PC APPROVED Right heart cath (Right) - with CAN Aortogram [facility]: [facility] NURSE PRACTITIONER 3 / [facility] (Cath) Providers: Ashley Bowie MD [...] discussed with attending and fellow. 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 In interim will [...] Follow up in about 6 weeks (around 03/17/2025).[facility]08-27-2025 Evaluation note* Diagnosis Onset Date Resolution Status Admit Date Chest pain acuteAugust 2024 2:05pmDyspneaacuteAugust 2024 2:05pmFamily history of coronary arteriosclerosisacuteAugust 2024 2:05pmHypercholesterolemia acuteAugust 2024 2:05pmHypertensionacuteAugust 2024 2:05pmOSA (obstructive sleep apnea)acuteAugust 2024 2:05pmPalpitationsacuteAugust 2024 2:05pmSystolic murmur of aortaacuteAugust 2024 2:05pm 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 While intending to generate a timely document that accurately reflects the content of the visit, no guarantee can be provided that every grammatical or spelling mistake has been or will be identified or corrected. Thank you for your understanding. JUAN Chavez 05/14/23 1359 JUAN Chavez 06/10/23 1432 documented in this encounterSycamore Medical Center01-02-2024 History of Present illness Narrative* [...] post hernia repair [Z98.890, Z87.19] JUAN CHAVEZ [facility] General Surgery [facility] This note was created with the assistance of a speech recognition program. While intending to generate a timely document that accurately reflects the content of the visit, no guarantee can be provided that every grammatical or spelling mistake has been or will be identified or corrected. Thank you for your understanding. JUAN Chavez 05/14/23 1359 documented in this encounterSycamore Medical Center12-15-2023 Evaluation note* Encounter Date Diagnosis [...] without gangrene (ICD-10 - K42.9)Scheduled for repair. [employer] Other [id number] Miscellaneous Notes* Telephone Encounter - ROBERT Mccoy [...] for a medical clearance. documented in this encounterSycamore Medical Center12-08-2023 Telephone encounter Note* Telephone Encounter - ROBERT Mccoy - 04/19/2023 1:37 PM EST I tried to call Mell however the voicemail is full. [facility]12-08-2023 Telephone encounter Note* Telephone Encounter [...] was emailed to PAT at the hospital. [facility]12-08-2023 Telephone encounter Note* Telephone Encounter - ROBERT Mccoy - 04/19/2023 1:37 PM EST Mell called into the office to say that Maddy has an appointment on [address] Torres for a medical clearance. [facility]11-15-2023 Evaluation note* Encounter Date Diagnosis Assessment Notes Treatment Notes Treatment Clinical Notes Mar, Wellness examination (ICD-10 - Z 00.00) Healthy diet and exercise. Reviewed age-appropriate preventive testing recommended. Mar,OSA (obstructive sleep apnea) (ICD-10 - G47.33)This patient is aware of the benefits associated with DANIA: With continued use, the patient reduces the risk for VT, CVA, HTN, cardiac dysrhythmias and sudden cardiac [...] antigen) (ICD-10 - Z12.5)Yearly NAHID and PSA [employer] Other 07-10-2023 Evaluation note* Encounter Date Diagnosis Assessment Notes Treatment Notes Treatment Clinical Notes Nov, DANIA (obstructive sleep apnea) (I CD-10 - G47.33) This patient is aware of the benefits associated with DANIA: With continued use, the patient reduces the risk for VT, CVA, HTN, cardiac dysrhythmias and sudden cardiac [...] index [BMI] 34.0-34.9, adult (ICD-10 - Z68.34) [employer] Other Evaluation noteNo InformationNort HengZhi Other Evaluation note* Diagnosis Onset Date Resolution Status Admit Date GERD (gastroesophageal reflux disease) acuteJanuary 2024 10:25amHypercholesterolemiaacuteJanuary 2024 10:25am HypertensionacuteJanuary 2024 10:25amObesityacuteJanuary 2024 10:25am DANIA (obstructive sleep apnea)acuteJanuary 2024 10:25amRhinitis medicamentosaacuteJanuary 2024 10:25amScreening PSA (prostate specific antigen)acuteJanuary 2024 10:25am [facility] Work Phone: Evaluation note* Diagnosis Status post hernia repair- Primary Other postprocedural status documented in this encounter [facility] SystemEvaluation note* Diagnosis Status post hernia repair- Primary Other postprocedural status documented in this encounter [facility] SystemEvaluation note* Diagnosis Onset Date Resolution Status Admit Date Dyspnea acuteAugust 2024 2:05pmHypertensionacuteAugust 2024 2:05pm [facility] Work Phone: History general Narrative - Reported* Type Description Date Medical History Cigarette nicotine dependence in remission Medical HistoryObstructive sleep apneaMedical HistoryBarrett's esophagus determined by endoscopyMedical HistoryGERD without esophagitisMedical History Chronic nonseasonal allergic rhinitis due to pollenMedical HistoryEssential hypertensionMedical HistoryHyperlipidemia type IIMedical HistoryAcute prostatitisMedical HistoryBenign prostatic hyperplasia with lower urinary tract symptomsMedical HistoryAortic valve sclerosisSurgical HistoryEGD2Surgical HistoryColonoscopy06/27/22Surgical HistoryCardiac CatheterizationHospitalization Historysee surgical history [employer] Other History general Narrative - Reported* Type Description Date Medical History Cigarette nicotine dependence in remission Medical HistoryObstructive sleep apneaMedical HistoryBarrett's esophagus determined by endoscopyMedical HistoryGERD without esophagitisMedical History Chronic nonseasonal allergic rhinitis due to pollenMedical HistoryEssential hypertensionMedical HistoryHyperlipidemia type IIMedical HistoryBenign prostatic hyperplasia with lower urinary tract symptomsMedical HistoryAortic valve sclerosisSurgical HistoryEGD2/15/Surgical HistoryColonoscopy2/Surgical HistoryCardiac CatheterizationHospitalization Historysee surgical history [employer] Other History general Narrative - Reported* Type Description Date Medical History Cigarette nicotine dependence in remission Medical HistoryObstructive sleep apneaMedical HistoryBarrett's esophagus determined by endoscopyMedical HistoryGERD without esophagitisMedical History Chronic nonseasonal allergic rhinitis due to pollenMedical HistoryEssential hypertensionMedical HistoryHyperlipidemia type IIMedical HistoryBenign prostatic hyperplasia with lower urinary tract symptomsMedical HistoryAortic valve sclerosisSurgical HistoryEGD2//Surgical HistoryColonoscopy06/27/22Surgical HistoryCardiac CatheterizationSurgical HistoryUmbilical hernia skpgyp31/2023 Hospitalization Historysee surgical history [employer] Other InstructionsNot on filedocumented in this encounter [facility] SystemInstructionsNot on filedocumented in this encounter [facility] SystemReason for referral (narrative)No reason for referral information availableBethesda North Hospital Work Phone: Summary Purpose Family History No [...] section and content) DATE CREATED AUTHOR 07/04/2022 [facility] DATE CREATED AUTHOR AUTHOR'S ORGANIZ ATION 06/13/2023 [facility] DATE CREATED AUTHOR AUTHOR'S ORGANIZ ATION 01/31/2025 [facility] DATE CREATED AUTHOR AUTHOR'S ORGANIZ ATION 03/01/2025 [facility] REASON FOR VISIT (unrecogniz ed section and content) ReasonCommentsPOST-OP VISITPOST OP VENTRAL/UMBILICAL HERNIA PERFORMED 04/30/23 AT PMHReasonCommentsFollow-up6 WEEK FOLLOW UP POST UMBILICAL HERNIA REPAIR, PERFORMED ON 04/30/23 AT [facility] Care Teams (unrecognized sec tion and content) Team Status: Active Member Role Status Dates Juan Torres DO Primary Care Provider Active Team Status: Inactive Member Role Status Dates Juan Torres DO Primary Care Provide r, Attending Provider Active Start: May 21, 2024 End: May 21, 2024Team MemberRelationshipSpecialtyStart DateEnd Date Juan Torres DO [address] [place] [address] PCP - GeneralUnited States Air Force [facility] Clinicnal Medicine05/21/22Team MemberRelationshipSpecialtyStart Date End Date Juan Torres DO [address] [place] [id number] PCP - GeneralInternal Medicine05/21/22 Team Status: Inactive [...] BE BASED ON THE PRIMARY CLINICAL RECORDS. [facility] [employer] [facility]. provides no warranty or guarantee of the accuracy or completeness of information in this document.
== END 2025-03-03 11:16 | disposition home or self-care (01) ==
LOC: CARD 11:15
PROVIDERS: PCP Internal Medicine; Visit Provider Thoracic Surgery (Cardiothoracic Vascular Surgery)
DX: Z01.818 Encounter for other preprocedural examination (principal); I71.9 Aortic aneurysm of unspecified site, without rupture; I35.1 Nonrheumatic aortic (valve) insufficiency; R06.02 Shortness of breath; I70.0 Atherosclerosis of aorta; N28.1 Cyst of kidney, acquired; N20.0 Calculus of kidney
CPT/HCPCS: 74176; 94010; 94729